=== PATIENT | male | born 1940 | race American Indian/Alaskan Native ===

== ENCOUNTER 2017-05-30 09:25 | Day surgery (SDC) | payer MEDICARE ==
[2017-05-25 13:18] VITALS: BMI 32.3
--- NOTE | 2017-05-30 10:18 | CP.SDSHP ---
Same Day Surgery H & P - History Proposed Procedure: liver Bx. Pre-Op Diagnosis: liver masses ,hx of prostat cancer. - Previous Medical/Surgical History Cardiac: Hypertension, ASHD/CAD Endocrine/Metabolic: Obesity, Renal Disease Neuro: Backaches Previous Surgical History: cystoscopy,cardiac cathleft nephrectomy. - Allergies Allergies: Allergies No Known Allergies Allergy (Verified 03/20/17 21:28) - Physical Exam General Appearance: WNL. Vital Signs: Vital Signs 05/30/17 09:45 Temperature 97.5 F L Pulse Rate 75 Respiratory 18 Rate Blood Pressure 177/98 H O2 Sat by Pulse 97 Oximetry Mental Status: Alert & Oriented x3 Neuro: WNL Heart: WNL Lungs: WNL GI: Other (DISTENDED ABDOMEN.) - {Optional Preform as Required} Other Pertinent Findings: prostat cancer,hyperlipidemia. - Impression Impression: liver masses hx of prostat cancer. - Date & Time Date: 05/30/17 Time: 10:18 Short Stay Discharge - Short Stay Discharge Admitting Diagnosis/Reason for Visit: LIVER LESION K76.89 Disposition: HOME/ ROUTINE
[2017-05-30] MEDS ORDERED: Midazolam 2 MG/2 ML VIAL ONE (12:52)
[2017-05-30] MEDS ORDERED: Oxycodone/Acetaminophen 5/325 mg Tab PO PRN (13:24)
[2017-05-30] MEDS ORDERED: Sodium Chloride 0.45% 1,000 ML IV SCH (13:30)
[2017-05-30] MEDS ORDERED: Oxycodone/Acetaminophen 5/325 mg Tab ONE (13:44)
[2017-05-30] MEDS ORDERED: Oxycodone/Acetaminophen 5/325 mg Tab PO ONE (13:45)
[2017-05-30 14:25] VITALS: RESP 18
[2017-05-30 14:43] VITALS: TEMP 98.7
[2017-05-30 15:55] VITALS: BP 158/78; PULSE 83; O2SAT 95
--- NOTE | 2017-05-30 20:12 | CT ---
PROCEDURE: CT guided liver biopsy. HISTORY: Renal cell carcinoma. Prostate carcinoma. Diffuse metastatic disease in the liver. Needs biopsy. PHYSICIAN(S): Shantanu Adkins MD. TECHNIQUE: The relative risks and indications of the procedure were explained to the patient and consent obtained. The patient was placed supine on the CT scanner and preliminary images through the liver obtained. Conscious sedation and monitoring were provided throughout the procedure by a nurse. There are confluent low-attenuation lesions in both lobes of the liver.. A right oblique approach was selected and the area prepped and draped in the usual sterile fashion. 1% Xylocaine was used to anesthetize the skin and soft tissues. A 17-gauge guiding needle was advanced into the anterior segment right lobe of the liver.. Its position was confirmed with CT. Using coaxial technique, multiple core biopsies were obtained. The postprocedure images show no evidence of significant hemorrhage. IMPRESSION: 1. CT-guided liver biopsy as described above.
== END 2017-05-30 16:09 | disposition home or self-care (01) ==
LOC: SDS 09:25
PROVIDERS: ATTEND Radiology Vascular & Interventional Radiology
DX: C78.7 Secondary malignant neoplasm of liver and intrahepatic bile duct (principal); I10 Essential (primary) hypertension; I25.10 Atherosclerotic heart disease of native coronary artery without angina pectoris; E66.9 Obesity, unspecified; N28.9 Disorder of kidney and ureter, unspecified; M54.9 Dorsalgia, unspecified; Z90.5 Acquired absence of kidney; E78.5 Hyperlipidemia, unspecified; Z85.46 Personal history of malignant neoplasm of prostate; Z85.528 Personal history of other malignant neoplasm of kidney
CPT/HCPCS: 47000; 77012; 88307; J2250; J2405; J3010; J7030

== ENCOUNTER 2017-06-12 16:47 | Observation (INO) | payer MEDICARE, OTHER ==
[2017-06-12 16:56] VITALS: BMI 31.1
[2017-06-12] MEDS ORDERED: Morphine 4 mg/ml ISec IVP STA (17:56)
--- NOTE | 2017-06-12 18:14 | ED PDOC ---
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 Patient states that for the past three weeks he has been having back pain and abdominal pain which has progressively been getting worse. Patient's friend is at bedside and she states that when she came to see him yesterday, his legs were swollen and he was not acting himself. Pt has been having n/v/d at home, but denies constipation. He further admits to recently having a cough. Finally, pt states that he straight caths himself, and also admits to mild hematuria. (Stalin Ellis) Past Medical History - Provider Review Nursing Documentation Reviewed: Yes - Travel History Have you recently traveled outside [place] w/in the past 3 mons?: No - Infectious Disease Hx of Infectious Diseases: None - Reproductive Currently : No - Cardiac Hx Hypertension: Yes Hx Pacemaker: No - Pulmonary Hx Respiratory Disorders: No - Neurological Hx Paralysis: No - HEENT Hx HEENT Disorder: Yes Hx Cataracts: Yes (LEFT IOL) - Endocrine/Metabolic Hx Endocrine Disorders: No - Hematological/Oncological Hx Blood Transfusions: No Hx Cancer: Yes (Prostate CA) - Integumentary Hx Dermatological Disorder: No - Musculoskeletal/Rheumatological Hx Musculoskeletal Disorders: Yes - Gastrointestinal Hx Gastrointestinal Disorders: Yes Hx Gastroesophageal Reflux: Yes (Takes Prevacid PRN. Last taken a month ago.) - Genitourinary/Gynecological Hx Genitourinary Disorders: Yes Hx Incontinence: Yes Hx Prostate Cancer: Yes Hx Prostate Problems: Yes Other/Comment: "Urine flow, not good" - Psychiatric Hx Emotional Abuse: No Hx Physical Abuse: No Hx Substance Use: No - Surgical History Hx Appendectomy: Yes - Anesthesia Hx Anesthesia: Yes Hx Anesthesia Reactions: No Hx Malignant Hyperthermia: No - Suicidal Assessment Feels Threatened In Home Enviroment: No Family/Social History Family/Social History: Hypertension Smoking Status: Never Smoked Hx Alcohol Use: No Hx Substance Use: No Allergies/Home Meds Allergies/Adverse Reactions: Allergies No Known Allergies Allergy (Verified 03/20/17 21:28) Home Medications: Home Meds Medication Instructions Recorded Confirmed Metoprolol Tartrate [Lopressor] 50 mg PO DAILY 11/08/16 06/12/17 Simvastatin 10 mg PO DAILY 11/08/16 06/12/17 Megestrol [Megace] 40 mg PO DAILY 03/20/17 06/12/17 Acetaminophen with Codeine 1 tab PO Q4H PRN 05/25/17 06/12/17 [Tylenol with Codeine #3 Tablet] Aspirin [Lo-Dose Aspirin EC] 81 mg PO DAILY 05/25/17 06/12/17 oxyCODONE [oxyCONTIN Extended 10 mg PO Q8H PRN 05/25/17 06/12/17 Release Tab] Prednisone [Deltasone] 1 tab PO DAILY 06/12/17 06/12/17 oxyCODONE/Acetaminophen [Percocet 1 tab PO DAILY 06/12/17 06/12/17 5/325 mg Tab] Review of Systems - Physician Review All systems were reviewed & negative as marked: Yes - Review of Systems Constitutional: Weight Change Eyes: Normal ENT: Normal Respiratory: SOB, Cough Cardiovascular: Chest Pain, LOVE Gastrointestinal: Abdominal Pain, Diarrhea, Nausea, Vomiting Genitourinary Male: Hematuria. absent: Dysuria, Frequency (Patient straight caths himself) Musculoskeletal: Normal Skin: Normal Neurological: Headache. absent: Dizziness, Focal Weakness, Gait Changes Endocrine: Normal Hemo/Lymphatic: Normal Psychiatric: Normal Physical Exam Vital Signs Reviewed: Yes Temperature: Afebrile Blood Pressure: Hypertensive Pulse: Regular Respiratory Rate: Normal Appearance: Positive for: Well-Appearing, Non-Toxic, Comfortable Pain Distress: None Mental Status: Positive for: Alert and Oriented X 3 - Systems Exam Head: Present: Atraumatic, Normocephalic. No: Tenderness Pupils: Present: PERRL. No: Sluggish, Non-Reactive, Pinpoint Extroacular Muscles: Present: EOMI. No: Gaze Palsy, Entrapment Conjunctiva: Present: Icteric Ears: Present: NORMAL TM, Normal Canal. No: TM Bulging Mouth: Present: Moist Mucous Membranes Nose (External): Present: Atraumatic. No: Contusion, Laceration Nose (Internal): Present: Normal Inspection. No: Rhinorrhea Neck: Present: Normal Range of Motion. No: MIDLINE TENDERNESS Respiratory/Chest: Present: Clear to Auscultation. No: Respiratory Distress, Accessory Muscle Use Cardiovascular: Present: Regular Rate and Rhythm, Normal S1, S2. No: Murmurs Abdomen: Present: Tenderness, Distention, Normal Bowel Sounds. No: Peritoneal Signs, Rebound, Guarding (RUQ distention, rigidity, tenderness; not a surgical abdomen, though) Genitourinary Male: Present: Circumcised Penis. No: Testicle Tenderness, Testicle Swelling Back: Present: Normal Inspection, CVA Tenderness, Paraspinal Tenderness. No: Pain with Leg Raise, Decubitus Ulcer Upper Extremity: Present: Normal Inspection. No: Cyanosis, Edema Lower Extremity: Present: Edema, CALF TENDERNESS, NORMAL PULSES, Normal ROM. No : Cyanosis Neurological: Present: GCS=15, CN II-XII Intact. No: Speech Normal (Pt's speech is a little sluggish) Skin: Present: Warm, Normal Color Psychiatric: Present: Alert, Oriented x 3, Normal Insight, Normal Concentration Medical Decision Making ED Course and Treatment: 06/12/17 18:31 Impression: 6 M w PMHx significant for metastatic prostate cancer to the liver and kidneys s /p nephrectomy, HTN, and HLD presents with complaint of RUQ abdominal pain, right sided back pain, headache, and LE swelling and pain. Suspicion of Hepatorenal disease causing ascites. Plan: -- Ammonia, CBC, CMP -- CT w/o Contrast of Abdomen -- B/l LE Venous Doppler -- VBG Shock Panel -- Mg/phos -- CXR -- Cardiac ISO's -- Morphine -- BNP -- -- --Reassess Prior Visits: Notes and results from previous visits were reviewed. (Stalin Ellis) 06/12/17 19:03 76 yo male c/o abdominal pain for several weeks associated with right back pain , headcahe and lower extremity swelling. r/o Ascites, Hepatorenal failure -- labs -- CXR, EKG -- CT abd/pelv -- LE sonos -- reeval and dispo Signed out to Dr. Mario to f/u labs, UA, CT, CXR, Sonos, Reeevaluate and disposition (Gabo Toth) - Lab Interpretations Lab Results: 06/12/17 18:05 06/12/17 18:05 Lab Results 06/12/17 18:57: pO2 32, VBG pH 7.26 L, VBG pCO2 51.0, VBG HCO3 22.9, VBG Total CO2 24.5, VBG O2 Sat (Calc) 52.5, VBG Base Excess -4.6 L, VBG Potassium 5.7 H, Glucose 95, Lactate 3.4 H, FiO2 21.0, Sodium 140.0, Chloride 105.0, Venous Blood Potassium 5.7 H 06/12/17 18:05: Sodium 143, Potassium 4.8, Chloride 105, Carbon Dioxide 22, Anion Gap 21 H, BUN 27 H, Creatinine 1.5 H, Est GFR ( Amer) 55, Est GFR ( Non-Af Amer) 46, Random Glucose 92, Calcium 10.6 H, Phosphorus 3.4, Magnesium 2.4 H, Total Bilirubin 4.4 H, AST 289 H, ALT 189 H, Alkaline Phosphatase 575 H, Lactate Dehydrogenase 3305 H, Total Creatine Kinase 462 H, CK-MB (CK-2) Pending , CK-MB (CK-2) % Pending, Troponin I Pending, NT-Pro-B Natriuret Pep Pending, Total Protein 8.1, Albumin 4.2, Globulin 4.0, Albumin/Globulin Ratio 1.1 06/12/17 18:05: WBC 9.0, RBC 3.89, Hgb 12.0 L, Hct 35.4 L, MCV 91.0, MCH 30.8, MCHC 33.9, RDW 16.4 H, Plt Count 263, MPV 11.4 H, Gran % 86.4 H, Lymph % (Auto) 6.8 L, [place] % (Auto) 6.6 H, Eos % (Auto) 0.1 L, Baso % (Auto) 0.1, Gran # 7.76 H , Lymph # 0.6 L, [place] # 0.6, Eos # 0.0, Baso # 0.01 - RAD Interpretation Radiology Orders: 06/12/17 17:56 DUPLEX LOWER EXTRM VEIN BILAT [US] Stat 06/12/17 18:01 ABDOMEN W/O CONTRAST [CT] Stat 06/12/17 18:28 CHEST PORTABLE [RAD] Stat - Medication Orders Current Medication Orders: Discontinued Medications Docusate Sodium (Colace) 100 mg PO STAT STA Stop: 06/12/17 17:57 Last Admin: 06/12/17 18:24 Dose: 100 mg Morphine Sulfate (Morphine) 4 mg IVP STAT STA Stop: 06/12/17 17:57 Last Admin: 06/12/17 18:24 Dose: 4 mg Disposition/Present on Arrival - Present on Arrival Any Indicators Present on Arrival: No History of DVT/PE: No History of Uncontrolled Diabetes: No Urinary Catheter: No History of Decub. Ulcer: No History Surgical Site Infection Following: None - Disposition Have Diagnosis and Disposition been Completed?: No Disposition Time: 19:02 - Disposition Diagnosis: Abdominal pain Condition: GUARDED Forms: mobintent ([place])
[2017-06-12 18:34] LABS: BASO # 0.01 K/mm3 (0.0-2.0); BASO % 0.1 % (0.0-3.0); EOS % 0.1 % (1.5-5.0); GRAN # 7.76 (1.4-6.5); GRAN % 86.4 % (50.0-68.0); HEMATOCRIT 35.4 % (42.0-52.0); LYMPH # 0.6 (1.2-3.4); LYMPH % 6.8 % (22.0-35.0); MEAN CORPUSCULAR HEMOGLOBIN 30.8 pg (25.0-35.0); MEAN CORPUSCULAR HGB CONC 33.9 g/dl (31.0-37.0); MEAN PLATELET VOLUME 11.4 fl (7.0-11.0); MONO # 0.6 (0.1-0.6); MONO % 6.6 % (1.0-6.0); RED CELL DISTRIBUTION WIDTH 16.4 % (11.5-14.5)
[2017-06-12 18:42] LABS: BLOOD UREA NITROGEN 27 mg/dL (7-21); CALCIUM 10.6 mg/dL (8.4-10.5); CARBON DIOXIDE 22 mmol/L (21-33); CHLORIDE 105 mmol/L (98-107); PHOSPHOROUS 3.4 mg/dL (2.5-4.5)
[2017-06-12 18:49] LABS: ALB/GLOB RATIO 1.1 (1.1-1.8); ALKALINE PHOSPHATASE 575 U/L (38-133); ALT/SGPT 189 U/L (7-56); AST/SGOT 289 U/L (15-59); BILIRUBIN,TOTAL 4.4 mg/dL (0.2-1.3); GFR AFRICAN-AMERICAN 55; GLUCOSE,RANDOM 92 mg/dL (70-110); MAGNESIUM 2.4 mg/dL (1.7-2.2); POTASSIUM 4.8 mmol/L (3.6-5.0); SODIUM 143 mmol/L (132-148); TOTAL PROTEIN 8.1 g/dL (5.8-8.3)
[2017-06-12 19:00] LABS: VENOUS BLOOD GAS BASE EXCESS -4.6 mmol/L (0.0-2.0); VENOUS BLOOD PH 7.26 (7.32-7.43)
[2017-06-12 19:07] LABS: TROPONIN I < 0.01 ng/mL
--- NOTE | 2017-06-12 20:11 | US ---
HISTORY: Leg pain and swelling. Evaluate for DVT PHYSICIAN(S): Shantanu Adkins MD. TECHNIQUE: Duplex sonography and color-flow Doppler with graded compression were used to evaluate the deep venous systems of both lower extremities. FINDINGS: The visualized deep venous systems of both lower extremities are sonographically normal and compressible. Normal wave forms and augmentation are seen. There is no sonographic evidence for deep venous thrombosis in the visualized segments of both lower extremities. IMPRESSION: No sonographic evidence for deep venous thrombosis in the visualized segments of both lower extremities.
--- NOTE | 2017-06-12 21:24 | CT ---
EXAM: CT Abdomen and Pelvis Without Intravenous Contrast EXAM DATE/TIME: 06/12/2017 6:01 PM CLINICAL HISTORY: 76 years old, male; Pain; Abdominal pain; Acute; Additional info: Ruq distention and pain TECHNIQUE: Axial computed tomography images of the abdomen and pelvis without intravenous contrast. All CT scans at this facility use one or more dose reduction techniques, viz.: automated exposure control; ma/kV adjustment per patient size (including targeted exams where dose is matched to indication; i.e. head); or iterative reconstruction technique. Coronal and sagittal reformatted images were created and reviewed. COMPARISON: CT GUIDED LIVER BIOPSY 05/30/2017 1:04:19 PM FINDINGS: LOWER THORAX: Emphysematous changes in the lung bases. ABDOMEN: LIVER: Cirrhotic appearance of the liver. Diffusely heterogeneous appearance of the liver on this unenhanced exam, suspicious for multiple indeterminate liver lesions. 3 small low density lesions in the liver. The largest of these, located in the medial segment of the left lobe, measures 1.8 cm. Most likely, these represent cysts. GALLBLADDER AND BILE DUCTS:No CT evidence of acute cholecystitis. No evidence of significant biliary ductal dilatation. No evidence of significant pericholecystic inflammatory changes. No radioopaque gallstones are seen. PANCREAS: Scattered, tiny pancreatic calcifications, which may be related to chronic pancreatitis. No CT evidence of acute pancreatitis. No evidence peripancreatic fluid collections. SPLEEN: 4.4 cm fluid density/cystic lesion in the spleen. This is smooth, peripherally calcified margins. There appear to be 2, adjacent smaller cysts, similar in appearance, also with smooth, peripherally calcified margins, the larger measuring 1.6 cm. No evidence of internal soft tissue components. Spleen is normal in size. ADRENALS: No acute abnormality of the adrenal glands identified. KIDNEYS AND URETERS: Right kidney is not seen, and is presumably surgically absent. No acute abnormality of the left kidney identified. STOMACH AND BOWEL: No acute abnormality of the stomach, small bowel or colon identified. No evidence of bowel obstruction. APPENDIX: Normal appendix is not seen, however, there are no significant inflammatory changes visualized in the expected location of the appendix to suggest appendicitis. Recommend clinical correlation. PELVIS: BLADDER: Mild bladder wall thickening. Air in the bladder lumen, presumably iatrogenic. Recommend clinical correlation. REPRODUCTIVE: Brachytherapy seeds noted in the prostate gland. ABDOMEN and PELVIS: INTRAPERITONEAL SPACE: Small amount of pelvic free fluid. This has a density compatible with simple fluid rather than hemorrhage. Faint high density material in the gallbladder, which could represent sludge. Small amount of pericholecystic fluid, most likely related to the generalized abdominal free fluid. Small amount of abdominal free fluid, abutting the liver. No evidence of free air. No evidence of significant hemoperitoneum.. RETROPERITONEAL SPACE: Small amount of diffuse fluid in the retroperitoneal space, primarily in the pelvis. No evidence of retroperitoneal hemorrhage. BONES/JOINTS: 4 cm focal area of sclerosis in the right iliac wing medially. Additional 1.6 cm focal area of sclerosis in the right ischium, image 155/series 2, involving the posterior wall of right acetabulum. There is also diffuse sclerosis of the L4 vertebra. Findings are suspicious for sclerotic bone metastases. No acute fractures or other acute bony abnormality visualized. SOFT TISSUES: Mild edema of the periumbilical soft tissues. No evidence of focal soft tissue fluid collection. VASCULATURE: No evidence of abdominal aortic aneurysm. No evidence of periaortic hemorrhage. LYMPH NODES: No evidence of diffuse lymphadenopathy. IMPRESSION: - Small amount pelvic and abdominal free fluid. - Small amount of diffuse retroperitoneal fluid, with no evidence of retroperitoneal hemorrhage. - Bladder wall thickening. This is a nonspecific finding, but can be seen with cystitis. - Otherwise, no evidence of significant acute process. - Heterogeneous appearance of the liver on this unenhanced exam, suspicious for diffuse indeterminate liver lesions, such as liver metastases. Liver is cirrhotic in appearance. - Sclerotic bony lesions, suspicious for sclerotic bony metastases. - Multiple peripherally calcified, well defined splenic cysts, the largest measuring 4.4 cm. Most likely, these are post traumatic in etiology. Hydatid cysts are considered less likely, but not excluded. - See above for remaining findings.
[2017-06-12 22:06] LABS: VENOUS BLOOD GAS BASE EXCESS -6.9 mmol/L (0.0-2.0); VENOUS BLOOD PH 7.29 (7.32-7.43)
--- NOTE | 2017-06-12 22:06 | ED PDOC ---
Physical Exam Vital Signs Temp Pulse Resp BP Pulse Ox 06/12/17 16:57 97.7 F 85 18 145/93 H 96 Medical Decision Making ED Course and Treatment: 06/13/17 01:16 case d/w dr mendoza accepts case medical office assistant notified - Lab Interpretations Lab Results: 06/12/17 18:05 06/12/17 18:05 Lab Results 06/12/17 18:57: pO2 32, VBG pH 7.26 L, VBG pCO2 51.0, VBG HCO3 22.9, VBG Total CO2 24.5, VBG O2 Sat (Calc) 52.5, VBG Base Excess -4.6 L, VBG Potassium 5.7 H, Glucose 95, Lactate 3.4 H, FiO2 21.0, Sodium 140.0, Chloride 105.0, Venous Blood Potassium 5.7 H 06/12/17 18:05: Sodium 143, Potassium 4.8, Chloride 105, Carbon Dioxide 22, Anion Gap 21 H, BUN 27 H, Creatinine 1.5 H, Est GFR ( Amer) 55, Est GFR ( Non-Af Amer) 46, Random Glucose 92, Calcium 10.6 H, Phosphorus 3.4, Magnesium 2.4 H, Total Bilirubin 4.4 H, AST 289 H, ALT 189 H, Alkaline Phosphatase 575 H, Lactate Dehydrogenase 3305 H, Total Creatine Kinase 462 H, CK-MB (CK-2) 1.6, CK- MB (CK-2) % Cancelled, Troponin I < 0.01, NT-Pro-B Natriuret Pep 403, Total Protein 8.1, Albumin 4.2, Globulin 4.0, Albumin/Globulin Ratio 1.1 06/12/17 18:05: WBC 9.0, RBC 3.89, Hgb 12.0 L, Hct 35.4 L, MCV 91.0, MCH 30.8, MCHC 33.9, RDW 16.4 H, Plt Count 263, MPV 11.4 H, Gran % 86.4 H, Lymph % (Auto) 6.8 L, [place] % (Auto) 6.6 H, Eos % (Auto) 0.1 L, Baso % (Auto) 0.1, Gran # 7.76 H , Lymph # 0.6 L, [place] # 0.6, Eos # 0.0, Baso # 0.01 - RAD Interpretation Radiology Orders: 06/12/17 17:56 DUPLEX LOWER EXTRM VEIN BILAT [US] Stat 06/12/17 18:01 ABD & PELVIS W/O PO OR IV CONT [CT] Stat 06/12/17 18:28 CHEST ONE VIEW [RAD] Stat - Medication Orders Current Medication Orders: Discontinued Medications Docusate Sodium (Colace) 100 mg PO STAT STA Stop: 06/12/17 17:57 Last Admin: 06/12/17 18:24 Dose: 100 mg Morphine Sulfate (Morphine) 4 mg IVP STAT STA Stop: 06/12/17 17:57 Last Admin: 06/12/17 18:24 Dose: 4 mg Disposition/Present on Arrival - Present on Arrival Any Indicators Present on Arrival: No History of DVT/PE: No History of Uncontrolled Diabetes: No Urinary Catheter: No History of Decub. Ulcer: No History Surgical Site Infection Following: None - Disposition Have Diagnosis and Disposition been Completed?: Yes Diagnosis: Abdominal pain Disposition: HOSPITALIZED Disposition Time: 22:00 Patient Problems: Current Active Problems Problem Status Onset Abdominal pain Acute Condition: GUARDED
[2017-06-12] MEDS ORDERED: Sodium Chloride 0.9% 1,000 ML IV SCH (22:15)
[2017-06-13] MEDS ORDERED: Sodium Chloride 0.9% 1,000 ML IV SCH (00:40)
[2017-06-13] MEDS ORDERED: Pantoprazole 40 mg EC Tab PO STA (01:04)
--- NOTE | 2017-06-13 02:24 | CP.PCM.HP ---
Addendum entered and electronically signed by Jake Melton DO 06/13/17 14:07: Patient's doctors office contacted. Patient is not taking prednisone so will d/ c at this time. Look for s/sxs of adrenal insufficiency. New medication list is updated. PMD: Ata Dumont [phone] Patients Specialists are as follows: Dr. Darius Zurita Urologist Original Note: <Darius Triplett - Last Filed: 06/13/17 10:06> History of Present Illness - History of Present Illness History of Present Illness: Darius Triplett PGY1 H&P Note for Dr. Montalvo Mr. Velasco is a 76 year old male with significant PMH for prostate CA with mets to liver and kidney, R nephrectomy, HTN, and HLD, who reports a 3 week history of worsening R sided abdominal pain wrapping around to the back that has been constant and sharp in nature, currently rated 8/10. Patient is a poor historian. Patient additionally reports 2-3 day history of nausea, vomiting, and mild diarrhea, and states that when he tries to swallow water, it comes back up. Pt additionally notes that he has had diffuse body aches, swelling to both legs (R>L), subjective fevers and chills and dyspnea. He states that he had cold symptoms a few days ago, but none since. He denies blurry vision, runny nose, chest pain, palpitations, hematemsis, hematochezia and headache. Pt is poor historian, but 10-point ROS was reviewed and significant as mentioned above. PMH: prostate CA with mets to the liver and kidney, HTN, HLD PSH: R nephrectomy (pt was unsure about which kidney was removed) Meds: Percocet, Deltasone, Lopressor, ASA, Oxycontin, Simvastatin, Megace, Tylenol #3 Allergies: NKDA Family hx: HTN Social hx: - denies smoking, EtOH, or recreational drugs - lives alone - uses walker for assistance Oncologist: pt states [address] but unsure of name Present on Admission - Present on Admission Any Indicators Present on Admission: No History of DVT/PE: No History of Uncontrolled Diabetes: No Review of Systems - Review of Systems Systems not reviewed;Unavailable: Other (pt is poor historian ) All systems: reviewed and no additional remarkable complaints except (as per HPI ) Past Patient History - Infectious Disease Hx of Infectious Diseases: None - Past Medical History & Family History Past Medical History?: Yes - Past Social History Smoking Status: Never Smoked Alcohol: None Drugs: Denies - CARDIAC Hx Cardiac Disorders: Yes Hx Hypertension: Yes Hx Pacemaker: No - PULMONARY Hx Respiratory Disorders: No - NEUROLOGICAL Hx Neurological Disorder: No Hx Paralysis: No - HEENT Hx HEENT Problems: Yes Hx Cataracts: Yes (LEFT IOL) - RENAL Hx Chronic Kidney Disease: No - ENDOCRINE/METABOLIC Hx Endocrine Disorders: No - HEMATOLOGICAL/ONCOLOGICAL Hx Blood Transfusions: No Hx Cancer: Yes (Prostate CA w/ mets to liver and kidney) - INTEGUMENTARY Hx Dermatological Problems: No - MUSCULOSKELETAL/RHEUMATOLOGICAL Hx Musculoskeletal Disorders: No - GENITOURINARY/GYNECOLOGICAL Hx Genitourinary Disorders: Yes Hx Prostate Cancer: Yes Hx Prostate Problems: Yes - PSYCHIATRIC Hx Emotional Abuse: No Hx Physical Abuse: No Hx Substance Use: No - ANESTHESIA Hx Anesthesia: Yes Hx Anesthesia Reactions: No Hx Malignant Hyperthermia: No Meds Allergies/Adverse Reactions: Allergies Allergy/AdvReac Type Severity Reaction Status Date / Time No Known Allergies Allergy Verified 06/29/17 14:06 Physical Exam - Constitutional Appears: Well, No Acute Distress - Head Exam Head Exam: ATRAUMATIC, NORMAL INSPECTION, NORMOCEPHALIC - Eye Exam Eye Exam: EOMI, PERRL, Scleral icterus - ENT Exam ENT Exam: Mucous Membranes Dry Additional comments: +oral thrush, +dark discoloration of tongue - Respiratory Exam Respiratory Exam: Clear to Auscultation Bilateral, NORMAL BREATHING PATTERN. absent: Accessory Muscle Use, Rales, Rhonchi, Wheezes, Respiratory Distress - Cardiovascular Exam Cardiovascular Exam: RRR, +S1, +S2 - GI/Abdominal Exam GI & Abdominal Exam: Firm, Hypoactive Bowel Sounds, Soft, Tenderness (RLQ and RUQ ). absent: Guarding, Rebound, Rigid Additional comments: midline suprapubic scar and RLQ incision scar - Extremities Exam Extremities exam: Positive for: pedal edema (2+), pedal pulses present. Negative for: calf tenderness, tenderness Additional comments: RLE subjective pain but not tender to palpation - Back Exam Back exam: NORMAL INSPECTION. absent: CVA tenderness (L), CVA tenderness (R), tenderness - Neurological Exam Neurological exam: Alert, Oriented x3 - Psychiatric Exam Psychiatric exam: Anxious, Normal Affect, Normal Mood - Skin Skin Exam: Normal Color, Warm Results - Vital Signs Recent Vital Signs: Last Vital Signs Temp 97.7 F 06/12/17 16:57 Pulse 78 06/12/17 23:14 Resp 18 06/12/17 23:14 BP 162/85 H 06/12/17 23:14 Pulse Ox 98 06/12/17 23:14 - Labs Result Diagrams: 06/12/17 18:05 06/12/17 18:05 Labs: Laboratory Results - last 24 hr 06/12/17 22:25 Ammonia < 9 L Assessment & Plan - Assessment and Plan (Free Text) Assessment: 76 year old male with significant PMH for prostate CA with mets to liver and kidney, R nephrectomy, HTN, and HLD, who reports 3 week history of worsening R sided abdominal pain. In ED, pt was given morphine for the pain but still complained of pain. Plan: 1. Abdominal/back pain likely due to liver mets - CT abdomen/pelvis showed 3 low density heterogenous lesions in liver (largest 1.8cm), scattered pancreatic calcifications (likely chronic pancreatitis), 4.4cm cystic lesion, absent R kidney, pelvic and abdominal free fluid, bladder wall thickening, focal areas of sclerosis in ischium and vertebrae likely due to bone mets - pain mgmt: cont home meds oxyocodone and percocet - zofran prn n/v - started on puree diet, monitor if tolerating 2. Prostate Ca w/ mets - bladder scan ordered; post-void residual 233cc communicated by nurse to PGY1 public relations analyst - ballesteros catheter to be placed - attempt to contact Oncologist and find out accurate Onc hx - megace for appetite enhancement 3. transaminitis likely 2/2 liver mets - monitor LFT's - avoid hepatotoxic meds 4. Lactic acidosis likely 2/2 malignancy - trending down from 3.4 to 2.6 with fluids - pH improved from 7.26 to 7.29 - continue hydration 5. discolored tongue likely 2/2 oral thrush - nystatin oral suspension 6. elevated Cr likely due to kidney mets and s/p nephrectomy - stable since 2015 - maintain NS 100 for hydration - ballesteros in place - avoid nephrotoxins 7. HTN -continue lopressor 8. HLD - continue lipitor Renal diet PTX/heparin Patient was evaluated and d/w attending, Dr. Katia Triplett PGY1 - Date & Time Date: 06/13/17 Time: 01:00 <Guillaume Montalvo - Last Filed: 07/27/17 16:45> Results - Vital Signs Recent Vital Signs: Last Vital Signs Temp 98.7 F 06/15/17 08:27 Pulse 74 06/15/17 17:52 Resp 20 06/15/17 08:27 BP 148/94 H 06/15/17 17:52 Pulse Ox 95 06/15/17 08:27 - Labs Result Diagrams: 06/15/17 05:50 06/15/17 05:50 Attending/Attestation - Attestation I have personally seen and examined this patient.: Yes I have fully participated in the care of the patient.: Yes I have reviewed all pertinent clinical information: Yes Notes (Text): 07/27/17 16:44 Medical record note made by the resident after discussion with my direction and input after the patient was personally seen and examined by me. I have reviewed the chart and agree that the record accurately reflects by personal performance of the history, physical exam, data review, and medical decision-making, in the course for the patient. I have also personally directed the plan of care.
[2017-06-13 07:57] LABS: INR 1.39 (0.93-1.08); PARTIAL THROMBOPLASTIN TIME 31.3 Seconds (23.7-30.8)
--- NOTE | 2017-06-13 08:00 | RAD ---
PROCEDURE: CHEST RADIOGRAPH, 1 VIEW HISTORY: sob COMPARISON: None available. FINDINGS: LUNGS: Rare diaphragm appears elevated. Obscuring the medial right hemidiaphragm margins is suggested which may be a function of limited atelectasis or infiltrate here. No left-sided infiltrate is identified. PLEURA: No pneumothorax or pleural fluid seen. CARDIOVASCULAR: Borderline cardiomegaly is noted OSSEOUS STRUCTURES: No significant abnormalities. VISUALIZED UPPER ABDOMEN: Normal. OTHER FINDINGS: None. IMPRESSION: Borderline cardiomegaly. No pulmonary vascular derangement however. Elevated right hemidiaphragm. Medial right basilar atelectasis or infiltrate. Likely correlate
[2017-06-13 09:58] LABS: VENOUS BLOOD GAS BASE EXCESS -5.9 mmol/L (0.0-2.0)
[2017-06-13 10:07] LABS: BILIRUBIN,DIRECT 3.3 mg/dL (0.0-0.4)
[2017-06-13 10:21] LABS: TROPONIN I < 0.01 ng/mL
[2017-06-13] MEDS: Oxycodone/Acetaminophen 5/325 mg Tab PO SCH (11:53)
[2017-06-13] MEDS: Nystatin 100,000 Units/ml Oral Susp 5 ml UD PO SCH ×4 (12:05→21:24)
[2017-06-13] MEDS: Sodium Chloride 0.9% 1,000 ML IV SCH ×2 (12:05→15:11)
--- NOTE | 2017-06-13 12:27 | CARD ---
APPROVED REPORT EKG Measurement Heart [id number] <Conclusion> Normal sinus rhythm T wave abnormality, consider anterior ischemia Abnormal ECG
--- NOTE | 2017-06-13 13:19 | CT ---
PROCEDURE: CT HEAD WITHOUT CONTRAST. HISTORY: ?ams, hx metastatic ca COMPARISON: None available. TECHNIQUE: Axial computed tomography images were obtained through the head/brain without intravenous contrast. Radiation dose: Total exam DLP = 758 mGy-cm. This CT exam was performed using one or more of the following dose reduction techniques: Automated exposure control, adjustment of the mA and/or kV according to patient size, and/or use of iterative reconstruction technique. FINDINGS: HEMORRHAGE: No intracranial hemorrhage. BRAIN: No mass effect or edema. No atrophy or chronic microvascular ischemic changes. VENTRICLES: Unremarkable. No hydrocephalus. CALVARIUM: Unremarkable. PARANASAL SINUSES: Unremarkable as visualized. No significant inflammatory changes. MASTOID AIR CELLS: Unremarkable as visualized. No inflammatory changes. OTHER FINDINGS: None. IMPRESSION: No acute fine
[2017-06-13] MEDS: POLYETHYLENE GLYCOL 3350 17 GM/Dose PACKET PO SCH (15:09)
[2017-06-13] MEDS: oxyCODONE 10 mg Immediate Release Tab PO PRN (15:10)
[2017-06-13 21:52] LABS: TESTOSTERONE 13.4 ng/mL
[2017-06-14] MEDS: Sodium Chloride 0.9% 1,000 ML IV SCH ×2 (00:38→10:14)
[2017-06-14 02:51] LABS: VENOUS BLOOD GAS BASE EXCESS -4.8 mmol/L (0.0-2.0); VENOUS BLOOD PH 7.37 (7.32-7.43)
[2017-06-14] MEDS: Pantoprazole 40 mg EC Tab PO SCH (05:01)
[2017-06-14 07:59] LABS: HEMATOCRIT 33.9 % (42.0-52.0); MEAN CELL VOLUME 90.9 fl (80.0-105.0); MEAN CORPUSCULAR HEMOGLOBIN 30.6 pg (25.0-35.0); MEAN CORPUSCULAR HGB CONC 33.6 g/dl (31.0-37.0); RED CELL DISTRIBUTION WIDTH 16.9 % (11.5-14.5); WHITE BLOOD COUNT 9.6 10^3/ul (4.5-11.0)
[2017-06-14 08:23] LABS: BILIRUBIN,TOTAL 4.4 mg/dL (0.2-1.3); CALCIUM 9.9 mg/dL (8.4-10.5); POTASSIUM 4.2 mmol/L (3.6-5.0); TOTAL PROTEIN 7.5 g/dL (5.8-8.3)
[2017-06-14 08:45] LABS: THYROID STIMULATING HORMONE 1.19 mIU/mL (0.46-4.68)
[2017-06-14 08:50] LABS: VENOUS BLOOD GAS BASE EXCESS -5.4 mmol/L (0.0-2.0); VENOUS BLOOD PH 7.31 (7.32-7.43)
[2017-06-14] MEDS: Oxycodone/Acetaminophen 5/325 mg Tab PO SCH (10:02)
[2017-06-14] MEDS: POLYETHYLENE GLYCOL 3350 17 GM/Dose PACKET PO SCH (10:03)
--- NOTE | 2017-06-14 11:44 | CP.PCM.CON ---
History of Present Illness - History of Present Illness History of Present Illness: Palliative consult requested by Clarissa Mijares Reason: Goals of care/advance care planning 76 year old male with history of advanced prostate cancer who presented with intractable pain in RUQ abdomen and right flank area.He also reported headache and lower extremity swelling. Patient also admits to having intermittent nausea, vomiting and cough for the past few weeks. CT chest/Ab/Pel. showed small amount of abdominal free fluid, small diffuse retroperitoneal fluid no evidence of hemorrhage, heterogeneous appearance of liver suspicious for metastatic lesions , sclerotic bony lesions, multiple calcified splenic cysts. CT of head was negative. US of lower extremities negative for DVT. PMHx: gouty arthropathy, metastatic prostate cancer, renal cancer s/p right nephrectomy,HTN,HLD. Social History: Former smoker,denies alcohol or drug abuse. States he is not . Family History: Unknown Advance Care Planning: the patient does not have an Advanced Directive Review of Systems: As per HPI, all other systems reviewed and are found negative Past Patient History - Infectious Disease Hx of Infectious Diseases: None - Past Medical History & Family History Past Medical History?: Yes - Past Social History Smoking Status: Never Smoked Alcohol: None Drugs: Denies - CARDIAC Hx Cardiac Disorders: Yes Hx Hypertension: Yes Hx Pacemaker: No - PULMONARY Hx Respiratory Disorders: No - NEUROLOGICAL Hx Neurological Disorder: No Hx Paralysis: No - HEENT Hx HEENT Problems: Yes Hx Cataracts: Yes (LEFT IOL) - RENAL Hx Chronic Kidney Disease: No - ENDOCRINE/METABOLIC Hx Endocrine Disorders: No - HEMATOLOGICAL/ONCOLOGICAL Hx Blood Transfusions: No Hx Cancer: Yes (Prostate CA w/ mets to liver and kidney) - INTEGUMENTARY Hx Dermatological Problems: No - MUSCULOSKELETAL/RHEUMATOLOGICAL Hx Musculoskeletal Disorders: No - GASTROINTESTINAL Hx Gastroesophageal Reflux: Yes - GENITOURINARY/GYNECOLOGICAL Hx Genitourinary Disorders: Yes Hx Prostate Cancer: Yes Hx Prostate Problems: Yes - PSYCHIATRIC Hx Emotional Abuse: No Hx Physical Abuse: No Hx Substance Use: No - SURGICAL HISTORY Hx Appendectomy: Yes - ANESTHESIA Hx Anesthesia: Yes Hx Anesthesia Reactions: No Hx Malignant Hyperthermia: No Meds Allergies/Adverse Reactions: Allergies Allergy/AdvReac Type Severity Reaction Status Date / Time No Known Allergies Allergy Verified 03/20/17 21:28 - Medications Medications: Current Medications Aspirin (Ecotrin) 81 mg PO DAILY [facility] Last Admin: 06/14/17 10:02 Dose: 81 mg Docusate Sodium (Colace) 100 mg PO TID [facility] Last Admin: 06/14/17 10:02 Dose: 100 mg Heparin Sodium (Porcine) (Heparin) 5,000 units SC Q12 [facility] PRN Reason: Protocol Last Admin: 06/14/17 10:02 Dose: 5,000 units Sodium Chloride (Sodium Chloride 0.9%) 1,000 mls @ 100 mls/hr IV .Q10H [facility] Last Admin: 06/14/17 10:14 Dose: 100 mls/hr Megestrol Acetate (Megace) 40 mg PO BID [facility] Last Admin: 06/14/17 10:02 Dose: 40 mg Metoprolol Tartrate (Lopressor) 50 mg PO BID [facility] Last Admin: 06/14/17 10:02 Dose: 50 mg Nystatin (Nystatin Oral Susp) 5 ml PO QID [facility] Last Admin: 06/13/17 21:24 Dose: 5 ml Ondansetron HCl (Zofran Inj) 4 mg IVP Q8H PRN PRN Reason: Nausea/Vomiting Oxycodone HCl (Oxycodone Immediate Release Tab) 10 mg PO Q8H PRN PRN Reason: Pain, moderate (4-7) Stop: 06/16/17 00:58 Last Admin: 06/13/17 15:10 Dose: 10 mg Oxycodone/Acetaminophen (Percocet 5/325 Mg Tab) 1 tab PO DAILY [facility] Stop: 06/16/17 10:01 Last Admin: 06/14/17 10:02 Dose: 1 tab Pantoprazole Sodium (Protonix Ec Tab) 40 mg PO 0600 [facility] Last Admin: 06/14/17 05:01 Dose: 40 mg Polyethylene Glycol (Miralax) 17 gm PO DAILY [facility] Last Admin: 06/14/17 10:03 Dose: 17 gm Prednisone (Prednisone Tab) 20 mg PO DAILY [facility] Last Admin: 06/13/17 11:57 Dose: 20 mg Sennosides (Senokot Tab) 8.6 mg PO DAILY [facility] Tamsulosin HCl (Flomax) 0.4 mg PO DAILY [facility] Physical Exam - Constitutional Appears: Chronically Ill - Head Exam Head Exam: NORMAL INSPECTION - Eye Exam Eye Exam: PERRL Additional comments: left IOL - ENT Exam ENT Exam: Mucous Membranes Moist, Normal Oropharynx - Neck Exam Neck exam: Positive for: Normal Inspection Additional comments: no JVD - Respiratory Exam Respiratory Exam: Clear to Auscultation Bilateral, NORMAL BREATHING PATTERN - Cardiovascular Exam Cardiovascular Exam: REGULAR RHYTHM, +S1 - GI/Abdominal Exam GI & Abdominal Exam: Normal Bowel Sounds, Soft Additional comments: RUQ tenderness on palpation - Extremities Exam Extremities exam: Positive for: full ROM, pedal pulses present Additional comments: 1+ bilateral lower extremity edema - Neurological Exam Neurological exam: Alert, Oriented x3 - Skin Skin Exam: Dry, Warm - Additional Findings Additional findings: Palliative performance rating 50% Results - Vital Signs Recent Vital Signs: Last Vital Signs Temp 98.2 F 06/14/17 07:00 Pulse 73 06/14/17 07:00 Resp 20 06/14/17 07:00 BP 166/92 H 06/14/17 07:00 Pulse Ox 96 06/14/17 07:00 - Labs Result Diagrams: 06/14/17 07:40 06/14/17 07:40 Labs: Laboratory Results - last 24 hr 06/13/17 06/13/17 06/14/17 15:40 15:40 02:35 WBC RBC Hgb Hct MCV MCH MCHC RDW Plt Count MPV pO2 92 H 59 H VBG pH 7.40 7.37 VBG pCO2 32.0 L 34.0 L VBG HCO3 19.8 L 19.7 L VBG Total CO2 20.8 L 20.7 L VBG O2 Sat (Calc) 99.4 H 92.8 H VBG Base Excess -4.0 L -4.8 L VBG Potassium 4.3 4.8 Sodium 139.0 140.0 Chloride 108.0 H 109.0 H Glucose 108 98 Lactate 2.5 H 2.5 H FiO2 21.0 21.0 Potassium Carbon Dioxide Anion Gap BUN Creatinine Est GFR ( Amer) Est GFR (Non-Af Amer) Random Glucose Calcium Total Bilirubin AST ALT Alkaline Phosphatase Total Protein Albumin Globulin Albumin/Globulin Ratio CA 125 Antigen 131 H Prostate Specific Ag TSH 3rd Generation Testosterone Level 13.4 Venous Blood Potassium 4.3 4.8 06/14/17 06/14/17 06/14/17 07:40 07:40 07:40 WBC 9.6 RBC 3.73 Hgb 11.4 L Hct 33.9 L MCV 90.9 MCH 30.6 MCHC 33.6 RDW 16.9 H Plt Count 226 MPV 12.0 H pO2 VBG pH VBG pCO2 VBG HCO3 VBG Total CO2 VBG O2 Sat (Calc) VBG Base Excess VBG Potassium Sodium 143 Chloride 109 H Glucose Lactate FiO2 Potassium 4.2 Carbon Dioxide 20 L Anion Gap 18 BUN 24 H Creatinine 1.4 Est GFR ( Amer) 60 Est GFR (Non-Af Amer) 50 Random Glucose 94 Calcium 9.9 Total Bilirubin 4.4 H AST 261 H ALT 183 H Alkaline Phosphatase 480 H Total Protein 7.5 Albumin 3.7 Globulin 3.8 Albumin/Globulin Ratio 1.0 L CA 125 Antigen Prostate Specific Ag 586.0 H TSH 3rd Generation 1.19 Testosterone Level Venous Blood Potassium 06/14/17 07:40 WBC RBC Hgb Hct MCV MCH MCHC RDW Plt Count MPV pO2 40 VBG pH 7.31 L VBG pCO2 41.0 VBG HCO3 20.6 L VBG Total CO2 21.9 L VBG O2 Sat (Calc) 74.6 H VBG Base Excess -5.4 L VBG Potassium Sodium 141.0 Chloride 109.0 H Glucose 96 Lactate 3.1 H FiO2 21.0 Potassium Carbon Dioxide Anion Gap BUN Creatinine Est GFR ( Amer) Est GFR (Non-Af Amer) Random Glucose Calcium Total Bilirubin AST ALT Alkaline Phosphatase Total Protein Albumin Globulin Albumin/Globulin Ratio CA 125 Antigen Prostate Specific Ag TSH 3rd Generation Testosterone Level Venous Blood Potassium Assessment & Plan - Assessment and Plan (Free Text) Assessment: 76 year old male with history of metastatic prostate cancer, renal cancer s/p nephrectomy who was admitted with RUQ abdominal pain/right flank pain and lower extremity swelling. The patient is seen in bed. He is alert and oriented to self and place. He takes a while to respond to questions when asked. He is a poor historian when describing his medical history and treatment. When asked who helps him at home, he shrugs his shoulders. He states he is not but has three daughters, 16 year old twins and an older daughter who is around 46. He says he does not see his older daughter often. The patient does not have an Advanced Directive. When asked about resuscitation wishes he is non committal, states he hasn't given it much thought. He doesn't think he wants CPR/intubation. Encouraged to consider enacting a POLST if he does not want CPR/Intubation so that his wishes can be honored. He states he wants to speak to his daughter first, but doesn't know if she will be coming to visit today. Patient states that he is still experiencing RUQ pain. He just received Oxycodone 10 mg IR Plan: Palliative support,Will continue to discuss goals of care and advance care planning. Pain management: Would start Oxycodone 10 mg ER twice daily scheduled dosing. Continue Oxycodone 10 mg IR every 8 hours as needed for breakthrough pain. Would stop daily scheduled Percocet tablet. Start daily bowel regimen to avoid opioid induced constipation
[2017-06-14] MEDS: Nystatin 100,000 Units/ml Oral Susp 5 ml UD PO SCH ×4 (11:52→22:47)
--- NOTE | 2017-06-14 12:53 | CP.PCM.PN ---
<MeltonJake - Last Filed: 06/14/17 12:49> Subjective - Date & Time of Evaluation Date of Evaluation: 06/14/17 Time of Evaluation: 10:30 - Subjective Subjective: Patient seen and examined at bedside. No acute events overnight. Offers no new complaints at this time. States that abdominal pain has improved since admission into hospital. C/o of mild back discomfort. Denies f/c/cp/sob/n/v/ diarrhea/constipation. Objective - Vital Signs/Intake and Output Vital Signs (last 24 hours): Temp Pulse Resp BP Pulse Ox 98.2 F 73 20 166/92 H 96 06/14/17 07:00 06/14/17 07:00 06/14/17 07:00 06/14/17 07:00 06/14/17 07:00 Intake and Output: 06/14/17 06/14/17 06:59 18:59 Intake Total 2520 Output Total 600 Balance 1920 - Medications Medications: Current Medications Aspirin (Ecotrin) 81 mg PO DAILY [facility] Last Admin: 06/14/17 10:02 Dose: 81 mg Docusate Sodium (Colace) 100 mg PO TID [facility] Last Admin: 06/14/17 10:02 Dose: 100 mg Heparin Sodium (Porcine) (Heparin) 5,000 units SC Q12 [facility] PRN Reason: Protocol Last Admin: 06/14/17 10:02 Dose: 5,000 units Sodium Chloride (Sodium Chloride 0.9%) 1,000 mls @ 100 mls/hr IV .Q10H [facility] Last Admin: 06/14/17 10:14 Dose: 100 mls/hr Megestrol Acetate (Megace) 40 mg PO BID [facility] Last Admin: 06/14/17 10:02 Dose: 40 mg Metoprolol Tartrate (Lopressor) 50 mg PO BID [facility] Last Admin: 06/14/17 10:02 Dose: 50 mg Nystatin (Nystatin Oral Susp) 5 ml PO QID [facility] Last Admin: 06/13/17 21:24 Dose: 5 ml Ondansetron HCl (Zofran Inj) 4 mg IVP Q8H PRN PRN Reason: Nausea/Vomiting Oxycodone HCl (Oxycodone Immediate Release Tab) 10 mg PO Q8H PRN PRN Reason: Pain, moderate (4-7) Stop: 06/16/17 00:58 Last Admin: 06/13/17 15:10 Dose: 10 mg Oxycodone/Acetaminophen (Percocet 5/325 Mg Tab) 1 tab PO DAILY [facility] Stop: 06/16/17 10:01 Last Admin: 06/14/17 10:02 Dose: 1 tab Pantoprazole Sodium (Protonix Ec Tab) 40 mg PO 0600 [facility] Last Admin: 06/14/17 05:01 Dose: 40 mg Polyethylene Glycol (Miralax) 17 gm PO DAILY [facility] Last Admin: 06/14/17 10:03 Dose: 17 gm Prednisone (Prednisone Tab) 20 mg PO DAILY [facility] Last Admin: 06/13/17 11:57 Dose: 20 mg Sennosides (Senokot Tab) 8.6 mg PO DAILY [facility] Tamsulosin HCl (Flomax) 0.4 mg PO DAILY [facility] - Labs Labs: 06/14/17 07:40 06/14/17 07:40 PT 15.0 Seconds (9.9-11.8) H 06/13/17 07:30 INR 1.39 (0.93-1.08) H 06/13/17 07:30 APTT 31.3 Seconds (23.7-30.8) H 06/13/17 07:30 - Additional Findings Additional findings: - Constitutional Appears: Well, No Acute Distress - Head Exam Head Exam: ATRAUMATIC, NORMAL INSPECTION, NORMOCEPHALIC - Eye Exam Eye Exam: EOMI, PERRL, Scleral icterus - ENT Exam ENT Exam: Mucous Membranes Dry Additional comments: - Respiratory Exam Respiratory Exam: Clear to Auscultation Bilateral, NORMAL BREATHING PATTERN. absent: Accessory Muscle Use, Rales, Rhonchi, Wheezes, Respiratory Distress - Cardiovascular Exam Cardiovascular Exam: RRR, +S1, +S2 - GI/Abdominal Exam GI & Abdominal Exam: Firm, Hypoactive Bowel Sounds, Soft, Tenderness (RLQ and RUQ ). absent: Guarding, Rebound, Rigid Additional comments: RLQ incision scar - Exam - Midline suprapubic scar - Ballesteros in place, serosanginuous fluid noted in ballesteros bag - Extremities Exam Extremities exam: Positive for: pedal edema (2+), pedal pulses present. Negative for: calf tenderness, tenderness - Back Exam Back exam: NORMAL INSPECTION. absent: CVA tenderness (L), CVA tenderness (R), tenderness - Neurological Exam Neurological exam: Alert, Oriented x3 - Psychiatric Exam Psychiatric exam: Normal Affect, Normal Mood - Skin Skin Exam: Normal Color, Warm Assessment and Plan - Assessment and Plan (Free Text) Assessment: 76 year old male with significant PMH for prostate CA with mets to liver and kidney, R nephrectomy, HTN, and HLD, who reports 3 week history of worsening R sided abdominal pain. 1. Abdominal/back pain likely due to liver mets - CT abdomen/pelvis showed 3 low density heterogenous lesions in liver (largest 1.8cm), scattered pancreatic calcifications (likely chronic pancreatitis), 4.4cm cystic lesion, absent R kidney, pelvic and abdominal free fluid, bladder wall thickening, focal areas of sclerosis in ischium and vertebrae likely due to bone mets - abdominal pain improved - pain mgmt: cont home meds oxyocodone and percocet, patient also placed on colace, miralax, sennokot, relistor - zofran prn n/v 2. Prostate Ca w/ mets; Hematuria - bladder scan ordered - Await heme/onc consult - ballesteros catheter placed, with serosanginous fluid noted in ballesteros tube and container- urology consult placed, urine culture, flush ballesteros 3. Transaminitis, Hyperbilirubinemia - likely 2/2 liver mets - monitor LFT's - avoid hepatotoxic meds 4. Lactic acidosis - likely 2/2 malignancy - 2.6 to 3.1 today with fluids, IVF increase to 150/hr - pH 7.31 noted from 7.37 - increase hydration 5. Discolored tongue likely 2/2 oral thrush - nystatin oral suspension - improving 6. Elevated Cr likely due to kidney mets and s/p nephrectomy - improved to 1.4 from 1.5 - maintain NS 150 for hydration - ballesteros in place - avoid nephrotoxins 7. HTN - hypertension SBP in 160s-170s noted - continue lopressor - hydralazine PO PRN ordered 8. HLD - continue to hold lipitor Renal diet PTX/heparin Case discussed with and approved by attending physician, Dr. Mijares. <Preet Mijares - Last Filed: 07/11/17 08:01> Objective - Vital Signs/Intake and Output Vital Signs (last 24 hours): Temp Pulse Resp BP Pulse Ox 98.7 F 74 20 148/94 H 95 06/15/17 08:27 06/15/17 17:52 06/15/17 08:27 06/15/17 17:52 06/15/17 08:27 - Labs Labs: 06/15/17 05:50 06/15/17 05:50 PT 15.0 Seconds (9.9-11.8) H 06/13/17 07:30 INR 1.39 (0.93-1.08) H 06/13/17 07:30 APTT 31.3 Seconds (23.7-30.8) H 06/13/17 07:30 Attending/Attestation - Attestation I have personally seen and examined this patient.: Yes I have fully participated in the care of the patient.: Yes I have reviewed all pertinent clinical information, including history, physical exam and plan: Yes Notes (Text): 07/11/17 08:01 Medical record note made by the resident after discussion with my direction and input after patient personally seen and examined by me. The chart accurately reflects my history, physical, data review and plan.
[2017-06-14] MEDS ORDERED: Sodium Chloride 0.9% 1,000 ML IV SCH (13:15)
--- NOTE | 2017-06-14 16:12 | CON ---
ONCOLOGY CONSULTATION HISTORY OF PRESENT ILLNESS: This is a 76-year-old man who has had the metastatic prostate cancer, cigarettes negative, alcohol negative. In 2016, the patient had 2 issues, one was the right nephrectomy for renal cell carcinoma and #2 is prostate cancer for which he was received radiation therapy. His family history is positive for father with prostate cancer and sister with breast cancer. I saw the patient about 3 weeks ago in the office. At that point, he had lost about 20 pounds and was having pain in his right upper quadrant and at that point, we had ordered a CAT PET scan on him on 05/02/2017, which showed positive liver metastasis. The lung basically showed emphysema, but the abdomen showed multiple large mass lesions in the liver within SUV 14 consistent with liver metastasis. He had multiple seeds in his prostate region and there are avid FDG above lesion seen at L4 vertebral body in the right posterior iliac bone consistent with osseus metastasis. So he had liver and L4 and right posterior iliac bone metastases. At that time, we ordered a CAT scan guided biopsy which was done at [facility], which showed metastatic prostate adenocarcinoma in a liver. At that time, on 05/18, his BUN was 17, creatinine 1.6, alk phos was 341 and on this admission, now 3 weeks later, his alk phos is 480. The AST and ALT were 69 at present these are 261 and 183, so he has had marked increased inflammatory changes in his liver and his PSA at that time, on 05/17/2017, was 109. So at this point, now the prostate PSA is 586 from 100. So he has a very rapidly progressive cancer in 3 weeks his PSA went to 100 to 500 and his liver function test which were about 70 and now in the 200 range. His CAT scan at present shows a cirrhosis with multiple lesion in his liver and largest of this being about 1.8, we know this a cancer and his bone where as before he had L4, he now as a 4 cm sclerosis of his right iliac wing and right ischium lesion, right acetabular and L4 sclerosis, so this is a equal to he had 3 weeks ago. He is now admitted for increasing weakness and just progressive cancer within very short period of time in 3 weeks. The back pain is from L4 and if possible we can consider giving him radiation therapy to that area of L4 and to the right pelvis and ischium. Consideration should be given for Lupron and Casodex as well and pain medications to be given. So at this point: 1. Pain control. 2. Consider radiation therapy consultation for palliative treatment to the L4 and right iliac region and consideration should be giving for Lupron and Casodex after the pain is under control. Darius MD Ai
[2017-06-14 16:57] LABS: BASO # 0.01 K/mm3 (0.0-2.0); BASO % 0.1 % (0.0-3.0); EOS % 0.1 % (1.5-5.0); GRAN # 7.03 (1.4-6.5); GRAN % 78.1 % (50.0-68.0); LYMPH # 1.2 (1.2-3.4); MEAN CELL VOLUME 91.1 fl (80.0-105.0); MEAN CORPUSCULAR HEMOGLOBIN 30.5 pg (25.0-35.0); MEAN CORPUSCULAR HGB CONC 33.4 g/dl (31.0-37.0); MEAN PLATELET VOLUME 11.8 fl (7.0-11.0); MONO # 0.8 (0.1-0.6); MONO % 8.7 % (1.0-6.0); RED CELL DISTRIBUTION WIDTH 16.9 % (11.5-14.5)
[2017-06-15 06:13] LABS: VENOUS BLOOD GAS BASE EXCESS -5.5 mmol/L (0.0-2.0)
[2017-06-15 06:17] LABS: MEAN CELL VOLUME 90.9 fl (80.0-105.0); MEAN CORPUSCULAR HEMOGLOBIN 29.8 pg (25.0-35.0); MEAN CORPUSCULAR HGB CONC 32.8 g/dl (31.0-37.0); RED CELL DISTRIBUTION WIDTH 17.3 % (11.5-14.5); WHITE BLOOD COUNT 8.4 10^3/ul (4.5-11.0)
[2017-06-15] MEDS: Pantoprazole 40 mg EC Tab PO SCH (06:56)
[2017-06-15 06:57] LABS: ALB/GLOB RATIO 0.9 (1.1-1.8); ALKALINE PHOSPHATASE 452 U/L (38-126); ALT/SGPT 177 U/L (7-56); AST/SGOT 237 U/L (17-59); BILIRUBIN,TOTAL 4.2 mg/dL (0.2-1.3); BLOOD UREA NITROGEN 20 mg/dL (7-21); CALCIUM 9.6 mg/dL (8.4-10.5); CARBON DIOXIDE 17 mmol/L (21-33); CHLORIDE 113 mmol/L (98-107); GFR AFRICAN-AMERICAN > 60; GLUCOSE,RANDOM 92 mg/dL (70-110); SODIUM 142 mmol/L (132-148); TOTAL PROTEIN 6.6 g/dL (5.8-8.3)
[2017-06-15 08:28] VITALS: RESP 20; TEMP 98.7; O2SAT 95
--- NOTE | 2017-06-15 08:35 | PCM.URO ---
Urology Progress Note - Subjective Hematuria: Yes (cap) - Objective Lab Studies: Reviewed (plans to be discussed and full note to follow) Lab Results Last 24 Hours: Laboratory Results - last 24 hr 06/14/17 06/14/17 06/14/17 07:40 07:40 07:40 WBC RBC Hgb Hct MCV MCH MCHC RDW Plt Count MPV Gran % Lymph % (Auto) Potter % (Auto) Eos % (Auto) Baso % (Auto) Gran # Lymph # Potter # Eos # Baso # pO2 40 VBG pH 7.31 L VBG pCO2 41.0 VBG HCO3 20.6 L VBG Total CO2 21.9 L VBG O2 Sat (Calc) 74.6 H VBG Base Excess -5.4 L VBG Potassium Sodium 141.0 Chloride 109.0 H Glucose 96 Lactate 3.1 H FiO2 21.0 Potassium Carbon Dioxide Anion Gap BUN Creatinine Est GFR ( Amer) Est GFR (Non-Af Amer) Random Glucose Calcium Total Bilirubin AST ALT Alkaline Phosphatase Total Protein Albumin Globulin Albumin/Globulin Ratio Prostate Specific Ag 586.0 H 25-OH Vitamin D Total 28.1 L TSH 3rd Generation 1.19 Venous Blood Potassium 06/14/17 06/15/17 06/15/17 16:48 05:50 05:50 WBC 9.0 8.4 RBC 3.84 3.52 Hgb 11.7 L 10.5 L Hct 35.0 L 32.0 L MCV 91.1 90.9 MCH 30.5 29.8 MCHC 33.4 32.8 RDW 16.9 H 17.3 H Plt Count 206 217 MPV 11.8 H 12.0 H Gran % 78.1 H Lymph % (Auto) 13.0 L Potter % (Auto) 8.7 H Eos % (Auto) 0.1 L Baso % (Auto) 0.1 Gran # 7.03 H Lymph # 1.2 Potter # 0.8 H Eos # 0.0 Baso # 0.01 pO2 VBG pH VBG pCO2 VBG HCO3 VBG Total CO2 VBG O2 Sat (Calc) VBG Base Excess VBG Potassium Sodium 142 Chloride 113 H Glucose Lactate FiO2 Potassium 4.0 Carbon Dioxide 17 L Anion Gap 16 BUN 20 Creatinine 1.2 Est GFR ( Amer) > 60 Est GFR (Non-Af Amer) 59 Random Glucose 92 Calcium 9.6 Total Bilirubin 4.2 H AST 237 H ALT 177 H Alkaline Phosphatase 452 H Total Protein 6.6 Albumin 3.1 Globulin 3.4 Albumin/Globulin Ratio 0.9 L Prostate Specific Ag 25-OH Vitamin D Total TSH 3rd Generation Venous Blood Potassium 06/15/17 05:50 WBC RBC Hgb Hct MCV MCH MCHC RDW Plt Count MPV Gran % Lymph % (Auto) Potter % (Auto) Eos % (Auto) Baso % (Auto) Gran # Lymph # Potter # Eos # Baso # pO2 222 H VBG pH 7.40 VBG pCO2 29.0 L VBG HCO3 18.0 L VBG Total CO2 18.9 L VBG O2 Sat (Calc) 100.4 H VBG Base Excess -5.5 L VBG Potassium 3.8 Sodium 141.0 Chloride 111.0 H Glucose 95 Lactate 2.6 H FiO2 21.0 Potassium Carbon Dioxide Anion Gap BUN Creatinine Est GFR ( Amer) Est GFR (Non-Af Amer) Random Glucose Calcium Total Bilirubin AST ALT Alkaline Phosphatase Total Protein Albumin Globulin Albumin/Globulin Ratio Prostate Specific Ag 25-OH Vitamin D Total TSH 3rd Generation Venous Blood Potassium 3.8 Intake & Output: Intake & Output 06/14/17 06/15/17 06/15/17 18:59 06:59 18:59 Intake Total 360 480 Output Total 300 500 Balance 60 -20 Intake: Oral 360 480 Output: Urine 300 500 Urethral (Lyle) 300 Urine, Voided 500 Other: # Voids Urine, Voided 0 # Bowel Movements 2 Vital Signs: Vital Signs - 24 hr 06/14/17 06/15/17 16:50 08:27 Temperature 97.5 F L 98.7 F Pulse Rate 97 H 70 Respiratory 18 20 Rate Blood Pressure 195/86 H 169/80 H O2 Sat by Pulse 100 95 Oximetry
[2017-06-15] MEDS: POLYETHYLENE GLYCOL 3350 17 GM/Dose PACKET PO SCH (09:19)
[2017-06-15] MEDS: Nystatin 100,000 Units/ml Oral Susp 5 ml UD PO SCH ×3 (09:19→17:53)
[2017-06-15] MEDS ORDERED: oxyCODONE 10 mg ER Tab (oxyCONTIN) PO SCH (10:00)
[2017-06-15] MEDS ORDERED: Sodium Chloride 0.45% 1,000 ML IV SCH (10:00)
[2017-06-15] MEDS ORDERED: cefTRIAXone 1 gm 1 GM/100 ML BAG IVPB SCH (10:00)
--- NOTE | 2017-06-15 10:43 | CP.PCM.CON ---
History of Present Illness - History of Present Illness History of Present Illness: Mr Bradshaw is a 76 year old male with metastatic prostate cancer to the liver and bone. The patient is not a good historian. For the past three weeks, he has been having worsening right back and hip pain as well as right upper quadrant abdominal pain. He has also been having lower extremity swelling. Due to his symptoms, he was admitted to [facility] for further evaluation and management. A CT of the abdomen and pelvis on June 12, 2017 revealed cirrhotic appearance of the liver with multiple liver lesions. There are brachytherapy seeds in the prostate gland. There was a 4cm lesion in the right iliac wing as well as 1.6cm focus in the right ischium and a lesion involving the posterior wall of the right acetabulum. There was a sclerotic lesion at L4. His PSA is currently 586ng/ml. He has been under the care of Dr Zurita, and has been on Lupron therapy. He did have a CT/PET scan on May 02, 2017 which revealed few prominent nodes in the mediastinum as well as multiple lesions in the liver. He also has metastases to the L4 and right posterior iliac bones. He is referred to us for consideration of palliative radiation for control of his bone pain. Review of Systems - Constitutional Constitutional: Weight Loss - Gastrointestinal Gastrointestinal: Constipation - Genitourinary Genitourinary: Difficulty Urinating, Hematuria - Musculoskeletal Musculoskeletal: Back Pain Additional comments: right hip pain Past Patient History - Infectious Disease Hx of Infectious Diseases: None - Past Medical History & Family History Past Medical History?: Yes - Past Social History Smoking Status: Never Smoked Alcohol: None Drugs: Denies - CARDIAC Hx Cardiac Disorders: Yes Hx Hypertension: Yes Hx Pacemaker: No - PULMONARY Hx Respiratory Disorders: No - NEUROLOGICAL Hx Neurological Disorder: No Hx Paralysis: No - HEENT Hx HEENT Problems: Yes Hx Cataracts: Yes (LEFT IOL) - RENAL Hx Chronic Kidney Disease: No - ENDOCRINE/METABOLIC Hx Endocrine Disorders: No - HEMATOLOGICAL/ONCOLOGICAL Hx Blood Transfusions: No Hx Cancer: Yes (Prostate CA w/ mets to liver and bone; h/o renal cancer s/p nephrectomy) - INTEGUMENTARY Hx Dermatological Problems: No - MUSCULOSKELETAL/RHEUMATOLOGICAL Hx Musculoskeletal Disorders: No - GASTROINTESTINAL Hx Gastroesophageal Reflux: Yes - GENITOURINARY/GYNECOLOGICAL Hx Genitourinary Disorders: Yes Hx Prostate Cancer: Yes Hx Prostate Problems: Yes - PSYCHIATRIC Hx Emotional Abuse: No Hx Physical Abuse: No Hx Substance Use: No - SURGICAL HISTORY Hx Appendectomy: Yes - ANESTHESIA Hx Anesthesia: Yes Hx Anesthesia Reactions: No Hx Malignant Hyperthermia: No Meds Allergies/Adverse Reactions: Allergies Allergy/AdvReac Type Severity Reaction Status Date / Time No Known Allergies Allergy Verified 03/20/17 21:28 - Medications Medications: Current Medications Docusate Sodium (Colace) 100 mg PO TID [facility] Last Admin: 06/15/17 09:19 Dose: 100 mg Hydralazine HCl (Apresoline) 25 mg PO Q12 PRN PRN Reason: SBP greater than 180 Sodium Chloride (Sodium Chloride 0.9%) 1,000 mls @ 150 mls/hr IV .Q6H40M [facility] Last Admin: 06/14/17 20:10 Dose: 150 mls/hr Ceftriaxone Sodium (Rocephin 1 Gram Ivpb) 1 gm in 100 mls @ 100 mls/hr IVPB DAILY [facility] PRN Reason: Protocol Sodium Chloride (Sodium Chloride 0.45%) 1,000 mls @ 60 mls/hr IV .[id number] [facility] Megestrol Acetate (Megace) 40 mg PO BID [facility] Last Admin: 06/15/17 09:20 Dose: 40 mg Metoprolol Tartrate (Lopressor) 50 mg PO BID [facility] Last Admin: 06/15/17 09:20 Dose: 50 mg Nystatin (Nystatin Oral Susp) 5 ml PO QID [facility] Last Admin: 06/15/17 09:19 Dose: 5 ml Ondansetron HCl (Zofran Inj) 4 mg IVP Q8H PRN PRN Reason: Nausea/Vomiting Oxycodone HCl (Oxycodone Immediate Release Tab) 10 mg PO Q8H PRN PRN Reason: Pain, moderate (4-7) Stop: 06/16/17 00:58 Last Admin: 06/13/17 15:10 Dose: 10 mg Oxycodone HCl (Oxycontin Extended Release Tab) 10 mg PO Q12 [facility] Stop: 06/18/17 10:01 Last Admin: 06/15/17 09:19 Dose: 10 mg Pantoprazole Sodium (Protonix Ec Tab) 40 mg PO 0600 [facility] Last Admin: 06/15/17 06:56 Dose: 40 mg Polyethylene Glycol (Miralax) 17 gm PO DAILY [facility] Last Admin: 06/15/17 09:19 Dose: 17 gm Prednisone (Prednisone Tab) 20 mg PO DAILY [facility] Last Admin: 06/13/17 11:57 Dose: 20 mg Sennosides (Senokot Tab) 8.6 mg PO DAILY [facility] Last Admin: 06/15/17 09:20 Dose: 8.6 mg Tamsulosin HCl (Flomax) 0.4 mg PO DAILY [facility] Last Admin: 06/15/17 09:19 Dose: 0.4 mg Physical Exam - Head Exam Head Exam: NORMAL INSPECTION - Eye Exam Eye Exam: EOMI, Scleral icterus - ENT Exam ENT Exam: Mucous Membranes Moist - Respiratory Exam Respiratory Exam: Clear to Auscultation Bilateral - Cardiovascular Exam Cardiovascular Exam: REGULAR RHYTHM - GI/Abdominal Exam GI & Abdominal Exam: Firm - Back Exam Additional comments: slight tenderness in the lower back and right hip - Neurological Exam Neurological exam: CN II-XII Intact, Oriented x3 Results - Vital Signs Recent Vital Signs: Last Vital Signs Temp 98.7 F 06/15/17 08:27 Pulse 70 06/15/17 09:20 Resp 20 06/15/17 08:27 BP 169/80 H 06/15/17 09:20 Pulse Ox 95 06/15/17 08:27 - Labs Result Diagrams: 06/15/17 05:50 06/15/17 05:50 Labs: Laboratory Results - last 24 hr 06/14/17 06/14/17 06/15/17 07:40 16:48 05:50 WBC 9.0 8.4 RBC 3.84 3.52 Hgb 11.7 L 10.5 L Hct 35.0 L 32.0 L MCV 91.1 90.9 MCH 30.5 29.8 MCHC 33.4 32.8 RDW 16.9 H 17.3 H Plt Count 206 217 MPV 11.8 H 12.0 H Gran % 78.1 H Lymph % (Auto) 13.0 L Lares % (Auto) 8.7 H Eos % (Auto) 0.1 L Baso % (Auto) 0.1 Gran # 7.03 H Lymph # 1.2 Lares # 0.8 H Eos # 0.0 Baso # 0.01 pO2 VBG pH VBG pCO2 VBG HCO3 VBG Total CO2 VBG O2 Sat (Calc) VBG Base Excess VBG Potassium Sodium Chloride Glucose Lactate FiO2 Potassium Carbon Dioxide Anion Gap BUN Creatinine Est GFR ( Amer) Est GFR (Non-Af Amer) Random Glucose Calcium Total Bilirubin AST ALT Alkaline Phosphatase Total Protein Albumin Globulin Albumin/Globulin Ratio 25-OH Vitamin D Total 28.1 L Venous Blood Potassium 06/15/17 06/15/17 05:50 05:50 WBC RBC Hgb Hct MCV MCH MCHC RDW Plt Count MPV Gran % Lymph % (Auto) Lares % (Auto) Eos % (Auto) Baso % (Auto) Gran # Lymph # Lares # Eos # Baso # pO2 222 H VBG pH 7.40 VBG pCO2 29.0 L VBG HCO3 18.0 L VBG Total CO2 18.9 L VBG O2 Sat (Calc) 100.4 H VBG Base Excess -5.5 L VBG Potassium 3.8 Sodium 142 141.0 Chloride 113 H 111.0 H Glucose 95 Lactate 2.6 H FiO2 21.0 Potassium 4.0 Carbon Dioxide 17 L Anion Gap 16 BUN 20 Creatinine 1.2 Est GFR ( Amer) > 60 Est GFR (Non-Af Amer) 59 Random Glucose 92 Calcium 9.6 Total Bilirubin 4.2 H AST 237 H ALT 177 H Alkaline Phosphatase 452 H Total Protein 6.6 Albumin 3.1 Globulin 3.4 Albumin/Globulin Ratio 0.9 L 25-OH Vitamin D Total Venous Blood Potassium 3.8 Assessment & Plan - Assessment and Plan (Free Text) Assessment: Mr Bradshaw is a 76 year old male with metastatic prostate cancer to the liver and bone. His PSA is currently >500ng/ml. As per the patient, he has been on androgen deprivation therapy with his urologist. 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 With regard to his lower back and right hip pain, this is secondary to his metastatic lesions in the L4 and right pelvis. We would concur that he would benefit from palliative radiation therapy. We spoke to the patient about the risks and benefits of radiation. Informed consent was obtained. We are trying to obtain his old pathology for our records for documentation purposes as well. We are also trying to get records from his urologist. We will begin his treatment as soon as possible. We would agree with optimizing pain control.
--- NOTE | 2017-06-15 12:55 | CP.PCM.PN ---
Subjective - Date & Time of Evaluation Date of Evaluation: 06/15/17 Time of Evaluation: 08:30 - Subjective Subjective: Lethargic, complaining right sided back pain Objective - Vital Signs/Intake and Output Vital Signs (last 24 hours): Temp Pulse Resp BP Pulse Ox 98.7 F 70 20 169/80 H 95 06/15/17 08:27 06/15/17 09:20 06/15/17 08:27 06/15/17 09:20 06/15/17 08:27 Intake and Output: 06/15/17 06/15/17 06:59 18:59 Intake Total 480 Output Total 500 Balance -20 - Medications Medications: Current Medications Docusate Sodium (Colace) 100 mg PO TID [facility] Last Admin: 06/15/17 09:19 Dose: 100 mg Hydralazine HCl (Apresoline) 25 mg PO Q12 PRN PRN Reason: SBP greater than 180 Sodium Chloride (Sodium Chloride 0.9%) 1,000 mls @ 150 mls/hr IV .Q6H40M [facility] Last Admin: 06/14/17 20:10 Dose: 150 mls/hr Ceftriaxone Sodium (Rocephin 1 Gram Ivpb) 1 gm in 100 mls @ 100 mls/hr IVPB DAILY [facility] PRN Reason: Protocol Sodium Chloride (Sodium Chloride 0.45%) 1,000 mls @ 60 mls/hr IV .[id number] [facility] Megestrol Acetate (Megace) 40 mg PO BID [facility] Last Admin: 06/15/17 09:20 Dose: 40 mg Metoprolol Tartrate (Lopressor) 50 mg PO BID [facility] Last Admin: 06/15/17 09:20 Dose: 50 mg Nystatin (Nystatin Oral Susp) 5 ml PO QID [facility] Last Admin: 06/15/17 09:19 Dose: 5 ml Ondansetron HCl (Zofran Inj) 4 mg IVP Q8H PRN PRN Reason: Nausea/Vomiting Oxycodone HCl (Oxycodone Immediate Release Tab) 10 mg PO Q8H PRN PRN Reason: Pain, moderate (4-7) Stop: 06/16/17 00:58 Last Admin: 06/13/17 15:10 Dose: 10 mg Oxycodone HCl (Oxycontin Extended Release Tab) 10 mg PO Q12 [facility] Stop: 06/18/17 10:01 Last Admin: 06/15/17 09:19 Dose: 10 mg Pantoprazole Sodium (Protonix Ec Tab) 40 mg PO 0600 [facility] Last Admin: 06/15/17 06:56 Dose: 40 mg Polyethylene Glycol (Miralax) 17 gm PO DAILY [facility] Last Admin: 06/15/17 09:19 Dose: 17 gm Prednisone (Prednisone Tab) 20 mg PO DAILY [facility] Last Admin: 06/13/17 11:57 Dose: 20 mg Sennosides (Senokot Tab) 8.6 mg PO DAILY [facility] Last Admin: 06/15/17 09:20 Dose: 8.6 mg Tamsulosin HCl (Flomax) 0.4 mg PO DAILY [facility] Last Admin: 06/15/17 09:19 Dose: 0.4 mg - Labs Labs: 06/15/17 05:50 06/15/17 05:50 PT 15.0 Seconds (9.9-11.8) H 06/13/17 07:30 INR 1.39 (0.93-1.08) H 06/13/17 07:30 APTT 31.3 Seconds (23.7-30.8) H 06/13/17 07:30 - Constitutional Appears: Chronically Ill - Eye Exam Eye Exam: PERRL - ENT Exam ENT Exam: Mucous Membranes Moist - Respiratory Exam Respiratory Exam: Decreased Breath Sounds, NORMAL BREATHING PATTERN - Cardiovascular Exam Cardiovascular Exam: REGULAR RHYTHM, +S1, +S2 - GI/Abdominal Exam GI & Abdominal Exam: Soft, Normal Bowel Sounds - Extremities Exam Extremities Exam: Normal Capillary Refill, Pedal Edema - Back Exam Back Exam: vertebral tenderness - Neurological Exam Neurological Exam: Alert, Oriented x3 - Skin Skin Exam: Dry, Warm Assessment and Plan - Assessment and Plan (Free Text) Assessment: 76 year old male with history of metastatic prostate cancer who was admitted with intractable pain of right flank, lower back and abdomen. Recent CT scan showed liver metastasis and lytic lesions in right iliac wing, right ischium and posterior wall of the right acetabulum, there was also a sclerotic lesion at L4. The patient has been referred to radiation oncology for consideration of palliative radiation. The patient states he is willing to receive RT treatment. He is still in a significant amount of pain. He has not discussed resuscitation wishes with his family as of yet. Plan: Oxycodone 10 mg ER twice daily, Oxcycodone 10 mg IR every eight hours as needed for breakthrough pain. Continue bowel regimen Palliative support/Advance Care planning
[2017-06-15 13:07] LABS: VENOUS BLOOD GAS BASE EXCESS -4.9 mmol/L (0.0-2.0); VENOUS BLOOD PH 7.36 (7.32-7.43)
--- NOTE | 2017-06-15 15:57 | CP.PCM.DIS ---
<Jake Melton - Last Filed: 06/15/17 16:17> Provider - Provider Date of Admission: 06/12/17 22:10 Attending physician: Preet Mijares MD Primary care physician: Ata Dumont DO Time Spent in preparation of Discharge (in minutes): 30 Diagnosis - Discharge Diagnosis (1) Prostate cancer metastatic to bone Status: Acute Priority: High (2) Hypertension Status: Acute Priority: Medium (3) Hyperlipidemia Status: Acute Priority: Medium (4) Hematuria Status: Acute Priority: High (5) Urinary retention Status: Acute Priority: High Hospital Course - Lab Results Lab Results: Micro Results 06/13/17 22:00 Urine,Ballesteros Urine Culture - Preliminary Gram Negative Shahab Most Recent Lab Values WBC 8.4 10^3/ul (4.5-11.0) 06/15/17 05:50 RBC 3.52 10^6/uL (3.5-6.1) 06/15/17 05:50 Hgb 10.5 g/dL (14.0-18.0) L 06/15/17 05:50 Hct 32.0 % (42.0-52.0) L 06/15/17 05:50 MCV 90.9 fl (80.0-105.0) 06/15/17 05:50 MCH 29.8 pg (25.0-35.0) 06/15/17 05:50 MCHC 32.8 g/dl (31.0-37.0) 06/15/17 05:50 RDW 17.3 % (11.5-14.5) H 06/15/17 05:50 Plt Count 217 10^3/uL (120.0-450.0) 06/15/17 05:50 MPV 12.0 fl (7.0-11.0) H 06/15/17 05:50 Gran % 78.1 % (50.0-68.0) H 06/14/17 16:48 Lymph % (Auto) 13.0 % (22.0-35.0) L 06/14/17 16:48 [place] % (Auto) 8.7 % (1.0-6.0) H 06/14/17 16:48 Eos % (Auto) 0.1 % (1.5-5.0) L 06/14/17 16:48 Baso % (Auto) 0.1 % (0.0-3.0) 06/14/17 16:48 Gran # 7.03 (1.4-6.5) H 06/14/17 16:48 Lymph # 1.2 (1.2-3.4) 06/14/17 16:48 [place] # 0.8 (0.1-0.6) H 06/14/17 16:48 Eos # 0.0 (0.0-0.7) 06/14/17 16:48 Baso # 0.01 K/mm3 (0.0-2.0) 06/14/17 16:48 PT 15.0 Seconds (9.9-11.8) H 06/13/17 07:30 INR 1.39 (0.93-1.08) H 06/13/17 07:30 APTT 31.3 Seconds (23.7-30.8) H 06/13/17 07:30 pO2 60 mm/Hg (30-55) H 06/15/17 13:00 VBG pH 7.36 (7.32-7.43) 06/15/17 13:00 VBG pCO2 35.0 (40-60) L 06/15/17 13:00 VBG HCO3 19.8 mmol/l (21-28) L 06/15/17 13:00 VBG Total CO2 20.9 mmol.L (22-28) L 06/15/17 13:00 VBG O2 Sat (Calc) 94.1 % (40-65) H 06/15/17 13:00 VBG Base Excess -4.9 mmol/L (0.0-2.0) L 06/15/17 13:00 VBG Potassium 3.9 mmol/L (3.6-5.2) 06/15/17 13:00 Sodium 139.0 mmol/L (132-148) 06/15/17 13:00 Chloride 110.0 mmol/L (98-107) H 06/15/17 13:00 Glucose 91 mg/dl (75-110) 06/15/17 13:00 Lactate 2.1 mmol/L (0.7-2.1) 06/15/17 13:00 FiO2 21.0 % 06/15/17 13:00 Sodium 142 mmol/L (132-148) 06/15/17 05:50 Potassium 4.0 mmol/L (3.6-5.0) 06/15/17 05:50 Chloride 113 mmol/L (98-107) H 06/15/17 05:50 Carbon Dioxide 17 mmol/L (21-33) L 06/15/17 05:50 Anion Gap 16 (10-20) 06/15/17 05:50 BUN 20 mg/dL (7-21) 06/15/17 05:50 Creatinine 1.2 mg/dL (0.5-1.4) 06/15/17 05:50 Est GFR ( Amer) > 60 06/15/17 05:50 Est GFR (Non-Af Amer) 59 06/15/17 05:50 Random Glucose 92 mg/dL (70-110) 06/15/17 05:50 Calcium 9.6 mg/dL (8.4-10.5) 06/15/17 05:50 Phosphorus 3.4 mg/dL (2.5-4.5) 06/12/17 18:05 Magnesium 2.4 mg/dL (1.7-2.2) H 06/12/17 18:05 Total Bilirubin 4.2 mg/dL (0.2-1.3) H 06/15/17 05:50 Direct Bilirubin 3.3 mg/dL (0.0-0.4) H 06/13/17 09:50 AST 237 U/L (17-59) H 06/15/17 05:50 ALT 177 U/L (7-56) H 06/15/17 05:50 Alkaline Phosphatase 452 U/L (38-126) H 06/15/17 05:50 Ammonia < 9 umol/L (9-33) L 06/12/17 22:25 Lactate Dehydrogenase 2885 U/L (333-699) H 06/13/17 09:50 Total Creatine Kinase 387 U/L (35-230) H 06/13/17 09:50 CK-MB (CK-2) 1.1 ng/mL (0.0-3.6) 06/13/17 09:50 CK-MB (CK-2) % Cancelled 06/12/17 18:05 Troponin I < 0.01 ng/mL 06/13/17 09:50 NT-Pro-B Natriuret Pep 403 pg/mL (0-450) 06/12/17 18:05 Total Protein 6.6 g/dL (5.8-8.3) 06/15/17 05:50 Albumin 3.1 g/dL (3.0-4.8) 06/15/17 05:50 Globulin 3.4 gm/dL 06/15/17 05:50 Albumin/Globulin Ratio 0.9 (1.1-1.8) L 06/15/17 05:50 CA 125 Antigen 131 U/mL (0-35) H 06/13/17 15:40 Prostate Specific Ag 586.0 ng/mL (0.00-2.5) H 06/14/17 07:40 25-OH Vitamin D Total 28.1 NG/ML (30.0-100.0) L 06/14/17 07:40 TSH 3rd Generation 1.19 mIU/mL (0.46-4.68) 06/14/17 07:40 Testosterone Level 13.4 ng/mL 06/13/17 15:40 PTH w/Ion &Tot Calcium 69 pg/mL (14-64) H 06/14/17 07:40 Venous Blood Potassium 3.9 mmol/L (3.6-5.2) 06/15/17 13:00 - Hospital Course Hospital Course: Patient is a 76 year old male with significant PMH for prostate CA with mets to liver and kidney, R nephrectomy, HTN, and HLD, who reports 3 week history of worsening R sided abdominal pain. With the use of physical examination, lab work , imaging and consulting physicians including urology, hematology/oncology, radiation oncology and palliative care. Patient was diagnosed and treated for abdominal pain secondary to metastatic prostate cancer to the liver, kidney and bones. Specifically, imaging included a CT of the Abdomen/Pelvis which showed 3 low density heterogenous lesions in liver (largest 1.8cm), scattered pancreatic calcifications (likely chronic pancreatitis) and focal areas of sclerosis in ischium and vertebrae likely due to bone mets. Patient plan includes radiation therapy from [facility]. Dr. Millan (Urology) was consulted for hematuria and blood clots found in the ballesteros catheter and is okay to discharge from a Urological perspective. Patient advised to call PMD or return to Emergency Department for evaluation of fevers, chills, dizziness, chest pain, shortness of breath, abdominal pain, intractable nausea/vomiting, diarrhea, constipation and urinary symptoms including blood in the urine. Patient instructed to follow up with primary medical physician, urology and radiation oncology on an outpatient basis. Patient instructed to take medications as prescribed. Patient is medically stable for discharge to [facility] subacute rehabilitation. As per case management patient s daughter is aware of plan. Patient agrees and understands the discharge plan. Assessment and Plan: 76 year old male with significant PMH for prostate CA with mets to liver and kidney, R nephrectomy, HTN, and HLD, who reports 3 week history of worsening R sided abdominal pain. Abdominal/back pain likely due to liver mets - CT abdomen/pelvis showed 3 low density heterogenous lesions in liver (largest 1.8cm), scattered pancreatic calcifications (likely chronic pancreatitis), 4.4cm cystic lesion, absent R kidney, pelvic and abdominal free fluid, bladder wall thickening, focal areas of sclerosis in ischium and vertebrae likely due to bone mets - abdominal pain improved - pain mgmt: cont home meds oxyocodone and percocet - patient also placed on colace, miralax, sennokot - zofran prn n/v Prostate Ca w/ mets - Radiation oncology consulted plan to start palliative radiation therapy as soon as possible - Dr. South to review pathology report Hematuria - ballesteros catheter placed, with serosanginous fluid noted in ballesteros tube and container - urology consulted, spoke with Dr. Pal Millan no acute intervention from urological standpoint at this moment. Advised to follow up on an out-patient basis -discontinue ballesteros before discharge UTI - start ciprofloxacin outpatient Transaminitis, Hyperbilirubinemia - likely secondary to liver metastasis - follow clinically Lactic acidosis - likely 2/2 malignancy - resolved Elevated Creatinine - resolved HTN - continue lopressor HLD - hold lipitor as LFTs are elevated - consider restarting in outpatient setting Dispo: Medically stable for transfer to [facility]. Discharge Exam - Head Exam Head Exam: NORMAL INSPECTION - Additional Findings Additional findings: - Constitutional Appears: Well, No Acute Distress - Head Exam Head Exam: ATRAUMATIC, NORMAL INSPECTION, NORMOCEPHALIC - Eye Exam Eye Exam: EOMI, PERRL, Scleral icterus - ENT Exam ENT Exam: Mucous Membranes Dry Additional comments: - Respiratory Exam Respiratory Exam: Clear to Auscultation Bilateral, NORMAL BREATHING PATTERN. absent: Accessory Muscle Use, Rales, Rhonchi, Wheezes, Respiratory Distress - Cardiovascular Exam Cardiovascular Exam: RRR, +S1, +S2 - GI/Abdominal Exam GI & Abdominal Exam: Firm, Hypoactive Bowel Sounds, Soft, Tenderness (RLQ and RUQ ). absent: Guarding, Rebound, Rigid Additional comments: RLQ incision scar - Exam - Midline suprapubic scar - Ballesteros in place, serosanginuous fluid noted in ballesteros bag - Extremities Exam Extremities exam: Positive for: pedal pulses present. Negative for: calf tenderness, tenderness - Back Exam Back exam: NORMAL INSPECTION. absent: CVA tenderness (L), CVA tenderness (R), tenderness - Neurological Exam Neurological exam: Alert, Oriented x3 - Psychiatric Exam Psychiatric exam: Normal Affect, Normal Mood - Skin Skin Exam: Normal Color, Warm Discharge Plan - Discharge Medications Prescriptions: Ciprofloxacin [Cipro] 500 mg PO BID #10 tab Docusate [Colace] 100 mg PO TID #90 cap Tamsulosin [Flomax] 0.4 mg PO DAILY #30 cap Polyethylene Glycol 3350 [Miralax] 17 gm PO DAILY #30 packet Pantoprazole [Protonix EC Tab] 40 mg PO 0600 #30 ect Sennosides A and B [Senokot Tab] 8.6 mg PO DAILY #30 tab - Follow Up Plan Condition: GUARDED Disposition: REHAB FACILITY/REHAB UNIT Instructions: Constipation (DC), Constipation (GEN), Prostate Cancer (DC), Ballesteros Catheter Placement and Care (DC), Acute Abdominal Pain (DC), Low Sodium Diet (DC), Hypertension (DC), Fall Prevention (DC) Additional Instructions: Please follow up with PMD, urologist, 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 Please take medications as prescribed. Please call PMD or return to ED for evaluation of fever, chills, chest pain, SOB , abdominal pain, N/V, diarrhea, constipation, and urinary symptoms. . Referrals: Meaghan South MD [Staff Provider] - Darius Cloud MD [Medical Doctor] - Nicholas Parks MD [Staff Provider] - Ata Dumont DO [Primary Care Provider] - <Guero Cross S - Last Filed: 06/15/17 21:27> Provider - Provider Date of Admission: 06/12/17 22:10 Attending physician: Preet Mijares MD Primary care physician: Ata Dumont, [facility] Course - Lab Results Lab Results: Micro Results 06/13/17 22:00 Urine,[place]os Urine Culture - Preliminary Gram Negative Shahab Most Recent Lab Values WBC 8.4 10^3/ul (4.5-11.0) 06/15/17 05:50 RBC 3.52 10^6/uL (3.5-6.1) 06/15/17 05:50 Hgb 10.5 g/dL (14.0-18.0) L 06/15/17 05:50 Hct 32.0 % (42.0-52.0) L 06/15/17 05:50 MCV 90.9 fl (80.0-105.0) 06/15/17 05:50 MCH 29.8 pg (25.0-35.0) 06/15/17 05:50 MCHC 32.8 g/dl (31.0-37.0) 06/15/17 05:50 RDW 17.3 % (11.5-14.5) H 06/15/17 05:50 Plt Count 217 10^3/uL (120.0-450.0) 06/15/17 05:50 MPV 12.0 fl (7.0-11.0) H 06/15/17 05:50 Gran % 78.1 % (50.0-68.0) H 06/14/17 16:48 Lymph % (Auto) 13.0 % (22.0-35.0) L 06/14/17 16:48 [place] % (Auto) 8.7 % (1.0-6.0) H 06/14/17 16:48 Eos % (Auto) 0.1 % (1.5-5.0) L 06/14/17 16:48 Baso % (Auto) 0.1 % (0.0-3.0) 06/14/17 16:48 Gran # 7.03 (1.4-6.5) H 06/14/17 16:48 Lymph # 1.2 (1.2-3.4) 06/14/17 16:48 [place] # 0.8 (0.1-0.6) H 06/14/17 16:48 Eos # 0.0 (0.0-0.7) 06/14/17 16:48 Baso # 0.01 K/mm3 (0.0-2.0) 06/14/17 16:48 PT 15.0 Seconds (9.9-11.8) H 06/13/17 07:30 INR 1.39 (0.93-1.08) H 06/13/17 07:30 APTT 31.3 Seconds (23.7-30.8) H 06/13/17 07:30 pO2 60 mm/Hg (30-55) H 06/15/17 13:00 VBG pH 7.36 (7.32-7.43) 06/15/17 13:00 VBG pCO2 35.0 (40-60) L 06/15/17 13:00 VBG HCO3 19.8 mmol/l (21-28) L 06/15/17 13:00 VBG Total CO2 20.9 mmol.L (22-28) L 06/15/17 13:00 VBG O2 Sat (Calc) 94.1 % (40-65) H 06/15/17 13:00 VBG Base Excess -4.9 mmol/L (0.0-2.0) L 06/15/17 13:00 VBG Potassium 3.9 mmol/L (3.6-5.2) 06/15/17 13:00 Sodium 139.0 mmol/L (132-148) 06/15/17 13:00 Chloride 110.0 mmol/L (98-107) H 06/15/17 13:00 Glucose 91 mg/dl (75-110) 06/15/17 13:00 Lactate 2.1 mmol/L (0.7-2.1) 06/15/17 13:00 FiO2 21.0 % 06/15/17 13:00 Sodium 142 mmol/L (132-148) 06/15/17 05:50 Potassium 4.0 mmol/L (3.6-5.0) 06/15/17 05:50 Chloride 113 mmol/L (98-107) H 06/15/17 05:50 Carbon Dioxide 17 mmol/L (21-33) L 06/15/17 05:50 Anion Gap 16 (10-20) 06/15/17 05:50 BUN 20 mg/dL (7-21) 06/15/17 05:50 Creatinine 1.2 mg/dL (0.5-1.4) 06/15/17 05:50 Est GFR ( Amer) > 60 06/15/17 05:50 Est GFR (Non-Af Amer) 59 06/15/17 05:50 Random Glucose 92 mg/dL (70-110) 06/15/17 05:50 Calcium 9.6 mg/dL (8.4-10.5) 06/15/17 05:50 Phosphorus 3.4 mg/dL (2.5-4.5) 06/12/17 18:05 Magnesium 2.4 mg/dL (1.7-2.2) H 06/12/17 18:05 Total Bilirubin 4.2 mg/dL (0.2-1.3) H 06/15/17 05:50 Direct Bilirubin 3.3 mg/dL (0.0-0.4) H 06/13/17 09:50 AST 237 U/L (17-59) H 06/15/17 05:50 ALT 177 U/L (7-56) H 06/15/17 05:50 Alkaline Phosphatase 452 U/L (38-126) H 06/15/17 05:50 Ammonia < 9 umol/L (9-33) L 06/12/17 22:25 Lactate Dehydrogenase 2885 U/L (333-699) H 06/13/17 09:50 Total Creatine Kinase 387 U/L (35-230) H 06/13/17 09:50 CK-MB (CK-2) 1.1 ng/mL (0.0-3.6) 06/13/17 09:50 CK-MB (CK-2) % Cancelled 06/12/17 18:05 Troponin I < 0.01 ng/mL 06/13/17 09:50 NT-Pro-B Natriuret Pep 403 pg/mL (0-450) 06/12/17 18:05 Total Protein 6.6 g/dL (5.8-8.3) 06/15/17 05:50 Albumin 3.1 g/dL (3.0-4.8) 06/15/17 05:50 Globulin 3.4 gm/dL 06/15/17 05:50 Albumin/Globulin Ratio 0.9 (1.1-1.8) L 06/15/17 05:50 CA 125 Antigen 131 U/mL (0-35) H 06/13/17 15:40 Prostate Specific Ag 586.0 ng/mL (0.00-2.5) H 06/14/17 07:40 25-OH Vitamin D Total 28.1 NG/ML (30.0-100.0) L 06/14/17 07:40 TSH 3rd Generation 1.19 mIU/mL (0.46-4.68) 06/14/17 07:40 Testosterone Level 13.4 ng/mL 06/13/17 15:40 PTH w/Ion &Tot Calcium 69 pg/mL (14-64) H 06/14/17 07:40 Venous Blood Potassium 3.9 mmol/L (3.6-5.2) 06/15/17 13:00 Discharge Exam - Respiratory Exam Additional comments: discussed w/ resident went over d/c plans to follow w/ dr mijares in next 5 days
[2017-06-15] MEDS: oxyCODONE 10 mg Immediate Release Tab PO PRN (17:50)
[2017-06-15 17:58] VITALS: BP 148/94; PULSE 74
--- NOTE | 2017-06-15 19:13 | CON ---
FOLLOWUP CONSULTATION HISTORY OF PRESENT ILLNESS: This is a patient with a past history of over 7 or 8 years ago of renal carcinoma and prostate carcinoma, recently had a biopsy of the liver which shows rapidly progressive cancer in his liver. His bilirubin is now 4.2. His liver function tests are within the 200 range . PSA of 586. He is seen today in bed. PHYSICAL EXAMINATION: SKIN: No petechia. No bruises. HEENT: Shows icterus. NODES: Nonpalpable in axillary, cervical, supraclavicular, inguinal regions. LUNGS: Clear at present. No vertebral tenderness. The patient is able to lie down in his bed without shortness of breath. HEART: S1 and S2. ABDOMEN: Shows increasing distension secondary to ascites that seems to me with some tenderness in his right upper quadrant where the liver is. EXTREMITIES: No edema. CENTRAL NERVOUS SYSTEM: No focal findings. The patient is alert, knows who I am. I told him that the cancer is in the liver that he has progressive disease in his liver. I was considering doing radiation to the hip region, but his liver is failing him rather rapidly. I told him the main object here is to keep him comfortable with pain medications, which I am leaving to the primary care doctors. If he is at some point more stable, we can consider giving him Lupron shots, perhaps Lupron 1 month at present; however, this is not curative and it is very clear he has very rapidly progressive cancer. I think our main object here is to palliative care and consider hospice. Darius Cloud MD
[2017-06-15 23:10] LABS: CALCIUM 9.8 mg/dL (8.6-10.3)
== END 2017-06-15 18:12 ==
LOC: ED 16:47 → ERH 22:10 → INTOOBSV 22:10 → ERH 22:48 → 5RNO 06-13 01:27
PROVIDERS: ADMIT Internal Medicine; ATTEND Internal Medicine
DX: C79.51 Secondary malignant neoplasm of bone (principal); C78.7 Secondary malignant neoplasm of liver and intrahepatic bile duct; E87.2 Acidosis; B37.0 Candidal stomatitis; C79.00 Secondary malignant neoplasm of unspecified kidney and renal pelvis; K74.60 Unspecified cirrhosis of liver; N39.0 Urinary tract infection, site not specified; K86.1 Other chronic pancreatitis; C61 Malignant neoplasm of prostate; E78.5 Hyperlipidemia, unspecified; I10 Essential (primary) hypertension; J43.9 Emphysema, unspecified; K21.9 Gastro-esophageal reflux disease without esophagitis; M10.9 Gout, unspecified; Z79.82 Long term (current) use of aspirin; Z79.899 Other long term (current) drug therapy; Z80.3 Family history of malignant neoplasm of breast; Z80.42 Family history of malignant neoplasm of prostate; Z90.5 Acquired absence of kidney; Z90.49 Acquired absence of other specified parts of digestive tract; Z87.891 Personal history of nicotine dependence; R31.9 Hematuria, unspecified; H26.9 Unspecified cataract; Z98.42 Cataract extraction status, left eye; Z96.1 Presence of intraocular lens; R32 Unspecified urinary incontinence; R40.2412 Glasgow coma scale score 13-15, at arrival to emergency department; R63.4 Abnormal weight loss; K59.00 Constipation, unspecified; R74.0 Nonspecific elevation of levels of transaminase and lactic acid dehydrogenase [LDH]; B96.20 Unspecified Escherichia coli [E. coli] as the cause of diseases classified elsewhere
CPT/HCPCS: 36415; 70450; 71010; 74176; 80053; 82140; 82248; 82306; 82550; 82553; 82803; 83615; 83735; 83880; 84100; 84153; 84403; 84443; 84484; 85025; 85027; 85610; 85730; 86304; 87086; 87181; 93005; 93970; 96374; 97162; 97530; 99285; G0378; G8978; G8979; J0696; J1644; J2212; J2270; J7030; J7040

== ENCOUNTER 2017-06-16 21:42 | Observation (INO) | payer MEDICARE, OTHER ==
[2017-06-16 23:06] LABS: GRAN # 7.49 (1.4-6.5); GRAN % 83.9 % (50.0-68.0); HEMATOCRIT 35.6 % (42.0-52.0); LYMPH # 0.8 (1.2-3.4); LYMPH % 8.8 % (22.0-35.0); MEAN CELL VOLUME 90.1 fl (80.0-105.0); MEAN CORPUSCULAR HEMOGLOBIN 30.4 pg (25.0-35.0); MEAN CORPUSCULAR HGB CONC 33.7 g/dl (31.0-37.0); MEAN PLATELET VOLUME 12.8 fl (7.0-11.0); MONO # 0.7 (0.1-0.6); MONO % 7.3 % (1.0-6.0); RED CELL DISTRIBUTION WIDTH 17.3 % (11.5-14.5); WHITE BLOOD COUNT 8.9 10^3/ul (4.5-11.0)
[2017-06-16 23:14] LABS: BLOOD UREA NITROGEN 19 mg/dL (7-21); CALCIUM 10.1 mg/dL (8.4-10.5); CARBON DIOXIDE 20 mmol/L (21-33); CHLORIDE 109 mmol/L (98-107); GFR AFRICAN-AMERICAN > 60; GLUCOSE,RANDOM 103 mg/dL (70-110); POTASSIUM 4.3 mmol/L (3.6-5.0); SODIUM 141 mmol/L (132-148)
--- NOTE | 2017-06-17 01:55 | CP.PCM.HP ---
<INAKARLEY - Last Filed: 06/17/17 04:33> History of Present Illness - History of Present Illness History of Present Illness: Karley Vo, PGY1, H&P, for Dr Cross: CC: Hematuria [facility] 76[facility] with PMH prostate cancer with mets, chronic ballesteros, HTN, presents for hematuria x 1 day. Pt states that he was diagnosed with a UTI at the nursing rehab, the nurse changed his ballesteros today, with resulting gross hematuria, which caused him to come to the ED. Pt has been having some mild hematuria for some time now, attributing to his prostate cancer, but after the ballesteros insertion, he had much more blood in the urine. Also complains of dysuria, denies f/c/n/v, decreased appetite, poor oral intake , cp, sob, weakness. In ED, pt's ballesteros draining dark bloody urine, found to be at baseline hgb 12, elevated bnp 892. Currently, the hematuria has partially resolved, with ballesteros clearing up, denies sginificant discomfort at the site. PMH: prostate CA with mets to the liver and kidney, HTN, HLD PSH: R nephrectomy (pt was unsure about which kidney was removed) Meds: Percocet, Deltasone, Lopressor, ASA, Oxycontin, Simvastatin, Megace, Tylenol #3 Allergies: NKDA Family hx: HTN Social hx: - denies smoking, EtOH, or recreational drugs [facility] ([facility]) - uses walker for assistance PMD: Ata Dumont [phone] Dr. Darius Cloud: [facility] Dr. Levin: Dr. Zurita: Urologist Present on Admission - Present on Admission Any Indicators Present on Admission: No History of DVT/PE: No History of Uncontrolled Diabetes: No Urinary Catheter: No Decubitus Ulcer Present: No History Surgical Site Infection Following: None Review of Systems - Review of Systems All systems: reviewed and no additional remarkable complaints except Review of Systems: as per HPI Past Patient History - Infectious Disease Hx of Infectious Diseases: None - Past Medical History & Family History Past Medical History?: Yes - Past Social History Smoking Status: Never Smoked - CARDIAC Hx Cardiac Disorders: Yes Hx Hypertension: Yes Hx Pacemaker: No - PULMONARY Hx Respiratory Disorders: No - NEUROLOGICAL Hx Neurological Disorder: No Hx Paralysis: No - HEENT Hx HEENT Problems: Yes Hx Cataracts: Yes (LEFT IOL) - RENAL Hx Chronic Kidney Disease: No - ENDOCRINE/METABOLIC Hx Endocrine Disorders: No - HEMATOLOGICAL/ONCOLOGICAL Hx Blood Transfusions: No Hx Cancer: Yes (Prostate CA w/ mets to liver and bone; h/o renal cancer s/p nephrectomy) - INTEGUMENTARY Hx Dermatological Problems: No - MUSCULOSKELETAL/RHEUMATOLOGICAL Hx Musculoskeletal Disorders: No - GASTROINTESTINAL Hx Gastroesophageal Reflux: Yes - GENITOURINARY/GYNECOLOGICAL Hx Genitourinary Disorders: Yes Hx Prostate Cancer: Yes Hx Prostate Problems: Yes - PSYCHIATRIC Hx Emotional Abuse: No Hx Physical Abuse: No Hx Substance Use: No - SURGICAL HISTORY Hx Appendectomy: Yes - ANESTHESIA Hx Anesthesia: Yes Hx Anesthesia Reactions: No Hx Malignant Hyperthermia: No Meds Allergies/Adverse Reactions: Allergies Allergy/AdvReac Type Severity Reaction Status Date / Time No Known Allergies Allergy Verified 03/20/17 21:28 Physical Exam - Constitutional Appears: Non-toxic, No Acute Distress, Older Than Stated Age, Cachectic - Head Exam Head Exam: ATRAUMATIC, NORMOCEPHALIC - Eye Exam Eye Exam: PERRL - ENT Exam ENT Exam: Mucous Membranes Moist - Neck Exam Neck exam: Negative for: Lymphadenopathy, Thyromegaly - Respiratory Exam Respiratory Exam: Clear to Auscultation Bilateral, NORMAL BREATHING PATTERN. absent: Rales, Rhonchi, Wheezes - Cardiovascular Exam Cardiovascular Exam: RRR, +S1, +S2. absent: Systolic Murmur - GI/Abdominal Exam GI & Abdominal Exam: Normal Bowel Sounds, Soft, Tenderness - Extremities Exam Extremities exam: Positive for: pedal edema. Negative for: calf tenderness, pedal pulses present - Neurological Exam Neurological exam: Alert, Oriented x3 - Psychiatric Exam Psychiatric exam: Normal Affect, Normal Mood - Skin Skin Exam: Normal Color, Warm Results - Vital Signs Recent Vital Signs: Last Vital Signs Temp 97.7 F 06/16/17 21:45 Pulse 94 H 06/17/17 01:42 Resp 18 06/17/17 01:42 BP 135/80 06/17/17 01:42 Pulse Ox 97 06/17/17 01:42 - Labs Result Diagrams: 06/16/17 22:45 06/16/17 22:45 Assessment & Plan - Assessment and Plan (Free Text) Assessment: 76M with PMH prostate cancer, HTN, presents for hematuria 2/2 likely traumatic ballesteros insertion vs medication SE Bicalutamide. Plan: Hematuria: - 2/2 likely traumatic ballesteros insertion vs medication SE Bicalutamide - Hgb 12 (baseline 11.4). - Pt's urine now clearing up than in ED, less blood noted; Will do continuous irrigation of bladder. - F/u urology c/s recs - F/u UA - Hold antineoplatic Bicalutamide - Oxycodone for prostate ca pain control, T[facility]enol prn [facility] - On Cipro 500 mg BID, ends on 06/23. - F/u UA, urine culture Prostate cancer with mets to liver and kidney: -c/w home med flomax, megestrol acetate Hx of Constipation: - C.w home med miralax, senna prn, colace tid Elevated BNP: - BNP 892, Cr 1.3, elevation likely from high Cr - Consider cardiac echo Hx of HTN: - Metoprolol 50 mg PO BID, hold for sbp <110 DVT ppx: SCDs GI PPX: protonix Discussed with Dr America oV, PGY1 - Date & Time Date: 06/17/17 Time: 04:46 <Guero Cross - Last Filed: 06/17/17 08:59> Results - Vital Signs Recent Vital Signs: Last Vital Signs Temp 98.6 F 06/17/17 07:30 Pulse 94 H 06/17/17 07:30 Resp 20 06/17/17 07:30 BP 145/85 06/17/17 07:30 Pulse Ox 98 06/17/17 07:30 - Labs Result Diagrams: 06/17/17 08:12 06/17/17 08:12 Labs: Laboratory Results - last 24 hr 06/17/17 06/17/17 06/17/17 06:15 08:12 08:12 WBC 8.5 RBC 3.71 Hgb 11.2 L Hct 33.3 L MCV 89.8 MCH 30.2 MCHC 33.6 RDW 17.6 H Plt Count 159 MPV 11.6 H Gran % 79.0 H Lymph % (Auto) 11.0 L [place] % (Auto) 9.3 H Eos % (Auto) 0.5 L Baso % (Auto) 0.2 Gran # 6.72 H Lymph # 0.9 L [place] # 0.8 H Eos # 0.0 Baso # 0.02 pO2 VBG pH VBG pCO2 VBG HCO3 VBG Total CO2 VBG O2 Sat (Calc) VBG Base Excess VBG Potassium Sodium 142 Chloride 111 H Glucose Lactate FiO2 Potassium 4.3 Carbon Dioxide 18 L Anion Gap 17 BUN 17 Creatinine 1.3 Est GFR ( Amer) > 60 Est GFR (Non-Af Amer) 54 Random Glucose 91 Calcium 10.0 Total Bilirubin 6.0 H AST 223 H ALT 187 H Alkaline Phosphatase 465 H Total Protein 6.7 Albumin 3.2 Globulin 3.5 Albumin/Globulin Ratio 0.9 L Venous Blood Potassium Urine Color Sherri Urine Appearance Sl cloudy Urine pH 5.5 Ur Specific Bascom >= 1.030 Urine Protein 100 H Urine Glucose (UA) Negative Urine Ketones Trace H Urine Blood Large H Urine Nitrate Positive H Urine Bilirubin Moderate H Urine Urobilinogen 1.0 H Ur Leukocyte Esterase Small H Urine RBC Tntc Urine WBC 2 - 5 Ur Epithelial Cells 6 - 8 Amorphous Sediment Small Urine Bacteria Small 06/17/17 08:12 WBC RBC Hgb Hct MCV MCH MCHC RDW Plt Count MPV Gran % Lymph % (Auto) [place] % (Auto) Eos % (Auto) Baso % (Auto) Gran # Lymph # [place] # Eos # Baso # pO2 75 H VBG pH 7.38 VBG pCO2 33.0 L VBG HCO3 19.5 L VBG Total CO2 20.5 L VBG O2 Sat (Calc) 98.1 H VBG Base Excess -4.9 L VBG Potassium 4.1 Sodium 141.0 Chloride 112.0 H Glucose 94 Lactate 2.6 H FiO2 21.0 Potassium Carbon Dioxide Anion Gap BUN Creatinine Est GFR ( Amer) Est GFR (Non-Af Amer) Random Glucose Calcium Total Bilirubin AST ALT Alkaline Phosphatase Total Protein Albumin Globulin Albumin/Globulin Ratio Venous Blood Potassium 4.1 Urine Color Urine Appearance Urine pH Ur Specific Bascom Urine Protein Urine Glucose (UA) Urine Ketones Urine Blood Urine Nitrate Urine Bilirubin Urine Urobilinogen Ur Leukocyte Esterase Urine RBC Urine WBC Ur Epithelial Cells Amorphous Sediment Urine Bacteria Assessment & Plan - Assessment and Plan (Free Text) Plan: went over w/ resident at length and discussed plan orders
--- NOTE | 2017-06-17 02:42 | ED PDOC ---
Arrival/HPI <Preet Mario - Last Filed: 06/17/17 03:32> - General Historian: Family EM Caveat: Acuity of Condition - History of Present Illness Time/Duration: Prior to Arrival Symptom Onset: Gradual Symptom Course: Unchanged Activities at Onset: Rest Context: Sitting <LOPEZ TREVINO - Last Filed: 06/17/17 06:27> - General Chief Complaint: Male Genitourinary Time Seen by Provider: 06/16/17 22:07 - History of Present Illness Narrative History of Present Illness (Text): 06/17/17 02:18 Patient is a 76 year old male who [place] [facility] [place] with complaints of hematuria. Patient was originally admitted on Sunday. Due to patient currently having prostate cancer, he was transferred to [facility] on Sunday for chemotherapy. According to patient's daughter, before being transferred to [facility] she noted blood in his ballesteros. Sunday morning patient complained to daughter of discomfort at ballesteros site. Daughter of patient communicated this with nurse at [facility]. Ballesteros removal and replacement was attempted, which resulted in gross hematuria output. 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; h/o renal cancer s/p nephrectomy) - Integumentary Hx Dermatological Disorder: No - Musculoskeletal/Rheumatological Hx Musculoskeletal Disorders: No - Gastrointestinal Hx Gastroesophageal Reflux: Yes - Genitourinary/Gynecological Hx Genitourinary Disorders: Yes Hx Prostate Cancer: Yes Hx Prostate Problems: Yes - Psychiatric Hx Emotional Abuse: No Hx Physical Abuse: No Hx Substance Use: No - Surgical History Hx Appendectomy: Yes - Anesthesia Hx Anesthesia: Yes Hx Anesthesia Reactions: No Hx Malignant Hyperthermia: No - Suicidal Assessment Feels Threatened In Home Enviroment: No <LOPEZ TREVINO - Last Filed: 06/17/17 06:27> Family/Social History <Preet Mario - Last Filed: 06/17/17 03:32> - Physician Review Nursing Documentation Reviewed: Yes Family/Social History: Other Smoking Status: Never Smoked Hx Alcohol Use: No Hx Substance Use: No <LOPEZ TREVINO - Last Filed: 06/17/17 06:27> Narrative Family History (Free Text): 06/17/17 02:52 non contributory (LOPEZ TREVINO) Allergies/Home Meds <LexinomiPreet - Last Filed: 06/17/17 03:32> <LOPEZ TREVINO - Last Filed: 06/17/17 06:27> Allergies/Adverse Reactions: Allergies No Known Allergies Allergy (Verified 03/20/17 21:28) Home Medications: Home Meds Medication Instructions Recorded Confirmed Acetaminophen [Tylenol 325mg tab] 650 mg PO Q4 PRN 06/17/17 06/17/17 Bicalutamide [Casodex] 50 mg PO DAILY 06/17/17 06/17/17 Ciprofloxacin [Cipro] 500 mg PO BID 06/17/17 06/17/17 Docusate Sodium [Colace] 100 mg PO TID PRN 06/17/17 06/17/17 Megestrol [Megace] 40 mg PO BID 06/17/17 06/17/17 Metoprolol Tartrate [Lopressor] 50 mg PO BID 06/17/17 06/17/17 Oxycodone HCl 10 mg PO Q8 PRN 06/17/17 06/17/17 Pantoprazole Sodium [Protonix] 40 mg PO DAILY 06/17/17 06/17/17 Polyethylene Glycol 3350 [Miralax] 17 gm PO DAILY 06/17/17 06/17/17 Sennosides [Senokot] 8.6 mg PO DAILY PRN 06/17/17 06/17/17 Tamsulosin [Flomax] 0.4 mg PO DAILY 06/17/17 06/17/17 Review of Systems - Review of Systems Systems not reviewed;Unavailable: Uncooperative <LOPEZ TREVINO - Last Filed: 06/17/17 06:27> Physical Exam Vital Signs Reviewed: Yes Temperature: Afebrile Blood Pressure: Normal Pulse: Regular Respiratory Rate: Normal Appearance: Positive for: Well-Appearing, Non-Toxic Pain Distress: Moderate Mental Status: Positive for: Alert and Oriented X 3 - Systems Exam Head: Present: Atraumatic, Normocephalic Extroacular Muscles: Present: EOMI Mouth: Present: Moist Mucous Membranes Neck: Present: Normal Range of Motion Respiratory/Chest: Present: Clear to Auscultation, Good Air Exchange Cardiovascular: Present: Regular Rate and Rhythm, Normal S1, S2 Abdomen: No: Tenderness, Distention, Normal Bowel Sounds Upper Extremity: Present: Normal Inspection Lower Extremity: Present: Edema Neurological: Present: CN II-XII Intact Skin: Present: Warm, Dry Psychiatric: Present: Alert, Oriented x 3 <LOPEZ TREVINO - Last Filed: 06/17/17 06:27> Vital Signs Temp Pulse Resp BP Pulse Ox 06/17/17 01:42 94 H 18 135/80 97 06/16/17 21:45 97.7 F 91 H 18 133/79 96 Medical Decision Making - Lab Interpretations I have reviewed the lab results: Yes <Preet Mario - Last Filed: 06/17/17 03:32> - Lab Interpretations I have reviewed the lab results: Yes (BNP elevated) <LOPEZ TREVINO - Last Filed: 06/17/17 06:27> ED Course and Treatment: Impression: Pt seen and evaluated with medical health researcher. Pt, whose past medical history include prostate cancer, presented complaining of hematuria. Aware and agree with HPI, clinical findings, plan, and management. Differential Diagnosis included but are not limited to: hematuria Plan: -- Labs -- Ballesteros catheter replacement -- Reassess and disposition 06/17/17 00:[address] Cross, covering for Dr. Mijares, who is aware and agrees with plan. [facility] observation for hematuria under Dr. Mijares' service. (Preet Mario) Assessment 76 year old male [facility] prostate cancer patient presenting with hematuria for 3 days Plan -Hematuria with solitary mass; admit to hospitalist service - Ballesteros catheter replacement 06/17/17 02:57 (LOPEZ TREVINO) - Lab Interpretations Lab Results: 06/16/17 22:45 06/16/17 22:45 Lab Results 06/16/17 22:45: Sodium 141, Potassium 4.3, Chloride 109 H, Carbon Dioxide 20 L, Anion Gap 16, BUN 19, Creatinine 1.3, Est GFR ( Amer) > 60, Est GFR (Non- Af Amer) 54, Random Glucose 103, Calcium 10.1, NT-Pro-B Natriuret Pep 892 H 06/16/17 22:45: WBC 8.9, RBC 3.95, Hgb 12.0 L, Hct 35.6 L, MCV 90.1, MCH 30.4, MCHC 33.7, RDW 17.3 H, Plt Count 190, MPV 12.8 H, Gran % 83.9 H, Lymph % (Auto) 8.8 L, [place] % (Auto) 7.3 H, Eos % (Auto) 0.0 L, Baso % (Auto) 0.0, Gran # 7.49 H , Lymph # 0.8 L, [place] # 0.7 H, Eos # 0.0, Baso # 0.00 - Medication Orders Current Medication Orders: Acetaminophen (Tylenol 325mg Tab) 650 mg PO Q4 PRN PRN Reason: Pain, Mild (1-3) Ciprofloxacin (Cipro) 500 mg PO Q12 QUYEN PRN Reason: Protocol Docusate Sodium (Colace) 100 mg PO TID PRN PRN Reason: Constipation Megestrol Acetate (Megace) 40 mg PO BID [facility] Metoprolol Tartrate (Lopressor) 50 mg PO BID [facility] Oxycodone HCl (Oxycodone Immediate Release Tab) 10 mg PO Q8 PRN PRN Reason: Pain, moderate (4-7) Last Admin: 06/17/17 06:06 Dose: 10 mg Pantoprazole Sodium (Protonix Ec Tab) 40 mg PO 0600 [facility] Last Admin: 06/17/17 05:56 Dose: 40 mg Polyethylene Glycol (Miralax) 17 gm PO DAILY [facility] Sennosides (Senokot Tab) 8.6 mg PO DAILY PRN PRN Reason: Constipation Tamsulosin HCl (Flomax) 0.4 mg PO DAILY [facility] Disposition/Present on Arrival <Preet Mario - Last Filed: 06/17/17 03:32> - Present on Arrival Any Indicators Present on Arrival: No History of DVT/PE: No History of Uncontrolled Diabetes: No Urinary Catheter: Yes (Arrived with Ballesteros Catheter in place) History of Decub. Ulcer: No History Surgical Site Infection Following: Abdominal Surgery - Disposition Have Diagnosis and Disposition been Completed?: Yes Disposition Time: 12:30 Patient Plan: Admission <LOPEZ TREVINO - Last Filed: 06/17/17 06:27> - Disposition Diagnosis: Hematuria Disposition: HOSPITALIZED Patient Problems: Current Active Problems Problem Status Onset Hematuria Acute Condition: SERIOUS
[2017-06-17 03:39] VITALS: RESP 20; BMI 29.7
[2017-06-17] MEDS ORDERED: oxyCODONE 10 mg Immediate Release Tab PO PRN (04:28)
[2017-06-17] MEDS ORDERED: Pantoprazole 40 mg EC Tab PO SCH (06:00)
[2017-06-17 06:57] LABS: PH,URINE 5.5 (4.7-8.0); URINE BILIRUBIN MODERATE (NEGATIVE); URINE BLOOD LARGE (NEGATIVE); URINE GLUCOSE (UA) NEGATIVE (NEGATIVE); URINE KETONE TRACE mg/dL (NEGATIVE); URINE LEUKOCYTE ESTERASE SMALL Leu/uL (NEGATIVE); URINE PROTEIN 100 mg/dL (<30 mg/dL)
[2017-06-17 06:58] LABS: URINE APPEARANCE SL CLOUDY (CLEAR); URINE COLOR AMBER (YELLOW); URINE RBC TNTC /hpf (0-2)
[2017-06-17 06:59] LABS: URINE AMORPHOUS SEDIMENT SMALL; URINE BACTERIA SMALL (NEG)
[2017-06-17 07:39] VITALS: BP 145/85; PULSE 94; TEMP 98.6; O2SAT 98
[2017-06-17 08:16] LABS: VENOUS BLOOD GAS BASE EXCESS -4.9 mmol/L (0.0-2.0); VENOUS BLOOD PH 7.38 (7.32-7.43)
[2017-06-17 08:27] LABS: ALB/GLOB RATIO 0.9 (1.1-1.8); ALKALINE PHOSPHATASE 465 U/L (38-126); ALT/SGPT 187 U/L (7-56); AST/SGOT 223 U/L (17-59); BLOOD UREA NITROGEN 17 mg/dL (7-21); CARBON DIOXIDE 18 mmol/L (21-33); CHLORIDE 111 mmol/L (95-110); GFR AFRICAN-AMERICAN > 60; GLUCOSE,RANDOM 91 mg/dL (70-110); POTASSIUM 4.3 mmol/L (3.6-5.0); SODIUM 142 mmol/L (132-148); TOTAL PROTEIN 6.7 g/dL (5.8-8.3)
[2017-06-17 08:32] LABS: BASO # 0.02 K/mm3 (0.0-2.0); BASO % 0.2 % (0.0-3.0); EOS % 0.5 % (1.5-5.0); GRAN # 6.72 (1.4-6.5); HEMATOCRIT 33.3 % (42.0-52.0); LYMPH # 0.9 (1.2-3.4); MEAN CELL VOLUME 89.8 fl (80.0-105.0); MEAN CORPUSCULAR HEMOGLOBIN 30.2 pg (25.0-35.0); MEAN CORPUSCULAR HGB CONC 33.6 g/dl (31.0-37.0); MEAN PLATELET VOLUME 11.6 fl (7.0-11.0); MONO # 0.8 (0.1-0.6); MONO % 9.3 % (1.0-6.0); RED CELL DISTRIBUTION WIDTH 17.6 % (11.5-14.5); WHITE BLOOD COUNT 8.5 10^3/ul (4.5-11.0)
[2017-06-17] MEDS ORDERED: POLYETHYLENE GLYCOL 3350 17 GM/Dose PACKET PO SCH (10:00)
[2017-06-17] MEDS ORDERED: Megestrol Acetate 40 mg/ml Cup PO SCH (10:00)
--- NOTE | 2017-06-17 11:03 | CP.PCM.DIS ---
<HerbieBishnuNata - Last Filed: 06/17/17 11:34> Provider - Provider Date of Admission: 06/17/17 01:08 Attending physician: Preet Mijares MD Primary care physician: Outpt PMD: Ata Dumont [phone] Dr. Darius Cloud: Out pt HemeOnc Dr. Levin: Out pt GI Dr. Zurita: Out pt Urologist Consults: Urol = Dr. Silvina Parks Time Spent in preparation of Discharge (in minutes): 45 Hospital Course - Lab Results Lab Results: Most Recent Lab Values WBC 8.5 10^3/ul (4.5-11.0) 06/17/17 08:12 RBC 3.71 10^6/uL (3.5-6.1) 06/17/17 08:12 Hgb 11.2 g/dL (14.0-18.0) L 06/17/17 08:12 Hct 33.3 % (42.0-52.0) L 06/17/17 08:12 MCV 89.8 fl (80.0-105.0) 06/17/17 08:12 MCH 30.2 pg (25.0-35.0) 06/17/17 08:12 MCHC 33.6 g/dl (31.0-37.0) 06/17/17 08:12 RDW 17.6 % (11.5-14.5) H 06/17/17 08:12 Plt Count 159 10^3/uL (120.0-450.0) 06/17/17 08:12 MPV 11.6 fl (7.0-11.0) H 06/17/17 08:12 Gran % 79.0 % (50.0-68.0) H 06/17/17 08:12 Lymph % (Auto) 11.0 % (22.0-35.0) L 06/17/17 08:12 [place] % (Auto) 9.3 % (1.0-6.0) H 06/17/17 08:12 Eos % (Auto) 0.5 % (1.5-5.0) L 06/17/17 08:12 Baso % (Auto) 0.2 % (0.0-3.0) 06/17/17 08:12 Gran # 6.72 (1.4-6.5) H 06/17/17 08:12 Lymph # 0.9 (1.2-3.4) L 06/17/17 08:12 [place] # 0.8 (0.1-0.6) H 06/17/17 08:12 Eos # 0.0 (0.0-0.7) 06/17/17 08:12 Baso # 0.02 K/mm3 (0.0-2.0) 06/17/17 08:12 pO2 75 mm/Hg (30-55) H 06/17/17 08:12 VBG pH 7.38 (7.32-7.43) 06/17/17 08:12 VBG pCO2 33.0 (40-60) L 06/17/17 08:12 VBG HCO3 19.5 mmol/l (21-28) L 06/17/17 08:12 VBG Total CO2 20.5 mmol.L (22-28) L 06/17/17 08:12 VBG O2 Sat (Calc) 98.1 % (40-65) H 06/17/17 08:12 VBG Base Excess -4.9 mmol/L (0.0-2.0) L 06/17/17 08:12 VBG Potassium 4.1 mmol/L (3.6-5.2) 06/17/17 08:12 Sodium 141.0 mmol/L (132-148) 06/17/17 08:12 Chloride 112.0 mmol/L (98-107) H 06/17/17 08:12 Glucose 94 mg/dl (75-110) 06/17/17 08:12 Lactate 2.6 mmol/L (0.7-2.1) H 06/17/17 08:12 FiO2 21.0 % 06/17/17 08:12 Sodium 142 mmol/L (132-148) 06/17/17 08:12 Potassium 4.3 mmol/L (3.6-5.0) 06/17/17 08:12 Chloride 111 mmol/L (95-110) H 06/17/17 08:12 Carbon Dioxide 18 mmol/L (21-33) L 06/17/17 08:12 Anion Gap 17 (10-20) 06/17/17 08:12 BUN 17 mg/dL (7-21) 06/17/17 08:12 Creatinine 1.3 mg/dL (0.5-1.4) 06/17/17 08:12 Est GFR ( Amer) > 60 06/17/17 08:12 Est GFR (Non-Af Amer) 54 06/17/17 08:12 Random Glucose 91 mg/dL (70-110) 06/17/17 08:12 Calcium 10.0 mg/dL (8.4-10.5) 06/17/17 08:12 Total Bilirubin 6.0 mg/dL (0.2-1.3) H 06/17/17 08:12 AST 223 U/L (17-59) H 06/17/17 08:12 ALT 187 U/L (7-56) H 06/17/17 08:12 Alkaline Phosphatase 465 U/L (38-126) H 06/17/17 08:12 NT-Pro-B Natriuret Pep 892 pg/mL (0-450) H 06/16/17 22:45 Total Protein 6.7 g/dL (5.8-8.3) 06/17/17 08:12 Albumin 3.2 g/dL (3.0-4.8) 06/17/17 08:12 Globulin 3.5 gm/dL 06/17/17 08:12 Albumin/Globulin Ratio 0.9 (1.1-1.8) L 06/17/17 08:12 Venous Blood Potassium 4.1 mmol/L (3.6-5.2) 06/17/17 08:12 Urine Color Sharon (YELLOW) 06/17/17 06:15 Urine Appearance Sl cloudy (CLEAR) 06/17/17 06:15 Urine pH 5.5 (4.7-8.0) 06/17/17 06:15 Ur Specific [place] >= 1.030 (1.005-1.035) 06/17/17 06:15 Urine Protein 100 mg/dL (<30 mg/dL) H 06/17/17 06:15 Urine Glucose (UA) Negative mg/dL (NEGATIVE) 06/17/17 06:15 Urine Ketones Trace mg/dL (NEGATIVE) H 06/17/17 06:15 Urine Blood Large (NEGATIVE) H 09/03/17 06:15 Urine Nitrate Positive (NEGATIVE) H 06/17/17 06:15 Urine Bilirubin Moderate (NEGATIVE) H 06/17/17 06:15 Urine Urobilinogen 1.0 E.U./dL (<1 E.U./dL) H 06/17/17 06:15 Ur Leukocyte Esterase Small Mitzy/uL (NEGATIVE) H 06/17/17 06:15 Urine RBC Tntc /hpf (0-2) 06/17/17 06:15 Urine WBC 2 - 5 /hpf (0-6) 06/17/17 06:15 Ur Epithelial Cells 6 - 8 /hpf (0-5) 06/17/17 06:15 Amorphous Sediment Small 06/17/17 06:15 Urine Bacteria Small (NEG) 06/17/17 06:15 - Hospital Course Hospital Course: 76 AA M lived alone at home, recently admitted to [facility] for intractable R sided thoracolumbar pain likely from bone metastatsis, thereby transfered to rehab at [facility] at 06/15/17. Per [facility], pt was on chronic ballesteros. Pt states that he was diagnosed with a UTI at the nursing rehab, the nurse changed his ballesteros on 06/16, with resulting gross hematuria, which caused him to come to the ED on 06/17. Pt has been having some mild hematuria for some time now, attributing to his prostate cancer, but after the ballesteros insertion, he had much more blood in the urine. In ED, pt's ballesteros draining dark bloody urine. Today, it became sharon with slight red with red sediment. H/H is stable. Vital sign is stable. Pt is AAOx3. (+) suprapubic pain. Denies CP, SOB, N/V/D/C. Pt will be discharged to [facility]. Pt also complained of dysuria, which pt was currently on cipro therapy, but urine culture on 06/13 showed resistant to cipro and positive to ESBL. will change pt on macrobid 100 PO bid x 5 days. Pt needs to have kidney function checked everyday at [facility] during the duraton of macrobid therapy and initiate contact precaution. Discharge Exam - Head Exam Head Exam: ATRAUMATIC, NORMOCEPHALIC - Eye Exam Eye Exam: EOMI, Normal appearance, PERRL, Scleral icterus (slight, same as last admission) Pupil Exam: NORMAL ACCOMODATION, PERRL - ENT Exam ENT Exam: Mucous Membranes Moist - Neck Exam Additional comments: supple - Respiratory Exam Respiratory Exam: Clear to PA & Lateral. absent: Rhonchi, Wheezes, Respiratory Distress - Cardiovascular Exam Cardiovascular Exam: REGULAR RHYTHM, +S1, +S2 - GI/Abdominal Exam GI & Abdominal Exam: Normal Bowel Sounds, Soft. absent: Diminished Bowel Sounds , Distended, Firm, Guarding, Tenderness Additional comments: (+) suprapubic pain - Extremities Exam Extremities exam: pedal edema (1+, chronic. Negative dewey b/l) - Back Exam Back exam: absent: CVA tenderness (L), CVA tenderness (R) - Neurological Exam Neurological exam: Alert, Oriented x3 - Psychiatric Exam Psychiatric exam: Normal Affect, Normal Mood - Skin Skin Exam: Dry, Warm Discharge Plan - Discharge Medications Prescriptions: Nitrofurantoin Macrocrystals [Macrobid] 100 mg PO BID #10 cap - Follow Up Plan Condition: SERIOUS Disposition: REHAB FACILITY/REHAB UNIT Instructions: Acute Hematuria (DC) Additional Instructions: Discharge instructions 1. Check kidney function everyday since pt is on macrobid for UTI 2. Follow up with Urologist, Dr. Parks, in 1 week 3. Follow up with PMD in 1-2 week 4. If new symptoms, call PMD or go to emergency room 5. flush ballesteros as needed for clots New Meds Discontinue cipro inititate 5 days of macrobid therapy Discharge diagnosis Hematuria likely from instrumentation insertion UTI, complicated Referrals: Nicholas Parks MD [Staff Provider] - <Guero Cross - Last Filed: 06/18/17 10:12> Provider - Provider Date of Admission: 06/17/17 01:08 Attending physician: Preet Mijares MD Hospital Course - Lab Results Lab Results: Micro Results 06/17/17 08:12 Blood-Venous Blood Culture - Preliminary NO GROWTH AFTER 24 HOURS 06/17/17 08:12 Blood-Venous Blood Culture - Preliminary NO GROWTH AFTER 24 HOURS Most Recent Lab Values WBC 8.5 10^3/ul (4.5-11.0) 06/17/17 08:12 RBC 3.71 10^6/uL (3.5-6.1) 06/17/17 08:12 Hgb 11.2 g/dL (14.0-18.0) L 06/17/17 08:12 Hct 33.3 % (42.0-52.0) L 06/17/17 08:12 MCV 89.8 fl (80.0-105.0) 06/17/17 08:12 MCH 30.2 pg (25.0-35.0) 06/17/17 08:12 MCHC 33.6 g/dl (31.0-37.0) 06/17/17 08:12 RDW 17.6 % (11.5-14.5) H 06/17/17 08:12 Plt Count 159 10^3/uL (120.0-450.0) 06/17/17 08:12 MPV 11.6 fl (7.0-11.0) H 06/17/17 08:12 Gran % 79.0 % (50.0-68.0) H 06/17/17 08:12 Lymph % (Auto) 11.0 % (22.0-35.0) L 06/17/17 08:12 [place] % (Auto) 9.3 % (1.0-6.0) H 06/17/17 08:12 Eos % (Auto) 0.5 % (1.5-5.0) L 06/17/17 08:12 Baso % (Auto) 0.2 % (0.0-3.0) 06/17/17 08:12 Gran # 6.72 (1.4-6.5) H 06/17/17 08:12 Lymph # 0.9 (1.2-3.4) L 06/17/17 08:12 [place] # 0.8 (0.1-0.6) H 06/17/17 08:12 Eos # 0.0 (0.0-0.7) 06/17/17 08:12 Baso # 0.02 K/mm3 (0.0-2.0) 06/17/17 08:12 pO2 75 mm/Hg (30-55) H 06/17/17 08:12 VBG pH 7.38 (7.32-7.43) 06/17/17 08:12 VBG pCO2 33.0 (40-60) L 06/17/17 08:12 VBG HCO3 19.5 mmol/l (21-28) L 06/17/17 08:12 VBG Total CO2 20.5 mmol.L (22-28) L 06/17/17 08:12 VBG O2 Sat (Calc) 98.1 % (40-65) H 06/17/17 08:12 VBG Base Excess -4.9 mmol/L (0.0-2.0) L 06/17/17 08:12 VBG Potassium 4.1 mmol/L (3.6-5.2) 06/17/17 08:12 Sodium 141.0 mmol/L (132-148) 06/17/17 08:12 Chloride 112.0 mmol/L (98-107) H 06/17/17 08:12 Glucose 94 mg/dl (75-110) 06/17/17 08:12 Lactate 2.6 mmol/L (0.7-2.1) H 06/17/17 08:12 FiO2 21.0 % 06/17/17 08:12 Sodium 142 mmol/L (132-148) 06/17/17 08:12 Potassium 4.3 mmol/L (3.6-5.0) 06/17/17 08:12 Chloride 111 mmol/L (95-110) H 06/17/17 08:12 Carbon Dioxide 18 mmol/L (21-33) L 06/17/17 08:12 Anion Gap 17 (10-20) 06/17/17 08:12 BUN 17 mg/dL (7-21) 06/17/17 08:12 Creatinine 1.3 mg/dL (0.5-1.4) 06/17/17 08:12 Est GFR ( Amer) > 60 06/17/17 08:12 Est GFR (Non-Af Amer) 54 06/17/17 08:12 Random Glucose 91 mg/dL (70-110) 06/17/17 08:12 Calcium 10.0 mg/dL (8.4-10.5) 06/17/17 08:12 Total Bilirubin 6.0 mg/dL (0.2-1.3) H 06/17/17 08:12 AST 223 U/L (17-59) H 06/17/17 08:12 ALT 187 U/L (7-56) H 06/17/17 08:12 Alkaline Phosphatase 465 U/L (38-126) H 06/17/17 08:12 NT-Pro-B Natriuret Pep 892 pg/mL (0-450) H 06/16/17 22:45 Total Protein 6.7 g/dL (5.8-8.3) 06/17/17 08:12 Albumin 3.2 g/dL (3.0-4.8) 06/17/17 08:12 Globulin 3.5 gm/dL 06/17/17 08:12 Albumin/Globulin Ratio 0.9 (1.1-1.8) L 06/17/17 08:12 Venous Blood Potassium 4.1 mmol/L (3.6-5.2) 06/17/17 08:12 Urine Color [place] (YELLOW) 06/17/17 06:15 Urine Appearance Sl cloudy (CLEAR) 06/17/17 06:15 Urine pH 5.5 (4.7-8.0) 06/17/17 06:15 Ur Specific [place] >= 1.030 (1.005-1.035) 06/17/17 06:15 Urine Protein 100 mg/dL (<30 mg/dL) H 06/17/17 06:15 Urine Glucose (UA) Negative mg/dL (NEGATIVE) 06/17/17 06:15 Urine Ketones Trace mg/dL (NEGATIVE) H 06/17/17 06:15 Urine Blood Large (NEGATIVE) H 06/17/17 06:15 Urine Nitrate Positive (NEGATIVE) H 06/17/17 06:15 Urine Bilirubin Moderate (NEGATIVE) H 06/17/17 06:15 Urine Urobilinogen 1.0 E.U./dL (<1 E.U./dL) H 06/17/17 06:15 Ur Leukocyte Esterase Small Mitzy/uL (NEGATIVE) H 06/17/17 06:15 Urine RBC Tntc /hpf (0-2) 06/17/17 06:15 Urine WBC 2 - 5 /hpf (0-6) 06/17/17 06:15 Ur Epithelial Cells 6 - 8 /hpf (0-5) 06/17/17 06:15 Amorphous Sediment Small 06/17/17 06:15 Urine Bacteria Small (NEG) 06/17/17 06:15 Discharge Exam - Additional Findings Additional findings: went over w/ resident at length and plans
--- NOTE | 2017-06-18 09:19 | DS ---
SUBJECTIVE: He was on observation status. He was discharged yesterday to [facility] and went there and they changed his Lyle and so it does have blood now. It is punch, which is much better. He can go back to subacute rehab today. MEDICATIONS: He is on Cipro, Colace, Flomax, Megace, MiraLax, oxycodone, Protonix, Senokot and Tylenol. PHYSICAL EXAMINATION: VITAL SIGNS: He has 98.6 temperature, 94 pulse, 145/85 blood pressure, 20 respiratory rate, and 90% O2 sat on room air. HEENT: Head is normocephalic and atraumatic. HEART: Regular rate. LUNGS: Clear to auscultation. ABDOMEN: Soft and nontender. EXTREMITIES: No edema. GENITOURINARY: He has got Lyle catheter, now down to punch. LABORATORY DATA: He has an 8.5 white count, 11.2 hemoglobin, 33.3 hematocrit, and 159 platelets. 142 sodium, potassium 4.3, BUN 17, creatinine is 1.3, GFR is 64, sugar 91, calcium is 10. Total bilirubin is 6, AST is 223, ALT is 187, alk phos 465. Total protein 6.7, albumin is 3.2. BNP is 892. ASSESSMENT AND PLAN: Since his urine is now getting back to the correct color, we will send him back to [facility] for his continued subacute rehab, finish medications, and physical therapy. He was here for observation. He can go back to [facility] subacute rehab on the same medications and will be followed there by Dr. Montalvo. They are not to change the Lyle catheter. Guero Cross DO KATHARINE
== END 2017-06-17 12:24 | disposition home or self-care (01) ==
LOC: ED 21:42 → ERH 06-17 01:08 → 5RNO 06-17 02:04
PROVIDERS: ADMIT Internal Medicine; ATTEND Internal Medicine
DX: R31.0 Gross hematuria (principal); N39.0 Urinary tract infection, site not specified; I10 Essential (primary) hypertension; C78.7 Secondary malignant neoplasm of liver and intrahepatic bile duct; C79.51 Secondary malignant neoplasm of bone; E78.5 Hyperlipidemia, unspecified; K21.9 Gastro-esophageal reflux disease without esophagitis; C79.00 Secondary malignant neoplasm of unspecified kidney and renal pelvis; Z85.46 Personal history of malignant neoplasm of prostate; Z90.5 Acquired absence of kidney
CPT/HCPCS: 36415; 80048; 80053; 81001; 82803; 83880; 85025; 87040; 87086; 87181; 99285; G0378

== ENCOUNTER 2017-06-29 02:52 | Inpatient (IN) | payer MEDICARE, OTHER ==
--- NOTE | 2017-06-29 03:08 | ED PDOC ---
Arrival/HPI - General Time Seen by Provider: 06/29/17 03:06 - History of Present Illness Narrative History of Present Illness (Text): 06/29/17 03:09 A 76 year old male whose past medical history includes prostate CA with mets, hypertension, and a ballesteros catheter, presents to the Emergency department via EMS for abnormal labs. History was obtained by EMS. Patient has ESBL of the urine and elevated creatinine levels. The patient denies any complaints at this time. He denies fevers, chills, headache, dizziness, abdominal pain, nausea, vomiting, diarrhea, back pain, neck pain, chest pain, shortness of breath, dyspnea on exertion, cough or any other complaint. Symptom Onset: Sudden Symptom Course: Unchanged Activities at Onset: Rest, Light Context: Home Past Medical History - Provider Review Nursing Documentation Reviewed: Yes - Infectious Disease Hx of Infectious Diseases: None - Reproductive Currently : No - Cardiac Hx Cardiac Disorders: Yes Hx Hypertension: Yes Hx Pacemaker: No - Pulmonary Hx Respiratory Disorders: No - Neurological Hx Neurological Disorder: No Hx Paralysis: No - HEENT Hx HEENT Disorder: Yes Hx Cataracts: Yes (LEFT IOL) - Renal Hx Renal Disorder: No - Endocrine/Metabolic Hx Endocrine Disorders: No - Hematological/Oncological Hx Blood Transfusions: No Hx Cancer: Yes (Prostate CA w/ mets to liver and bone; h/o renal cancer s/p nephrectomy) - Integumentary Hx Dermatological Disorder: No - Musculoskeletal/Rheumatological Hx Musculoskeletal Disorders: No - Gastrointestinal Hx Gastroesophageal Reflux: Yes - Genitourinary/Gynecological Hx Genitourinary Disorders: Yes Hx Prostate Cancer: Yes Hx Prostate Problems: Yes - Psychiatric Hx Emotional Abuse: No Hx Physical Abuse: No Hx Substance Use: No - Surgical History Hx Appendectomy: Yes - Anesthesia Hx Anesthesia: Yes Hx Anesthesia Reactions: No Hx Malignant Hyperthermia: No - Suicidal Assessment Feels Threatened In Home Enviroment: No Family/Social History - Physician Review Nursing Documentation Reviewed: Yes Family/Social History: No Known Family HX Smoking Status: Never Smoked Hx Alcohol Use: No Hx Substance Use: No Allergies/Home Meds Allergies/Adverse Reactions: Allergies No Known Allergies Allergy (Verified 03/20/17 21:28) Home Medications: Home Meds Medication Instructions Recorded Confirmed Acetaminophen [Pain Reliever] 650 mg PO Q4H PRN 06/29/17 06/29/17 Acetaminophen [Tylenol 325mg tab] 650 mg PO Q4H PRN 06/29/17 06/29/17 Bicalutamide [Casodex] 50 mg PO DAILY 06/29/17 06/29/17 Docusate [Colace] 100 mg PO TID PRN 06/29/17 06/29/17 Megestrol [Megestrol Acetate] 10 ml PO BID 06/29/17 06/29/17 Metoprolol Tartrate 50 mg PO BID 06/29/17 06/29/17 Ondansetron ODT [Zofran ODT] 4 mg PO Q8H PRN 06/29/17 06/29/17 Oxycodone HCl 10 mg PO Q8H PRN 06/29/17 06/29/17 Oxycodone HCl [Roxicodone] 5 mg PO Q8H PRN 06/29/17 06/29/17 Pantoprazole Sodium [Protonix] 40 mg PO DAILY 06/29/17 06/29/17 Polyethylene Glycol 3350 [Miralax] 17 gm PO DAILY 06/29/17 06/29/17 Sennosides [Senokot] 8.6 mg PO HS 06/29/17 06/29/17 Tamsulosin [Flomax] 0.4 mg PO DAILY 06/29/17 06/29/17 Review of Systems - Physician Review All systems were reviewed & negative as marked: Yes Physical Exam - Physical Exam Narrative Physical Exam (Text): - Review of Systems Constitutional: Normal. absent: Fatigue, Weight Change, Fevers Eyes: Normal ENT: denies sore throat, denies tristhmus Respiratory: Normal. absent: SOB, Cough, Sputum Cardiovascular: absent: Chest Pain, Palpitations, Syncope Gastrointestinal: Normal. absent: Abdominal Pain, Diarrhea, Nausea, Vomiting Genitourinary: Normal. absent: Dysuria, Frequency, Hematuria Musculoskeletal: Normal. absent: Arthralgias, Back Pain, Neck Pain Skin: no rashes, no erythema Neurological: absent: Focal Weakness Endocrine: Normal Hemo/Lymphatic: Normal Psychiatric: No suicidal or homicidal ideations Physical exam Patient appears age appropriate in no distress. - Systems Exam Head: Present: Atraumatic, Normocephalic Pupils: Present: PERRL Extroacular Muscles: Present: EOMI Conjunctiva: Present: Normal Mouth: Present: Moist Mucous Membranes Neck: Present: Normal Range of Motion. No: MIDLINE TENDERNESS, Paraspinal Tenderness Respiratory/Chest: Present: Clear to Auscultation, Good Air Exchange. No: Respiratory Distress, Accessory Muscle Use, Tachypneic Cardiovascular: Present: Regular Rate and Rhythm, Normal S1, S2, Peripheal Pulses Present. No: Murmurs Abdomen: Present: Normal Bowel Sounds. No: Tenderness, Distention, Peritoneal Signs, Rebound, Guarding Back: Present: Normal Inspection. No: Midline Tenderness, Paraspinal Tenderness Upper Extremity: Present: Normal Inspection. No: Cyanosis, Edema Lower Extremity: Present: Normal Inspection. No: Edema Neurological: Present: GCS=15, cranial nerves II through XII fully intact with no cerebellar abnormality, neurosensory fully intact. No focal neurological deficits. Skin: Present: Warm, Dry, Normal Color. No: Rashes Lymphatic: Present: OX3, NI, NC Psychiatric: Present: Alert, In no distress. Vital Signs Reviewed: Yes Vital Signs Temp Pulse Resp BP Pulse Ox 06/29/17 03:42 97.8 F 98 H 20 115/60 97 06/29/17 03:29 98 H 20 115/60 97 Blood Pressure: Normal Pulse: Regular Respiratory Rate: Normal Appearance: Positive for: Non-Toxic, Comfortable Pain Distress: None Medical Decision Making ED Course and Treatment: 06/29/17 03:10 Impression: A 76 year old male brought in via EMS for further evaluation because of abnormal lab results. Plan: -- EKG -- Chest X-Ray -- Labs -- Urinalysis -- Urine/Blood Culture -- Reassess and disposition Prior Visits: Notes and results from previous visits were reviewed. On 06/17/2017 patient was admitted for intractable thoracic lumbar pain. It was likely due to metastasis. Progress Notes: 06/29/17 03:35 Patient's records reviewed. Urine culture grew E. coli on , which is susceptible to zosyn. EKG: Ordered, reviewed, and independently interpreted the EKG. Rate : 100 BPM Rhythm : Sinus Tachycardia Interpretation : No ST-segment elevations Chest X-Ray shows cardiomegaly, no effusion, and questionable right lower lobe infiltrates. Read and interpreted by me. 06/29/17 06:11 debi Montalvo in detail, accepted to telemetry resident aware on reeval, pt's airway patent, pt more responsive - Lab Interpretations Lab Results: 06/29/17 03:16 06/29/17 04:35 Lab Results 06/29/17 04:35: Sodium 138, Potassium 6.4 H* D, Chloride 110 H, Carbon Dioxide 13 L, Anion Gap 21 H, BUN 107 H, Creatinine 6.5 H, Est GFR ( Amer) 10, Est GFR (Non-Af Amer) 8, Random Glucose 114 H, Calcium 8.8, Total Bilirubin 17.4 H, AST 356 H D, ALT 254 H, Alkaline Phosphatase 319 H D, Total Protein 7.0 , Albumin 3.0, Globulin 3.9, Albumin/Globulin Ratio 0.8 L 06/29/17 03:50: PT 21.9 H, INR 2.03 H, APTT 42.2 H 06/29/17 03:16: WBC 7.9, RBC 3.64, Hgb 11.0 L, Hct 31.7 L, MCV 87.1, MCH 30.2, MCHC 34.7, RDW 22.5 H, Plt Count 142, Gran % 87.7 H, Lymph % (Auto) 5.8 L, Creek % (Auto) 6.3 H, Eos % (Auto) 0.1 L, Baso % (Auto) 0.1, Gran # 6.96 H, Lymph # 0.5 L, Creek # 0.5, Eos # 0.0, Baso # 0.01 I have reviewed the lab results: Yes - RAD Interpretation Radiology Orders: 06/29/17 03:16 CHEST PORTABLE [RAD] Stat - EKG Interpretation Interpreted by ED Physician: Yes Type: 12 lead EKG - Medication Orders Current Medication Orders: Albuterol Sulfate (Albuterol 0.5% Inhal Marcela (2.5 Mg/0.5 Ml) Ud) 2.5 mg IH STAT STA Stop: 06/29/17 06:09 Dextrose (Dextrose 50% Inj) 100 ml IVP STAT STA Stop: 06/29/17 06:09 Sodium Chloride (Sodium Chloride 0.9%) 1,000 mls @ 1,000 mls/hr IV .Q1H STA Stop: 06/29/17 06:56 Last Admin: 06/29/17 06:06 Dose: 1,000 mls/hr Insulin Human Regular (Humulin R) 10 units IV STAT STA Stop: 06/29/17 06:09 Sodium Polystyrene Sulfonate (Kayexalate Oral Susp) 30 gm PO STAT STA Stop: 06/29/17 06:10 Discontinued Medications Sodium Chloride (Sodium Chloride 0.9%) 1,000 mls @ 1,000 mls/hr IV .Q1H STA Stop: 06/29/17 04:34 Last Admin: 06/29/17 04:40 Dose: 1,000 mls/hr Piperacillin Sod/Tazobactam Sod (Zosyn 4.5 Gm In Ns 100ml) 4.5 gm in 100 mls @ 200 mls/hr IVPB STAT STA PRN Reason: Protocol Stop: 06/29/17 04:04 Last Admin: 06/29/17 04:45 Dose: 200 mls/hr Disposition/Present on Arrival - Present on Arrival Any Indicators Present on Arrival: No History of DVT/PE: No History of Uncontrolled Diabetes: No Urinary Catheter: Yes (Arrived with Ballesteros Catheter in place) History Surgical Site Infection Following: Abdominal Surgery - Disposition Have Diagnosis and Disposition been Completed?: Yes Diagnosis: Hyperkalemia Disposition: HOSPITALIZED Disposition Time: 06:12 Patient Plan: Admission Condition: FAIR
[2017-06-29] MEDS ORDERED: Sodium Chloride 0.9% 1,000 ML IV STA ×2 (03:35→05:57)
[2017-06-29] MEDS ORDERED: Piperacill/Tazo 4.5gm in NS 4.5 GM/100 ML BAG IVPB STA (03:35)
[2017-06-29 04:08] LABS: BASO # 0.01 K/mm3 (0.0-2.0); BASO % 0.1 % (0.0-3.0); EOS % 0.1 % (1.5-5.0); GRAN # 6.96 (1.4-6.5); GRAN % 87.7 % (50.0-68.0); HEMATOCRIT 31.7 % (42.0-52.0); LYMPH # 0.5 (1.2-3.4); LYMPH % 5.8 % (22.0-35.0); MEAN CELL VOLUME 87.1 fl (80.0-105.0); MEAN CORPUSCULAR HEMOGLOBIN 30.2 pg (25.0-35.0); MEAN CORPUSCULAR HGB CONC 34.7 g/dl (31.0-37.0); MONO # 0.5 (0.1-0.6); MONO % 6.3 % (1.0-6.0); PLATELET COUNT 142 10^3/uL (120.0-450.0); RED CELL DISTRIBUTION WIDTH 22.5 % (11.5-14.5); WHITE BLOOD COUNT 7.9 10^3/ul (4.5-11.0)
[2017-06-29 04:26] LABS: INR 2.03 (0.93-1.08); PARTIAL THROMBOPLASTIN TIME 42.2 Seconds (23.7-30.8)
[2017-06-29 05:13] LABS: ALB/GLOB RATIO 0.8 (1.1-1.8); BILIRUBIN,TOTAL 17.4 mg/dL (0.2-1.3); CALCIUM 8.8 mg/dL (8.4-10.5)
[2017-06-29 05:54] LABS: POTASSIUM 6.4 mmol/L (3.6-5.0)
[2017-06-29] MEDS ORDERED: Dextrose 50% SYRINGE Inj (50 ml) IVP STA (06:08)
[2017-06-29] MEDS ORDERED: Insulin Regular 1 UNITS/0.01 ML ML IV STA (06:08)
[2017-06-29] MEDS ORDERED: Albuterol 0.5% Inhal Sol (2.5 mg/0.5 ml) UD IH STA (06:08)
[2017-06-29] MEDS ORDERED: Sod Polystyrene Sulf 15 gm/60 ml Oral Susp PO STA ×2 (06:09→13:32)
--- NOTE | 2017-06-29 08:11 | CP.PCM.HP ---
History of Present Illness - History of Present Illness History of Present Illness: Patient is a 76 year old male with a PMHx of metastatic prostate cancer, Htn, Hpl who presents to the ED from a rehabilitation facility for evaluation and treatment of abnormal lab values. Patient states that he is not sure why he was brought to the hospital. He is currently AAO x 2 to person and time. He is awake, alert, responds to verbal stimuli, follows commands, and is moving extremities past midline. Denies f/c/cp/sob/abdominal pain/n/v/ diarrhea/constipation/urinary sxs. PMH: prostate CA with mets to the liver and kidney, HTN, HLD PSH: R nephrectomy (pt was unsure about which kidney was removed) Meds: Percocet, Deltasone, Lopressor, ASA, Oxycontin, Simvastatin, Megace, Tylenol #3 Allergies: NKDA Family hx: HTN Social hx: - denies smoking, EtOH, or recreational drugs [facility] ([facility] - uses walker for assistance PMD: Ata Dumont [phone] Dr. Darius Cloud: [facility] Dr. Levin: Dr. Zurita: Urologist Present on Admission - Present on Admission Any Indicators Present on Admission: Yes Past Patient History - Infectious Disease Hx of Infectious Diseases: None - Past Medical History & Family History Past Medical History?: Yes - Past Social History Smoking Status: Never Smoked - CARDIAC Hx Cardiac Disorders: Yes Hx Hypertension: Yes Hx Pacemaker: No - PULMONARY Hx Respiratory Disorders: No - NEUROLOGICAL Hx Neurological Disorder: No Hx Paralysis: No - HEENT Hx HEENT Problems: Yes Hx Cataracts: Yes (LEFT IOL) - RENAL Hx Chronic Kidney Disease: No - ENDOCRINE/METABOLIC Hx Endocrine Disorders: No - HEMATOLOGICAL/ONCOLOGICAL Hx Blood Transfusions: No Hx Cancer: Yes (Prostate CA w/ mets to liver and bone; h/o renal cancer s/p nephrectomy) - INTEGUMENTARY Hx Dermatological Problems: No - MUSCULOSKELETAL/RHEUMATOLOGICAL Hx Musculoskeletal Disorders: No - GASTROINTESTINAL Hx Gastroesophageal Reflux: Yes - GENITOURINARY/GYNECOLOGICAL Hx Genitourinary Disorders: Yes Hx Prostate Cancer: Yes Hx Prostate Problems: Yes - PSYCHIATRIC Hx Emotional Abuse: No Hx Physical Abuse: No Hx Substance Use: No - SURGICAL HISTORY Hx Appendectomy: Yes - ANESTHESIA Hx Anesthesia: Yes Hx Anesthesia Reactions: No Hx Malignant Hyperthermia: No Meds Allergies/Adverse Reactions: Allergies Allergy/AdvReac Type Severity Reaction Status Date / Time No Known Allergies Allergy Verified 03/20/17 21:28 Physical Exam - Constitutional Appears: Non-toxic, No Acute Distress - Head Exam Head Exam: ATRAUMATIC - Eye Exam Eye Exam: EOMI, Scleral icterus - ENT Exam ENT Exam: Mucous Membranes Moist - Neck Exam Neck exam: Positive for: Normal Inspection - Respiratory Exam Respiratory Exam: NORMAL BREATHING PATTERN Additional comments: bibasilar crackles - Cardiovascular Exam Cardiovascular Exam: +S1, +S2 - GI/Abdominal Exam GI & Abdominal Exam: Tenderness. absent: Rebound, Rigid - Exam Additional comments: Ballesteros present with serosanginous fluid seen in ballesteros tube and ballesteros container Sediments present in ballesteros tube - Extremities Exam Extremities exam: Positive for: normal inspection - Back Exam Back exam: tenderness - Neurological Exam Neurological exam: CN II-XII Intact Additional comments: AAO x 2 to name and date - Psychiatric Exam Psychiatric exam: Flat Affect - Skin Skin Exam: Intact, Warm Results - Vital Signs Recent Vital Signs: Last Vital Signs Temp 97.8 F 06/29/17 03:42 Pulse 99 H 06/29/17 07:40 Resp 16 06/29/17 07:40 BP 126/69 06/29/17 05:00 Pulse Ox 98 06/29/17 07:40 - Labs Result Diagrams: 06/29/17 03:16 06/29/17 04:35 Assessment & Plan - Assessment and Plan (Free Text) Plan: Patient is a 76 year old male with a PMHx of metastatic prostate cancer, Htn, Hpl who presents from rehabilitation facility for evaluation and treatment of abnormal lab values. Hyperkalemia - Work up in ED: Potassium noted to be 6.4 in ED; patient was given insulin humulin 10 units in ED with dextrose, given 2 L bolus, given 30 of kayexylate - Recheck potassium in 4 hours after administration of medications, given at 0700 will recheck at 1100 - Continuous cardiac monitoring on tele vs remote tele, EKG shows sinus tachycardia without significant ST T wave changes - Consider calcium gluconate 10% 10 ml over 2 mins if there are EKG changes for cardiac membrane stabilization - Need to monitor urine output as patients that are oligo-anuric with mild hyperkalemia (potassium is greater than 5 but less than 6.5) patients that are oligo-anuric with a potassium greater than 6.5 will need dialysis - Potential causes of hyperkalemia- ACEi/ARB, spironolactone/eplerenone, amiloride/tiramterene, heparin, pseudohyperkalemia (repeat blood work) RODNEY on CKD - Creatinine noted at 6.5 from 1.3 last visit and Bun 107 from 17 last visit - Avoid nephrotoxins - No acei/ arb - Urine Na, Cr, Urea, and Eosinophila after getting IVF 2 L in the ED - Renal U/S - Nephrology consult- Dr. Nicholas - IVF NS @ 100cc/hr Gapped Metabolic Acidosis - Bicarb noted to be 13 with Gap of 15 - Ddx includes uremia as patient has BUN of 107 - VBG shock panel pending Abnormal CXR Finding - CT of Chest to rule out mets Elevated Liver Enzymes - Likely secondary to the mets to the liver - monitor closely with CMP Abdominal Pain; Hyperbilirubinemia - Pain likely 2/2 to mets- continue home pain medication regiment of oxycodone - Bilirubin noted to be 17.4 from 6.0 - Direct bilirubin - CT of abdomen/pelvis ordered - Abdomen/Pelvis CT from 06/10 shows Heterogeneous appearance of the liver on this unenhanced exam, suspicious for diffuse indeterminate liver lesions, such as liver metastases. Liver is cirrhotic in appearance. Sclerotic bony lesions , suspicious for sclerotic bony metastases. Multiple peripherally calcified, well defined splenic cysts, the largest measuring 4.4 cm. Hematuria, Chronic Ballesteros - 2/2 likely traumatic ballesteros insertion vs medication SE Bicalutamide (casodex) - consult urology and follow recs - H and H stable from last visit - U/A and urine cultures INR Elevation - Likely secondary to liver mets (decreased coagulation factor production) - monitor PT/INR closely Prostate cancer with Mets to liver and kidney - c/w home med flomax - hold casodex (chemotherapeutic agent) as this is a potential cause of the hematuria - Heme- Onc consult- Dr. Cloud, appreciate recs? - C/s radiation oncology? Decreased Appetite - Megestrol acetate (appetite stimulant) Constipation - Continue home senna, miralax, and colace PPX - protonix - SCD
[2017-06-29 08:17] LABS: PH,URINE 6.5 (4.7-8.0); URINE BILIRUBIN LARGE (NEGATIVE); URINE BLOOD LARGE (NEGATIVE); URINE GLUCOSE (UA) NEGATIVE (NEGATIVE); URINE KETONE TRACE mg/dL (NEGATIVE); URINE LEUKOCYTE ESTERASE SMALL Leu/uL (NEGATIVE); URINE PROTEIN >=300 mg/dL (<30 mg/dL)
[2017-06-29 08:20] LABS: URINE APPEARANCE CLOUDY (CLEAR); URINE COLOR LIGHT BROWN (YELLOW)
[2017-06-29] MEDS ORDERED: oxyCODONE 10 mg Immediate Release Tab PO PRN (08:22)
[2017-06-29] MEDS ORDERED: oxyCODONE 5 mg Immediate Release Tab PO PRN (08:22)
[2017-06-29] MEDS ORDERED: Sodium Chloride 0.9% 1,000 ML IV SCH ×2 (08:30→10:36)
[2017-06-29 08:37] LABS: URINE BACTERIA LARGE (NEG); URINE EPITHELIAL CELLS 0 - 2 /hpf (0-5); URINE RBC TNTC /hpf (0-2)
--- NOTE | 2017-06-29 08:57 | US ---
PROCEDURE: Ultrasound of the Kidneys HISTORY: RODNEY with oliguria COMPARISON: Comparison is made to the previous CT of the abdomen and pelvis dated 06/12/2017. TECHNIQUE: Sonogram of the kidneys. FINDINGS: RIGHT KIDNEY: The right kidney was not visualized consistent with the patient's history of prior right nephrectomy. LEFT KIDNEY: Measures: 11.5 x 5.5 x 6.7 cm. Normal in size, contour demonstrates mild increased echogenicity. . No stone, solid mass lesion or hydronephrosis visualized. OTHER FINDINGS: Incidentally noted are multiple lesions in the liver suggestive of liver metastasis. IMPRESSION: Status post right nephrectomy. No evidence of left hydronephrosis. Mildly echogenic left kidney suggestive of medical renal disease. Liver metastasis.
--- NOTE | 2017-06-29 09:41 | CT ---
PROCEDURE: CT Chest, Abdomen and Pelvis without intravenous contrast HISTORY: r/o hepatorenal syndrome COMPARISON: Comparison is made to the previous CT of the abdomen and pelvis dated 06/12/2017 TECHNIQUE: Axial and reformatted coronal and sagittal CT images of the chest abdomen and pelvis were obtained without IV or oral contrast administration. Radiation dose: Total exam DLP = 1256.47 mGy-cm. This CT exam was performed using one or more of the following dose reduction techniques: Automated exposure control, adjustment of the mA and/or kV according to patient size, and/or use of iterative reconstruction technique. FINDINGS: CT CHEST WITHOUT CONTRAST: LUNGS: There is airspace consolidation at the right lower lobe may represent a pneumonia. Mild bronchiectasis is also noted at the right lower lobe. There is small opacity at the left lung base likely atelectasis. Moderate paraseptal emphysema seen predominant in the upper lobe. MEDIASTINUM: Unremarkable. Normal caliber aorta and pulmonary arterial trunk. Normal size heart. LYMPH NODES: Unremarkable. PLEURA: Small right and trace left pleural effusions are seen. BONES: Unremarkable. OTHER FINDINGS: None. CT ABDOMEN AND PELVIS: LIVER: There are multiple slightly low-attenuation lesions in the liver consistent with diffuse metastasis. GALLBLADDER AND BILE DUCTS: The gallbladder is contracted contains high density may represent sludge. PANCREAS: Unremarkable. No gross lesion or ductal dilatation. SPLEEN: Again seen is round ring calcification at the spleen likely represent a sequela of prior infection. ADRENALS: Unremarkable. No mass. KIDNEYS AND URETERS: The right kidney is not visualized consistent with the patient's history of prior nephrectomy. No evidence of mass lesion at the right renal. In this noncontrast study. The left kidney is grossly unremarkable without evidence of hydronephrosis or renal stone. The left ureter is not distended. VASCULATURE: Unremarkable. No aortic aneurysm. BOWEL: Unremarkable. No obstruction. No gross mural thickening. APPENDIX: No evidence of appendicitis. PERITONEUM: There is a small ascites in the abdomen and pelvis. No evidence of free air. LYMPH NODES: Unremarkable. No enlarged lymph nodes. BLADDER: There is Lyle catheter in the bladder. The bladder is not distended. REPRODUCTIVE: Multiple seeds are seen in the prostate. BONES: There is sclerotic bony lesion at L4 vertebral body. There is also sclerotic bony lesion at the right iliac bone and right is scalp bone. Findings suspicious for osseous metastasis. OTHER FINDINGS: Mild anasarca seen more prominent at the posterior dependent portion of the body. IMPRESSION: Airspace consolidation at the right lower lobe may represent pneumonia or aspiration. Right lower lobe bronchiectasis likely due to recurrent infection/ aspiration. Small opacity at the left lung base likely atelectasis. Small right and trace left pleural effusion. Moderate paraseptal emphysema. Multiple innumerable slightly low-attenuation lesions in the liver suggestive of metastasis. Sclerotic bony lesion in the lower spine and in the pelvic bones suggestive of metastasis. Small ascites. [id number] anasarca.
--- NOTE | 2017-06-29 09:42 | RAD ---
HISTORY: cough COMPARISON: 06/12/2017 FINDINGS: LUNGS: Linear infiltrate at the right lung base. PLEURA: No significant pleural effusion identified, no pneumothorax apparent. CARDIOVASCULAR: Normal. OSSEOUS STRUCTURES: No significant abnormalities. VISUALIZED UPPER ABDOMEN: Normal. OTHER FINDINGS: None. IMPRESSION: Linear infiltrate or atelectasis right lung base
[2017-06-29 09:57] LABS: ARTERIAL BLOOD GAS HCO3 12.1 mmol/L (21-28)
[2017-06-29] MEDS: Pantoprazole 40 mg EC Tab PO SCH (10:50)
[2017-06-29] MEDS: Megestrol Acetate 40 mg/ml Cup PO SCH ×2 (11:49→18:16)
[2017-06-29] MEDS: POLYETHYLENE GLYCOL 3350 17 GM/Dose PACKET PO SCH (11:50)
--- NOTE | 2017-06-29 11:56 | CP.PCM.PN ---
Subjective - Date & Time of Evaluation Date of Evaluation: 06/29/17 Time of Evaluation: 11:55 - Subjective Subjective: Mr Bradshaw is known to our radiation oncology department. He is currently getting palliative radiation therapy to his lower back and right hip for pain control. Unfortunately, he was admitted to [facility] with acute renal failure and elevated potassium early this morning. We will be holding his radiation therapy for now until his acute medical issues are addressed. We will continue to follow him closely while he is admitted so that he can resume treatment when medically stable. Objective - Vital Signs/Intake and Output Vital Signs (last 24 hours): Temp Pulse Resp BP Pulse Ox 97.8 F 100 H 16 106/59 L 98 06/29/17 03:42 06/29/17 08:09 06/29/17 08:09 06/29/17 11:04 06/29/17 07:40 Intake and Output: 06/29/17 06/29/17 06:59 18:59 Output Total 30 Balance -30 - Medications Medications: Current Medications Docusate Sodium (Colace) 100 mg PO TID PRN PRN Reason: Constipation Sodium Chloride (Sodium Chloride 0.9%) 1,000 mls @ 100 mls/hr IV .Q10H [facility] Last Admin: 06/29/17 11:03 Dose: 100 mls/hr Megestrol Acetate (Megace) 400 mg PO BID [facility] Last Admin: 06/29/17 11:49 Dose: 400 mg Metoprolol Tartrate (Lopressor) 50 mg PO BID [facility] Last Admin: 06/29/17 11:04 Dose: Not Given Ondansetron HCl (Zofran Odt) 4 mg PO Q8H PRN PRN Reason: Nausea/Vomiting Oxycodone HCl (Oxycodone Immediate Release Tab) 10 mg PO Q8H PRN PRN Reason: Pain, severe (8-10) Oxycodone HCl (Oxycodone Immediate Release Tab) 5 mg PO Q8H PRN PRN Reason: Pain, moderate (4-7) Pantoprazole Sodium (Protonix Ec Tab) 40 mg PO DAILY [facility] Last Admin: 06/29/17 10:50 Dose: 40 mg Polyethylene Glycol (Miralax) 17 gm PO DAILY [facility] Last Admin: 06/29/17 11:50 Dose: 17 gm Sennosides (Senokot Tab) 8.6 mg PO HS [facility] Tamsulosin HCl (Flomax) 0.4 mg PO DAILY [facility] Last Admin: 06/29/17 10:50 Dose: 0.4 mg - Labs Labs: PT 21.9 Seconds (9.9-11.8) H 06/29/17 03:50 INR 2.03 (0.93-1.08) H 06/29/17 03:50 APTT 42.2 Seconds (23.7-30.8) H 06/29/17 03:50
[2017-06-29 13:16] LABS: ALB/GLOB RATIO 0.7 (1.1-1.8); BILIRUBIN,TOTAL 17.2 mg/dL (0.2-1.3); CALCIUM 8.6 mg/dL (8.4-10.5); TOTAL PROTEIN 6.6 g/dL (5.8-8.3)
[2017-06-29 13:21] LABS: POTASSIUM 6.5 mmol/L (3.6-5.0)
[2017-06-29] MEDS ORDERED: Sodium Bicarbonate (8.4%) 50 Meq Syringe IVP ONE (14:04)
--- NOTE | 2017-06-29 14:10 | CP.PCM.CON ---
History of Present Illness - History of Present Illness History of Present Illness: full renal note dictated medical management of hyperkalemia will start bicarb drip d/w family bedside, pt with metastatic cancer and severe hepatic dysfunction and severe RODNEY overall prognosis grave hence pt will not be a candidate for renal replacement therapy Family also opted for comfort measures. recommend palliative care d/w primary team Past Patient History - Infectious Disease Hx of Infectious Diseases: None - Past Medical History & Family History Past Medical History?: Yes - Past Social History Smoking Status: Never Smoked - CARDIAC Hx Cardiac Disorders: Yes Hx Hypertension: Yes Hx Pacemaker: No - PULMONARY Hx Respiratory Disorders: No - NEUROLOGICAL Hx Neurological Disorder: No Hx Paralysis: No - HEENT Hx HEENT Problems: Yes Hx Cataracts: Yes (LEFT IOL) - RENAL Hx Chronic Kidney Disease: No - ENDOCRINE/METABOLIC Hx Endocrine Disorders: No - HEMATOLOGICAL/ONCOLOGICAL Hx Blood Transfusions: No Hx Cancer: Yes (Prostate CA w/ mets to liver and bone; h/o renal cancer s/p nephrectomy) - INTEGUMENTARY Hx Dermatological Problems: No - MUSCULOSKELETAL/RHEUMATOLOGICAL Hx Musculoskeletal Disorders: No - GASTROINTESTINAL Hx Gastroesophageal Reflux: Yes - GENITOURINARY/GYNECOLOGICAL Hx Genitourinary Disorders: Yes Hx Prostate Cancer: Yes Hx Prostate Problems: Yes - PSYCHIATRIC Hx Emotional Abuse: No Hx Physical Abuse: No Hx Substance Use: No - SURGICAL HISTORY Hx Appendectomy: Yes - ANESTHESIA Hx Anesthesia: Yes Hx Anesthesia Reactions: No Hx Malignant Hyperthermia: No Meds Allergies/Adverse Reactions: Allergies Allergy/AdvReac Type Severity Reaction Status Date / Time No Known Allergies Allergy Verified 06/29/17 14:06 - Medications Medications: Current Medications Docusate Sodium (Colace) 100 mg PO TID PRN PRN Reason: Constipation Sodium Bicarbonate 150 meq/ (Dextrose) 1,150 mls @ 100 mls/hr IV .[id number] [facility] Calcium Gluconate 2,000 mg/ (Sodium Chloride) 120 mls @ 110 mls/hr IVPB ONCE ONE Stop: 06/29/17 15:12 Megestrol Acetate (Megace) 400 mg PO BID [facility] Last Admin: 06/29/17 11:49 Dose: 400 mg Metoprolol Tartrate (Lopressor) 50 mg PO BID [facility] Last Admin: 06/29/17 11:04 Dose: Not Given Ondansetron HCl (Zofran Odt) 4 mg PO Q8H PRN PRN Reason: Nausea/Vomiting Oxycodone HCl (Oxycodone Immediate Release Tab) 10 mg PO Q8H PRN PRN Reason: Pain, severe (8-10) Oxycodone HCl (Oxycodone Immediate Release Tab) 5 mg PO Q8H PRN PRN Reason: Pain, moderate (4-7) Pantoprazole Sodium (Protonix Ec Tab) 40 mg PO DAILY [facility] Last Admin: 06/29/17 10:50 Dose: 40 mg Polyethylene Glycol (Miralax) 17 gm PO DAILY [facility] Last Admin: 06/29/17 11:50 Dose: 17 gm Sennosides (Senokot Tab) 8.6 mg PO HS [facility] Sodium Bicarbonate (Sodium Bicarbonate 8.4% (50 Meq) Syringe) 50 meq IVP ONCE ONE Stop: 06/29/17 14:05 Tamsulosin HCl (Flomax) 0.4 mg PO DAILY [facility] Last Admin: 06/29/17 10:50 Dose: 0.4 mg Results - Vital Signs Recent Vital Signs: Last Vital Signs Temp 97.8 F 06/29/17 03:42 Pulse 100 H 06/29/17 08:09 Resp 16 06/29/17 08:09 BP 106/59 L 06/29/17 11:04 Pulse Ox 98 06/29/17 07:40 - Labs Result Diagrams: 06/29/17 03:16 06/29/17 13:00 Labs: Laboratory Results - last 24 hr 06/29/17 06/29/17 06/29/17 08:11 08:13 08:40 pCO2 pO2 HCO3 ABG pH ABG Total CO2 ABG O2 Saturation ABG Base Excess ABG Potassium Sodium Chloride Glucose Lactate FiO2 Potassium Carbon Dioxide Anion Gap BUN Creatinine Est GFR ( Amer) Est GFR (Non-Af Amer) POC Glucose (mg/dL) Random Glucose Uric Acid 25.6 H Calcium Total Bilirubin AST ALT Alkaline Phosphatase Total Protein Albumin Globulin Albumin/Globulin Ratio Arterial Blood Potassium Urine Color Light brown Urine Appearance Cloudy Urine pH 6.5 Ur Specific [place] 1.025 Urine Protein >=300 H Urine Glucose (UA) Negative Urine Ketones Trace H Urine Blood Large H Urine Nitrate Positive H Urine Bilirubin Large H Urine Urobilinogen 1.0 H Ur Leukocyte Esterase Small H Urine RBC Tntc Urine WBC 2 - 5 Ur Epithelial Cells 0 - 2 Urine Bacteria Large Urine Eosinophils Ur Random Creatinine 158 Ur Random Sodium 39 Ur Random Uric Acid Ur Random Urea Nitrogn 416 06/29/17 06/29/17 06/29/17 08:40 08:40 09:50 pCO2 31 L pO2 91.0 HCO3 12.1 L ABG pH 7.20 L ABG Total CO2 13.1 L ABG O2 Saturation 99.4 H ABG Base Excess -14.7 L ABG Potassium 5.7 H Sodium 138.0 Chloride 110.0 H Glucose 125 H Lactate 2.9 H FiO2 28.0 Potassium Carbon Dioxide Anion Gap BUN Creatinine Est GFR ( Amer) Est GFR (Non-Af Amer) POC Glucose (mg/dL) Random Glucose Uric Acid Calcium Total Bilirubin AST ALT Alkaline Phosphatase Total Protein Albumin Globulin Albumin/Globulin Ratio Arterial Blood Potassium 5.7 H Urine Color Urine Appearance Urine pH Ur Specific [place] Urine Protein Urine Glucose (UA) Urine Ketones Urine Blood Urine Nitrate Urine Bilirubin Urine Urobilinogen Ur Leukocyte Esterase Urine RBC Urine WBC Ur Epithelial Cells Urine Bacteria Urine Eosinophils Negative Ur Random Creatinine Ur Random Sodium Ur Random Uric Acid 105.4 Ur Random Urea Nitrogn 06/29/17 06/29/17 13:00 13:00 pCO2 pO2 HCO3 ABG pH ABG Total CO2 ABG O2 Saturation ABG Base Excess ABG Potassium Sodium 142 Chloride 113 H Glucose Lactate FiO2 Potassium 6.5 H* Carbon Dioxide 12 L Anion Gap 24 H BUN 105 H Creatinine 6.8 H Est GFR ( Amer) 10 Est GFR (Non-Af Amer) 8 POC Glucose (mg/dL) 138 H Random Glucose 114 H Uric Acid Calcium 8.6 Total Bilirubin 17.2 H AST 276 H D ALT 218 H Alkaline Phosphatase 275 H Total Protein 6.6 Albumin 2.8 L Globulin 3.8 Albumin/Globulin Ratio 0.7 L Arterial Blood Potassium Urine Color Urine Appearance Urine pH Ur Specific [place] Urine Protein Urine Glucose (UA) Urine Ketones Urine Blood Urine Nitrate Urine Bilirubin Urine Urobilinogen Ur Leukocyte Esterase Urine RBC Urine WBC Ur Epithelial Cells Urine Bacteria Urine Eosinophils Ur Random Creatinine Ur Random Sodium Ur Random Uric Acid Ur Random Urea Nitrogn
--- NOTE | 2017-06-29 15:38 | CP.PCM.CON ---
History of Present Illness - History of Present Illness History of Present Illness: Patient is 76yo male with PMhx of Prostate Ca with mets to liver, on palliative radiation therapy, R nephrectomy, CKD baseline Cr 1.3, HTN, HLD, sent in from rehab facility for abnormal lab values, hyperkalemia. Pt initial K 6.4 given Insulin, D50, kayex, Calcium, repeat K 6.5, non hemolyzed. Pt is somnolent, but wakes up. Pt reports abd pain. Denies fever, chills, cough, chest pain, sob, muscle weakness. No other constitutional symptoms. Seen by nephrology, please refer to their consult. PMH: prostate CA with mets to the liver and kidney, HTN, HLD PSH: R nephrectomy Meds: Percocet, Deltasone, Lopressor, ASA, Oxycontin, Simvastatin, Megace, Tylenol #3 Allergies: NKDA Family hx: HTN Review of Systems - Review of Systems Review of Systems: as per hpi Past Patient History - Infectious Disease Hx of Infectious Diseases: None - Past Medical History & Family History Past Medical History?: Yes - Past Social History Smoking Status: Never Smoked - CARDIAC Hx Cardiac Disorders: Yes Hx Hypertension: Yes Hx Pacemaker: No - PULMONARY Hx Respiratory Disorders: No - NEUROLOGICAL Hx Neurological Disorder: No Hx Paralysis: No - HEENT Hx HEENT Problems: Yes Hx Cataracts: Yes (LEFT IOL) - RENAL Hx Chronic Kidney Disease: No - ENDOCRINE/METABOLIC Hx Endocrine Disorders: No - HEMATOLOGICAL/ONCOLOGICAL Hx Blood Transfusions: No Hx Cancer: Yes (Prostate CA w/ mets to liver and bone; h/o renal cancer s/p nephrectomy) - INTEGUMENTARY Hx Dermatological Problems: No - MUSCULOSKELETAL/RHEUMATOLOGICAL Hx Musculoskeletal Disorders: No - GASTROINTESTINAL Hx Gastroesophageal Reflux: Yes - GENITOURINARY/GYNECOLOGICAL Hx Genitourinary Disorders: Yes Hx Prostate Cancer: Yes Hx Prostate Problems: Yes - PSYCHIATRIC Hx Emotional Abuse: No Hx Physical Abuse: No Hx Substance Use: No - SURGICAL HISTORY Hx Appendectomy: Yes - ANESTHESIA Hx Anesthesia: Yes Hx Anesthesia Reactions: No Hx Malignant Hyperthermia: No Meds Allergies/Adverse Reactions: Allergies Allergy/AdvReac Type Severity Reaction Status Date / Time No Known Allergies Allergy Verified 06/29/17 14:06 - Medications Medications: Current Medications Docusate Sodium (Colace) 100 mg PO TID PRN PRN Reason: Constipation Sodium Bicarbonate 150 meq/ (Dextrose) 1,150 mls @ 100 mls/hr IV .[id number] [facility] Megestrol Acetate (Megace) 400 mg PO BID [facility] Last Admin: 06/29/17 11:49 Dose: 400 mg Metoprolol Tartrate (Lopressor) 50 mg PO BID [facility] Last Admin: 06/29/17 11:04 Dose: Not Given Ondansetron HCl (Zofran Odt) 4 mg PO Q8H PRN PRN Reason: Nausea/Vomiting Oxycodone HCl (Oxycodone Immediate Release Tab) 10 mg PO Q8H PRN PRN Reason: Pain, severe (8-10) Oxycodone HCl (Oxycodone Immediate Release Tab) 5 mg PO Q8H PRN PRN Reason: Pain, moderate (4-7) Pantoprazole Sodium (Protonix Ec Tab) 40 mg PO DAILY [facility] Last Admin: 06/29/17 10:50 Dose: 40 mg Polyethylene Glycol (Miralax) 17 gm PO DAILY [facility] Last Admin: 06/29/17 11:50 Dose: 17 gm Sennosides (Senokot Tab) 8.6 mg PO HS [facility] Tamsulosin HCl (Flomax) 0.4 mg PO DAILY [facility] Last Admin: 06/29/17 10:50 Dose: 0.4 mg Physical Exam - Constitutional Appears: Confused, Chronically Ill - Head Exam Head Exam: ATRAUMATIC - Eye Exam Eye Exam: Normal appearance - ENT Exam ENT Exam: Mucous Membranes Dry - Respiratory Exam Respiratory Exam: Clear to Auscultation Bilateral, NORMAL BREATHING PATTERN - Cardiovascular Exam Cardiovascular Exam: REGULAR RHYTHM, RRR, +S1, +S2 - GI/Abdominal Exam GI & Abdominal Exam: Normal Bowel Sounds, Soft, Tenderness - Extremities Exam Extremities exam: Positive for: pedal edema - Neurological Exam Additional comments: somnolent, but arousable Results - Vital Signs Recent Vital Signs: Last Vital Signs Temp 97.8 F 06/29/17 03:42 Pulse 100 H 06/29/17 08:09 Resp 16 06/29/17 08:09 BP 106/59 L 06/29/17 11:04 Pulse Ox 98 06/29/17 07:40 - Labs Result Diagrams: 06/29/17 03:16 06/29/17 13:00 Labs: Laboratory Results - last 24 hr 06/29/17 06/29/17 06/29/17 08:11 08:13 08:40 pCO2 pO2 HCO3 ABG pH ABG Total CO2 ABG O2 Saturation ABG Base Excess ABG Potassium Sodium Chloride Glucose Lactate FiO2 Potassium Carbon Dioxide Anion Gap BUN Creatinine Est GFR ( Amer) Est GFR (Non-Af Amer) POC Glucose (mg/dL) Random Glucose Uric Acid 25.6 H Calcium Total Bilirubin AST ALT Alkaline Phosphatase Total Protein Albumin Globulin Albumin/Globulin Ratio Arterial Blood Potassium Urine Color Light brown Urine Appearance Cloudy Urine pH 6.5 Ur Specific Gill 1.025 Urine Protein >=300 H Urine Glucose (UA) Negative Urine Ketones Trace H Urine Blood Large H Urine Nitrate Positive H Urine Bilirubin Large H Urine Urobilinogen 1.0 H Ur Leukocyte Esterase Small H Urine RBC Tntc Urine WBC 2 - 5 Ur Epithelial Cells 0 - 2 Urine Bacteria Large Urine Eosinophils Ur Random Creatinine 158 Ur Random Sodium 39 Ur Random Uric Acid Ur Random Urea Nitrogn 416 06/29/17 06/29/17 06/29/17 08:40 08:40 09:50 pCO2 31 L pO2 91.0 HCO3 12.1 L ABG pH 7.20 L ABG Total CO2 13.1 L ABG O2 Saturation 99.4 H ABG Base Excess -14.7 L ABG Potassium 5.7 H Sodium 138.0 Chloride 110.0 H Glucose 125 H Lactate 2.9 H FiO2 28.0 Potassium Carbon Dioxide Anion Gap BUN Creatinine Est GFR ( Amer) Est GFR (Non-Af Amer) POC Glucose (mg/dL) Random Glucose Uric Acid Calcium Total Bilirubin AST ALT Alkaline Phosphatase Total Protein Albumin Globulin Albumin/Globulin Ratio Arterial Blood Potassium 5.7 H Urine Color Urine Appearance Urine pH Ur Specific Gill Urine Protein Urine Glucose (UA) Urine Ketones Urine Blood Urine Nitrate Urine Bilirubin Urine Urobilinogen Ur Leukocyte Esterase Urine RBC Urine WBC Ur Epithelial Cells Urine Bacteria Urine Eosinophils Negative Ur Random Creatinine Ur Random Sodium Ur Random Uric Acid 105.4 Ur Random Urea Nitrogn 06/29/17 06/29/17 13:00 13:00 pCO2 pO2 HCO3 ABG pH ABG Total CO2 ABG O2 Saturation ABG Base Excess ABG Potassium Sodium 142 Chloride 113 H Glucose Lactate FiO2 Potassium 6.5 H* Carbon Dioxide 12 L Anion Gap 24 H BUN 105 H Creatinine 6.8 H Est GFR ( Amer) 10 Est GFR (Non-Af Amer) 8 POC Glucose (mg/dL) 138 H Random Glucose 114 H Uric Acid Calcium 8.6 Total Bilirubin 17.2 H AST 276 H D ALT 218 H Alkaline Phosphatase 275 H Total Protein 6.6 Albumin 2.8 L Globulin 3.8 Albumin/Globulin Ratio 0.7 L Arterial Blood Potassium Urine Color Urine Appearance Urine pH Ur Specific Gill Urine Protein Urine Glucose (UA) Urine Ketones Urine Blood Urine Nitrate Urine Bilirubin Urine Urobilinogen Ur Leukocyte Esterase Urine RBC Urine WBC Ur Epithelial Cells Urine Bacteria Urine Eosinophils Ur Random Creatinine Ur Random Sodium Ur Random Uric Acid Ur Random Urea Nitrogn Assessment & Plan - Assessment and Plan (Free Text) Assessment: 76yo male with hyperkalemia Hyperkalemia Renal Failure Dehydration Prostate Ca with mets - currently afebrile, HD stable, comfortable, somnolent, but arousable - Dr Nicholas, Nephrology, spoke to the family, given the grave prognosis, pt will not be a candidate for renal replacement therapy, family is also opting for comfort measures - NO EKG changes on admission, K 6.4 Recommend: - Kayex, D50, Insulin, Calcium - IVF hydration - follow up renal recs - extremely poor prognosis - palliative care consult - cont monitor on telemetry
[2017-06-29] MEDS: Sodium Bicarbonate 8.4% 150 MEQ in Dextrose 5% In Water 1,000 ML IV SCH (15:53)
--- NOTE | 2017-06-29 16:43 | CARD ---
APPROVED REPORT EKG Measurement Heart [id number] <Conclusion> Sinus tachycardia Inferior infarct, age undetermined Abnormal ECG
[2017-06-29 16:45] LABS: VENOUS BLOOD GAS BASE EXCESS -10.8 mmol/L (0.0-2.0); VENOUS BLOOD PH 7.26 (7.32-7.43)
[2017-06-29 17:02] LABS: POTASSIUM 6.2 mmol/L (3.6-5.0)
[2017-06-29 17:12] LABS: ARTERIAL BLOOD GAS HCO3 13.9 mmol/L (21-28); ARTERIAL BLOOD GAS PH 7.26 (7.35-7.45)
[2017-06-29 18:12] VITALS: BMI 26.4
[2017-06-29] MEDS ORDERED: Pneumococcal 23-Valent Vaccine IM ONE (18:12)
[2017-06-29 20:38] LABS: VENOUS BLOOD GAS BASE EXCESS -10.6 mmol/L (0.0-2.0); VENOUS BLOOD PH 7.27 (7.32-7.43)
[2017-06-29 20:44] LABS: CALCIUM 8.6 mg/dL (8.4-10.5)
[2017-06-29] MEDS ORDERED: Insulin Regular 1 UNITS/0.01 ML ML IVP STA (21:41)
[2017-06-29] MEDS ORDERED: Dextrose 50% SYRINGE Inj (50 ml) IVP ONE (22:47)
[2017-06-30 07:13] LABS: INR 1.91 (0.93-1.08)
[2017-06-30 08:04] LABS: BASO # 0.01 K/mm3 (0.0-2.0); BASO % 0.2 % (0.0-3.0); EOS % 0.5 % (1.5-5.0); GRAN # 5.65 (1.4-6.5); GRAN % 86.4 % (50.0-68.0); HEMATOCRIT 30.4 % (42.0-52.0); LYMPH # 0.3 (1.2-3.4); LYMPH % 5.2 % (22.0-35.0); MEAN CELL VOLUME 86.9 fl (80.0-105.0); MEAN CORPUSCULAR HEMOGLOBIN 30.3 pg (25.0-35.0); MEAN CORPUSCULAR HGB CONC 34.9 g/dl (31.0-37.0); MONO # 0.5 (0.1-0.6); MONO % 7.7 % (1.0-6.0); RED CELL DISTRIBUTION WIDTH 22.5 % (11.5-14.5); WHITE BLOOD COUNT 6.5 10^3/ul (4.5-11.0)
[2017-06-30 08:12] LABS: ALB/GLOB RATIO 0.8 (1.1-1.8); BILIRUBIN,TOTAL 17.3 mg/dL (0.2-1.3); CALCIUM 8.6 mg/dL (8.4-10.5); MAGNESIUM 2.5 mg/dL (1.7-2.2); PHOSPHOROUS 6.7 mg/dL (2.5-4.5); TOTAL PROTEIN 6.3 g/dL (5.8-8.3)
[2017-06-30 08:28] LABS: POTASSIUM 5.6 mmol/L (3.6-5.0)
[2017-06-30 08:44] LABS: PLATELET COUNT 74 10^3/uL (120.0-450.0)
--- NOTE | 2017-06-30 09:30 | CP.PCM.PN ---
<Carey Cisneros - Last Filed: 06/30/17 12:48> Subjective - Date & Time of Evaluation Date of Evaluation: 06/30/17 Time of Evaluation: 09:27 - Subjective Subjective: PGY-2 Progress note Patient seen and examined at bedside. No acute distress. Per nurse no events overnight. Patient appears lethrgic. He reports abd pain. He denies chest pain, sob, f/c, n/v. Over night repeat K was 6, repeat EKG did not show any changes from previous EKG on admission. Additional insulin was given. Objective - Vital Signs/Intake and Output Vital Signs (last 24 hours): Temp Pulse Resp BP Pulse Ox 98.3 F 100 H 18 105/65 95 06/30/17 06:00 06/30/17 06:00 06/30/17 06:00 06/30/17 06:00 06/30/17 06:00 Intake and Output: 06/30/17 06/30/17 06:59 18:59 Intake Total 1200 Output Total 600 Balance 600 - Medications Medications: Current Medications Docusate Sodium (Colace) 100 mg PO TID PRN PRN Reason: Constipation Sodium Bicarbonate 150 meq/ (Dextrose) 1,150 mls @ 100 mls/hr IV .[id number] [facility] Last Admin: 06/29/17 15:53 Dose: 100 mls/hr Megestrol Acetate (Megace) 400 mg PO BID [facility] Last Admin: 06/29/17 18:16 Dose: Not Given Metoprolol Tartrate (Lopressor) 50 mg PO BID [facility] Last Admin: 06/29/17 18:16 Dose: Not Given Ondansetron HCl (Zofran Odt) 4 mg PO Q8H PRN PRN Reason: Nausea/Vomiting Oxycodone HCl (Oxycodone Immediate Release Tab) 10 mg PO Q8H PRN PRN Reason: Pain, severe (8-10) Oxycodone HCl (Oxycodone Immediate Release Tab) 5 mg PO Q8H PRN PRN Reason: Pain, moderate (4-7) Pantoprazole Sodium (Protonix Ec Tab) 40 mg PO DAILY [facility] Last Admin: 06/29/17 10:50 Dose: 40 mg Polyethylene Glycol (Miralax) 17 gm PO DAILY [facility] Last Admin: 06/29/17 11:50 Dose: 17 gm Sennosides (Senokot Tab) 8.6 mg PO HS [facility] Last Admin: 06/30/17 04:28 Dose: Not Given Tamsulosin HCl (Flomax) 0.4 mg PO DAILY [facility] Last Admin: 06/29/17 10:50 Dose: 0.4 mg Trimethoprim/Sulfamethoxazole (Bactrim Ds Tab) 1 tab PO BID [facility] PRN Reason: Protocol - Labs Labs: 06/30/17 07:53 06/30/17 07:53 PT 20.6 Seconds (9.9-11.8) H 06/30/17 06:47 INR 1.91 (0.93-1.08) H 06/30/17 06:47 APTT 42.2 Seconds (23.7-30.8) H 06/29/17 03:50 - Constitutional Appears: Well, No Acute Distress - Head Exam Head Exam: ATRAUMATIC, NORMAL INSPECTION, NORMOCEPHALIC - Eye Exam Eye Exam: Normal appearance, Scleral icterus - ENT Exam ENT Exam: Mucous Membranes Moist - Respiratory Exam Respiratory Exam: Clear to Ausculation Bilateral, NORMAL BREATHING PATTERN. absent: Rales, Rhonchi, Wheezes, Respiratory Distress - Cardiovascular Exam Cardiovascular Exam: REGULAR RHYTHM, +S1, +S2. absent: Tachycardia, Diastolic murmur, Murmur - GI/Abdominal Exam GI & Abdominal Exam: Soft, Tenderness (mild), Normal Bowel Sounds. absent: Firm , Rigid - Extremities Exam Extremities Exam: Normal Inspection - Neurological Exam Neurological Exam: Alert, Awake, Oriented x3 - Psychiatric Exam Psychiatric exam: Flat Affect - Skin Skin Exam: Dry, Intact, Normal Color, Warm Assessment and Plan - Assessment and Plan (Free Text) Assessment: Patient is a 76 year old male with a PMHx of metastatic prostate cancer, Htn, who presents from rehabilitation facility for evaluation and treatment of abnormal lab values found to be hyperkalemic with RODNEY on CKD, metabolic acidosis, Hyperbilirubinemia. Plan: 1. Hyperkalemia - Potassium noted to be 6.4 in ED; patient was given insulin humulin 10 units in ED with dextrose, given 2 L bolus, given 30 of kayexylate - Potassium downtrending, this morning 5.6 - Continuous cardiac monitoring on tele - EKG on admission show sinus tachycardia without significant ST T wave changes - repeat EKG also showed sinus tachycardia without significant ST T wave changes - calcium gluconate was given yesterday - continue bicarb drip - kayexlate given - Need to monitor urine output as patients that are oligo-anuric with mild hyperkalemia (potassium is greater than 5 but less than 6.5) patients that are oligo-anuric with a potassium greater than 6.5 will need dialysis - Potential causes of hyperkalemia- ACEi/ARB, spironolactone/eplerenone, amiloride/tiramterene, heparin 2. RODNEY on CKD - Creatinine noted on admission at 6.5 from 1.3 last visit and Bun 107 from 17 last visit - Avoid nephrotoxins - No acei/ arb - patient received IVF 2 L in the ED - Renal U/S showed no hyronephrosis, liver metastasis - Nephrology consult- Dr. Nicholas - patient not candidate for renal replacement therapy 3. Gapped Metabolic Acidosis - Bicarb noted to be 13 on admission, improved 16 this AM - Ddx includes uremia as patient has BUN of 107 - cont bicarb drip 4. consolidation at the right lower lobe - CT of Chest showed Airspace consolidation at the right lower lobe may represent pneumonia or aspiration. Right lower lobe bronchiectasis likely due to recurrent infection/ aspiration. Small opacity at the left lung base likely atelectasis.Small right and trace left pleural effusion. Moderate paraseptal emphysema. - patient is afebrile - zosyn started - consulted ID, Dr. Vizcarra 5. Elevated Liver Enzymes - Likely secondary to the mets to the liver - LFTs downtrending - cont monitor closely with CMP 6. Abdominal Pain; Hyperbilirubinemia - Pain likely 2/2 to mets- continue home pain medication regiment of oxycodone - Bilirubin noted to be 17.4 from 6.0 - Direct bilirubin pending - CT of abdomen/pelvis ordered - Abdomen/Pelvis CT showed Multiple innumerable slightly low-attenuation lesions in the liver suggestive of metastasis. Sclerotic bony lesion in the lower spine and in the pelvic bones suggestive of metastasis.Small ascites. Mild -to-moderate anasarca. 7. Hematuria, Chronic Ballesteros - 2/2 likely traumatic ballesteros insertion vs medication SE Bicalutamide (casodex) - consult urology and follow recs - H and H stable from last visit - consulted urologist, Dr. Parks 8. UTI - urine cultures positive for gram positive cocci, will start abx - ID consulted 8. INR Elevation - downtrending - Likely secondary to liver mets (decreased coagulation factor production) - monitor PT/INR closely 9. Prostate cancer with Mets to liver and kidney - c/w home med flomax - hold casodex (chemotherapeutic agent) as this is a potential cause of the hematuria - Heme/Onc consult- Dr. Cloud, alfred recs - palliative care nurse consulted 10. Decreased Appetite - cont Megestrol acetate (appetite stimulant) 11. Constipation - Continue home senna, miralax, and colace PPX - protonix - SCD <Guero Cross - Last Filed: 06/30/17 13:47> Objective - Vital Signs/Intake and Output Vital Signs (last 24 hours): Temp Pulse Resp BP Pulse Ox 98 F 60 18 117/65 95 06/30/17 12:00 06/30/17 12:00 06/30/17 12:00 06/30/17 12:00 06/30/17 06:00 Intake and Output: 06/30/17 06/30/17 06:59 18:59 Intake Total 1200 Output Total 600 Balance 600 - Medications Medications: Current Medications Docusate Sodium (Colace) 100 mg PO TID PRN PRN Reason: Constipation Doxycycline Hyclate (Doryx) 100 mg PO Q12 QUYEN PRN Reason: Protocol Stop: 07/09/17 22:01 Sodium Bicarbonate 150 meq/ (Dextrose) 1,150 mls @ 100 mls/hr IV .[id number] [facility] Last Admin: 06/29/17 15:53 Dose: 100 mls/hr Meropenem 250 mg/ Sodium (Chloride) 100 mls @ 100 mls/hr IVPB Q12 QUYEN PRN Reason: Protocol Megestrol Acetate (Megace) 400 mg PO BID [facility] Last Admin: 06/30/17 10:04 Dose: 400 mg Metoprolol Tartrate (Lopressor) 50 mg PO BID [facility] Last Admin: 06/30/17 10:02 Dose: 50 mg Ondansetron HCl (Zofran Odt) 4 mg PO Q8H PRN PRN Reason: Nausea/Vomiting Oxycodone HCl (Oxycodone Immediate Release Tab) 10 mg PO Q8H PRN PRN Reason: Pain, severe (8-10) Oxycodone HCl (Oxycodone Immediate Release Tab) 5 mg PO Q8H PRN PRN Reason: Pain, moderate (4-7) Pantoprazole Sodium (Protonix Ec Tab) 40 mg PO DAILY [facility] Last Admin: 06/30/17 10:02 Dose: 40 mg Polyethylene Glycol (Miralax) 17 gm PO DAILY [facility] Last Admin: 06/30/17 10:05 Dose: Not Given Sennosides (Senokot Tab) 8.6 mg PO HS [facility] Last Admin: 06/30/17 04:28 Dose: Not Given Tamsulosin HCl (Flomax) 0.4 mg PO DAILY [facility] Last Admin: 06/30/17 10:02 Dose: 0.4 mg - Labs Labs: 06/30/17 07:53 06/30/17 07:53 PT 20.6 Seconds (9.9-11.8) H 06/30/17 06:47 INR 1.91 (0.93-1.08) H 06/30/17 06:47 APTT 42.2 Seconds (23.7-30.8) H 06/29/17 03:50 Assessment and Plan - Assessment and Plan (Free Text) Plan: went over meds labs orders and plans w/ resident at length see orders
[2017-06-30] MEDS ORDERED: Tmp-Smz 800 mg-160 mg DS Tab PO SCH (10:00)
[2017-06-30] MEDS: Pantoprazole 40 mg EC Tab PO SCH (10:02)
[2017-06-30] MEDS: Megestrol Acetate 40 mg/ml Cup PO SCH ×2 (10:04→17:08)
[2017-06-30] MEDS: POLYETHYLENE GLYCOL 3350 17 GM/Dose PACKET PO SCH (10:05)
[2017-06-30] MEDS ORDERED: Sod Polystyrene Sulf 15 gm/60 ml Oral Susp PO ONE (11:02)
[2017-06-30] MEDS ORDERED: Piperacillin/Tazobact 3.375 gm 100 ML IVPB SCH (12:00)
[2017-06-30] MEDS ORDERED: Cefepime 1gm in NS 100ml 1 GM/100 ML BAG IVPB SCH (12:30)
--- NOTE | 2017-06-30 13:19 | CARD ---
APPROVED REPORT EKG Measurement Heart [id number] MO [id number] [id number] <Conclusion> Normal sinus rhythm Cannot rule out Anterior infarct, age undetermined Abnormal ECG
[2017-06-30 14:57] LABS: CALCIUM 8.6 mg/dL (8.4-10.5)
[2017-06-30 15:01] LABS: POTASSIUM 5.7 mmol/L (3.6-5.0)
[2017-06-30] MEDS: Sodium Bicarbonate 8.4% 150 MEQ in Dextrose 5% In Water 1,000 ML IV SCH (16:00)
[2017-06-30] MEDS ORDERED: Insulin Regular 1 UNITS/0.01 ML ML SC ONE (16:25)
[2017-06-30] MEDS ORDERED: Dextrose 50% SYRINGE Inj (50 ml) IVP ONE (16:25)
--- NOTE | 2017-06-30 16:41 | CON ---
DATE: 06/30/2017 LOCATION: The patient seen earlier today in [facility], bed 1. CHIEF COMPLAINT: Weakness from several days. HISTORY OF PRESENT ILLNESS: This is a 76-year-old male with history of prostate cancer with metastasis to the liver and metastasis to bone with history of hypertension, history of ESBL urinary tract infection 1 month ago and coronary artery disease and GERD, who was admitted with a diagnosis of acute renal failure and hyperkalemia, Infectious Disease consultation requested. REVIEW OF SYSTEMS: Reveals the patient to be weak and there have been no fevers. There is mild shortness of breath. No abdominal pain, diarrhea, or constipation. No bright red blood per rectum. No dysuria or frequency. PAST MEDICAL HISTORY: Significant for prostate cancer with metastasis to the liver and bone, hypertension, history of ESBL urinary tract infection and GERD and coronary artery disease. PAST SURGICAL HISTORY: Significant for appendectomy, right nephrectomy, and left cataract. ALLERGIES: THE PATIENT HAS NO KNOWN ALLERGIES. MEDICATIONS: Medications at home include the patient to be on Zofran, Protonix, oxycodone, acetaminophen, Flomax and metoprolol. PHYSICAL EXAMINATION: VITAL SIGNS: The patient is in bed with a temperature of 98, blood pressure is 120/60, respiratory rate of 18, heart rate of 101. HEENT: Unremarkable. NECK: Supple. LUNGS: Decreased breath sounds. HEART: Normal S1 and S2. ABDOMEN: Soft, nontender. LABORATORY DATA: Reveals a white count of 7.9, hemoglobin of 11, platelets of 142. Coagulation is noted. Blood gases are reviewed. BUN is 111, creatinine is 6.7. The patient's creatinine before this admission was 1.3 and the LFTs are elevated. Microbiology reveals gram-positive cocci in the urine. The blood cultures are no growth. ASSESSMENT AND PLAN: A 76-year-old male with prostate cancer metastasis to the bone and liver, hypertension, extended-spectrum beta-lactamases urinary tract infection last month with coronary artery disease and gastroesophageal reflux disease. 1. Right healthcare-associated pneumonia and the patient with acute kidney injury and gram-positive cocci in the urine culture. We will treat the patient with meropenem and doxycycline and check on procalcitonin and overall prognosis is quite poor for this patient. We will follow. Ellis Vizcarra MD [facility] # [id number]
[2017-07-01] MEDS: Sodium Bicarbonate 8.4% 150 MEQ in Dextrose 5% In Water 1,000 ML IV SCH ×2 (01:29→20:48)
[2017-07-01 07:21] LABS: BASO # 0.01 K/mm3 (0.0-2.0); BASO % 0.2 % (0.0-3.0); EOS % 0.6 % (1.5-5.0); GRAN # 5.46 (1.4-6.5); GRAN % 85.4 % (50.0-68.0); HEMATOCRIT 31.2 % (42.0-52.0); LYMPH # 0.4 (1.2-3.4); LYMPH % 6.3 % (22.0-35.0); MEAN CELL VOLUME 85.7 fl (80.0-105.0); MEAN CORPUSCULAR HEMOGLOBIN 29.9 pg (25.0-35.0); MEAN CORPUSCULAR HGB CONC 34.9 g/dl (31.0-37.0); MONO # 0.5 (0.1-0.6); MONO % 7.5 % (1.0-6.0); PLATELET COUNT 65 10^3/uL (120.0-450.0); RED CELL DISTRIBUTION WIDTH 23.1 % (11.5-14.5); WHITE BLOOD COUNT 6.4 10^3/ul (4.5-11.0)
[2017-07-01 07:47] LABS: ALB/GLOB RATIO 0.7 (1.1-1.8); CALCIUM 8.9 mg/dL (8.4-10.5); TOTAL PROTEIN 6.4 g/dL (5.8-8.3)
[2017-07-01 08:01] LABS: BILIRUBIN,TOTAL 18.2 mg/dL (0.2-1.3)
[2017-07-01] MEDS: Megestrol Acetate 40 mg/ml Cup PO SCH ×2 (09:27→20:45)
[2017-07-01] MEDS: POLYETHYLENE GLYCOL 3350 17 GM/Dose PACKET PO SCH (09:28)
[2017-07-01] MEDS: Pantoprazole 40 mg EC Tab PO SCH (09:30)
--- NOTE | 2017-07-01 11:23 | CP.PCM.PN ---
<Carey Cisneros - Last Filed: 07/01/17 13:28> Subjective - Date & Time of Evaluation Date of Evaluation: 07/01/17 Time of Evaluation: 11:22 - Subjective Subjective: PGY-2 Progress note Patient seen and examined at bedside. No acute distress. Per nurse no events overnight. Patient appears lethargic. He reports abd pain, states pain is worse with deep breathing and eating. He denies chest pain, sob, f/c, n/v. Objective - Vital Signs/Intake and Output Vital Signs (last 24 hours): Temp Pulse Resp BP Pulse Ox 98.9 F 112 H 21 131/72 98 07/01/17 06:00 07/01/17 10:00 07/01/17 06:00 07/01/17 06:00 07/01/17 06:00 Intake and Output: 07/01/17 07/01/17 06:59 18:59 Intake Total 1240 Balance 1240 - Medications Medications: Current Medications Docusate Sodium (Colace) 100 mg PO TID PRN PRN Reason: Constipation Doxycycline Hyclate (Doryx) 100 mg PO Q12 QUYEN PRN Reason: Protocol Stop: 07/09/17 22:01 Last Admin: 07/01/17 09:27 Dose: Not Given Sodium Bicarbonate 150 meq/ (Dextrose) 1,150 mls @ 100 mls/hr IV .[id number] [facility] Last Admin: 07/01/17 01:29 Dose: Not Given Meropenem 250 mg/ Sodium (Chloride) 100 mls @ 100 mls/hr IVPB Q12 QUYEN PRN Reason: Protocol Last Admin: 07/01/17 09:27 Dose: 100 mls/hr Megestrol Acetate (Megace) 400 mg PO BID [facility] Last Admin: 07/01/17 09:27 Dose: Not Given Metoprolol Tartrate (Lopressor) 50 mg PO BID [facility] Last Admin: 07/01/17 09:27 Dose: Not Given Ondansetron HCl (Zofran Odt) 4 mg PO Q8H PRN PRN Reason: Nausea/Vomiting Oxycodone HCl (Oxycodone Immediate Release Tab) 10 mg PO Q8H PRN PRN Reason: Pain, severe (8-10) Oxycodone HCl (Oxycodone Immediate Release Tab) 5 mg PO Q8H PRN PRN Reason: Pain, moderate (4-7) Pantoprazole Sodium (Protonix Ec Tab) 40 mg PO DAILY [facility] Last Admin: 07/01/17 09:30 Dose: Not Given Polyethylene Glycol (Miralax) 17 gm PO DAILY [facility] Last Admin: 07/01/17 09:28 Dose: Not Given Sennosides (Senokot Tab) 8.6 mg PO HS [facility] Last Admin: 06/30/17 23:12 Dose: Not Given Tamsulosin HCl (Flomax) 0.4 mg PO DAILY [facility] Last Admin: 07/01/17 09:27 Dose: Not Given - Labs Labs: 07/01/17 05:00 07/01/17 07:00 PT 20.6 Seconds (9.9-11.8) H 06/30/17 06:47 INR 1.91 (0.93-1.08) H 06/30/17 06:47 APTT 42.2 Seconds (23.7-30.8) H 06/29/17 03:50 - Constitutional Appears: Well, No Acute Distress - Head Exam Head Exam: ATRAUMATIC, NORMAL INSPECTION, NORMOCEPHALIC - Eye Exam Eye Exam: EOMI, Normal appearance, Scleral icterus - Respiratory Exam Respiratory Exam: Clear to Ausculation Bilateral, NORMAL BREATHING PATTERN. absent: Decreased Breath Sounds, Rales, Rhonchi, Wheezes, Respiratory Distress - Cardiovascular Exam Cardiovascular Exam: REGULAR RHYTHM, +S1, +S2. absent: Tachycardia, Murmur - GI/Abdominal Exam GI & Abdominal Exam: Soft, Tenderness, Normal Bowel Sounds. absent: Distended, Firm - Extremities Exam Extremities Exam: Normal Inspection. absent: Pedal Edema - Neurological Exam Neurological Exam: Alert, Awake, Oriented x3 - Skin Skin Exam: Dry, Intact, Normal Color, Warm Assessment and Plan - Assessment and Plan (Free Text) Assessment: 76 year old male with a PMHx of metastatic prostate cancer, Htn , who presents from rehabilitation facility for evaluation and treatment of abnormal lab values found to be hyperkalemic with RODNEY on CKD, metabolic acidosis , Hyperbilirubinemia. Plan: 1. Hyperkalemia - Potassium noted to be 6.4 in ED; patient was given insulin humulin 10 units in ED with dextrose, given 2 L bolus, given 30 of kayexylate - Potassium downtrending, this morning 5 - Cont cardiac monitoring on tele - EKG on admission show sinus tachycardia without significant ST T wave changes - repeat EKG also showed sinus tachycardia without significant ST T wave changes - continue bicarb drip - Need to monitor urine output as patients that are oligo-anuric with mild hyperkalemia (potassium is greater than 5 but less than 6.5) patients that are oligo-anuric with a potassium greater than 6.5 will need dialysis - Potential causes of hyperkalemia- ACEi/ARB, spironolactone/eplerenone, amiloride/tiramterene, heparin - nephro following 2. RODNEY on CKD - Creatinine noted on admission at 6.5 from 1.3 last visit and Bun 107 from 17 last visit - Avoid nephrotoxins - No acei/ arb - patient received IVF 2 L in the ED - Renal U/S showed no hyronephrosis, liver metastasis - Nephrology consult- Dr. Nicholas - patient not candidate for renal replacement therapy 3. Gapped Metabolic Acidosis - Bicarb noted to be 13 on admission, slowly improving, 19 this AM - Ddx includes uremia as patient has BUN of 107 - cont bicarb drip - nephro is following 4. consolidation at the right lower lobe - CT of Chest showed Airspace consolidation at the right lower lobe may represent pneumonia or aspiration. Right lower lobe bronchiectasis likely due to recurrent infection/ aspiration. Small opacity at the left lung base likely atelectasis.Small right and trace left pleural effusion. Moderate paraseptal emphysema. - patient is afebrile without leukocytosis - abx changed to meropenem and doxycylcin - ID following 5. Elevated Liver Enzymes - most likely secondary to the mets to the liver - LFTs cont to downtrend - cont close monitoring with CMP 6. Abdominal Pain; Hyperbilirubinemia - Pain likely 2/2 to mets - continue home pain medication regiment of oxycodone - Bilirubin conts to rise most likely 2/2 to liver mets - Abdomen/Pelvis CT showed Multiple innumerable slightly low-attenuation lesions in the liver suggestive of metastasis. Sclerotic bony lesion in the lower spine and in the pelvic bones suggestive of metastasis.Small ascites. Mild -to-moderate anasarca. 7. Hematuria, Chronic Ballesteros - 2/2 likely traumatic ballesteros insertion vs medication SE Bicalutamide (casodex) - consult urology and follow recs - H and H stable from last visit - consulted urologist, Dr. Parks 8. UTI - urine cultures positive for gram positive cocci, will start abx - ID consulted 8. INR Elevation - downtrending - Likely secondary to liver mets (decreased coagulation factor production) - monitor PT/INR closely 9. Prostate cancer with Mets to liver and kidney - c/w home med flomax - hold casodex (chemotherapeutic agent) as this is a potential cause of the hematuria - Heme/Onc consult- Dr. Cloud, appreciate recs - palliative care nurse consulted 10. Decreased Appetite - cont Megestrol acetate (appetite stimulant) 11. Constipation - Continue home senna, miralax, and colace PPX - protonix - SCD <Guero Cross - Last Filed: 07/01/17 14:41> Objective - Vital Signs/Intake and Output Vital Signs (last 24 hours): Temp Pulse Resp BP Pulse Ox 97.8 F 82 18 139/75 98 07/01/17 12:00 07/01/17 12:00 07/01/17 12:00 07/01/17 12:00 07/01/17 06:00 Intake and Output: 07/01/17 07/01/17 06:59 18:59 Intake Total 1240 Balance 1240 - Medications Medications: Current Medications Docusate Sodium (Colace) 100 mg PO TID PRN PRN Reason: Constipation Doxycycline Hyclate (Doryx) 100 mg PO Q12 [facility] PRN Reason: Protocol Stop: 07/09/17 22:01 Last Admin: 07/01/17 09:27 Dose: Not Given Sodium Bicarbonate 150 meq/ (Dextrose) 1,150 mls @ 100 mls/hr IV .[id number] [facility] Last Admin: 07/01/17 01:29 Dose: Not Given Meropenem 250 mg/ Sodium (Chloride) 100 mls @ 100 mls/hr IVPB Q12 [facility] PRN Reason: Protocol Last Admin: 07/01/17 09:27 Dose: 100 mls/hr Megestrol Acetate (Megace) 400 mg PO BID [facility] Last Admin: 07/01/17 09:27 Dose: Not Given Metoprolol Tartrate (Lopressor) 50 mg PO BID [facility] Last Admin: 09/17/17 09:27 Dose: Not Given Ondansetron HCl (Zofran Odt) 4 mg PO Q8H PRN PRN Reason: Nausea/Vomiting Oxycodone HCl (Oxycodone Immediate Release Tab) 10 mg PO Q8H PRN PRN Reason: Pain, severe (8-10) Oxycodone HCl (Oxycodone Immediate Release Tab) 5 mg PO Q8H PRN PRN Reason: Pain, moderate (4-7) Pantoprazole Sodium (Protonix Ec Tab) 40 mg PO DAILY [facility] Last Admin: 07/01/17 09:30 Dose: Not Given Polyethylene Glycol (Miralax) 17 gm PO DAILY [facility] Last Admin: 07/01/17 09:28 Dose: Not Given Sennosides (Senokot Tab) 8.6 mg PO HS [facility] Last Admin: 06/30/17 23:12 Dose: Not Given Tamsulosin HCl (Flomax) 0.4 mg PO DAILY [facility] Last Admin: 07/01/17 09:27 Dose: Not Given - Labs Labs: 07/01/17 05:00 07/01/17 07:00 PT 20.6 Seconds (9.9-11.8) H 06/30/17 06:47 INR 1.91 (0.93-1.08) H 06/30/17 06:47 APTT 42.2 Seconds (23.7-30.8) H 06/29/17 03:50 Assessment and Plan - Assessment and Plan (Free Text) Plan: went over w resident at length the labs meds orders consults poor prognosis cont w/ aggressive tmt recheck labs as per consults
--- NOTE | 2017-07-01 11:42 | CON ---
DATE: PULMONARY CONSULTATION REFERRING PHYSICIAN: Dr. Mijares. REASON FOR CONSULTATION: Pneumonia. History was obtained via extensive discussion with the night nurse. I have also reviewed the chart at length. The patient does not appear to be an adequate historian. HISTORY OF PRESENT ILLNESS: The patient is a 76-year-old male, with past medical history significant for advanced metastatic prostate cancer (metastasis to the liver, kidney, and bones), hypertension, hyperlipidemia, who presented to the hospital -- originally on 06/29/17 -- because of abnormal laboratory values (seen on outpatient testing). Apparently, the patient was at a rehab facility-- when he had outpatient laboratories done. He was then directed to go to the emergency room for additional evaluation and treatment. In the emergency room, the patient was noted to be in acute renal failure. He was then admitted for additional evaluation. Again, I did discuss the case with the night nurse at length. There is no history of shortness of breath at rest or dyspnea on exertion. The night nurse does note a very occasional cough with no sputum production. There is no history of chest pain, coughing up a blood, or chest pain -- made worse with deep respirations. There is no history of temperature, chills, or infectious exposure. There is no history of night sweats, weight loss, or appetite change prior to the above events. No history of leg or calf pains. No history of syncope or diaphoresis. No history of recent travel or trauma. REVIEW OF SYSTEMS: No history of nausea, vomiting, or diarrhea. No acute urinary symptoms. No new neurologic or musculoskeletal complaints. Rest of the review of systems negative. ALLERGIES: NO KNOWN ALLERGIES. SOCIAL HISTORY: Positive for tobacco, negative for alcohol. FAMILY HISTORY: No inheritable diseases. HOME MEDICATIONS: Include Zofran, acetaminophen, Senokot, Protonix, oxycodone, Miralax, metoprolol, Flomax, megestrol, Colace, and Casodex. PHYSICAL EXAMINATION: GENERAL: The patient appears comfortable this morning. He is not short of breath at rest. VITAL SIGNS: Temperature 98.9, pulse 111, respirations 18/20, blood pressure 131/72, oxygen saturation on nasal cannula is 98%. HEENT: Normocephalic and atraumatic. No JVD. CARDIOVASCULAR: Systolic ejection murmur at the lower left sternal border. No S3 gallop. LUNGS: Decreased breath sounds at the bases with minimal crackles. No rhonchi. No wheezing. EXTREMITIES: Positive for mild edema. No cyanosis. No clubbing. Calves are nontender to palpation. GASTROINTESTINAL: Abdomen is soft, nontender, and nondistended. Bowel sounds are positive. SKIN: No acute rash. NEUROLOGIC: Limited at the present time. LABORATORY DATA: A CAT scan of the chest was done and reviewed. There is a very small opacity at the left lung base -- most likely atelectasis. There is also a larger opacity at the right lung base with air bronchograms -- more consistent with pneumonia. There are also very small bilateral plural effusions. Lastly, there are multiple liver lesions suggestive of metastasis. CBC: White count 6.5, hemoglobin 10.6, hematocrit 30.4, and platelets of 74,000. INR 1.91. Complete metabolic profile: Potassium 5.7, chloride 109, bicarb 115, anion gap 25, BUN 113, creatinine is 6.7. Rest of the profile is within normal limits Procalcitonin level done yesterday -- 7.72. IMPRESSION: 1. Right lower lobe pneumonia. 2. Acute renal failure. 3. Anemia. 4. Advanced prostate cancer -- with liver, kidney, and bone metastasis. 5. Increased liver function enzymes. 6. Anemia. PLAN: Again, I did discuss the case with the nurse at length. I also reviewed the chart at length. The patient does not appear to be an adequate historian. Apparently, the patient was in a rehab facility -- when his outpatient laboratory values were significantly abnormal. The patient was then directed to the emergency room for additional evaluation. In the emergency room, the patient was noted to be in acute renal failure. He was thus admitted for additional evaluation. I did review the CAT scan of the chest as above. There is a right lower lobe infiltrate with air bronchograms most consistent with pneumonia. There is also a left basilar opacity -- more consistent with atelectasis. At this point in time, the patient (and nurse) offer no significant pulmonary symptoms. I would continue the antibiotic coverage as per infectious disease. Input by Dr. Vizcarra as noted. Input by renal is also noted. Unfortunately, the overall status/prognosis of this patient remains very poor. I will discuss the above with the attending physician this morning. Thank you very much for this pulmonary consultation. Elio Real MD KATHARINE
--- NOTE | 2017-07-01 11:42 | PN ---
DATE: 07/01/2017 SUBJECTIVE: The patient is in bed, in no acute distress, and nontoxic. PHYSICAL EXAMINATION: VITAL SIGNS: Temperature is 98, blood pressure is 130/70, and respiratory rate is 21. HEENT: Unremarkable. NECK: Supple. LUNGS: Decreased breath sounds. HEART: Normal S1 and S2. ABDOMEN: Soft. LABORATORY DATA: Reveals a white count to be 6.4, hemoglobin of 10, and platelets of 65. BUN of 113, creatinine 6.9, and procalcitonin is 7.7. Urinalysis is noted. Microbiology reveals VRE in the urine. Review of orders reveals the patient to be on doxycycline and meropenem. ASSESSMENT AND PLAN: A 76-year-old male seen earlier today in 276, bed 1 with prostate cancer with metastasis to the bone and metastasis to the liver, history of hypertension, history of extended-spectrum beta-lactamases, urinary tract infection in last month, history of coronary artery disease, and gastroesophageal reflux disease, admitted on this admission with a right healthcare-associated pneumonia with acute kidney injury, Gram-positive cocci in the urine, currently on day #2 of meropenem and doxycycline and the patient has an elevated procalcitonin at 7.72 with a creatinine of 6.9, persistent tachycardia, now with a respiratory rate of 21 today, which will make the patient sepsis with healthcare-associated pneumonia on day #2 of meropenem and doxycycline to complete 4 to 7 days. Overall prognosis is quite poor. Ellis Vizcarra MD
--- NOTE | 2017-07-01 21:21 | CP.PCM.PN ---
Subjective - Date & Time of Evaluation Date of Evaluation: 07/01/17 Time of Evaluation: 21:20 - Subjective Subjective: Re: PT query on pt weight bearing status On 06/14 patient tolerated PT initial evaluation well with no adverse effects. Bone mets were chronic. pt currently receiving palliative radiation therapy on bone mets but paused due to current hospitalization. no sign of acute fracture. wt bearing as tolerated thanks Objective - Vital Signs/Intake and Output Vital Signs (last 24 hours): Temp Pulse Resp BP Pulse Ox 98.7 F 100 H 15 122/71 95 07/01/17 19:15 07/01/17 19:15 07/01/17 19:15 07/01/17 19:15 07/01/17 19:15 Intake and Output: 07/01/17 07/02/17 18:59 06:59 Intake Total 1240 Output Total 350 Balance 890 - Medications Medications: Current Medications Docusate Sodium (Colace) 100 mg PO TID PRN PRN Reason: Constipation Doxycycline Hyclate (Doryx) 100 mg PO Q12 QUYEN PRN Reason: Protocol Stop: 07/09/17 22:01 Last Admin: 07/01/17 09:27 Dose: Not Given Sodium Bicarbonate 150 meq/ (Dextrose) 1,150 mls @ 100 mls/hr IV .[id number] [facility] Last Admin: 07/01/17 20:48 Dose: 100 mls/hr Meropenem 250 mg/ Sodium (Chloride) 100 mls @ 100 mls/hr IVPB Q12 QUYEN PRN Reason: Protocol Last Admin: 07/01/17 09:27 Dose: 100 mls/hr Megestrol Acetate (Megace) 400 mg PO BID [facility] Last Admin: 07/01/17 20:45 Dose: Not Given Metoprolol Tartrate (Lopressor) 50 mg PO BID [facility] Last Admin: 07/01/17 17:55 Dose: Not Given Ondansetron HCl (Zofran Odt) 4 mg PO Q8H PRN PRN Reason: Nausea/Vomiting Oxycodone HCl (Oxycodone Immediate Release Tab) 10 mg PO Q8H PRN PRN Reason: Pain, severe (8-10) Oxycodone HCl (Oxycodone Immediate Release Tab) 5 mg PO Q8H PRN PRN Reason: Pain, moderate (4-7) Pantoprazole Sodium (Protonix Ec Tab) 40 mg PO DAILY [facility] Last Admin: 07/01/17 09:30 Dose: Not Given Polyethylene Glycol (Miralax) 17 gm PO DAILY [facility] Last Admin: 07/01/17 09:28 Dose: Not Given Sennosides (Senokot Tab) 8.6 mg PO HS [facility] Last Admin: 06/30/17 23:12 Dose: Not Given Tamsulosin HCl (Flomax) 0.4 mg PO DAILY [facility] Last Admin: 07/01/17 09:27 Dose: Not Given - Labs Labs: 07/01/17 05:00 07/01/17 07:00 PT 20.6 Seconds (9.9-11.8) H 06/30/17 06:47 INR 1.91 (0.93-1.08) H 06/30/17 06:47 APTT 42.2 Seconds (23.7-30.8) H 06/29/17 03:50
[2017-07-02] MEDS: Sodium Bicarbonate 8.4% 150 MEQ in Dextrose 5% In Water 1,000 ML IV SCH ×2 (00:34→11:52)
--- NOTE | 2017-07-02 07:31 | PN ---
DATE: 07/02/2017 SUBJECTIVE: The patient appears comfortable this morning. He is not short of breath at rest. PHYSICAL EXAMINATION: VITAL SIGNS: Temperature is 98.7, pulse 103, respirations 18, blood pressure 121/75. Oxygen saturation on nasal cannula is 98%. HEENT: Normocephalic and atraumatic. NECK: No JVD. CARDIOVASCULAR: Systolic ejection murmur at the lower left sternal border. No S3 gallop. LUNGS: Decreased breath sounds at the bases with minimal crackles. No rhonchi. No wheezing. EXTREMITIES: Positive for mild edema. No cyanosis. No clubbing. Calves are nontender to palpation. GASTROINTESTINAL: Abdomen is soft, nontender, and nondistended. Bowel sounds are positive. SKIN: No acute rash. NEUROLOGIC: Limited at the present time. IMPRESSION: 1. Right lower lobe pneumonia. 2. Acute renal failure. 3. Anemia. 4. Advanced prostate cancer with distant metastasis. 5. Increased liver function enzymes. PLAN: The patient appears comfortable this morning. He is not short of breath at rest. He does remain weak looking. On physical exam, there is no significant bronchospasm noted. In addition, the oxygen saturation on nasal cannula is 98%. I would continue with the current antibiotic therapy for now. There are no temperatures noted. There is no leukocytosis. Renal evaluation is noted. ICU evaluation is also noted. Clinical status of the patient is somewhat improved-compared to the initial presentation. However, the future status/prognosis for this patient does remain very guarded/poor. I will discuss the above with attending physician this morning. Elio Real MD KATHARINE
--- NOTE | 2017-07-02 08:10 | CON ---
INITIAL NEPHROLOGY CONSULTATION DATE: 06/29/2017 CHIEF COMPLIANT: Kidney failed. HISTORY OF PRESENT ILLNESS: The patient is a 76-year-old male with the multiple medical history notable for metastatic prostate and renal cell carcinoma, history of right nephrectomy, history of hypertension, hyperlipidemia. He is from [facility]. He was brought in because of abnormal labs. Family is also at bedside. They said his blood test which have showed his kidney have failed. Patient at this time appears very delirious and confused and unable to provide full history. He is not aware why he is in the hospital. He does not feel well. He denies any chest pain or palpitation. Does report back pain. REVIEW OF SYSTEMS: Limited because of the patient's altered mental status. He appears to be delirious. He does report some pain in the lower back area. Denies any shortness of breath. He has chronic Lyle catheter. PAST MEDICAL HISTORY: Notable for prostate CA with metastasis to liver, also history of right renal cell carcinoma, history of hypertension, hyperlipidemia, CKD stage III, baseline creatinine 1.3. PAST SURGICAL HISTORY: Notable for right nephrectomy. ALLERGIES: HE HAS NO KNOWN DRUG ALLERGIES. FAMILY HISTORY: No history of CKD or dialysis. SOCIAL HISTORY: No history of smoking, alcohol or drug abuse. HOME MEDICATIONS: Include Zofran as needed, Tylenol, Senokot, pantoprazole, oxycodone, MiraLax, metoprolol 50 mg b.i.d., Flomax 0.4 mg daily, Megace 10 mL b.i.d., Colace and Casodex. PHYSICAL EXAMINATION: GENERAL: The patient is ill appearing, seen in the emergency room. VITAL SIGNS: He is afebrile. Pulse is 100, blood pressure 106/59, saturation is 98% oxygen via nasal cannula and respirations is 16-20. He has urine output 30 mL so far. He weighed 200 pounds. HEENT: Head appears atraumatic and normocephalic. Eyes; bilateral pupils are equal reactive. He does have icterus and he also has a mild pallor. Pupils are bilateral sluggish to react to light. ENT examination; the patient oral mucosa appears to be very dry. No apparent thrush or ulceration. NECK: No lymphadenopathy. Neck is supple. CARDIOVASCULAR: S1 and S2 normal. tachycardia, otherwise no rub or gallop. LUNGS: Bilateral vesicular breath sounds present. No added sounds could be heard then bilateral air entry symmetrical. ABDOMEN: Soft. The patient's abdomen is slightly distended and also tender to low abdomen on the touch. No organomegaly could be appreciated clinically. GENITOURINARY: Kidney and bladder not palpable. The patient has a Lyle catheter, which is chronic. MUSCULOSKELETAL: No joint tenderness or swelling noted at this time. BACK: Could not be examined. PSYCHIATRIC: The patient does not have distal capacity at this time. He does appear to have judgment or insight into disease, because of altered mental status, because the patient appear to be awake but somewhat lethargic. He is disoriented. He is able to move his extremity, but he looks weak, generalized. SKIN: Appears to have decreased turgor, otherwise no obvious ulceration. EXTREMITIES: The patient has edema in the lower extremity 1+. LABORATORY DATA: Workup, his hemoglobin is 11, white blood cell count is 7.9 and platelet count is 142. INR is 2. His pH is 7.2 with pCO2 of 31 and bicarb of 13. His sodium is 138, potassium is 6.4, bicarb is 13, creatinine is 6.5, BUN is 107. His glucose 114, calcium 8.8, uric acid is up to 25, bilirubin up to 17, AST and ALT is also elevated. Albumin is 3. Repeat blood gas potassium has been 5.7. His UA shown 3+ protein with large blood, specific gravity of 1.025. His urine eosinophil is negative, has large bacteria in the urine. The patient had CT scan of the chest, abdomen and pelvis, which shows the patient has right lower lobe consolidation, also has metastatic lesion to the liver, lower spine and pelvic bone has small ascites, mild to moderate Anasarca. The patient has moderate paraseptal emphysema. CURRENT MEDICATIONS: as needed, Colace as needed, Megace 400 mg b.i.d., metoprolol 50 mg b.i.d., oxycodone, pantoprazole, MiraLax, he is getting IV fluid an 100 mL an hour, also on Flomax and also got a dose of Zosyn in the emergency room. ASSESSMENT: 1. Severe oliguric acute kidney injury likely acute tubular necrosis due to severe dehydration, also possible hepatorenal syndrome considering decompensated liver disease. The patient with metastatic prostate and renal cell carcinoma. 2. The patient with possible right lower lobe pneumonia, emphysema, history of hypertension, hyperlipidemia. 3. Also patient with anemia. He is also coagulopathic. He also has metabolic acidosis with respiratory compensation with mild lactic acidosis then the patient has hepatic failure as well with high bilirubin. RECOMMENDATIONS: The patient overall appears critically ill, but with very poor prognosis metastatic cancer and advanced metastasis involving liver causing also patient with liver failure and severe kidney failure as well then recommend medical management for hyperkalemia, which already being done. Repeat labs. Continue with IV hydration with normal saline and continue with Flomax. Avoid nephrotoxins, contrast, IV and/or Fleet Enemas or medicine based laxative dose . Discussed with the daughter and her mother at bedside. Daughter also claims that she is a healthcare proxy. Discussed the overall options from renal prospective. If kidney function does not improve with conservative measurement such as IV fluid. Dialysis may be one option, but not reasonable for him considering his advanced illness with metastatic cancer and liver disease to which they also agree and also they requested comfort care in that regards, which I also agree. If the patient's condition continue to worsen, dialysis will not be an option for him and recommended palliative care and comfort measures as per the family wishes. Further input could be given be oncologist as well. Continue to monitor labs. Thank you for the consultation. Please call if any questions. Ozzie Nicholas MD
--- NOTE | 2017-07-02 08:21 | PCM.URO ---
Urology Progress Note - Subjective Hematuria: Yes (see plans) - Objective Intake & Output: Intake & Output 07/01/17 07/02/17 07/02/17 18:59 06:59 18:59 Intake Total 1240 1220 Output Total 350 550 Balance 890 670 Weight 213 lb Intake: IV 1240 1200 Left Antecubital 1240 1200 Oral 20 Output: Urine 350 550 Urethral (Lyle) 350 550 Other: # Bowel Movements 1 1 Vital Signs: Vital Signs - 24 hr 07/01/17 07/01/17 07/01/17 10:00 12:00 14:00 Temperature 97.8 F Pulse Rate 112 H 82 82 Respiratory 18 Rate Blood Pressure 139/75 O2 Sat by Pulse Oximetry 07/01/17 07/01/17 07/01/17 18:00 19:15 22:00 Temperature 98.7 F Pulse Rate 107 H 100 H 106 H Respiratory 15 Rate Blood Pressure 122/71 O2 Sat by Pulse 95 Oximetry 07/02/17 07/02/17 07/02/17 00:01 02:00 05:31 Temperature Pulse Rate 105 H 102 H 103 H Respiratory 20 Rate Blood Pressure 121/75 O2 Sat by Pulse 98 Oximetry - Plan Catheter Care: Yes Additional Information: plans depend on family and pt. plans to be discussed
[2017-07-02] MEDS: Megestrol Acetate 40 mg/ml Cup PO SCH ×2 (09:49→20:04)
[2017-07-02] MEDS: Pantoprazole 40 mg EC Tab PO SCH (09:49)
[2017-07-02] MEDS: POLYETHYLENE GLYCOL 3350 17 GM/Dose PACKET PO SCH (09:49)
[2017-07-02 12:22] LABS: PH,URINE 5.5 (4.7-8.0); URINE BILIRUBIN LARGE (NEGATIVE); URINE BLOOD LARGE (NEGATIVE); URINE GLUCOSE (UA) NEGATIVE (NEGATIVE); URINE KETONE NEGATIVE (NEGATIVE); URINE LEUKOCYTE ESTERASE LARGE Leu/uL (NEGATIVE); URINE PROTEIN 100 mg/dL (<30 mg/dL)
[2017-07-02 12:28] LABS: URINE APPEARANCE CLOUDY (CLEAR); URINE COLOR LIGHT BROWN (YELLOW)
--- NOTE | 2017-07-02 12:29 | CP.PCM.CON ---
History of Present Illness - History of Present Illness History of Present Illness: Palliative consult requested by Dr Clarissa Mijares Reason: Goals of care 76 year old male with history of advanced of prostate cancer who was sent for [facility]ISIA due to abnormal labs. Labs on presentation; K 6.5, Chl. 113, BUN 105, Creatinine 6.8, elevated LFT's. CT imaging right lower lobe consolidation/broncheactasis, trace right pleural effusion, multiple liver lesions, sclerotic bony metastasis in lower spine/pelvis, small ascites, anasarca. PMHx: prostate cancer metastatic to liver/bones renal cancer s/p right nephrectomy, HTN, HLD, gouty arthropathy,constipation. Social History Former smoker, no alcohol or drug abuse. Lives alone. Family History: HTN. Advance Care Planning: The patient does not have an advanced Directive. Review of Systems: As per HPI, full review limited as the patient is altered and unable to answer questions. Past Patient History - Infectious Disease Hx of Infectious Diseases: None - Past Medical History & Family History Past Medical History?: Yes - Past Social History Smoking Status: Never Smoked - CARDIAC Hx Cardiac Disorders: Yes Hx Circulatory Problems: Yes Hx Congestive Heart Failure: Yes Hx Hypercholesterolemia: Yes Hx Hypertension: Yes Hx Pacemaker: No Hx Peripheral Edema: Yes - PULMONARY Hx Respiratory Disorders: No - NEUROLOGICAL Hx Neurological Disorder: No - HEENT Hx HEENT Problems: Yes Hx Cataracts: Yes (LEFT IOL) - RENAL Hx Chronic Kidney Disease: Yes (NEPHERECTOMY RIGHT) Other/Comment: ANURIC - ENDOCRINE/METABOLIC Hx Endocrine Disorders: No - HEMATOLOGICAL/ONCOLOGICAL Hx Blood Disorders: Yes Hx Cancer: Yes (Prostate CA w/ mets to liver and bone; h/o renal cancer s/p nephrectomy) - INTEGUMENTARY Hx Dermatological Problems: Yes Other/Comment: ANASARCA 06-29-17 - MUSCULOSKELETAL/RHEUMATOLOGICAL Hx Musculoskeletal Disorders: Yes Hx Falls: Yes Hx Unsteady Gait: Yes (WALKER) - GASTROINTESTINAL Hx Gastrointestinal Disorders: Yes (POLYPS,APPENDECTOMY,CONSTIPATION) Hx Gastroesophageal Reflux: Yes - GENITOURINARY/GYNECOLOGICAL Hx Genitourinary Disorders: Yes Hx Prostate Problems: Yes (PROSTATE CA WITH RAD TX,ENLARGED) Other/Comment: 06-29-17 ESBL IN THE URINE - PSYCHIATRIC Hx Psychophysiologic Disorder: No Hx Emotional Abuse: No Hx Physical Abuse: No Hx Substance Use: No ( PER FAMILY) - SURGICAL HISTORY Hx Surgeries: Yes (NEPHRECTOMY-R,L CATARACT,APPENDECTOMY,) Hx Appendectomy: Yes - ANESTHESIA Hx Anesthesia: Yes Hx Anesthesia Reactions: No Hx Malignant Hyperthermia: No Meds Allergies/Adverse Reactions: Allergies Allergy/AdvReac Type Severity Reaction Status Date / Time No Known Allergies Allergy Verified 06/29/17 14:06 - Medications Medications: Current Medications Docusate Sodium (Colace) 100 mg PO TID PRN PRN Reason: Constipation Doxycycline Hyclate (Doryx) 100 mg PO Q12 [facility] PRN Reason: Protocol Stop: 07/09/17 22:01 Last Admin: 07/02/17 09:48 Dose: Not Given Sodium Bicarbonate 150 meq/ (Dextrose) 1,150 mls @ 100 mls/hr IV .[id number] [facility] Last Admin: 07/02/17 11:52 Dose: 100 mls/hr Meropenem 250 mg/ Sodium (Chloride) 100 mls @ 100 mls/hr IVPB Q12 [facility] PRN Reason: Protocol Last Admin: 07/02/17 09:50 Dose: 100 mls/hr Megestrol Acetate (Megace) 400 mg PO BID [facility] Last Admin: 07/02/17 09:49 Dose: Not Given Metoprolol Tartrate (Lopressor) 50 mg PO BID [facility] Last Admin: 07/02/17 09:48 Dose: Not Given Ondansetron HCl (Zofran Odt) 4 mg PO Q8H PRN PRN Reason: Nausea/Vomiting Oxycodone HCl (Oxycodone Immediate Release Tab) 10 mg PO Q8H PRN PRN Reason: Pain, severe (8-10) Oxycodone HCl (Oxycodone Immediate Release Tab) 5 mg PO Q8H PRN PRN Reason: Pain, moderate (4-7) Pantoprazole Sodium (Protonix Ec Tab) 40 mg PO DAILY [facility] Last Admin: 07/02/17 09:49 Dose: Not Given Polyethylene Glycol (Miralax) 17 gm PO DAILY [facility] Last Admin: 07/02/17 09:49 Dose: Not Given Sennosides (Senokot Tab) 8.6 mg PO HS [facility] Last Admin: 07/01/17 22:21 Dose: Not Given Tamsulosin HCl (Flomax) 0.4 mg PO DAILY [facility] Last Admin: 07/02/17 09:49 Dose: Not Given Physical Exam - Constitutional Appears: Cachectic, Chronically Ill - Head Exam Head Exam: NORMOCEPHALIC - Eye Exam Eye Exam: Normal appearance, PERRL - ENT Exam ENT Exam: Mucous Membranes Moist - Respiratory Exam Respiratory Exam: Decreased Breath Sounds, NORMAL BREATHING PATTERN - Cardiovascular Exam Cardiovascular Exam: REGULAR RHYTHM, +S1, +S2 - GI/Abdominal Exam GI & Abdominal Exam: Distended, Hypoactive Bowel Sounds, Soft - Extremities Exam Additional comments: edema of both upper/lower extremities - Neurological Exam Neurological exam: Altered - Skin Skin Exam: Dry, Warm - Additional Findings Additional findings: Palliative performance scale rating 30 % Results - Vital Signs Recent Vital Signs: Last Vital Signs Temp 98.4 F 07/02/17 11:48 Pulse 104 H 07/02/17 11:48 Resp 20 07/02/17 11:48 BP 130/77 07/02/17 11:48 Pulse Ox 98 07/02/17 00:01 - Labs Result Diagrams: 07/02/17 12:20 07/02/17 12:20 Assessment & Plan - Assessment and Plan (Free Text) Assessment: 76 year old male with history of metastatic prostate cancer admitted with renal failure, hyperkalemia, anemia,weakness and cachexia. The patient is known to me from previous admission. During that time he was alert and oriented. At that time we discussed goals of care and advance care planning. The patient was willing to continue treatment for his cancer. He indicated that he did not want CPR/intubation but would not make a decision until speaking with his daughter, Ashley. Today the patient is extremely weak, lethargic. He is refusing to eat and taking very little po fluids. He is altered at times, but has told staff that he "wants to ". I tried to speak with him about about resuscitation status but he was unable to carry a conversation or confirm wishes for DNR/DNI. I called patient's daughter Ashley to arrange family meeting to discuss goals of care. I explained that her fathers 's condition was deteriorating.Daughter states she is coming to hospital today but would not commit to specific meeting time. Plan: Advance care planning Palliative support
[2017-07-02 12:44] LABS: BASO # 0.01 K/mm3 (0.0-2.0); BASO % 0.2 % (0.0-3.0); EOS % 0.5 % (1.5-5.0); GRAN % 85.4 % (50.0-68.0); HEMATOCRIT 30.2 % (42.0-52.0); LYMPH # 0.3 (1.2-3.4); LYMPH % 5.5 % (22.0-35.0); MEAN CELL VOLUME 85.1 fl (80.0-105.0); MEAN CORPUSCULAR HEMOGLOBIN 30.1 pg (25.0-35.0); MEAN CORPUSCULAR HGB CONC 35.4 g/dl (31.0-37.0); MONO # 0.5 (0.1-0.6); MONO % 8.4 % (1.0-6.0); PLATELET COUNT 56 10^3/uL (120.0-450.0); RED CELL DISTRIBUTION WIDTH 23.1 % (11.5-14.5); WHITE BLOOD COUNT 5.6 10^3/ul (4.5-11.0)
[2017-07-02 12:46] LABS: URINE BACTERIA MANY (NEG); URINE RBC TNTC /hpf (0-2); URINE WBC TNTC /hpf (0-6)
[2017-07-02 12:56] LABS: ALB/GLOB RATIO 0.7 (1.1-1.8); BILIRUBIN,DIRECT 15.7 mg/dL (0.0-0.4); BILIRUBIN,TOTAL 17.2 mg/dL (0.2-1.3); CALCIUM 8.7 mg/dL (8.4-10.5); POTASSIUM 4.8 mmol/L (3.6-5.0); TOTAL PROTEIN 6.2 g/dL (5.8-8.3)
--- NOTE | 2017-07-02 13:18 | CP.PCM.PN ---
Subjective - Date & Time of Evaluation Date of Evaluation: 07/02/17 Time of Evaluation: 11:00 - Subjective Subjective: Patient seen and examined at bedside. No acute overnight events. Admits to baseline abdominal pain. Offers no new complaints at this time. Denies f/c/cp/ sob/n/v/d/c/urinary symptoms. Objective - Vital Signs/Intake and Output Vital Signs (last 24 hours): Temp Pulse Resp BP Pulse Ox 98.4 F 104 H 20 130/77 98 07/02/17 11:48 07/02/17 11:48 07/02/17 11:48 07/02/17 11:48 07/02/17 00:01 Intake and Output: 07/02/17 07/02/17 06:59 18:59 Intake Total 1220 Output Total 550 Balance 670 - Medications Medications: Current Medications Docusate Sodium (Colace) 100 mg PO TID PRN PRN Reason: Constipation Doxycycline Hyclate (Doryx) 100 mg PO Q12 [facility] PRN Reason: Protocol Stop: 07/09/17 22:01 Last Admin: 07/02/17 09:48 Dose: Not Given Sodium Bicarbonate 150 meq/ (Dextrose) 1,150 mls @ 100 mls/hr IV .[id number] [facility] Last Admin: 07/02/17 11:52 Dose: 100 mls/hr Meropenem 250 mg/ Sodium (Chloride) 100 mls @ 100 mls/hr IVPB Q12 [facility] PRN Reason: Protocol Last Admin: 07/02/17 09:50 Dose: 100 mls/hr Megestrol Acetate (Megace) 400 mg PO BID [facility] Last Admin: 07/02/17 09:49 Dose: Not Given Metoprolol Tartrate (Lopressor) 50 mg PO BID [facility] Last Admin: 07/02/17 09:48 Dose: Not Given Ondansetron HCl (Zofran Odt) 4 mg PO Q8H PRN PRN Reason: Nausea/Vomiting Oxycodone HCl (Oxycodone Immediate Release Tab) 10 mg PO Q8H PRN PRN Reason: Pain, severe (8-10) Oxycodone HCl (Oxycodone Immediate Release Tab) 5 mg PO Q8H PRN PRN Reason: Pain, moderate (4-7) Pantoprazole Sodium (Protonix Ec Tab) 40 mg PO DAILY [facility] Last Admin: 07/02/17 09:49 Dose: Not Given Polyethylene Glycol (Miralax) 17 gm PO DAILY [facility] Last Admin: 07/02/17 09:49 Dose: Not Given Sennosides (Senokot Tab) 8.6 mg PO HS [facility] Last Admin: 07/01/17 22:21 Dose: Not Given Tamsulosin HCl (Flomax) 0.4 mg PO DAILY [facility] Last Admin: 07/02/17 09:49 Dose: Not Given - Labs Labs: 07/02/17 12:20 07/02/17 12:20 PT 20.6 Seconds (9.9-11.8) H 06/30/17 06:47 INR 1.91 (0.93-1.08) H 06/30/17 06:47 APTT 42.2 Seconds (23.7-30.8) H 06/29/17 03:50 - Additional Findings Additional findings: - Constitutional Appears: Well, No Acute Distress - Head Exam Head Exam: ATRAUMATIC, NORMAL INSPECTION, NORMOCEPHALIC - Eye Exam Eye Exam: EOMI, Normal appearance, Scleral icterus bilateral eyes - Respiratory Exam Respiratory Exam: Clear to Ausculation Bilateral, NORMAL BREATHING PATTERN. absent: Decreased Breath Sounds, Rales, Rhonchi, Wheezes, Respiratory Distress - Cardiovascular Exam Cardiovascular Exam: REGULAR RHYTHM, +S1, +S2. absent: Tachycardia, Murmur - GI/Abdominal Exam GI & Abdominal Exam: slightly distended, tender to palpation, no guarding, no rebound tenderness - Extremities Exam Extremities Exam: Normal Inspection. absent: Pedal Edema - Neurological Exam Neurological Exam: Alert, Awake, lethargic - Skin Skin Exam: Dry, Intact, Normal Color, Warm Assessment and Plan - Assessment and Plan (Free Text) Assessment: 76 year old male with a PMHx of metastatic prostate cancer, Htn , who presents from rehabilitation facility for evaluation and treatment of abnormal lab values found to be hyperkalemic with RODNEY on CKD, metabolic acidosis , Hyperbilirubinemia. Plan: 1. Hyperkalemia - Potassium noted to be 6.4 in ED; patient was given insulin humulin 10 units in ED with dextrose, given 2 L bolus, given 30 of kayexylate - Potassium downtrending, this morning 4.8 - Cont cardiac monitoring on tele - EKG on admission show sinus tachycardia without significant ST T wave changes - repeat EKG also showed sinus tachycardia without significant ST T wave changes - continue bicarb drip - nephro following- appreciate recs 2. RODNEY on CKD - Creatinine noted on admission at 6.5 from 1.3 last visit and Bun 107 from 17 last visit - creatinine decreased and BUN increased - Avoid nephrotoxins - No acei/ arb - patient received IVF 2 L in the ED - Renal U/S showed no hyronephrosis, liver metastasis - Nephrology consult- Dr. Nicholas - patient not candidate for renal replacement therapy 3. Gapped Metabolic Acidosis - resolved - Bicarb noted to be 13 on admission, slowly improving, 24 this AM - Ddx includes uremia as patient has BUN of 107 - cont bicarb drip - nephro is following 4. consolidation at the right lower lobe - CT of Chest showed Airspace consolidation at the right lower lobe may represent pneumonia or aspiration. Right lower lobe bronchiectasis likely due to recurrent infection/ aspiration. Small opacity at the left lung base likely atelectasis.Small right and trace left pleural effusion. Moderate paraseptal emphysema. - patient is afebrile without leukocytosis - abx changed to meropenem and doxycylcin - ID following 5. Elevated Liver Enzymes - most likely secondary to the mets to the liver - LFTs cont to downtrend - cont close monitoring with CMP 6. Abdominal Pain; Hyperbilirubinemia - Pain likely 2/2 to mets - continue home pain medication regiment of oxycodone - Bilirubin conts to rise most likely 2/2 to liver mets, direct bilirubin and abdominal ultrasound ordered and GI consulted- appreciate recs - Abdomen/Pelvis CT showed Multiple innumerable slightly low-attenuation lesions in the liver suggestive of metastasis. Sclerotic bony lesion in the lower spine and in the pelvic bones suggestive of metastasis.Small ascites. Mild -to-moderate anasarca. 7. Hematuria, Chronic Ballesteros - 2/2 likely traumatic ballesteros insertion vs medication SE Bicalutamide (casodex) - consult urology and follow recs - H and H stable from last visit - consulted urologist, Dr. Parks 8. UTI - urine cultures positive for gram positive cocci, - c/w meropenem and doxycylcin - ID consulted 8. INR Elevation - downtrending - Likely secondary to liver mets (decreased coagulation factor production) - monitor PT/INR closely 9. Prostate cancer with Mets to liver and kidney - c/w home med flomax - hold casodex (chemotherapeutic agent) as this is a potential cause of the hematuria - Heme/Onc consult- Dr. Cloud, appreciate recs - palliative care nurse consulted- family meeting with daughter to discuss goals of care 10. Decreased Appetite - cont Megestrol acetate (appetite stimulant) 11. Constipation - Continue home senna, miralax, and colace PPX - protonix - SCD Case reviewed with and plan approved by attending physician, Dr. Gray.
[2017-07-02] MEDS: Dextrose 5%/0.9% NS 1,000 ML IV SCH (15:07)
--- NOTE | 2017-07-02 15:11 | CP.PCM.PN ---
Subjective - Date & Time of Evaluation Date of Evaluation: 07/02/17 Time of Evaluation: 11:30 - Subjective Subjective: Weak, lethargic, no fevers overnight. Objective - Vital Signs/Intake and Output Vital Signs (last 24 hours): Temp Pulse Resp BP Pulse Ox 98.7 F 103 H 20 121/75 98 07/01/17 19:15 07/02/17 05:31 07/02/17 00:01 07/02/17 00:01 07/02/17 00:01 Intake and Output: 07/02/17 07/02/17 06:59 18:59 Intake Total 1220 Output Total 550 Balance 670 - Medications Medications: Current Medications Docusate Sodium (Colace) 100 mg PO TID PRN PRN Reason: Constipation Doxycycline Hyclate (Doryx) 100 mg PO Q12 [facility] PRN Reason: Protocol Stop: 07/09/17 22:01 Last Admin: 07/02/17 09:48 Dose: Not Given Sodium Bicarbonate 150 meq/ (Dextrose) 1,150 mls @ 100 mls/hr IV .[id number] [facility] Last Admin: 07/02/17 00:34 Dose: Not Given Meropenem 250 mg/ Sodium (Chloride) 100 mls @ 100 mls/hr IVPB Q12 [facility] PRN Reason: Protocol Last Admin: 07/02/17 09:50 Dose: 100 mls/hr Megestrol Acetate (Megace) 400 mg PO BID [facility] Last Admin: 07/02/17 09:49 Dose: Not Given Metoprolol Tartrate (Lopressor) 50 mg PO BID [facility] Last Admin: 07/02/17 09:48 Dose: Not Given Ondansetron HCl (Zofran Odt) 4 mg PO Q8H PRN PRN Reason: Nausea/Vomiting Oxycodone HCl (Oxycodone Immediate Release Tab) 10 mg PO Q8H PRN PRN Reason: Pain, severe (8-10) Oxycodone HCl (Oxycodone Immediate Release Tab) 5 mg PO Q8H PRN PRN Reason: Pain, moderate (4-7) Pantoprazole Sodium (Protonix Ec Tab) 40 mg PO DAILY [facility] Last Admin: 07/02/17 09:49 Dose: Not Given Polyethylene Glycol (Miralax) 17 gm PO DAILY [facility] Last Admin: 07/02/17 09:49 Dose: Not Given Sennosides (Senokot Tab) 8.6 mg PO HS [facility] Last Admin: 07/01/17 22:21 Dose: Not Given Tamsulosin HCl (Flomax) 0.4 mg PO DAILY [facility] Last Admin: 07/02/17 09:49 Dose: Not Given - Labs Labs: 07/01/17 05:00 07/01/17 07:00 PT 20.6 Seconds (9.9-11.8) H 06/30/17 06:47 INR 1.91 (0.93-1.08) H 06/30/17 06:47 APTT 42.2 Seconds (23.7-30.8) H 06/29/17 03:50 - Constitutional Appears: Chronically Ill - Head Exam Head Exam: NORMAL INSPECTION - ENT Exam ENT Exam: Mucous Membranes Moist - Neck Exam Neck Exam: absent: Meningismus - Respiratory Exam Respiratory Exam: Decreased Breath Sounds - Cardiovascular Exam Cardiovascular Exam: +S1, +S2 - GI/Abdominal Exam GI & Abdominal Exam: Soft. absent: Tenderness Assessment and Plan - Assessment and Plan (Free Text) Plan: Assessment Sepsis due to right lower lobe healthcare-associated pneumonia VRE in the urine, R/O colonization prostate cancer with bone metastases HTN history of ESBL-producing organism UTI CAD GERD Plan continue doxycycline and Merrem (day 3) to complete 4-7 days of therapy will check repeat urine cx to see if the VRE in the urine persists; CT A/P and renal ultrasound does not show perinephric stranding or hydronephrosis suggestive of pyelonephritis, and urinary bladder is also normal on CT A/P will monitor clinically Overall prognosis is poor and hospice care should be considered
--- NOTE | 2017-07-02 18:20 | CON ---
ONCOLOGY CONSULTATION DATE: HISTORY OF PRESENT ILLNESS: This is a 76-year-old man with widely metastatic cancer. The patient had prostate a cancer almost 10 years ago and he had a renal cell carcinoma as well that was resected. He was doing well for about 10 years, almost 10 years and when I saw him about 6 weeks ago, he started to having increased abdominal pain and his liver. We did a liver biopsy at that point, which showed a prostate cancer widely metastatic to his liver and to his bones but he rapidly got worse within a week or two. His liver function started climbing. He starting going into renal insufficiency. He was seen in the hospital about a week and a half ago and the recommendation was to consider Lupron, but it is most unlikely that that would work. In any event, he is back in hospital right way. PHYSICAL EXAMINATION: GENERAL: He basically is not really responding. HEENT: Shows icterus now that is new. NODES: Nonpalpable in axillary, cervical, supraclavicular, inguinal regions. LUNGS: Present are some scattered rhonchi. HEART: S1, S2. ABDOMEN: Shows increasing abdominal girth. I think he has ascites, has a liver that is palpable now. EXTREMITIES: Some +1 edema. TIE MAKER: Plantars are downgoing bilateral. LABORATORY DATA: The liver function tests are very abnormal with a bilirubin that is now 18. The BUN is 113 with a creatinine of 6.4. The LFTs are elevated too. PLAN: I think at this point, he has a very rapidly progressive documented pancreatic carcinoma and he is simply two weeks to get any kind of a treatment in terms of Taxotere or . I would recommend palliative care at this point for symptoms control. Darius Cloud MD
--- NOTE | 2017-07-02 20:31 | US ---
EXAM: US Abdomen Complete EXAM DATE/TIME: 07/02/2017 11:42 AM CLINICAL HISTORY: 76 years old, male; Abnormal findings; Abnormal lab test and mass, lump, or swelling; Elevated liver enzymes; Additional info: Abdominal fluid and distention; metastatic disease; renal cell carcinoma; prostate cancer TECHNIQUE: Real-time ultrasound of the abdomen (complete) with image documentation. COMPARISON: CT - CHEST,ABDOMEN,PELVIS W/O CONT 06/29/2017 8:32:27 AM FINDINGS: Liver: Hepatic texture is diffusely heterogeneous. There are multiple masses too numerous to count. The liver is enlarged. The hepatic contour is nodular. There is flow in the hepatic veins. There is hepatopedal flow in the main portal vein. Gallbladder: Gallbladder is incompletely distended distended with no stones or sludge. Incomplete distention accentuates the gallbladder wall. Common bile duct: Common duct measures approximately 3.6 mm in diameter. Pancreas: Pancreas is partially obscured by bowel gas. Kidneys: Right kidney is absent. Left kidney is unremarkable. Spleen: Spleen is unremarkable. Aorta and inferior vena cava: Aorta and inferior vena cava are not visualized. Free fluid: There is free fluid in the abdomen. IMPRESSION: Diffuse metastatic disease in the liver; incomplete gallbladder distention with wall prominence, no ductal dilatation; minimal ascites
--- NOTE | 2017-07-02 23:35 | CP.PCM.PN ---
Subjective - Date & Time of Evaluation Date of Evaluation: 07/02/17 Time of Evaluation: 10:30 - Subjective Subjective: Pt has very poor veins,needs iv access. Hep Loc inserted in the R Antecubital vein # 22angiocath used. Objective - Vital Signs/Intake and Output Vital Signs (last 24 hours): Temp Pulse Resp BP Pulse Ox 98.4 F 113 H 20 125/69 98 07/02/17 11:48 07/02/17 20:18 07/02/17 11:48 07/02/17 20:18 07/02/17 00:01 - Medications Medications: Current Medications Docusate Sodium (Colace) 100 mg PO TID PRN PRN Reason: Constipation Doxycycline Hyclate (Doryx) 100 mg PO Q12 [facility] PRN Reason: Protocol Stop: 07/09/17 22:01 Last Admin: 07/02/17 21:43 Dose: Not Given Meropenem 250 mg/ Sodium (Chloride) 100 mls @ 100 mls/hr IVPB Q12 [facility] PRN Reason: Protocol Last Admin: 07/02/17 23:12 Dose: 100 mls/hr Dextrose/Sodium Chloride (Dextrose 5%/0.9% Ns 1000 Ml) 1,000 mls @ 75 mls/hr IV .[id number] [facility] Last Admin: 07/02/17 15:07 Dose: 75 mls/hr Megestrol Acetate (Megace) 400 mg PO BID [facility] Last Admin: 07/02/17 20:04 Dose: 400 mg Metoprolol Tartrate (Lopressor) 50 mg PO BID [facility] Last Admin: 07/02/17 20:18 Dose: 50 mg Ondansetron HCl (Zofran Odt) 4 mg PO Q8H PRN PRN Reason: Nausea/Vomiting Oxycodone HCl (Oxycodone Immediate Release Tab) 10 mg PO Q8H PRN PRN Reason: Pain, severe (8-10) Oxycodone HCl (Oxycodone Immediate Release Tab) 5 mg PO Q8H PRN PRN Reason: Pain, moderate (4-7) Pantoprazole Sodium (Protonix Ec Tab) 40 mg PO DAILY [facility] Last Admin: 07/02/17 09:49 Dose: Not Given Polyethylene Glycol (Miralax) 17 gm PO DAILY [facility] Last Admin: 07/02/17 09:49 Dose: Not Given Sennosides (Senokot Tab) 8.6 mg PO HS [facility] Last Admin: 07/02/17 21:43 Dose: Not Given Tamsulosin HCl (Flomax) 0.4 mg PO DAILY [facility] Last Admin: 07/02/17 09:49 Dose: Not Given - Labs Labs: 07/02/17 12:20 07/02/17 12:20 PT 20.6 Seconds (9.9-11.8) H 06/30/17 06:47 INR 1.91 (0.93-1.08) H 06/30/17 06:47 APTT 42.2 Seconds (23.7-30.8) H 06/29/17 03:50
[2017-07-03] MEDS: Dextrose 5%/0.9% NS 1,000 ML IV SCH ×2 (03:19→18:06)
[2017-07-03 06:57] LABS: BASO # 0.03 K/mm3 (0.0-2.0); BASO % 0.5 % (0.0-3.0); EOS % 0.2 % (1.5-5.0); GRAN # 5.11 (1.4-6.5); GRAN % 82.5 % (50.0-68.0); HEMATOCRIT 34.4 % (42.0-52.0); LYMPH # 0.5 (1.2-3.4); LYMPH % 8.1 % (22.0-35.0); MEAN CORPUSCULAR HEMOGLOBIN 30.3 pg (25.0-35.0); MEAN CORPUSCULAR HGB CONC 35.2 g/dl (31.0-37.0); MONO # 0.5 (0.1-0.6); MONO % 8.7 % (1.0-6.0); PLATELET COUNT 67 10^3/uL (120.0-450.0); RED CELL DISTRIBUTION WIDTH 23.7 % (11.5-14.5); WHITE BLOOD COUNT 6.2 10^3/ul (4.5-11.0)
[2017-07-03 07:36] LABS: ALB/GLOB RATIO 0.6 (1.1-1.8); CALCIUM 8.7 mg/dL (8.4-10.5); POTASSIUM 5.3 mmol/L (3.6-5.0); TOTAL PROTEIN 6.4 g/dL (5.8-8.3)
[2017-07-03 07:59] LABS: BILIRUBIN,TOTAL 18.2 mg/dL (0.2-1.3)
--- NOTE | 2017-07-03 08:34 | PN ---
DATE: 07/02/2017 CHIEF COMPLAINT: Unable to obtain from the patient. HISTORY OF PRESENT ILLNESS: The patient was unable to provide much history. He remained delirious, noted overnight events. Palliative care has been involved. Discussions are ongoing. The patient denies any shortness of breath or pain in the chest at this time. PHYSICAL EXAMINATION GENERAL: The patient is ill-appearing, appeared to be delirious. VITAL SIGNS: Afebrile. Pulse is 104 and blood pressure is 130/77. CARDIOVASCULAR: S1 and S2 normal with some tachycardia. LUNGS: Bilateral vesicular breath sounds anteriorly. ABDOMEN: Soft. Very mild lower abdomen tenderness are noted. Otherwise, no guarding or rebound. EXTREMITIES: 1-2+ edema was noted. PSYCHIATRIC: The patient does not have any insight. Does not have any judgement either. Because the patient is awake, but disoriented and delirious, able to move extremities and follows some command intermittently only. INPUT AND OUTPUT: Then, the patient had made 900 mL of urine. LABORATORY DATA: Workup showed white blood cell count 5.6, hemoglobin 10.7 and platelet count is 56. Sodium is 143, potassium is 4.8, patient's creatinine is consistent at 6.8, BUN is 116, bicarbonate is 24, bilirubin stays at 17, INR is 1.9. Urine culture has grown VRE. ASSESSMENT: Acute kidney injury, which is non-oliguric, likely due to the necrosis due to severe dehydration, also possible hepatorenal syndrome, considering advanced liver dysfunction. The patient with severe hyperkalemia and acidosis, which has improved. Also possible pneumonia, emphysema, history of hypertension, hyperlipidemia, metastatic prostate and renal cell carcinoma, decompensated liver disease. RECOMMENDATIONS: As per my previous discussion with the family, the patient is not a candidate for renal replacement therapy. His potassium has improved, his bicarbonate has improved, hence we will discontinue his current fluid and change it to D5 NS at 75 mL/hour. Palliative care discussion is ongoing with the family. Then, can continue to medically manage him with the IV fluid. Goals made for GFR less than 10. Avoid nephrotoxins. If patient decided for palliative and hospice may discharge at that time. Discussed with primary team as well. Please call if any questions. Thank you. Ozzie Nicholas MD [facility] # [id number]
--- NOTE | 2017-07-03 09:04 | PN ---
DATE: 07/03/2017 SUBJECTIVE: The patient appears comfortable this morning. He is not short of breath at rest. PHYSICAL EXAMINATION: VITAL SIGNS: Temperature 98.2, pulse 107, respirations 19, blood pressure 113/67, and oxygen saturation on nasal cannula is 98%. HEENT: Normocephalic and atraumatic. NECK: No JVD. CARDIOVASCULAR: Systolic ejection murmur at the low left sternal border. No S3 or gallop. LUNGS: Decreased breath sounds at the bases with minimal crackles. No rhonchi. No wheezing. EXTREMITIES: Positive for mild edema. No cyanosis. No clubbing. Calves are nontender to palpation. GASTROINTESTINAL: Abdomen is soft, nontender, and nondistended. Bowel sounds are positive. SKIN: No acute rash. NEUROLOGIC: Limited at the present time. IMPRESSION: 1. Right lower lobe pneumonia. 2. Acute renal failure. 3. Anemia. 4. Advanced prostate cancer with distant metastasis. 5. Increased liver function enzymes. PLAN: The patient appears comfortable this morning. He is not short of breath at rest. He does remain weak looking. I did discuss the case with the night nurse at length. The night nurse stated that the patient had a pretty good night. On physical exam, no significant bronchospasm is noted. In addition, the oxygen saturation on nasal cannula is now 98%. I would continue with the antibiotic coverage as per infectious disease. Input by Dr. Dykes is noted. There are no temperatures noted. There is no leukocytosis. Inputs by oncology and palliative care are also noted. Clinical status of the patient is certainly improved - compared to the initial presentation. However, the overall status/prognosis for this patient remains very guarded at best. I will discuss the above with the attending physician. Elio Real MD [facility]
[2017-07-03] MEDS ORDERED: Sod Polystyrene Sulf 15 gm/60 ml Oral Susp PO STA (10:59)
--- NOTE | 2017-07-03 12:16 | CP.PCM.PN ---
Subjective - Date & Time of Evaluation Date of Evaluation: 07/03/17 Time of Evaluation: 10:50 - Subjective Subjective: Comfortable, not short of breath, no fevers overnight. Objective - Vital Signs/Intake and Output Vital Signs (last 24 hours): Temp Pulse Resp BP Pulse Ox 98.2 F 107 H 19 113/67 98 07/03/17 06:00 07/03/17 06:00 07/03/17 06:00 07/03/17 06:00 07/03/17 06:00 Intake and Output: 07/03/17 07/03/17 06:59 18:59 Intake Total 60 Output Total 375 Balance -315 - Medications Medications: Current Medications Docusate Sodium (Colace) 100 mg PO TID PRN PRN Reason: Constipation Doxycycline Hyclate (Doryx) 100 mg PO Q12 [facility] PRN Reason: Protocol Stop: 07/09/17 22:01 Last Admin: 07/02/17 21:43 Dose: Not Given Meropenem 250 mg/ Sodium (Chloride) 100 mls @ 100 mls/hr IVPB Q12 [facility] PRN Reason: Protocol Last Admin: 07/02/17 23:12 Dose: 100 mls/hr Dextrose/Sodium Chloride (Dextrose 5%/0.9% Ns 1000 Ml) 1,000 mls @ 75 mls/hr IV .[id number] [facility] Last Admin: 07/03/17 03:19 Dose: Not Given Megestrol Acetate (Megace) 400 mg PO BID [facility] Last Admin: 07/02/17 20:04 Dose: 400 mg Metoprolol Tartrate (Lopressor) 50 mg PO BID [facility] Last Admin: 07/02/17 20:18 Dose: 50 mg Ondansetron HCl (Zofran Odt) 4 mg PO Q8H PRN PRN Reason: Nausea/Vomiting Pantoprazole Sodium (Protonix Ec Tab) 40 mg PO DAILY [facility] Last Admin: 07/02/17 09:49 Dose: Not Given Polyethylene Glycol (Miralax) 17 gm PO DAILY [facility] Last Admin: 07/02/17 09:49 Dose: Not Given Sennosides (Senokot Tab) 8.6 mg PO HS [facility] Last Admin: 07/02/17 21:43 Dose: Not Given Tamsulosin HCl (Flomax) 0.4 mg PO DAILY [facility] Last Admin: 07/02/17 09:49 Dose: Not Given - Labs Labs: 07/03/17 05:55 07/03/17 07:00 PT 20.6 Seconds (9.9-11.8) H 06/30/17 06:47 INR 1.91 (0.93-1.08) H 06/30/17 06:47 APTT 42.2 Seconds (23.7-30.8) H 06/29/17 03:50 - Constitutional Appears: Non-toxic, No Acute Distress - Head Exam Head Exam: NORMAL INSPECTION - Eye Exam Eye Exam: Normal appearance - Neck Exam Neck Exam: absent: Meningismus - Respiratory Exam Respiratory Exam: Decreased Breath Sounds - Cardiovascular Exam Cardiovascular Exam: +S1, +S2 - GI/Abdominal Exam GI & Abdominal Exam: Soft. absent: Tenderness Assessment and Plan - Assessment and Plan (Free Text) Plan: Assessment Sepsis due to right lower lobe healthcare-associated pneumonia, slowly improving VRE in the urine, R/O colonization prostate cancer with bone metastases HTN history of ESBL-producing organism UTI CAD GERD Plan continue doxycycline and Merrem (day 4) to complete 4-7 days of therapy will check repeat urine cx to see if the VRE in the urine persists; CT A/P and renal ultrasound does not show perinephric stranding or hydronephrosis suggestive of pyelonephritis, and urinary bladder is also normal on CT A/P will continue to monitor clinically Overall prognosis is poor and hospice care should be considered
--- NOTE | 2017-07-03 12:18 | CP.PCM.CON ---
<Kavitha Albert - Last Filed: 07/03/17 14:54> History of Present Illness - History of Present Illness History of Present Illness: Gastroenterology Fellow/PGY5 Consult Note 76 year old male with history of Prostate cancer with liver/bone metastases on chemotherapy, RCC s/p right nephrectomy, low back pain, Hypertension, Hyperlipidemia, and constipation presenting with abnormal labs from subacute rehab. Patient has since been found to have acute renal failure, hyperkalemia, and worsening hyperbilirubinemia. Patient denies abdominal pain, fever, chills, sweats, nausea, vomiting, hematemesis, diarrhea, constipation, melena, hematochezia, or unintentional weight loss. Prior colonoscopy 12/2013 showed a 2.5mm sigmoid hyperplastic polyp and internal hemorrhoids. Family- denies colon cancer Social- denies tobacco, alcohol, illicit drug use Surgery- right nephrectomy, liver guided biopsy 05/30/17 Review of Systems - Review of Systems Review of Systems: 12-point review of systems negative except for as above Past Patient History - Infectious Disease Hx of Infectious Diseases: None - Past Medical History & Family History Past Medical History?: Yes - Past Social History Smoking Status: Never Smoked - CARDIAC Hx Cardiac Disorders: Yes Hx Circulatory Problems: Yes Hx Congestive Heart Failure: Yes Hx Hypercholesterolemia: Yes Hx Hypertension: Yes Hx Pacemaker: No Hx Peripheral Edema: Yes - PULMONARY Hx Respiratory Disorders: No - NEUROLOGICAL Hx Neurological Disorder: No - HEENT Hx HEENT Problems: Yes Hx Cataracts: Yes (LEFT IOL) - RENAL Hx Chronic Kidney Disease: Yes (NEPHERECTOMY RIGHT) Other/Comment: ANURIC - ENDOCRINE/METABOLIC Hx Endocrine Disorders: No - HEMATOLOGICAL/ONCOLOGICAL Hx Blood Disorders: Yes Hx Cancer: Yes (Prostate CA w/ mets to liver and bone; h/o renal cancer s/p nephrectomy) - INTEGUMENTARY Hx Dermatological Problems: Yes Other/Comment: ANASARCA 06-29-17 - MUSCULOSKELETAL/RHEUMATOLOGICAL Hx Musculoskeletal Disorders: Yes Hx Falls: Yes Hx Unsteady Gait: Yes (WALKER) - GASTROINTESTINAL Hx Gastrointestinal Disorders: Yes (POLYPS,APPENDECTOMY,CONSTIPATION) Hx Gastroesophageal Reflux: Yes - GENITOURINARY/GYNECOLOGICAL Hx Genitourinary Disorders: Yes Hx Prostate Problems: Yes (PROSTATE CA WITH RAD TX,ENLARGED) Other/Comment: 06-29-17 ESBL IN THE URINE - PSYCHIATRIC Hx Psychophysiologic Disorder: No Hx Emotional Abuse: No Hx Physical Abuse: No Hx Substance Use: No ( PER FAMILY) - SURGICAL HISTORY Hx Surgeries: Yes (NEPHRECTOMY-R,L CATARACT,APPENDECTOMY,) Hx Appendectomy: Yes - ANESTHESIA Hx Anesthesia: Yes Hx Anesthesia Reactions: No Hx Malignant Hyperthermia: No Meds Allergies/Adverse Reactions: Allergies Allergy/AdvReac Type Severity Reaction Status Date / Time No Known Allergies Allergy Verified 06/29/17 14:06 - Medications Medications: Current Medications Docusate Sodium (Colace) 100 mg PO TID PRN PRN Reason: Constipation Doxycycline Hyclate (Doryx) 100 mg PO Q12 QUYEN PRN Reason: Protocol Stop: 07/09/17 22:01 Last Admin: 07/02/17 21:43 Dose: Not Given Meropenem 250 mg/ Sodium (Chloride) 100 mls @ 100 mls/hr IVPB Q12 QUYEN PRN Reason: Protocol Last Admin: 07/02/17 23:12 Dose: 100 mls/hr Dextrose/Sodium Chloride (Dextrose 5%/0.9% Ns 1000 Ml) 1,000 mls @ 75 mls/hr IV .[id number] [facility] Last Admin: 07/03/17 03:19 Dose: Not Given Megestrol Acetate (Megace) 400 mg PO BID [facility] Last Admin: 07/02/17 20:04 Dose: 400 mg Metoprolol Tartrate (Lopressor) 50 mg PO BID [facility] Last Admin: 07/02/17 20:18 Dose: 50 mg Ondansetron HCl (Zofran Odt) 4 mg PO Q8H PRN PRN Reason: Nausea/Vomiting Pantoprazole Sodium (Protonix Ec Tab) 40 mg PO DAILY [facility] Last Admin: 07/02/17 09:49 Dose: Not Given Polyethylene Glycol (Miralax) 17 gm PO DAILY [facility] Last Admin: 07/02/17 09:49 Dose: Not Given Sennosides (Senokot Tab) 8.6 mg PO HS [facility] Last Admin: 07/02/17 21:43 Dose: Not Given Tamsulosin HCl (Flomax) 0.4 mg PO DAILY [facility] Last Admin: 07/02/17 09:49 Dose: Not Given Results - Vital Signs Recent Vital Signs: Last Vital Signs Temp 98.2 F 07/03/17 06:00 Pulse 107 H 07/03/17 06:00 Resp 19 07/03/17 06:00 BP 113/67 07/03/17 06:00 Pulse Ox 98 07/03/17 06:00 - Labs Result Diagrams: 07/03/17 05:55 07/03/17 07:00 Labs: Laboratory Results - last 24 hr 07/02/17 07/02/17 07/02/17 12:04 12:20 12:20 WBC 5.6 RBC 3.55 Hgb 10.7 L Hct 30.2 L MCV 85.1 MCH 30.1 MCHC 35.4 RDW 23.1 H Plt Count 56 L Gran % 85.4 H Lymph % (Auto) 5.5 L [place] % (Auto) 8.4 H Eos % (Auto) 0.5 L Baso % (Auto) 0.2 Gran # 4.80 Lymph # 0.3 L [place] # 0.5 Eos # 0.0 Baso # 0.01 Fibrinogen Fibrin Degrad Products Sodium 143 Potassium 4.8 Chloride 102 Carbon Dioxide 24 Anion Gap 22 H BUN 116 H Creatinine 6.8 H Est GFR ( Amer) 10 Est GFR (Non-Af Amer) 8 Random Glucose 108 Calcium 8.7 Total Bilirubin 17.2 H Direct Bilirubin 15.7 H AST 153 H ALT 122 H Alkaline Phosphatase 210 H Total Protein 6.2 Albumin 2.6 L Globulin 3.6 Albumin/Globulin Ratio 0.7 L Urine Color Light brown Urine Appearance Cloudy Urine pH 5.5 Ur Specific Prosper 1.015 Urine Protein 100 H Urine Glucose (UA) Negative Urine Ketones Negative Urine Blood Large H Urine Nitrate Negative Urine Bilirubin Large H Urine Urobilinogen 1.0 H Ur Leukocyte Esterase Large H Urine RBC Tntc Urine WBC Tntc Urine Bacteria Many 07/03/17 07/03/17 07/03/17 05:55 07:00 11:30 WBC 6.2 RBC 4.00 Hgb 12.1 L Hct 34.4 L MCV 86.0 MCH 30.3 MCHC 35.2 RDW 23.7 H Plt Count 67 L Gran % 82.5 H Lymph % (Auto) 8.1 L [place] % (Auto) 8.7 H Eos % (Auto) 0.2 L Baso % (Auto) 0.5 Gran # 5.11 Lymph # 0.5 L [place] # 0.5 Eos # 0.0 Baso # 0.03 Fibrinogen 467.3 H Fibrin Degrad Products Sodium 143 Potassium 5.3 H Chloride 101 Carbon Dioxide 24 Anion Gap 23 H BUN 119 H Creatinine 7.1 H Est GFR ( Amer) 9 Est GFR (Non-Af Amer) 8 Random Glucose 84 Calcium 8.7 Total Bilirubin 18.2 H* Direct Bilirubin AST 205 H D ALT 123 H Alkaline Phosphatase 210 H Total Protein 6.4 Albumin 2.5 L Globulin 3.9 Albumin/Globulin Ratio 0.6 L Urine Color Urine Appearance Urine pH Ur Specific Prosper Urine Protein Urine Glucose (UA) Urine Ketones Urine Blood Urine Nitrate Urine Bilirubin Urine Urobilinogen Ur Leukocyte Esterase Urine RBC Urine WBC Urine Bacteria 07/03/17 11:30 WBC RBC Hgb Hct MCV MCH MCHC RDW Plt Count Gran % Lymph % (Auto) [place] % (Auto) Eos % (Auto) Baso % (Auto) Gran # Lymph # [place] # Eos # Baso # Fibrinogen Fibrin Degrad Products >40 ug/ml Sodium Potassium Chloride Carbon Dioxide Anion Gap BUN Creatinine Est GFR ( Amer) Est GFR (Non-Af Amer) Random Glucose Calcium Total Bilirubin Direct Bilirubin AST ALT Alkaline Phosphatase Total Protein Albumin Globulin Albumin/Globulin Ratio Urine Color Urine Appearance Urine pH Ur Specific Prosper Urine Protein Urine Glucose (UA) Urine Ketones Urine Blood Urine Nitrate Urine Bilirubin Urine Urobilinogen Ur Leukocyte Esterase Urine RBC Urine WBC Urine Bacteria Assessment & Plan - Assessment and Plan (Free Text) Assessment: 76 year old male with history of Prostate cancer with liver/bone metastases on chemotherapy, RCC s/p right nephrectomy, low back pain, Hypertension, Hyperlipidemia, and constipation presenting with abnormal labs from subacute rehab. Active treatment of sepsis 2/2 RLL HCAP, VRE UTI, acute renal failure, hyperkalemia, and worsening hyperbilirubinemia. Prior colonoscopy 12/2013 showed a 2.5mm sigmoid hyperplastic polyp and internal hemorrhoids. Plan: >Ultrasound- no biliary dilatation, CBD 3.6mm, patent portal system, minimal ascites >liver nodular contour- cirrhosis (MELD 38) versus contour due to liver metastases >likely renal failure in setting of severe sepsis >possible hepatorenal syndrome -less likely give urine sodium>10, large blood in U/A >nephrology managing- not renal replacement candidate given overall poor prognosis >Hepatitis panel and autoimmune work up ordered to evaluate for possible cirrhosis etiology with elevated LFTS >consider MRCP to evaluate for possible intrahepatic obstructive pathology 2/2 liver metastases if patient and family wish for aggressive medical management >palliative care consulted- poor prognosis, family meeting planned to discuss goals of care <Gerardo Jorge - Last Filed: 07/03/17 15:45> Meds - Medications Medications: Current Medications Docusate Sodium (Colace) 100 mg PO TID PRN PRN Reason: Constipation Doxycycline Hyclate (Doryx) 100 mg PO Q12 QUYEN PRN Reason: Protocol Stop: 07/09/17 22:01 Last Admin: 07/03/17 13:20 Dose: Not Given Meropenem 250 mg/ Sodium (Chloride) 100 mls @ 100 mls/hr IVPB Q12 QUYEN PRN Reason: Protocol Last Admin: 07/03/17 13:21 Dose: 100 mls/hr Dextrose/Sodium Chloride (Dextrose 5%/0.9% Ns 1000 Ml) 1,000 mls @ 75 mls/hr IV .[id number] [facility] Last Admin: 07/03/17 03:19 Dose: Not Given Megestrol Acetate (Megace) 400 mg PO BID [facility] Last Admin: 07/03/17 13:20 Dose: Not Given Metoprolol Tartrate (Lopressor) 50 mg PO BID [facility] Last Admin: 07/03/17 13:20 Dose: Not Given Ondansetron HCl (Zofran Odt) 4 mg PO Q8H PRN PRN Reason: Nausea/Vomiting Pantoprazole Sodium (Protonix Ec Tab) 40 mg PO DAILY [facility] Last Admin: 07/03/17 13:21 Dose: Not Given Polyethylene Glycol (Miralax) 17 gm PO DAILY [facility] Last Admin: 07/03/17 13:21 Dose: Not Given Sennosides (Senokot Tab) 8.6 mg PO HS [facility] Last Admin: 07/02/17 21:43 Dose: Not Given Tamsulosin HCl (Flomax) 0.4 mg PO DAILY [facility] Last Admin: 07/03/17 13:20 Dose: Not Given Results - Vital Signs Recent Vital Signs: Last Vital Signs Temp 98.2 F 07/03/17 06:00 Pulse 107 H 07/03/17 06:00 Resp 19 07/03/17 06:00 BP 113/67 07/03/17 06:00 Pulse Ox 98 07/03/17 06:00 - Labs Result Diagrams: 07/03/17 05:55 07/03/17 07:00 Labs: Laboratory Results - last 24 hr 07/03/17 07/03/17 07/03/17 05:55 07:00 11:30 WBC 6.2 RBC 4.00 Hgb 12.1 L Hct 34.4 L MCV 86.0 MCH 30.3 MCHC 35.2 RDW 23.7 H Plt Count 67 L Gran % 82.5 H Lymph % (Auto) 8.1 L [place] % (Auto) 8.7 H Eos % (Auto) 0.2 L Baso % (Auto) 0.5 Gran # 5.11 Lymph # 0.5 L [place] # 0.5 Eos # 0.0 Baso # 0.03 Fibrinogen 467.3 H Fibrin Degrad Products Sodium 143 Potassium 5.3 H Chloride 101 Carbon Dioxide 24 Anion Gap 23 H BUN 119 H Creatinine 7.1 H Est GFR ( Amer) 9 Est GFR (Non-Af Amer) 8 Random Glucose 84 Calcium 8.7 Total Bilirubin 18.2 H* AST 205 H D ALT 123 H Alkaline Phosphatase 210 H Total Protein 6.4 Albumin 2.5 L Globulin 3.9 Albumin/Globulin Ratio 0.6 L 07/03/17 11:30 WBC RBC Hgb Hct MCV MCH MCHC RDW Plt Count Gran % Lymph % (Auto) [place] % (Auto) Eos % (Auto) Baso % (Auto) Gran # Lymph # [place] # Eos # Baso # Fibrinogen Fibrin Degrad Products >40 ug/ml Sodium Potassium Chloride Carbon Dioxide Anion Gap BUN Creatinine Est GFR ( Amer) Est GFR (Non-Af Amer) Random Glucose Calcium Total Bilirubin AST ALT Alkaline Phosphatase Total Protein Albumin Globulin Albumin/Globulin Ratio Attending/Attestation - Attestation I have personally seen and examined this patient.: Yes I have fully participated in the care of the patient.: Yes I have reviewed all pertinent clinical information: Yes Notes (Text): 07/03/17 15:21 76 year old male with h/o prostate ca with liver/bone mets, RCC s/p right nephrectomy, HTN, HLD a/w ARF and jaundice. 1. Jaundice 2. Cholestasis 3. Liver metastases 4. Cirrhosis Plan: -jaundice is most likely a consequence of intrahepatic cholestasis from tumor burden in the liver from metastatic disease, possibly in conjunction with cirrhosis of the liver, unknown etiology, which is suspected based on imaging -overall prognosis is very poor -unlikely to recover -if aggressive care is being pursued, then an MRCP would help determine if the patient is a candidate for any biliary intervention, although it seems very unlikely -recommend palliative care / goals of care discussion
--- NOTE | 2017-07-03 12:59 | CP.PCM.PN ---
Subjective - Date & Time of Evaluation Date of Evaluation: 07/03/17 Time of Evaluation: 11:10 - Subjective Subjective: Patient seen and examined. No acute events overnight. Patient states that his baseline abdominal discomfort is minimally improved. Offers no new complaints at this time. Denies f/c/cp/sob/n/v/diarrhea/constipation. Objective - Vital Signs/Intake and Output Vital Signs (last 24 hours): Temp Pulse Resp BP Pulse Ox 98.2 F 107 H 19 113/67 98 07/03/17 06:00 07/03/17 06:00 07/03/17 06:00 07/03/17 06:00 07/03/17 06:00 Intake and Output: 07/03/17 07/03/17 06:59 18:59 Intake Total 60 Output Total 375 Balance -315 - Medications Medications: Current Medications Docusate Sodium (Colace) 100 mg PO TID PRN PRN Reason: Constipation Doxycycline Hyclate (Doryx) 100 mg PO Q12 QUYEN PRN Reason: Protocol Stop: 07/09/17 22:01 Last Admin: 07/02/17 21:43 Dose: Not Given Meropenem 250 mg/ Sodium (Chloride) 100 mls @ 100 mls/hr IVPB Q12 QUYEN PRN Reason: Protocol Last Admin: 07/02/17 23:12 Dose: 100 mls/hr Dextrose/Sodium Chloride (Dextrose 5%/0.9% Ns 1000 Ml) 1,000 mls @ 75 mls/hr IV .[id number] [facility] Last Admin: 07/03/17 03:19 Dose: Not Given Megestrol Acetate (Megace) 400 mg PO BID [facility] Last Admin: 07/02/17 20:04 Dose: 400 mg Metoprolol Tartrate (Lopressor) 50 mg PO BID [facility] Last Admin: 07/02/17 20:18 Dose: 50 mg Ondansetron HCl (Zofran Odt) 4 mg PO Q8H PRN PRN Reason: Nausea/Vomiting Pantoprazole Sodium (Protonix Ec Tab) 40 mg PO DAILY [facility] Last Admin: 07/02/17 09:49 Dose: Not Given Polyethylene Glycol (Miralax) 17 gm PO DAILY [facility] Last Admin: 07/02/17 09:49 Dose: Not Given Sennosides (Senokot Tab) 8.6 mg PO HS [facility] Last Admin: 07/02/17 21:43 Dose: Not Given Tamsulosin HCl (Flomax) 0.4 mg PO DAILY [facility] Last Admin: 07/02/17 09:49 Dose: Not Given - Labs Labs: 07/03/17 05:55 07/03/17 07:00 PT 20.6 Seconds (9.9-11.8) H 06/30/17 06:47 INR 1.91 (0.93-1.08) H 06/30/17 06:47 APTT 42.2 Seconds (23.7-30.8) H 06/29/17 03:50 - Additional Findings Additional findings: - Constitutional Appears: Well, No Acute Distress - Head Exam Head Exam: ATRAUMATIC, NORMAL INSPECTION, NORMOCEPHALIC - Eye Exam Eye Exam: EOMI, Normal appearance, Scleral icterus bilateral eyes - Respiratory Exam Respiratory Exam: Clear to Ausculation Bilateral, NORMAL BREATHING PATTERN. absent: Decreased Breath Sounds, Rales, Rhonchi, Wheezes, Respiratory Distress - Cardiovascular Exam Cardiovascular Exam: +S1, +S2. absent: Tachycardia, Murmur - GI/Abdominal Exam GI & Abdominal Exam: slightly distended, tender to palpation, no guarding, no rebound tenderness - Extremities Exam Extremities Exam: Normal Inspection. absent: Pedal Edema - Neurological Exam Neurological Exam: Alert, Awake, lethargic - Skin Skin Exam: Dry, Intact, Normal Color, Warm Assessment and Plan - Assessment and Plan (Free Text) Assessment: 76 year old male with a PMHx of metastatic prostate cancer, Htn , who presents from rehabilitation facility for evaluation and treatment of abnormal lab values found to be hyperkalemic with RODNEY on CKD, metabolic acidosis , Hyperbilirubinemia. Plan: 1. Hyperkalemia - Potassium noted to be 6.4 in ED; patient was given insulin humulin 10 units in ED with dextrose, given 2 L bolus, given 30 of kayexylate - Potassium downtrending, this morning 5.3-- patient given kayexylate - Cont cardiac monitoring on tele - EKG on admission show sinus tachycardia without significant ST T wave changes - repeat EKG also showed sinus tachycardia without significant ST T wave changes - continue d5 normal saline as per neprho - nephro following- appreciate recs 2. RODNEY on CKD - Creatinine noted on admission at 6.5 from 1.3 last visit and Bun 107 from 17 last visit - creatinine decreased and BUN increased - Avoid nephrotoxins - No acei/ arb - patient received IVF 2 L in the ED - Renal U/S showed no hyronephrosis, liver metastasis - Nephrology consult- Dr. Nicholas - patient not candidate for renal replacement therapy 3. Gapped Metabolic Acidosis - resolved - Bicarb noted to be 13 on admission, slowly improving, 24 this AM - Ddx includes uremia as patient has BUN of 107 - cont bicarb drip - nephro is following 4. consolidation at the right lower lobe - CT of Chest showed Airspace consolidation at the right lower lobe may represent pneumonia or aspiration. Right lower lobe bronchiectasis likely due to recurrent infection/ aspiration. Small opacity at the left lung base likely atelectasis.Small right and trace left pleural effusion. Moderate paraseptal emphysema. - patient is afebrile without leukocytosis - abx changed to meropenem and doxycylcin - ID following 5. Elevated Liver Enzymes - most likely secondary to the mets to the liver - LFTs cont to downtrend - cont close monitoring with CMP 6. Abdominal Pain; Hyperbilirubinemia - Pain likely 2/2 to mets - continue home pain medication regiment of oxycodone - Bilirubin conts to rise most likely 2/2 to liver mets, direct bilirubin and abdominal ultrasound ordered and GI consulted- hepatitis vs autoimmune workup for both, consider mrcp - Abdomen/Pelvis CT showed Multiple innumerable slightly low-attenuation lesions in the liver suggestive of metastasis. Sclerotic bony lesion in the lower spine and in the pelvic bones suggestive of metastasis.Small ascites. Mild -to-moderate anasarca. 7. Hematuria, Chronic Ballesteros - 2/2 likely traumatic ballesteros insertion vs medication SE Bicalutamide (casodex) - consult urology and follow recs - H and H stable from last visit - consulted urologist, Dr. Parks 8. UTI - urine cultures positive for gram positive cocci, - c/w meropenem and doxycylcin - ID consulted 8. INR Elevation - downtrending - Likely secondary to liver mets (decreased coagulation factor production) - monitor PT/INR closely 9. Prostate cancer with Mets to liver and kidney - c/w home med flomax - hold casodex (chemotherapeutic agent) as this is a potential cause of the hematuria - Heme/Onc consult- Dr. Cloud, appreciate recs - palliative care nurse consulted- family meeting with daughter to discuss goals of care 10. Decreased Appetite - cont Megestrol acetate (appetite stimulant) 11. Constipation - Continue home senna, miralax, and colace PPX - protonix - SCD Case reviewed with and plan approved by attending physician, Dr. Mijares.
[2017-07-03] MEDS: Megestrol Acetate 40 mg/ml Cup PO SCH ×2 (13:20→18:05)
[2017-07-03] MEDS: Pantoprazole 40 mg EC Tab PO SCH (13:21)
[2017-07-03] MEDS: POLYETHYLENE GLYCOL 3350 17 GM/Dose PACKET PO SCH (13:21)
--- NOTE | 2017-07-03 16:16 | CP.PCM.PN ---
Subjective - Date & Time of Evaluation Date of Evaluation: 07/03/17 Time of Evaluation: 15:00 - Subjective Subjective: Lethargic, weak. Poor oral intake Objective - Vital Signs/Intake and Output Vital Signs (last 24 hours): Temp Pulse Resp BP Pulse Ox 98.2 F 107 H 19 113/67 98 07/03/17 06:00 07/03/17 06:00 07/03/17 06:00 07/03/17 06:00 07/03/17 06:00 Intake and Output: 07/03/17 07/03/17 06:59 18:59 Intake Total 60 Output Total 375 Balance -315 - Medications Medications: Current Medications Docusate Sodium (Colace) 100 mg PO TID PRN PRN Reason: Constipation Doxycycline Hyclate (Doryx) 100 mg PO Q12 QUYEN PRN Reason: Protocol Stop: 07/09/17 22:01 Last Admin: 07/03/17 13:20 Dose: Not Given Meropenem 250 mg/ Sodium (Chloride) 100 mls @ 100 mls/hr IVPB Q12 QUYEN PRN Reason: Protocol Last Admin: 07/03/17 13:21 Dose: 100 mls/hr Dextrose/Sodium Chloride (Dextrose 5%/0.9% Ns 1000 Ml) 1,000 mls @ 75 mls/hr IV .[id number] [facility] Last Admin: 07/03/17 03:19 Dose: Not Given Megestrol Acetate (Megace) 400 mg PO BID [facility] Last Admin: 07/03/17 13:20 Dose: Not Given Metoprolol Tartrate (Lopressor) 50 mg PO BID [facility] Last Admin: 07/03/17 13:20 Dose: Not Given Ondansetron HCl (Zofran Odt) 4 mg PO Q8H PRN PRN Reason: Nausea/Vomiting Pantoprazole Sodium (Protonix Ec Tab) 40 mg PO DAILY [facility] Last Admin: 07/03/17 13:21 Dose: Not Given Polyethylene Glycol (Miralax) 17 gm PO DAILY [facility] Last Admin: 07/03/17 13:21 Dose: Not Given Sennosides (Senokot Tab) 8.6 mg PO HS [facility] Last Admin: 07/02/17 21:43 Dose: Not Given Tamsulosin HCl (Flomax) 0.4 mg PO DAILY [facility] Last Admin: 07/03/17 13:20 Dose: Not Given - Labs Labs: 07/03/17 05:55 07/03/17 07:00 PT 20.6 Seconds (9.9-11.8) H 06/30/17 06:47 INR 1.91 (0.93-1.08) H 06/30/17 06:47 APTT 42.2 Seconds (23.7-30.8) H 06/29/17 03:50 - Constitutional Appears: Cachectic, Chronically Ill - Head Exam Head Exam: NORMAL INSPECTION - Eye Exam Eye Exam: Scleral icterus - ENT Exam ENT Exam: Mucous Membranes Moist - Respiratory Exam Respiratory Exam: Decreased Breath Sounds, NORMAL BREATHING PATTERN - Cardiovascular Exam Cardiovascular Exam: REGULAR RHYTHM, +S1, +S2 - GI/Abdominal Exam GI & Abdominal Exam: Soft, Diminished Bowel Sounds Additional comments: mildly distended - Exam Additional comments: oliguria - Skin Skin Exam: Dry, Warm Assessment and Plan - Assessment and Plan (Free Text) Assessment: 76 year old male with history of advanced prostate cancer metastatic to liver, jaundice,hyperkalemia, RODNEY. Patient's family at bedside. manager of sales, Laurita Paz and I met with patient/ family to discuss goals of care. I asked the patient if he wished to continue treatments. The patient stated "I am , I tried". When asked if he wanted CPR /intubation he shook his head no. Patient unable to sign DNR/DNI. We also asked patient he he wanted comfort care only but he did not respond. Family interpreting patient statement as that he is " is not and willing to try" . Family will not sign/agree to DNR/DNI. Family did not wish to continue conversation and state they want everything done. Time spent in goals of care discussion and advance care planning with patient and family, 20 minutes Plan: Advance care planning
--- NOTE | 2017-07-03 16:19 | CON ---
FOLLOWUP NEPHROLOGY CONSULTATION DATE: 07/03/2017 CHIEF COMPLAINT: Unable to obtain at this time. HISTORY OF PRESENT ILLNESS AND REVIEW OF SYSTEMS: Noted overnight event. The patient unable to provide any history and review of system at this time. He remains confused and delirious. PHYSICAL EXAMINATION: GENERAL: The patient is ill-appearing, not in acute respiratory distress. VITAL SIGNS: He is afebrile, pulse is 107, blood pressure 113/67. LUNGS: Bilateral vesicular breath sounds, clear anteriorly. ABDOMEN: Soft. Abdominal tenderness was noted and no organomegaly could be appreciated. EXTREMITIES: 1 to 2+ pitting edema noted in bilateral extremities with skin was somewhat cold to touch and legs. NEUROLOGIC: The patient is awake, but confused and delirious. PSYCHIATRIC: Unable at this time, since the patient is confused. CURRENT MEDICATIONS: Reviewed, which the patient is on D5 NS at 75 mL/hour, Colace p.r.n., doxycycline 100 mg b.i.d., Megace 400 mg b.i.d., meropenem 250 mg q. 12 hours, Lopressor 50 b.i.d., Zofran PPI, Miralax, Senokot, Flomax. LABORATORY DATA: Workup. The patient's hemoglobin of 12.1, white blood cell count is 6.2, and platelet count is only 67. Potassium is 5.3, bicarbonate 24, creatinine 7.1, BUN 119, glucose is 84. He had a urine output of approximately 375 mL. ASSESSMENT: 1. The patient appears to be terminally ill with metastatic prostate consistent with history of renal cell carcinoma. 2. Acute kidney disease, which is oliguric, likely acute tubular necrosis due to severe dehydration, also possible hepatorenal syndrome considering advanced liver dysfunction with hyperbilirubinemia, thrombocytopenia, and coagulopathy. Also the patient with hyperkalemia and acidosis, which has improved. Also pneumonia, emphysema, hypertension, hyperlipidemia, and decompensated liver disease. RECOMMENDATIONS: The patient remains ill. Renal function has not shown any IV fluid, although electrolytes are bit better with improved acidosis and hyperkalemia, then the patient is not a candidate for renal replacement therapy considering his advanced metastatic cancer and liver dysfunction. Continue further goal of care discussion with the family. Hospice care for him. Discussed with primary team. All questions were answered. May continue with the IV fluid at this time. Medical management for hyperkalemia if it happens again. Ozzie Nicholas MD
[2017-07-03 17:00] LABS: IMMUNOGLOBULIN G 1624.9 mg/dL (700.0-1600.0)
[2017-07-03 17:01] LABS: IMMUNOGLOBULIN M 120.2 mg/dL (40.0-230.0)
[2017-07-03 17:02] LABS: IMMUNOGLOBULIN A 478.5 mg/dL (70.0-400.0)
[2017-07-04] MEDS: Dextrose 5%/0.9% NS 1,000 ML IV SCH ×2 (03:27→05:54)
[2017-07-04 06:35] LABS: BASO # 0.01 K/mm3 (0.0-2.0); BASO % 0.2 % (0.0-3.0); EOS % 0.3 % (1.5-5.0); GRAN # 4.78 (1.4-6.5); HEMATOCRIT 28.8 % (42.0-52.0); LYMPH # 0.4 (1.2-3.4); LYMPH % 7.1 % (22.0-35.0); MEAN CELL VOLUME 85.5 fl (80.0-105.0); MEAN CORPUSCULAR HGB CONC 35.1 g/dl (31.0-37.0); MONO # 0.5 (0.1-0.6); MONO % 9.4 % (1.0-6.0); PLATELET COUNT 97 10^3/uL (120.0-450.0); RED CELL DISTRIBUTION WIDTH 24.1 % (11.5-14.5); WHITE BLOOD COUNT 5.8 10^3/ul (4.5-11.0)
[2017-07-04 06:48] LABS: ALB/GLOB RATIO 0.7 (1.1-1.8); BILIRUBIN,TOTAL 17.5 mg/dL (0.2-1.3); CALCIUM 8.7 mg/dL (8.4-10.5); POTASSIUM 5.2 mmol/L (3.6-5.0); TOTAL PROTEIN 6.1 g/dL (5.8-8.3)
[2017-07-04 06:59] LABS: INR 4.07 (0.93-1.08)
--- NOTE | 2017-07-04 07:16 | PN ---
SUBJECTIVE: The patient appears comfortable this morning. He is not short of breath at rest. PHYSICAL EXAMINATION VITAL SIGNS: Temperature 97.6, pulse 94, respirations 18, blood pressure 110/70. Oxygen saturation on nasal cannula is 93% to 94%. HEENT: Normocephalic, atraumatic. NECK: No JVD. CARDIOVASCULAR: Systolic ejection murmur at the lower left sternal border. No S3 gallop. LUNGS: Decreased breath sounds at the bases with minimal crackles. No rhonchi. No wheezing. EXTREMITIES: Less edema. No cyanosis, no clubbing. Calves are nontender to palpation. GASTROINTESTINAL: Abdomen is soft, nontender, nondistended. Bowel sounds are positive. SKIN: No acute rash. NEUROLOGIC: Limited at the present time. IMPRESSION: 1. Right lower lobe pneumonia. 2. Acute renal failure. 3. Anemia. 4. Advanced prostate cancer with distant metastasis. 5. Increased liver function enzymes. PLAN: The patient appears comfortable this morning. He is not short of breath at rest. He remains weak looking. I did discuss the case with the night nurse at length. The night nurse stated that the patient had a pretty good night, but he is refusing most of his oral medications. I did discuss this issue with the patient at length. I would continue with the antibiotic coverage as per infectious disease. Input by Dr. Dykes is noted. There are no temperatures noted. There is no leukocytosis. Input by Rin Root (palliative care) is also noted. Overall status/prognosis for this elderly patient appears poor. I will discuss the above with the attending physician. Elio Real MD MTDD
--- NOTE | 2017-07-04 07:25 | CP.PCM.PN ---
<Kavitha Albert - Last Filed: 07/04/17 10:50> Subjective - Date & Time of Evaluation Date of Evaluation: 07/04/17 Time of Evaluation: 07:22 - Subjective Subjective: Gastroenterology Fellow/PGY5 Progress Note Patient denies abdominal or back pain. Ate part of dinner yesterday with family present. Nursing notes patietn refusing medications and imaging. A 12-point review of systems negative except for as above. Objective - Vital Signs/Intake and Output Vital Signs (last 24 hours): Temp Pulse Resp BP Pulse Ox 97.6 F 94 H 18 110/70 93 L 07/04/17 06:00 07/04/17 06:00 07/04/17 06:00 07/04/17 06:00 07/04/17 06:00 Intake and Output: 07/04/17 07/04/17 06:59 18:59 Intake Total 925 Output Total 225 Balance 700 - Medications Medications: Current Medications Docusate Sodium (Colace) 100 mg PO TID PRN PRN Reason: Constipation Doxycycline Hyclate (Doryx) 100 mg PO Q12 [facility] PRN Reason: Protocol Stop: 07/09/17 22:01 Last Admin: 07/03/17 21:09 Dose: Not Given Meropenem 250 mg/ Sodium (Chloride) 100 mls @ 100 mls/hr IVPB Q12 [facility] PRN Reason: Protocol Last Admin: 07/03/17 21:08 Dose: 100 mls/hr Dextrose/Sodium Chloride (Dextrose 5%/0.9% Ns 1000 Ml) 1,000 mls @ 75 mls/hr IV .[id number] [facility] Last Admin: 07/04/17 05:54 Dose: Not Given Megestrol Acetate (Megace) 400 mg PO BID [facility] Last Admin: 07/03/17 18:05 Dose: 400 mg Metoprolol Tartrate (Lopressor) 50 mg PO BID [facility] Last Admin: 07/03/17 18:18 Dose: 50 mg Ondansetron HCl (Zofran Odt) 4 mg PO Q8H PRN PRN Reason: Nausea/Vomiting Pantoprazole Sodium (Protonix Ec Tab) 40 mg PO DAILY [facility] Last Admin: 07/03/17 13:21 Dose: Not Given Polyethylene Glycol (Miralax) 17 gm PO DAILY [facility] Last Admin: 07/03/17 13:21 Dose: Not Given Sennosides (Senokot Tab) 8.6 mg PO HS [facility] Last Admin: 07/03/17 21:08 Dose: Not Given Tamsulosin HCl (Flomax) 0.4 mg PO DAILY [facility] Last Admin: 07/03/17 13:20 Dose: Not Given - Labs Labs: 07/04/17 06:15 07/03/17 07:00 PT 44.0 Seconds (9.9-11.8) H* 07/04/17 06:15 INR 4.07 (0.93-1.08) H* 07/04/17 06:15 APTT 42.2 Seconds (23.7-30.8) H 06/29/17 03:50 - Constitutional Appears: Non-toxic, No Acute Distress - Head Exam Head Exam: ATRAUMATIC, NORMOCEPHALIC - Eye Exam Eye Exam: EOMI, PERRL Pupil Exam: PERRL. absent: Miosis, Mydriatic - ENT Exam ENT Exam: Mucous Membranes Moist, Normal Oropharynx - Neck Exam Neck Exam: Full ROM, Normal Inspection - Respiratory Exam Respiratory Exam: Clear to Ausculation Bilateral. absent: Rales, Rhonchi, Wheezes - Cardiovascular Exam Cardiovascular Exam: RRR, +S1, +S2. absent: Gallop, Rubs - GI/Abdominal Exam GI & Abdominal Exam: Distended, Soft, Normal Bowel Sounds. absent: Firm, Guarding, Rigid, Tenderness, Organomegaly, Rebound - Extremities Exam Extremities Exam: Normal Inspection Additional comments: 2+ B/L LE pitting edema - Neurological Exam Neurological Exam: Alert, Awake - Psychiatric Exam Psychiatric exam: Normal Affect, Normal Mood - Skin Skin Exam: Dry, Intact, Normal Color, Warm Assessment and Plan - Assessment and Plan (Free Text) Assessment: 76 year old male with history of Prostate cancer with liver/bone metastases on chemotherapy, RCC s/p right nephrectomy, low back pain, Hypertension, Hyperlipidemia, and constipation presenting with abnormal labs from subacute rehab. Active treatment of sepsis 2/2 RLL HCAP, VRE UTI, acute renal failure, dyselectrolytemia, and concern for intrahepatic cholestasis in setting of cirrhosis (unknown etiology) with liver metastases. Prior colonoscopy 12/2013 showed a 2.5mm sigmoid hyperplastic polyp and internal hemorrhoids. Plan: >MRCP ordered if family and patient agree to pursue aggressive management to evaluate for intrahepatic obstructive pathology >patient has refused imaging for last two days >autoimmune work up pending >Hepatitis panel negative >supportive care >palliative care consult- poor prognosis, family discussion held yesterday- FULL CODE >Thank you for opportunity to participate in the care of this patient. Please contact with questions/concerns. <Emily Lewis MD - Last Filed: 07/04/17 20:44> Objective - Vital Signs/Intake and Output Vital Signs (last 24 hours): Temp Pulse Resp BP Pulse Ox 98 F 75 16 125/81 93 L 07/04/17 12:00 07/04/17 12:00 07/04/17 12:00 07/04/17 12:00 07/04/17 06:00 Intake and Output: 07/04/17 07/05/17 18:59 06:59 Intake Total 240 Output Total 300 Balance -60 - Medications Medications: Current Medications Docusate Sodium (Colace) 100 mg PO TID PRN PRN Reason: Constipation Doxycycline Hyclate (Doryx) 100 mg PO Q12 [facility] PRN Reason: Protocol Stop: 07/09/17 22:01 Last Admin: 07/04/17 09:27 Dose: Not Given Meropenem 250 mg/ Sodium (Chloride) 100 mls @ 100 mls/hr IVPB Q12 [facility] PRN Reason: Protocol Last Admin: 07/04/17 09:25 Dose: 100 mls/hr Dextrose/Sodium Chloride (Dextrose 5%/0.9% Ns 1000 Ml) 1,000 mls @ 75 mls/hr IV .[id number] [facility] Last Admin: 07/04/17 05:54 Dose: Not Given Megestrol Acetate (Megace) 400 mg PO BID [facility] Last Admin: 07/04/17 17:16 Dose: Not Given Metoprolol Tartrate (Lopressor) 50 mg PO BID [facility] Last Admin: 07/04/17 17:16 Dose: Not Given Ondansetron HCl (Zofran Odt) 4 mg PO Q8H PRN PRN Reason: Nausea/Vomiting Pantoprazole Sodium (Protonix Ec Tab) 40 mg PO DAILY [facility] Last Admin: 07/04/17 09:28 Dose: Not Given Polyethylene Glycol (Miralax) 17 gm PO DAILY [facility] Last Admin: 07/04/17 09:28 Dose: Not Given Sennosides (Senokot Tab) 8.6 mg PO HS [facility] Last Admin: 07/03/17 21:08 Dose: Not Given Tamsulosin HCl (Flomax) 0.4 mg PO DAILY [facility] Last Admin: 07/04/17 09:27 Dose: Not Given - Labs Labs: 07/04/17 06:15 07/04/17 06:15 PT 44.0 Seconds (9.9-11.8) H* 07/04/17 06:15 INR 4.07 (0.93-1.08) H* 07/04/17 06:15 APTT 42.2 Seconds (23.7-30.8) H 06/29/17 03:50 Attending/Attestation - Attestation I have personally seen and examined this patient.: Yes I have fully participated in the care of the patient.: Yes I have reviewed all pertinent clinical information, including history, physical exam and plan: Yes Notes (Text): 07/04/17 20:43 Patient seen with GI fellow and resident on rounds. This is a 76 year old male with history of Prostate cancer with liver/bone metastases on chemotherapy, RCC s/p right nephrectomy, low back pain, Hypertension, Hyperlipidemia, and constipation presenting with abnormal labs from subacute rehab in setting of sepsis 2/2 RLL HCAP, VRE UTI, acute renal failure,dyselectrolytemia, and concern for intrahepatic cholestasis in setting of cirrhosis (unknown etiology ) with liver metastases. Prior colonoscopy 12/2013 showed a 2.5mm sigmoid hyperplastic polyp and internal hemorrhoids. Imaging ordered but patient refusing. Hepatitis serologies negative. Poor prognosis. Will sign off as patient does not want further work up. >Thank you for opportunity to participate in the care of this patient. Please contact with questions/concerns.
[2017-07-04] MEDS: Megestrol Acetate 40 mg/ml Cup PO SCH ×2 (09:27→17:16)
[2017-07-04] MEDS: Pantoprazole 40 mg EC Tab PO SCH (09:28)
[2017-07-04] MEDS: POLYETHYLENE GLYCOL 3350 17 GM/Dose PACKET PO SCH (09:28)
[2017-07-04] MEDS ORDERED: Sod Polystyrene Sulf 15 gm/60 ml Oral Susp PO STA (09:45)
--- NOTE | 2017-07-04 14:23 | CP.PCM.PN ---
Subjective - Date & Time of Evaluation Date of Evaluation: 07/04/17 Time of Evaluation: 09:45 - Subjective Subjective: Patient seen and examined at bedside. No acute events overnight. Resting in bed. Patient states his abdominal discomfort is at baseline. Offers no new complaints at this time. Denies f/c/cp/sob/n/v/diarrhea/constipation/urinary symptoms. . Objective - Vital Signs/Intake and Output Vital Signs (last 24 hours): Temp Pulse Resp BP Pulse Ox 98 F 75 16 125/81 93 L 07/04/17 12:00 07/04/17 12:00 07/04/17 12:00 07/04/17 12:00 07/04/17 06:00 Intake and Output: 07/04/17 07/04/17 06:59 18:59 Intake Total 925 240 Output Total 225 300 Balance 700 -60 - Medications Medications: Current Medications Docusate Sodium (Colace) 100 mg PO TID PRN PRN Reason: Constipation Doxycycline Hyclate (Doryx) 100 mg PO Q12 [facility] PRN Reason: Protocol Stop: 07/09/17 22:01 Last Admin: 07/04/17 09:27 Dose: Not Given Meropenem 250 mg/ Sodium (Chloride) 100 mls @ 100 mls/hr IVPB Q12 [facility] PRN Reason: Protocol Last Admin: 07/04/17 09:25 Dose: 100 mls/hr Dextrose/Sodium Chloride (Dextrose 5%/0.9% Ns 1000 Ml) 1,000 mls @ 75 mls/hr IV .[id number] [facility] Last Admin: 07/04/17 05:54 Dose: Not Given Megestrol Acetate (Megace) 400 mg PO BID [facility] Last Admin: 07/04/17 09:27 Dose: Not Given Metoprolol Tartrate (Lopressor) 50 mg PO BID [facility] Last Admin: 07/04/17 09:27 Dose: Not Given Ondansetron HCl (Zofran Odt) 4 mg PO Q8H PRN PRN Reason: Nausea/Vomiting Pantoprazole Sodium (Protonix Ec Tab) 40 mg PO DAILY [facility] Last Admin: 07/04/17 09:28 Dose: Not Given Polyethylene Glycol (Miralax) 17 gm PO DAILY [facility] Last Admin: 07/04/17 09:28 Dose: Not Given Sennosides (Senokot Tab) 8.6 mg PO HS [facility] Last Admin: 07/03/17 21:08 Dose: Not Given Tamsulosin HCl (Flomax) 0.4 mg PO DAILY [facility] Last Admin: 07/04/17 09:27 Dose: Not Given - Labs Labs: 07/04/17 06:15 07/04/17 06:15 PT 44.0 Seconds (9.9-11.8) H* 07/04/17 06:15 INR 4.07 (0.93-1.08) H* 07/04/17 06:15 APTT 42.2 Seconds (23.7-30.8) H 06/29/17 03:50 - Additional Findings Additional findings: - Constitutional Appears: Well, No Acute Distress - Head Exam Head Exam: ATRAUMATIC, NORMAL INSPECTION, NORMOCEPHALIC - Eye Exam Eye Exam: EOMI, Normal appearance, Scleral icterus bilateral eyes - Respiratory Exam Respiratory Exam: Clear to Ausculation Bilateral, NORMAL BREATHING PATTERN. absent: Decreased Breath Sounds, Rales, Rhonchi, Wheezes, Respiratory Distress - Cardiovascular Exam Cardiovascular Exam: +S1, +S2. absent: Tachycardia, Murmur - GI/Abdominal Exam GI & Abdominal Exam: slightly distended, tender to palpation, no guarding, no rebound tenderness - Extremities Exam Extremities Exam: Normal Inspection. absent: Pedal Edema - Neurological Exam Neurological Exam: Alert, Awake, lethargic, AAO x 1 to name - Skin Skin Exam: Dry, Intact, Normal Color, Warm Assessment and Plan - Assessment and Plan (Free Text) Assessment: 76 year old male with a PMHx of metastatic prostate cancer, Htn , who presents from rehabilitation facility for evaluation and treatment of abnormal lab values found to be hyperkalemic with RODNEY on CKD, metabolic acidosis , Hyperbilirubinemia. Plan: 1. Hyperkalemia - Potassium noted to be 6.4 in ED; patient was given insulin humulin 10 units in ED with dextrose, given 2 L bolus, given 30 of kayexylate - Potassium downtrending, this morning 5.2-- patient given kayexylate - Cont cardiac monitoring on tele - EKG on admission show sinus tachycardia without significant ST T wave changes - repeat EKG also showed sinus tachycardia without significant ST T wave changes - continue d5 normal saline as per neprho - nephro following- appreciate recs 2. RODNEY on CKD - Creatinine noted on admission at 6.5 from 1.3 last visit and Bun 107 from 17 last visit - creatinine decreased and BUN increased - Avoid nephrotoxins - No acei/ arb - patient received IVF 2 L in the ED - Renal U/S showed no hyronephrosis, liver metastasis - Nephrology consult- Dr. Nicholas - patient not candidate for renal replacement therapy 3. Gapped Metabolic Acidosis - resolved - Bicarb noted to be 13 on admission, slowly improving, 23 this AM - Ddx includes uremia as patient has BUN of 107 - cont bicarb drip - nephro is following 4. Consolidation at the right lower lobe - CT of Chest showed Airspace consolidation at the right lower lobe may represent pneumonia or aspiration. Right lower lobe bronchiectasis likely due to recurrent infection/ aspiration. Small opacity at the left lung base likely atelectasis.Small right and trace left pleural effusion. Moderate paraseptal emphysema. - patient is afebrile without leukocytosis - abx changed to meropenem and doxycylcin - ID following 5. Elevated Liver Enzymes - most likely secondary to the mets to the liver - LFTs cont to downtrend - cont close monitoring with CMP 6. Abdominal Pain; Hyperbilirubinemia - Pain likely 2/2 to mets - continue home pain medication regiment of oxycodone - Bilirubin conts to rise most likely 2/2 to liver mets, direct bilirubin and abdominal ultrasound ordered and GI consulted- hepatitis vs autoimmune workup for both, ordered mrcp - Abdomen/Pelvis CT showed Multiple innumerable slightly low-attenuation lesions in the liver suggestive of metastasis. Sclerotic bony lesion in the lower spine and in the pelvic bones suggestive of metastasis.Small ascites. Mild -to-moderate anasarca. 7. Hematuria, Chronic Ballesteros - 2/2 likely traumatic ballesteros insertion vs medication SE Bicalutamide (casodex) - consult urology and follow recs - H and H stable from last visit - consulted urologist, Dr. Parks 8. UTI - urine cultures positive for gram positive cocci, - c/w meropenem and doxycylcin - ID consulted 8. INR Elevation - 4.1 today -- elevated likely due to mets to the liver - Likely secondary to liver mets (decreased coagulation factor production) - monitor PT/INR closely 9. Prostate cancer with Mets to liver and kidney - c/w home med flomax - hold casodex (chemotherapeutic agent) as this is a potential cause of the hematuria - Heme/Onc consult- Dr. Cloud, appreciate recs - palliative care nurse consulted- family meeting with daughter to discuss goals of care- family would like all treatment to continue 10. Decreased Appetite - cont Megestrol acetate (appetite stimulant) 11. Constipation - Continue home senna, miralax, and colace PPX - protonix - SCD Case reviewed with and plan approved by attending physician, Dr. Montalvo
--- NOTE | 2017-07-04 14:36 | CP.PCM.PN ---
Subjective - Date & Time of Evaluation Date of Evaluation: 07/04/17 Time of Evaluation: 10:55 - Subjective Subjective: Comfortable, not in distress, afebrile. Objective - Vital Signs/Intake and Output Vital Signs (last 24 hours): Temp Pulse Resp BP Pulse Ox 97.6 F 94 H 18 110/70 93 L 07/04/17 06:00 07/04/17 06:00 07/04/17 06:00 07/04/17 06:00 07/04/17 06:00 Intake and Output: 07/04/17 07/04/17 06:59 18:59 Intake Total 925 Output Total 225 Balance 700 - Medications Medications: Current Medications Docusate Sodium (Colace) 100 mg PO TID PRN PRN Reason: Constipation Doxycycline Hyclate (Doryx) 100 mg PO Q12 [facility] PRN Reason: Protocol Stop: 07/09/17 22:01 Last Admin: 07/03/17 21:09 Dose: Not Given Meropenem 250 mg/ Sodium (Chloride) 100 mls @ 100 mls/hr IVPB Q12 [facility] PRN Reason: Protocol Last Admin: 07/03/17 21:08 Dose: 100 mls/hr Dextrose/Sodium Chloride (Dextrose 5%/0.9% Ns 1000 Ml) 1,000 mls @ 75 mls/hr IV .[id number] [facility] Last Admin: 07/04/17 05:54 Dose: Not Given Megestrol Acetate (Megace) 400 mg PO BID [facility] Last Admin: 07/03/17 18:05 Dose: 400 mg Metoprolol Tartrate (Lopressor) 50 mg PO BID [facility] Last Admin: 07/03/17 18:18 Dose: 50 mg Ondansetron HCl (Zofran Odt) 4 mg PO Q8H PRN PRN Reason: Nausea/Vomiting Pantoprazole Sodium (Protonix Ec Tab) 40 mg PO DAILY [facility] Last Admin: 07/03/17 13:21 Dose: Not Given Polyethylene Glycol (Miralax) 17 gm PO DAILY [facility] Last Admin: 07/03/17 13:21 Dose: Not Given Sennosides (Senokot Tab) 8.6 mg PO HS [facility] Last Admin: 07/03/17 21:08 Dose: Not Given Tamsulosin HCl (Flomax) 0.4 mg PO DAILY [facility] Last Admin: 07/03/17 13:20 Dose: Not Given - Labs Labs: 07/04/17 06:15 07/04/17 06:15 PT 44.0 Seconds (9.9-11.8) H* 07/04/17 06:15 INR 4.07 (0.93-1.08) H* 07/04/17 06:15 APTT 42.2 Seconds (23.7-30.8) H 06/29/17 03:50 - Constitutional Appears: Non-toxic, No Acute Distress - Head Exam Head Exam: NORMAL INSPECTION - Neck Exam Neck Exam: absent: Meningismus - Respiratory Exam Respiratory Exam: Decreased Breath Sounds - Cardiovascular Exam Cardiovascular Exam: +S1, +S2 - GI/Abdominal Exam GI & Abdominal Exam: Soft. absent: Tenderness Assessment and Plan - Assessment and Plan (Free Text) Plan: Assessment Sepsis due to right lower lobe healthcare-associated pneumonia, slowly improving VRE in the urine, R/O colonization prostate cancer with bone metastases HTN history of ESBL-producing organism UTI CAD GERD Plan continue doxycycline and Merrem (day 5) to complete 4-7 days of therapy will check repeat urine cx to see if the VRE in the urine persists; CT A/P and renal ultrasound does not show perinephric stranding or hydronephrosis suggestive of pyelonephritis, and urinary bladder is also normal on CT A/P will continue to monitor clinically Overall prognosis is poor and hospice care should be considered
[2017-07-04] MEDS ORDERED: Phytonadione 10 MG in Sodium Chloride 0.9% 50 ML IV ONE (15:56)
[2017-07-05] MEDS: Dextrose 5%/0.9% NS 1,000 ML IV SCH ×2 (00:30→11:07)
--- NOTE | 2017-07-05 08:00 | CP.PCM.PN ---
Subjective - Date & Time of Evaluation Date of Evaluation: 07/05/17 Time of Evaluation: 07:30 - Subjective Subjective: Patient seen and examined at bedside. No acute events overnight. Lethargic and resting in bed. Patient states his abdominal discomfort is at baseline today. Offers no new complaints at this time. Denies f/c/cp/sob/n/v/diarrhea/ constipation/urinary symptoms. Objective - Vital Signs/Intake and Output Vital Signs (last 24 hours): Temp Pulse Resp BP Pulse Ox 97.6 F 100 H 19 101/66 90 L 07/05/17 06:00 07/05/17 06:00 07/05/17 06:00 07/05/17 06:00 07/05/17 06:00 Intake and Output: 07/05/17 07/05/17 06:59 18:59 Intake Total 0 Output Total 300 Balance -300 - Medications Medications: Current Medications Docusate Sodium (Colace) 100 mg PO TID PRN PRN Reason: Constipation Doxycycline Hyclate (Doryx) 100 mg PO Q12 QUYEN PRN Reason: Protocol Stop: 07/09/17 22:01 Last Admin: 07/04/17 09:27 Dose: Not Given Meropenem 250 mg/ Sodium (Chloride) 100 mls @ 100 mls/hr IVPB Q12 QUYEN PRN Reason: Protocol Last Admin: 07/05/17 00:28 Dose: 100 mls/hr Dextrose/Sodium Chloride (Dextrose 5%/0.9% Ns 1000 Ml) 1,000 mls @ 75 mls/hr IV .[id number] [facility] Last Admin: 07/05/17 00:30 Dose: 75 mls/hr Megestrol Acetate (Megace) 400 mg PO BID [facility] Last Admin: 07/04/17 17:16 Dose: Not Given Metoprolol Tartrate (Lopressor) 50 mg PO BID [facility] Last Admin: 07/04/17 17:16 Dose: Not Given Ondansetron HCl (Zofran Odt) 4 mg PO Q8H PRN PRN Reason: Nausea/Vomiting Pantoprazole Sodium (Protonix Ec Tab) 40 mg PO DAILY [facility] Last Admin: 07/04/17 09:28 Dose: Not Given Polyethylene Glycol (Miralax) 17 gm PO DAILY [facility] Last Admin: 07/04/17 09:28 Dose: Not Given Sennosides (Senokot Tab) 8.6 mg PO HS [facility] Last Admin: 07/03/17 21:08 Dose: Not Given Tamsulosin HCl (Flomax) 0.4 mg PO DAILY [facility] Last Admin: 07/04/17 09:27 Dose: Not Given - Labs Labs: 07/04/17 06:15 07/04/17 06:15 PT 44.0 Seconds (9.9-11.8) H* 07/04/17 06:15 INR 4.07 (0.93-1.08) H* 07/04/17 06:15 APTT 42.2 Seconds (23.7-30.8) H 06/29/17 03:50 - Additional Findings Additional findings: - Constitutional Appears: Well, No Acute Distress - Head Exam Head Exam: ATRAUMATIC, NORMAL INSPECTION, NORMOCEPHALIC - Eye Exam Eye Exam: EOMI, Normal appearance, Scleral icterus bilateral eyes - Respiratory Exam Respiratory Exam: Clear to Ausculation Bilateral, NORMAL BREATHING PATTERN. absent: Decreased Breath Sounds, Rales, Rhonchi, Wheezes, Respiratory Distress - Cardiovascular Exam Cardiovascular Exam: +S1, +S2. absent: Tachycardia, Murmur - GI/Abdominal Exam GI & Abdominal Exam: distended, tender to palpation, positive fluid wave, no guarding, no rebound tenderness - Extremities Exam Extremities Exam: Normal Inspection. absent: Pedal Edema - Neurological Exam Neurological Exam: Alert, Awake, lethargic, AAO x 1 to name - Skin Skin Exam: Dry, Intact, Normal Color, Warm Assessment and Plan - Assessment and Plan (Free Text) Assessment: 76 year old male with a PMHx of metastatic prostate cancer, Htn , who presents from rehabilitation facility for evaluation and treatment of abnormal lab values found to be hyperkalemic with RODNEY on CKD, metabolic acidosis , Hyperbilirubinemia. Plan: 1. Hyperkalemia - Potassium noted to be 6.4 in ED; patient was given insulin humulin 10 units in ED with dextrose, given 2 L bolus, given 30 of kayexylate - Potassium downtrending, this morning 5.1 - Cont cardiac monitoring on tele - EKG on admission show sinus tachycardia without significant ST T wave changes - repeat EKG also showed sinus tachycardia without significant ST T wave changes - continue d5 normal saline as per neprho - nephro following- patient will get dialysis catether today s/p receiving 1 of FFP to stabilize INR, will start dialysis 2. RODNEY on CKD - Creatinine noted on admission at 7.5 and Bun 133 from 17 - Avoid nephrotoxins - No acei/ arb - patient received IVF 2 L in the ED - Renal U/S showed no hyronephrosis, liver metastasis - Nephrology consult- Dr. Nicholas 3. Gapped Metabolic Acidosis - resolved - Bicarb noted to be 20 on admission, slowly improving - Ddx includes uremia as patient has BUN of 107 - cont bicarb drip - nephro is following 4. Consolidation at the right lower lobe - CT of Chest showed Airspace consolidation at the right lower lobe may represent pneumonia or aspiration. Right lower lobe bronchiectasis likely due to recurrent infection/ aspiration. Small opacity at the left lung base likely atelectasis.Small right and trace left pleural effusion. Moderate paraseptal emphysema. - patient is afebrile without leukocytosis - abx changed to meropenem and doxycylcin - ID following 5. Elevated Liver Enzymes - most likely secondary to the mets to the liver - LFTs cont to downtrend - cont close monitoring with CMP 6. Abdominal Pain; Hyperbilirubinemia - Pain likely 2/2 to mets - continue home pain medication regiment of oxycodone - Bilirubin conts to rise most likely 2/2 to liver mets, direct bilirubin and abdominal ultrasound ordered and GI consulted- hepatitis panel negative, autoimmune workup pending -GI ordered mrcp- pending - Abdomen/Pelvis CT showed Multiple innumerable slightly low-attenuation lesions in the liver suggestive of metastasis. Sclerotic bony lesion in the lower spine and in the pelvic bones suggestive of metastasis.Small ascites. Mild -to-moderate anasarca. 7. Hematuria, Chronic Ballesteros - 2/2 likely traumatic ballesteros insertion vs medication SE Bicalutamide (casodex) - consult urology and follow recs - H and H stable from last visit - consulted urologist, Dr. Parks 8. UTI - urine cultures positive for gram positive cocci, - c/w meropenem and doxycylcin - ID consulted 8. INR Elevation - 1.44 today-- elevated likely due to mets to the liver - Likely secondary to liver mets (decreased coagulation factor production) - monitor PT/INR closely 9. Prostate cancer with Mets to liver and kidney - c/w home med flomax - hold casodex (chemotherapeutic agent) as this is a potential cause of the hematuria - Heme/Onc consult- Dr. Cloud, appreciate recs - Palliative care nurse consulted- family meeting with daughter to discuss goals of care- family would like all treatment to continue 10. Decreased Appetite - cont Megestrol acetate (appetite stimulant) 11. Constipation - Continue home senna, miralax, and colace 12. PPX - protonix - SCD Case reviewed with and plan approved by attending physician, Dr. Mijares
--- NOTE | 2017-07-05 08:36 | PN ---
DATE: 07/04/2017 FOLLOWUP NEPHROLOGY CHIEF COMPLAINT: Unable to obtain. HPI AND REVIEW OF SYSTEMS: Noted overnight event. Palliative care discussed with the patient's family. They want full aggressive measures and does not want palliative care hospice at this time. I have also called the daughter, Tammie and discussed the dialysis options, she would like us to proceed with dialysis and dialysis catheter placement. The patient is unable to provide any history because of altered mental status. PHYSICAL EXAMINATION GENERAL: The patient is ill appearing, not in acute respiratory distress. VITAL SIGNS: Afebrile, pulse 75, and blood pressure 125/81. LUNGS: Bilateral vesicular sounds, clear anteriorly. CARDIOVASCULAR: S1 and S2 normal. No rub or murmur. ABDOMEN: Soft, lower abdomen tenderness noted, otherwise distended. No organomegaly could be appreciated. EXTREMITIES: 1-2+ edema noted in the bilateral extremities. SKIN: No rash or ulceration, obvious at this time. PSYCHIATRIC: Unable to obtain at this time. NEUROLOGIC: The patient is awake, but disoriented and delirious. LABORATORY DATA: Workup shows white blood cell count 10.1, platelet count 97, 5.8. INR is 4. Sodium is 146, potassium 5.2, bicarb 23, creatinine 7.2 with BUN 129. Bilirubin stayed at 17.5. Urine culture had grown VRE. CURRENT MEDICATIONS: Also reviewed. PAST HISTORY: Also reviewed. ASSESSMENT: 1. 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 2. Hyperkalemia, acidosis. 3. 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 RECOMMENDATIONS: Discussed with the patient's daughter who is claimed to be healthcare proxy and she would like us to proceed with the dialysis. She was made aware about the pros and cons at this time and likely of the dialysis treatment, but she would like to proceed. She has also been aware that dialysis may not prolong his life, but the patient's family wishes, would proceed with the dialysis treatment. We will request IR to place for PermCath and plans for dialysis tomorrow. We will also add vitamin K. The patient also will likely need prior to PermCath because of his coagulopathy. His condition is critical. Prognosis is poor. Discussed with primary team as well. Ozzie Nicholas MD
--- NOTE | 2017-07-05 10:41 | PN ---
PULMONARY NOTE DATE: 07/05/2017 SUBJECTIVE: The patient appears comfortable this morning. He is not short of breath at rest. PHYSICAL EXAMINATION VITAL SIGNS: Temperature is 97.6, pulse 91, respirations 19, and blood pressure 101/56. Oxygen saturation on nasal cannula ranges between 90-94%. HEENT: Normocephalic and atraumatic. NECK: No JVD. CARDIOVASCULAR: Systolic ejection murmur at the lower left sternal border. No S3 gallop. LUNGS: Decreased breath sounds at the bases with minimal crackles. No rhonchi. No wheezing. EXTREMITIES: Less edema. No cyanosis. No clubbing. Calves are nontender to palpation. GASTROINTESTINAL: Abdomen is soft, nontender, and nondistended. Bowel sounds are positive. SKIN: No acute rash. NEUROLOGIC: Limited at the present time. IMPRESSION: 1. Right lower lobe pneumonia. 2. Acute renal failure. 3. Anemia. 4. Advanced prostate cancer with distant metastasis. 5. Increased liver function enzymes. PLAN: The patient appears comfortable this morning. He is not short of breath at rest. He remains weak and tired looking. I did discuss the case with the night nurse at length. The night nurse stated that the patient had a good night. The night nurse stated that the patient may also be for dialysis access later today. On physical exam, there is no significant bronchospasm noted. I will continue with the aspiration precautions for now. I would continue with the antibiotic coverage as per Infectious Disease. There are no temperatures noted. There is no leukocytosis. Clinical status of the patient is certainly improved-compared to the initial presentation. However, again, the future status/prognosis for this patient remains poor. All are aware. I will discuss the above with the attending physician. Elio Real MD KATHARINE
[2017-07-05] MEDS: Pantoprazole 40 mg EC Tab PO SCH (11:02)
[2017-07-05] MEDS: Megestrol Acetate 40 mg/ml Cup PO SCH ×2 (11:03→20:22)
[2017-07-05] MEDS: POLYETHYLENE GLYCOL 3350 17 GM/Dose PACKET PO SCH ×2 (11:03→11:57)
[2017-07-05 11:31] LABS: BASO # 0.02 K/mm3 (0.0-2.0); BASO % 0.3 % (0.0-3.0); EOS % 0.6 % (1.5-5.0); GRAN # 6.02 (1.4-6.5); GRAN % 82.9 % (50.0-68.0); HEMATOCRIT 29.1 % (42.0-52.0); LYMPH # 0.7 (1.2-3.4); LYMPH % 10.1 % (22.0-35.0); MEAN CELL VOLUME 86.4 fl (80.0-105.0); MEAN CORPUSCULAR HEMOGLOBIN 29.7 pg (25.0-35.0); MEAN CORPUSCULAR HGB CONC 34.4 g/dl (31.0-37.0); MONO # 0.4 (0.1-0.6); MONO % 6.1 % (1.0-6.0); PLATELET COUNT 106 10^3/uL (120.0-450.0); RED CELL DISTRIBUTION WIDTH 24.2 % (11.5-14.5); WHITE BLOOD COUNT 7.3 10^3/ul (4.5-11.0)
[2017-07-05] MEDS ORDERED: Midazolam 2 MG/2 ML VIAL ONE ×2 (11:35→12:28)
[2017-07-05 11:40] LABS: INR 1.44 (0.93-1.08)
[2017-07-05 11:42] LABS: ALB/GLOB RATIO 0.7 (1.1-1.8); CALCIUM 8.8 mg/dL (8.4-10.5); POTASSIUM 5.1 mmol/L (3.6-5.0); TOTAL PROTEIN 6.4 g/dL (5.8-8.3)
[2017-07-05 11:57] LABS: BILIRUBIN,TOTAL 20.1 mg/dL (0.2-1.3)
[2017-07-05] MEDS ORDERED: Lidocaine 2% Inj (20ml) ONE (12:28)
--- NOTE | 2017-07-05 13:21 | CP.PCM.PN ---
Subjective - Date & Time of Evaluation Date of Evaluation: 07/05/17 Time of Evaluation: 10:45 - Subjective Subjective: Comfortable in bed, no fevers. Objective - Vital Signs/Intake and Output Vital Signs (last 24 hours): Temp Pulse Resp BP Pulse Ox 97.6 F 100 H 19 101/66 90 L 07/05/17 06:00 07/05/17 06:00 07/05/17 06:00 07/05/17 06:00 07/05/17 06:00 Intake and Output: 07/05/17 07/05/17 06:59 18:59 Intake Total 0 Output Total 300 Balance -300 - Medications Medications: Current Medications Docusate Sodium (Colace) 100 mg PO TID PRN PRN Reason: Constipation Doxycycline Hyclate (Doryx) 100 mg PO Q12 QUYEN PRN Reason: Protocol Stop: 07/09/17 22:01 Last Admin: 07/04/17 09:27 Dose: Not Given Meropenem 250 mg/ Sodium (Chloride) 100 mls @ 100 mls/hr IVPB Q12 QUYEN PRN Reason: Protocol Last Admin: 07/05/17 00:28 Dose: 100 mls/hr Dextrose/Sodium Chloride (Dextrose 5%/0.9% Ns 1000 Ml) 1,000 mls @ 75 mls/hr IV .[id number] [facility] Last Admin: 07/05/17 00:30 Dose: 75 mls/hr Megestrol Acetate (Megace) 400 mg PO BID [facility] Last Admin: 07/04/17 17:16 Dose: Not Given Metoprolol Tartrate (Lopressor) 50 mg PO BID [facility] Last Admin: 07/04/17 17:16 Dose: Not Given Ondansetron HCl (Zofran Odt) 4 mg PO Q8H PRN PRN Reason: Nausea/Vomiting Pantoprazole Sodium (Protonix Ec Tab) 40 mg PO DAILY [facility] Last Admin: 07/04/17 09:28 Dose: Not Given Polyethylene Glycol (Miralax) 17 gm PO DAILY [facility] Last Admin: 07/04/17 09:28 Dose: Not Given Sennosides (Senokot Tab) 8.6 mg PO HS [facility] Last Admin: 07/03/17 21:08 Dose: Not Given Tamsulosin HCl (Flomax) 0.4 mg PO DAILY [facility] Last Admin: 07/04/17 09:27 Dose: Not Given - Labs Labs: 07/04/17 06:15 07/04/17 06:15 PT 44.0 Seconds (9.9-11.8) H* 07/04/17 06:15 INR 4.07 (0.93-1.08) H* 07/04/17 06:15 APTT 42.2 Seconds (23.7-30.8) H 06/29/17 03:50 - Constitutional Appears: Non-toxic, No Acute Distress - Head Exam Head Exam: NORMAL INSPECTION - ENT Exam ENT Exam: Mucous Membranes Moist - Neck Exam Neck Exam: absent: Meningismus - Respiratory Exam Respiratory Exam: Decreased Breath Sounds - Cardiovascular Exam Cardiovascular Exam: +S1, +S2 - GI/Abdominal Exam GI & Abdominal Exam: Soft. absent: Tenderness Assessment and Plan - Assessment and Plan (Free Text) Plan: Assessment Sepsis due to right lower lobe healthcare-associated pneumonia, slowly improving VRE in the urine, probably colonization prostate cancer with bone metastases HTN history of ESBL-producing organism UTI CAD GERD Plan continue doxycycline and Merrem (day 6) to complete 4-7 days of therapy repeat urine cx shows yeast which is colonization as well in light of chronic Lyle use and antibiotic use; CT A/P and renal ultrasound do not show perinephric stranding or hydronephrosis suggestive of pyelonephritis, and urinary bladder is also normal on CT A/P will continue to monitor clinically Overall prognosis is poor and hospice care should be considered
--- NOTE | 2017-07-05 15:05 | CP.PCM.PN ---
Subjective - Date & Time of Evaluation Date of Evaluation: 07/05/17 Time of Evaluation: 15:04 - Subjective Subjective: Dialysis note Pt seen during dialysis today is first dialysis treatment pt has IV dialysis access on right side IJ tolerating dialysis vitals noted will plan for 2nd session tomorrow order for HD placed d/w dialysis unit staff Objective - Vital Signs/Intake and Output Vital Signs (last 24 hours): Temp Pulse Resp BP Pulse Ox 98.3 F 87 17 116/67 99 07/05/17 14:05 07/05/17 14:05 07/05/17 14:05 07/05/17 14:05 07/05/17 14:05 Intake and Output: 07/05/17 07/05/17 06:59 18:59 Intake Total 0 Output Total 300 Balance -300 - Medications Medications: Current Medications Acetaminophen (Tylenol 325mg Tab) 650 mg PO Q4 PRN PRN Reason: Pain, Mild (1-3) Docusate Sodium (Colace) 100 mg PO TID PRN PRN Reason: Constipation Doxycycline Hyclate (Doryx) 100 mg PO Q12 QUYEN PRN Reason: Protocol Stop: 07/09/17 22:01 Last Admin: 07/05/17 11:03 Dose: 100 mg Dextrose/Sodium Chloride (Dextrose 5%/0.45% Ns 1000 Ml) 1,000 mls @ 50 mls/hr IV .Q20H [facility] Stop: 07/07/17 13:31 Megestrol Acetate (Megace) 400 mg PO BID [facility] Last Admin: 07/05/17 11:03 Dose: 400 mg Metoprolol Tartrate (Lopressor) 50 mg PO BID [facility] Last Admin: 07/05/17 11:02 Dose: 50 mg Ondansetron HCl (Zofran Odt) 4 mg PO Q8H PRN PRN Reason: Nausea/Vomiting Pantoprazole Sodium (Protonix Ec Tab) 40 mg PO DAILY [facility] Last Admin: 07/05/17 11:02 Dose: 40 mg Polyethylene Glycol (Miralax) 17 gm PO DAILY [facility] Last Admin: 07/05/17 11:57 Dose: Not Given Sennosides (Senokot Tab) 8.6 mg PO HS [facility] Last Admin: 07/03/17 21:08 Dose: Not Given Tamsulosin HCl (Flomax) 0.4 mg PO DAILY [facility] Last Admin: 07/05/17 11:03 Dose: 0.4 mg Vitamin B Complex/Vit C/Folic Acid (Nephro-Myles) 1 tab PO 0800 QUYEN - Labs Labs: 07/05/17 11:26 07/05/17 11:26 PT 15.5 Seconds (9.9-11.8) H 07/05/17 11:22 INR 1.44 (0.93-1.08) H 07/05/17 11:22 APTT 42.2 Seconds (23.7-30.8) H 06/29/17 03:50
--- NOTE | 2017-07-05 15:20 | VASCULAR ---
PROCEDURE: Ultrasound and fluoroscopic tunneled right IJ dialysis catheter. CLINICAL HISTORY: ESRD PHYSICIAN(S): Shantanu Adkins M.D. TECHNIQUE: The relative risks and indications for the procedure were explained to the patient and informed written consent obtained. The patient was placed supine on the arteriography table and the right neck/chest was prepped and draped in the usual sterile fashion. 1% Xylocaine was used to anesthetize the skin and soft tissues at the puncture site. Conscious sedation and monitoring were provided throughout the procedure by a nurse. Under direct ultrasound guidance, the rightinternal jugular vein was punctured with a micropuncture set. A 0.035 Glidewire was advanced into the IVC. Sequential dilatation was performed with subsequent placement of a 28cm Magana II catheter with its tip in the right atrium. A retrograde tunnel below the right clavicle was performed. The catheter was trimmed and the hub attached. Both ports aspirate and inject easily. The catheter was secured and a dressing applied. The patient tolerated the procedure well. IMPRESSION: 1. Ultrasound and fluoroscopically placed right IJ tunneled dialysis catheter.
--- NOTE | 2017-07-05 18:42 | PCM.RRT ---
LOAN COLLECTOR Nurse Assessment - Situation Date: 07/05/17 Time LOAN COLLECTOR was called: 17:55 LOAN COLLECTOR Responder Arrival Time: 17:57 LOAN COLLECTOR Location:: [address] [place] [address] Room Number: 276-1 LOAN COLLECTOR Reason for Call: Hypotension LOAN COLLECTOR Called By: RN - IV IV Inserted during LOAN COLLECTOR?: No IV Fluids Initiated During LOAN COLLECTOR?: IV 250CC .9NS BOLUS - Respiratory Oxygen Delivery Method: Nasal Cannula @L/min Oxygen Flow Rate: 2 Received Nebulizer Treatments:: No Was the Patient Ventilated with Bag/Mask 100% O2?: No Secretions Suctioned?: No Was the Patient Intubated?: No Was the Patient Placed on a Ventilator?: No - Diagnostic Test Ordered Chest X-Ray: Yes (poor inspiratory effort, no distinct consolidations appreciated) CT Scan: No - Stat Labs Ordered LOAN COLLECTOR Stat Labs Ordered: CBC, BMP, PT/PTT LOAN COLLECTOR Other Labs Ordered: AMONIA CPR started during LOAN COLLECTOR?: No - Vital Signs Vital Sign: Rapid Response Vital Sign Blood Pressure 72/54 Pulse Rate 100 Respiratory Rate 20 - Finger Stick Blood Glucose Finger Stick Blood Glucose: 89 - Rudi Coma Scale Coma Scale Eye Opening: Spontaneous Coma Scale Motor: Obeys Commands Movement Coma Scale Verbal: Incomprehensible speech - Sepsis Screen Part 1 Sepsis Screen Part 1: Hypotensive - Time LOAN COLLECTOR Ended Time LOAN COLLECTOR Ended: 18:23 - Vital Signs at end of LOAN COLLECTOR Vital Signs at end of LOAN COLLECTOR: Rapid Response End Vital Sign Blood Pressure 107/64 Pulse Rate 89 Respiratory Rate 20 O2 Sat by Pulse Oximetry 99 - Recommendations 5) LOAN COLLECTOR Level of Care Recommendations: Remain in current setting Notifications: Attending Physician, Family or Designated Caregiver I.Reason for LOAN COLLECTOR - A) Acute Change in Patient: (Select all that apply): Acute change in SBP below Subjective: Mao Guerrero D.O. PGY-2, D.O. On Duty (D.O.O.D.) Responded to Rapid response. 76 year old male who recently just finished dialysis for the first time and had hypotension upon return to telemetry. Patient blood pressure down into the 70s systolic. Patient not able to provide any information. - Neurological Status (Select all that apply): Follows Commands, Lethargic - Respiratory Oxygen Delivery Method: Nasal Cannula @L/min Oxygen Flow Rate: 2 - Constitutional Appears: Chronically Ill - Head Head Exam: ATRAUMATIC, NORMOCEPHALIC - Eyes Eye Exam: EOMI, Scleral icterus - Respiratory Exam Additional comments: decreased breath sounds throughout, no crackles - Cardiovascular Exam Cardiovascular Exam: RRR, +S1, +S2 - GI/Abdominal Exam GI & Abdominal Exam: Distended, Tenderness - Neurological Exam Additional exam: awake, not alert, originally did not respond but later was opening eyes spontaneously and following commands but difficult to understand speech - Extremities Exam Extremities Exam: Pedal Edema Plan - Assessment of Findings&Treatment Plan Hypotensive episode 1.5L reportedly removed during dialysis but was given 1L back given his hypotension 500ml more given during LOAN COLLECTOR, BPs improved Patient less lethargic Dr. Mijares contacted and informed, per his instruction will continue to monitor closely in telemetry and make ICU aware of the case in case there are any overnight issues CXR and KUB performed CBC, CMP, ammonia, and PT/PTT ordered PETROS stockings ordered Family contacted, discussed situation and made aware Discussed with overnight team
--- NOTE | 2017-07-05 18:46 | RAD ---
HISTORY: r/o chf COMPARISON: 06/29/2017 FINDINGS: The right-sided dialysis catheter terminates in the right atrium. LUNGS: There is persistent pulmonary venous congestion. There is confluent airspace disease in both lower lobes. PLEURA: Small pleural effusions, no pneumothorax apparent. CARDIOVASCULAR: Normal. OSSEOUS STRUCTURES: No significant abnormalities. VISUALIZED UPPER ABDOMEN: Normal. OTHER FINDINGS: None. IMPRESSION: 1. Pulmonary venous congestion and small pleural effusions. 2. Confluent airspace disease in both lower lobes may represent atelectasis however superimposed pneumonia cannot be excluded. Follow-up is advised.
--- NOTE | 2017-07-05 18:49 | RAD ---
HISTORY: r/o obstruction COMPARISON: CT abdomen and pelvis from 06/29/2017 FINDINGS: BOWEL: There is mild gaseous distension of the proximal small bowel loops. The distal small bowel loops are normal in caliber BONES: Normal. OTHER FINDINGS: There are multiple radiation seeds in the prostate gland. There are multiple phleboliths in the pelvis. IMPRESSION: Mild gaseous distention of the proximal small bowel loops may represent ileus or developing small bowel obstruction. Follow-up is advised.
[2017-07-05 19:47] LABS: BASO # 0.02 K/mm3 (0.0-2.0); BASO % 0.2 % (0.0-3.0); EOS % 0.5 % (1.5-5.0); GRAN # 6.94 (1.4-6.5); GRAN % 82.6 % (50.0-68.0); HEMATOCRIT 27.8 % (42.0-52.0); LYMPH # 0.9 (1.2-3.4); LYMPH % 10.4 % (22.0-35.0); MEAN CELL VOLUME 86.6 fl (80.0-105.0); MEAN CORPUSCULAR HEMOGLOBIN 30.2 pg (25.0-35.0); MEAN CORPUSCULAR HGB CONC 34.9 g/dl (31.0-37.0); MONO # 0.5 (0.1-0.6); MONO % 6.3 % (1.0-6.0); PLATELET COUNT 92 10^3/uL (120.0-450.0); RED CELL DISTRIBUTION WIDTH 24.5 % (11.5-14.5); WHITE BLOOD COUNT 8.4 10^3/ul (4.5-11.0)
[2017-07-05 19:55] LABS: ALB/GLOB RATIO 0.7 (1.1-1.8); BILIRUBIN,TOTAL 18.6 mg/dL (0.2-1.3); CALCIUM 8.6 mg/dL (8.4-10.5); TOTAL PROTEIN 6.3 g/dL (5.8-8.3)
[2017-07-05 20:06] LABS: INR 1.53 (0.93-1.08); PARTIAL THROMBOPLASTIN TIME 43.2 Seconds (23.7-30.8)
[2017-07-05] MEDS: Dextrose 5%/0.45% NS 1,000 ML IV SCH (20:22)
--- NOTE | 2017-07-05 20:28 | PN ---
CHIEF COMPLAINT: Unable to obtain. HISTORY OF PRESENT ILLNESS/REVIEW OF SYSTEMS: Unable to obtain from the patient. He remains lethargic and unable to verbalize his complaint. He remains delirious and confused as well. The patient had a dialysis catheter placed today for initiation of dialysis. PHYSICAL EXAMINATION: GENERAL: The patient is ill appearing, not in acute respiratory distress, unable to communicate. VITAL SIGNS: Afebrile, pulse 81, blood pressure 144/71, saturation is well maintained. LUNGS: Bilateral vesicular breath sounds, clear anteriorly. CARDIOVASCULAR: S1 and S2 normal. No murmur. ABDOMEN: Soft. It is distended and tenderness in the lower abdomen. EXTREMITIES: 2+ pitting edema in the bilateral lower extremities. PSYCHIATRIC: Unable to be do. NEUROLOGIC: The patient is awake, but slightly lethargic and confused. He is unable to follow commands. He is unable to verbalize. LABORATORY DATA: Workup shows his white blood cell count 7.3, hemoglobin is 10, platelet count is 106, sodium is 147, potassium is 5.1, bicarb is 20, BUN 133, creatinine 7.5. His bilirubin is up to 20. His INR is decreased to 1.4 after he got vitamin K and FFP. MEDICATIONS: Current medications were reviewed. ASSESSMENT: 1. Oliguric severe acute kidney injury due to acute tubular necrosis, also possible hepatorenal syndrome. 2. Metastatic cancer with hepatic failure. 3. History of hypertension. 4. Emphysema. 5. Pneumonia. 6. Hyperlipidemia. 7. 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 RECOMMENDATIONS: I have discussed the patient with the patient's daughter. The patient is planned for dialysis today as per their wishes as they wish to pursue all for more invasive and aggressive care including dialysis. The patient had a dialysis catheter placed today with a plan for dialysis today, also plan for dialysis tomorrow. Can give PRBC as needed for anemia. Considering active cancer, we will avoid AZAM therapy unless family opts for palliative measures only. Condition is critical. Prognosis remains poor. Please call if any questions. Ozzie Nicholas MD
--- NOTE | 2017-07-05 22:09 | CT ---
EXAM: CT Abdomen and Pelvis Without Intravenous Contrast EXAM DATE/TIME: 07/05/2017 6:58 PM CLINICAL HISTORY: The patient age is 76 years old and is male; Signs and symptoms; Other: Abd distention; Additional info: Abd/O sbo Facility exam id and description: Ct abdpelscon abd pelvis w/o po or iv cont TECHNIQUE: Axial computed tomography images of the abdomen and pelvis without intravenous contrast. All CT scans at this facility use one or more dose reduction techniques, viz.: automated exposure control; ma/kV adjustment per patient size (including targeted exams where dose is matched to indication; i.e. head); or iterative reconstruction technique. Coronal and sagittal reformatted images were created and reviewed. COMPARISON: CT - CHEST,ABDOMEN,PELVIS W/O CONT 06/29/2017 8:32:27 AM FINDINGS: Lower thorax: Small bilateral pleural effusions are identified. There is consolidation of the adjacent lower lobes of the lungs, right side greater than left, which has progressed. This is likely due to atelectasis, although infiltrate is also considered. Centrilobular and paraseptal emphysematous changes are visualized. ABDOMEN: Liver: There is perihepatic ascites. Several hypodense hepatic lesions are visualized. One of the larger lesions measures 2.2 x 1.7 cm within the medial segment of the left lobe of the liver. There is additional heterogeneous density of the liver with lobulation of the hepatic contour, suggestive of additional masses. Hepatic metastases are again considered. Gallbladder and bile ducts: There is increased density of the gallbladder, suggestive of sludge. Pancreas: Normal contour. Spleen: Within the spleen, there is a peripherally calcified mass measuring 4.2 x 4.2 cm. This is stable. There is perisplenic ascites. Adrenals: No mass. Kidneys and ureters: The right kidney is absent. There is mild nonspecific left perinephric stranding. No left hydronephrosis. Stomach and bowel: Dilated small bowel loops are visualized within the abdomen anteriorly, which has progressed. This is concerning for ileus or partial obstruction. Colonic thickening is identified, suggestive of incomplete distention or colitis. This is most significant involving the ascending colon. Evaluation of bowel is limited by the absence of oral contrast. Appendix: Not visualized. PELVIS: Bladder: A Lyle catheter is visualized within the bladder, which is incompletely filled. No stones. Reproductive: Multiple prostatic hyperdense seeds are visualized. ABDOMEN and PELVIS: Intraperitoneal space: There is moderate abdominal and pelvic ascites, which has progressed. Bones/joints: There is diffuse increased density of the L4 vertebral body, stable compared to the prior study. This is suggestive of osseous metastasis. Hypertrophic degenerative changes are noted within the spine. Soft tissues: There is diffuse stranding/edema within the subcutaneous tissues of the lower chest, abdomen, and pelvis. This is consistent with anasarca. This has progressed. Vasculature: There is atherosclerotic calcification of the abdominal aorta. No abdominal aortic aneurysm. Lymph nodes: Scattered small retroperitoneal and intrapelvic lymph nodes are visualized, without significant lymphadenopathy. IMPRESSION: 1. Small bilateral pleural effusions are identified. There is consolidation of the adjacent lower lobes of the lungs, right side greater than left, which has progressed. This is likely due to atelectasis, although infiltrate is also considered. 2. Hypodense hepatic lesions are visualized. There is additional heterogeneous density of the liver with lobulation of the hepatic contour, suggestive of additional masses. Hepatic metastases are again considered. 3. There is moderate abdominal and pelvic ascites, which has progressed. 4. Progressive anasarca. 5. Dilated small bowel loops are visualized within the abdomen anteriorly, which has progressed. This is concerning for ileus or partial obstruction. 6. Colonic thickening is identified, suggestive of incomplete distention or colitis. This is most significant involving the ascending colon. 7. There is diffuse increased density of the L4 vertebral body, stable compared to the prior study. This is suggestive of osseous metastasis. 8. Additional CT findings described above. PET/CT is recommended.
--- NOTE | 2017-07-06 05:18 | CP.PCM.PN ---
<JENNIFER CHAO - Last Filed: 07/06/17 04:46> Subjective - Date & Time of Evaluation Date of Evaluation: 07/06/17 Time of Evaluation: 04:16 - Subjective Subjective: Jennifer Chao DO PGY1 - Event Note Responded STAT to nurse's request. Patient seen and examined at bedside. Patient had vomited a large amount of fecal material. Abdomen was noted to be distended, hyperresonant, hyperactive bowel sounds, and firm, but nonrigid. NG tube was placed, and CXR was ordered to confirm placement, and r/o acute abdomen /perforated viscous vs SBO. Stat labs also ordered including CBC, CMP, BNP, VGB shock panel, stool and vomit for occult blood. Surgery consult requested, and ICU consult requested to evaluate for transfer. CXR shows satisfactory placement of NG tube. Abdomen XR shows dilated loops of small bowel, no free air under diaphragm. Patient is lethargic, but responsive to verbal stimuli. VSS. NG tube to low intermittent suction. Patient appears somewhat improved after NG tube placed. Patient is attempting to pull NG tube out, so soft restraints ordered. Will continue NG tube to low intermittent suction for decompression, and continue to monitor. Appreciate surgery and ICU recs. Patient seen, discussed, and reviewed with attending. Objective - Vital Signs/Intake and Output Vital Signs (last 24 hours): Temp Pulse Resp BP Pulse Ox 98.5 F 86 18 98/73 L 99 07/06/17 00:01 07/06/17 00:01 07/06/17 00:01 07/06/17 00:01 07/05/17 14:05 Intake and Output: 07/05/17 07/06/17 18:59 06:59 Output Total 300 Balance -300 - Medications Medications: Current Medications Acetaminophen (Tylenol 325mg Tab) 650 mg PO Q4 PRN PRN Reason: Pain, Mild (1-3) Docusate Sodium (Colace) 100 mg PO TID PRN PRN Reason: Constipation Doxycycline Hyclate (Doryx) 100 mg PO Q12 QUYEN PRN Reason: Protocol Stop: 07/09/17 22:01 Last Admin: 07/05/17 22:43 Dose: Not Given Dextrose/Sodium Chloride (Dextrose 5%/0.45% Ns 1000 Ml) 1,000 mls @ 50 mls/hr IV .Q20H QUYEN Stop: 07/07/17 13:31 Last Admin: 07/05/17 20:22 Dose: 50 mls/hr Megestrol Acetate (Megace) 400 mg PO BID [facility] Last Admin: 07/05/17 20:22 Dose: Not Given Metoprolol Tartrate (Lopressor) 50 mg PO BID [facility] Last Admin: 07/05/17 20:21 Dose: Not Given Ondansetron HCl (Zofran Odt) 4 mg PO Q8H PRN PRN Reason: Nausea/Vomiting Pantoprazole Sodium (Protonix Ec Tab) 40 mg PO DAILY [facility] Last Admin: 07/05/17 11:02 Dose: 40 mg Polyethylene Glycol (Miralax) 17 gm PO DAILY [facility] Last Admin: 07/05/17 11:57 Dose: Not Given Sennosides (Senokot Tab) 8.6 mg PO HS [facility] Last Admin: 07/05/17 22:44 Dose: Not Given Tamsulosin HCl (Flomax) 0.4 mg PO DAILY [facility] Last Admin: 07/05/17 11:03 Dose: 0.4 mg Vitamin B Complex/Vit C/Folic Acid (Nephro-Myles) 1 tab PO 0800 [facility] - Labs Labs: 07/05/17 19:41 07/05/17 19:41 PT 16.5 Seconds (9.9-11.8) H 07/05/17 19:41 INR 1.53 (0.93-1.08) H 07/05/17 19:41 APTT 43.2 Seconds (23.7-30.8) H 07/05/17 19:41 <Kathy Orellana - Last Filed: 07/06/17 06:25> Objective - Vital Signs/Intake and Output Vital Signs (last 24 hours): Temp Pulse Resp BP Pulse Ox 98.0 F 89 18 96/54 L 94 L 07/06/17 06:00 07/06/17 06:00 07/06/17 06:00 07/06/17 06:00 07/06/17 06:00 Intake and Output: 07/05/17 07/06/17 18:59 06:59 Intake Total 600 Output Total 300 150 Balance -300 450 - Medications Medications: Current Medications Acetaminophen (Tylenol 325mg Tab) 650 mg PO Q4 PRN PRN Reason: Pain, Mild (1-3) Docusate Sodium (Colace) 100 mg PO TID PRN PRN Reason: Constipation Doxycycline Hyclate (Doryx) 100 mg PO Q12 [facility] PRN Reason: Protocol Stop: 07/09/17 22:01 Last Admin: 07/05/17 22:43 Dose: Not Given Dextrose/Sodium Chloride (Dextrose 5%/0.45% Ns 1000 Ml) 1,000 mls @ 50 mls/hr IV .Q20H [facility] Stop: 07/07/17 13:31 Last Admin: 07/05/17 20:22 Dose: 50 mls/hr Megestrol Acetate (Megace) 400 mg PO BID [facility] Last Admin: 07/05/17 20:22 Dose: Not Given Metoprolol Tartrate (Lopressor) 50 mg PO BID [facility] Last Admin: 07/05/17 20:21 Dose: Not Given Ondansetron HCl (Zofran Odt) 4 mg PO Q8H PRN PRN Reason: Nausea/Vomiting Pantoprazole Sodium (Protonix Ec Tab) 40 mg PO DAILY [facility] Last Admin: 07/05/17 11:02 Dose: 40 mg Polyethylene Glycol (Miralax) 17 gm PO DAILY [facility] Last Admin: 07/05/17 11:57 Dose: Not Given Sennosides (Senokot Tab) 8.6 mg PO HS [facility] Last Admin: 07/05/17 22:44 Dose: Not Given Tamsulosin HCl (Flomax) 0.4 mg PO DAILY [facility] Last Admin: 07/05/17 11:03 Dose: 0.4 mg Vitamin B Complex/Vit C/Folic Acid (Nephro-Myles) 1 tab PO 0800 [facility] - Labs Labs: 07/06/17 05:10 07/05/17 19:41 PT 16.5 Seconds (9.9-11.8) H 07/05/17 19:41 INR 1.53 (0.93-1.08) H 07/05/17 19:41 APTT 43.2 Seconds (23.7-30.8) H 07/05/17 19:41 Attending/Attestation - Attestation I have personally seen and examined this patient.: Yes I have fully participated in the care of the patient.: Yes I have reviewed all pertinent clinical information, including history, physical exam and plan: Yes Notes (Text): 07/06/17 06:25 Agree with documentation.
[2017-07-06 05:21] LABS: BASO # 0.05 K/mm3 (0.0-2.0); BASO % 0.6 % (0.0-3.0); EOS # 0.1 (0.0-0.7); EOS % 0.7 % (1.5-5.0); GRAN # 6.94 (1.4-6.5); GRAN % 79.2 % (50.0-68.0); HEMATOCRIT 27.9 % (42.0-52.0); LYMPH # 1.3 (1.2-3.4); LYMPH % 14.6 % (22.0-35.0); MEAN CELL VOLUME 87.2 fl (80.0-105.0); MEAN CORPUSCULAR HEMOGLOBIN 29.4 pg (25.0-35.0); MEAN CORPUSCULAR HGB CONC 33.7 g/dl (31.0-37.0); MONO # 0.4 (0.1-0.6); MONO % 4.9 % (1.0-6.0); PLATELET COUNT 76 10^3/uL (120.0-450.0); RED CELL DISTRIBUTION WIDTH 24.4 % (11.5-14.5); WHITE BLOOD COUNT 8.8 10^3/ul (4.5-11.0)
[2017-07-06 05:26] LABS: VENOUS BLOOD GAS BASE EXCESS -3.6 mmol/L (0.0-2.0); VENOUS BLOOD PH 7.39 (7.32-7.43)
--- NOTE | 2017-07-06 05:40 | CP.PCM.CON ---
History of Present Illness - History of Present Illness History of Present Illness: ICU Consult Note for Dr. 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 Pt is a poor historian and not able to provide detailed history, prior information about patient was taken from medical records and staff. Pt was admitted with acute renal failure and severe metabolic derangements. During patients stay, he has maintained electrolyte abnormalities, despite being treated. Pt has also been seen by GI team for LFT abnormalities which are secondary to severe tumor burden from prostatic metastasis to the liver. 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 Pt was given 1 L fluid bolus and responded appropriately. CT pelvis/abdomen ordered at that time demonstrated small b/l pleural effusions, multiple liver mets, bone mets, and partial obstruction vs ileus. Patient was also previously evaluated by the ICU team which did not accept patient at that time. Pt had an episode of dark, bilious vomit today. Patient does admit to diffuse abdominal pain. PMH: metastatic prostate cancer to liver and bone, HTN, and HLD PSH: R nephrectomy secondary to RCC Family hx: HTN Social hx: Denies alcohol, tobacco, or illicit drug use Meds: Reviewed, as per MAR Allergies: NKDA Review of Systems - Review of Systems Systems not reviewed;Unavailable: Altered Mental Status Past Patient History - Infectious Disease Hx of Infectious Diseases: None - Past Medical History & Family History Past Medical History?: Yes - Past Social History Smoking Status: Never Smoked - CARDIAC Hx Cardiac Disorders: Yes Hx Circulatory Problems: Yes Hx Congestive Heart Failure: Yes Hx Hypercholesterolemia: Yes Hx Hypertension: Yes Hx Pacemaker: No Hx Peripheral Edema: Yes - PULMONARY Hx Respiratory Disorders: No - NEUROLOGICAL Hx Neurological Disorder: No - HEENT Hx HEENT Problems: Yes Hx Cataracts: Yes (LEFT IOL) - RENAL Hx Chronic Kidney Disease: Yes (NEPHERECTOMY RIGHT) Other/Comment: ANURIC - ENDOCRINE/METABOLIC Hx Endocrine Disorders: No - HEMATOLOGICAL/ONCOLOGICAL Hx Blood Disorders: Yes Hx Cancer: Yes (Prostate CA w/ mets to liver and bone; h/o renal cancer s/p nephrectomy) - INTEGUMENTARY Hx Dermatological Problems: Yes Other/Comment: ANASARCA 06-29-17 - MUSCULOSKELETAL/RHEUMATOLOGICAL Hx Musculoskeletal Disorders: Yes Hx Falls: Yes Hx Unsteady Gait: Yes (WALKER) - GASTROINTESTINAL Hx Gastrointestinal Disorders: Yes (POLYPS,APPENDECTOMY,CONSTIPATION) Hx Gastroesophageal Reflux: Yes - GENITOURINARY/GYNECOLOGICAL Hx Genitourinary Disorders: Yes Hx Prostate Problems: Yes (PROSTATE CA WITH RAD TX,ENLARGED) Other/Comment: 06-29-17 ESBL IN THE URINE - PSYCHIATRIC Hx Psychophysiologic Disorder: No Hx Emotional Abuse: No Hx Physical Abuse: No Hx Substance Use: No ( PER FAMILY) - SURGICAL HISTORY Hx Surgeries: Yes (NEPHRECTOMY-R,L CATARACT,APPENDECTOMY,) Hx Appendectomy: Yes - ANESTHESIA Hx Anesthesia: Yes Hx Anesthesia Reactions: No Hx Malignant Hyperthermia: No Meds Allergies/Adverse Reactions: Allergies Allergy/AdvReac Type Severity Reaction Status Date / Time No Known Allergies Allergy Verified 06/29/17 14:06 - Medications Medications: Current Medications Acetaminophen (Tylenol 325mg Tab) 650 mg PO Q4 PRN PRN Reason: Pain, Mild (1-3) Docusate Sodium (Colace) 100 mg PO TID PRN PRN Reason: Constipation Doxycycline Hyclate (Doryx) 100 mg PO Q12 QUYEN PRN Reason: Protocol Stop: 07/09/17 22:01 Last Admin: 07/05/17 22:43 Dose: Not Given Dextrose/Sodium Chloride (Dextrose 5%/0.45% Ns 1000 Ml) 1,000 mls @ 50 mls/hr IV .Q20H [facility] Stop: 07/07/17 13:31 Last Admin: 07/05/17 20:22 Dose: 50 mls/hr Megestrol Acetate (Megace) 400 mg PO BID [facility] Last Admin: 07/05/17 20:22 Dose: Not Given Metoprolol Tartrate (Lopressor) 50 mg PO BID [facility] Last Admin: 07/05/17 20:21 Dose: Not Given Ondansetron HCl (Zofran Odt) 4 mg PO Q8H PRN PRN Reason: Nausea/Vomiting Pantoprazole Sodium (Protonix Ec Tab) 40 mg PO DAILY [facility] Last Admin: 07/05/17 11:02 Dose: 40 mg Polyethylene Glycol (Miralax) 17 gm PO DAILY [facility] Last Admin: 07/05/17 11:57 Dose: Not Given Sennosides (Senokot Tab) 8.6 mg PO HS [facility] Last Admin: 07/05/17 22:44 Dose: Not Given Tamsulosin HCl (Flomax) 0.4 mg PO DAILY [facility] Last Admin: 07/05/17 11:03 Dose: 0.4 mg Vitamin B Complex/Vit C/Folic Acid (Nephro-Myles) 1 tab PO 0800 [facility] Physical Exam - Constitutional Appears: Toxic, No Acute Distress - Head Exam Head Exam: ATRAUMATIC, NORMAL INSPECTION, NORMOCEPHALIC - Eye Exam Eye Exam: EOMI, Scleral icterus - ENT Exam ENT Exam: Mucous Membranes Moist, Normal Exam - Respiratory Exam Respiratory Exam: Decreased Breath Sounds, NORMAL BREATHING PATTERN. absent: Rales, Rhonchi, Wheezes - Cardiovascular Exam Cardiovascular Exam: RRR, +S1, +S2 - GI/Abdominal Exam GI & Abdominal Exam: Distended, Hyperactive Bowel Sounds, Tenderness (LLQ and RLQ). absent: Guarding, Rebound - Extremities Exam Extremities exam: Positive for: pedal edema (+2 pitting edema). Negative for: calf tenderness - Neurological Exam Neurological exam: Alert Additional comments: Patient in and out of orientation. Pt lethargic at times - Skin Skin Exam: Intact, Warm Additional comments: Jaundiced Results - Vital Signs Recent Vital Signs: Last Vital Signs Temp 98.5 F 07/06/17 00:01 Pulse 86 07/06/17 00:01 Resp 18 07/06/17 00:01 BP 98/73 L 07/06/17 00:01 Pulse Ox 99 07/05/17 14:05 - Labs Result Diagrams: 07/06/17 05:10 07/05/17 19:41 Labs: Laboratory Results - last 24 hr 07/03/17 07/05/17 07/05/17 11:30 11:22 11:26 WBC 7.3 D RBC 3.37 L Hgb 10.0 L Hct 29.1 L MCV 86.4 MCH 29.7 MCHC 34.4 RDW 24.2 H Plt Count 106 L Gran % 82.9 H Lymph % (Auto) 10.1 L Garvin % (Auto) 6.1 H Eos % (Auto) 0.6 L Baso % (Auto) 0.3 Gran # 6.02 Lymph # 0.7 L Garvin # 0.4 Eos # 0.0 Baso # 0.02 PT 15.5 H INR 1.44 H APTT Sodium Potassium Chloride Carbon Dioxide Anion Gap BUN Creatinine Est GFR ( Amer) Est GFR (Non-Af Amer) Random Glucose Calcium Total Bilirubin AST ALT Alkaline Phosphatase Ammonia Total Protein Albumin Globulin Albumin/Globulin Ratio Emesis for Blood Smooth Muscle Ab Titer TEST NOT PERFORMED Anti-Smooth Muscle Ab Negative 07/05/17 07/05/17 07/05/17 11:26 19:41 19:41 WBC 8.4 RBC 3.21 L Hgb 9.7 L Hct 27.8 L MCV 86.6 MCH 30.2 MCHC 34.9 RDW 24.5 H Plt Count 92 L Gran % 82.6 H Lymph % (Auto) 10.4 L Garvin % (Auto) 6.3 H Eos % (Auto) 0.5 L Baso % (Auto) 0.2 Gran # 6.94 H Lymph # 0.9 L Garvin # 0.5 Eos # 0.0 Baso # 0.02 PT INR APTT Sodium 147 146 Potassium 5.1 H 5.0 Chloride 107 106 Carbon Dioxide 20 L 24 Anion Gap 25 H 21 H BUN 133 H* 104 H Creatinine 7.5 H 6.3 H Est GFR ( Amer) 9 11 Est GFR (Non-Af Amer) 7 9 Random Glucose 91 69 L Calcium 8.8 8.6 Total Bilirubin 20.1 H* 18.6 H* AST 352 H 409 H ALT 132 H 137 H Alkaline Phosphatase 203 H 201 H Ammonia Total Protein 6.4 6.3 Albumin 2.6 L 2.5 L Globulin 3.8 3.8 Albumin/Globulin Ratio 0.7 L 0.7 L Emesis for Blood Smooth Muscle Ab Titer Anti-Smooth Muscle Ab 07/05/17 07/05/17 07/06/17 19:41 19:41 04:40 WBC RBC Hgb Hct MCV MCH MCHC RDW Plt Count Gran % Lymph % (Auto) Garvin % (Auto) Eos % (Auto) Baso % (Auto) Gran # Lymph # Garvin # Eos # Baso # PT 16.5 H INR 1.53 H APTT 43.2 H Sodium Potassium Chloride Carbon Dioxide Anion Gap BUN Creatinine Est GFR ( Amer) Est GFR (Non-Af Amer) Random Glucose Calcium Total Bilirubin AST ALT Alkaline Phosphatase Ammonia 21 Total Protein Albumin Globulin Albumin/Globulin Ratio Emesis for Blood Positive H Smooth Muscle Ab Titer Anti-Smooth Muscle Ab 07/06/17 05:10 WBC 8.8 RBC 3.20 L Hgb 9.4 L Hct 27.9 L MCV 87.2 MCH 29.4 MCHC 33.7 RDW 24.4 H Plt Count 76 L Gran % 79.2 H Lymph % (Auto) 14.6 L Garvin % (Auto) 4.9 Eos % (Auto) 0.7 L Baso % (Auto) 0.6 Gran # 6.94 H Lymph # 1.3 Garvin # 0.4 Eos # 0.1 Baso # 0.05 PT INR APTT Sodium Potassium Chloride Carbon Dioxide Anion Gap BUN Creatinine Est GFR ( Amer) Est GFR (Non-Af Amer) Random Glucose Calcium Total Bilirubin AST ALT Alkaline Phosphatase Ammonia Total Protein Albumin Globulin Albumin/Globulin Ratio Emesis for Blood Smooth Muscle Ab Titer Anti-Smooth Muscle Ab Assessment & Plan - Assessment and Plan (Free Text) Plan: 76 y/o M with a PMH of metastatic prostate cancer to liver and bone, HTN, and HLD presents with end-stage prostate cancer with mets to liver and bone in the setting of acute renal failure and metabolic derangements. Patient had NG tube placed which produced dark bilious fluid. Patient did have noted improvement afterward. Patient had labs drawn which showed an elevation in lactate. Patient is currently on Doxycycline. Surgery recommends keeping the NGT in place for decompression. Patient is hemodynamically stable at this time and does not require ICU level of care. Patient has a very poor prognosis. Patient can remain on telemetry and be monitored closely. Recommend: Continue to monitor on tele Consider DNR/DNI Hospice/Palliative care Continue abx as per ID Maintain NGT Follow surgery recommendations Continue dialysis as per nephrology Gaby, PGY-2
[2017-07-06 06:08] LABS: ALB/GLOB RATIO 0.6 (1.1-1.8); TOTAL PROTEIN 6.1 g/dL (5.8-8.3)
[2017-07-06 06:17] VITALS: TEMP 98; O2SAT 94
--- NOTE | 2017-07-06 06:44 | CP.PCM.CON ---
History of Present Illness - History of Present Illness History of Present Illness: General Surgery Consult Re: pSBO/ileus HPI: 76M, Pt is a poor historian and not able to provide detailed history, prior information about patient was taken from medical records and staff. Pt was admitted with ARF. Pt has also been seen by GI team for LFT abnormalities which are secondary to severe tumor burden from prostatic metastasis to the liver. 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 CT pelvis/abdomen ordered at that time was read as partial obstruction vs ileus. Consult called to surgery this AM since pt began having bilious emesis today. Pt would moan and ask me to stop pressing his belly but would not answer if it was due to pain. Per nursing staff , no bowel movement for 2 days PMH: Prostate CA with mets to liver and bone on chemo, HTN, HLD, ESRD on HD, PSH: R nephrectomy secondary to RCC SH: Denies alcohol, tobacco, or illicit drug use All: NKDA Meds: See MAR Review of Systems - Review of Systems Systems not reviewed;Unavailable: Altered Mental Status Past Patient History - Infectious Disease Hx of Infectious Diseases: None - Past Medical History & Family History Past Medical History?: Yes - Past Social History Smoking Status: Never Smoked - CARDIAC Hx Cardiac Disorders: Yes Hx Circulatory Problems: Yes Hx Congestive Heart Failure: Yes Hx Hypercholesterolemia: Yes Hx Hypertension: Yes Hx Pacemaker: No Hx Peripheral Edema: Yes - PULMONARY Hx Respiratory Disorders: No - NEUROLOGICAL Hx Neurological Disorder: No - HEENT Hx HEENT Problems: Yes Hx Cataracts: Yes (LEFT IOL) - RENAL Hx Chronic Kidney Disease: Yes (NEPHERECTOMY RIGHT) Other/Comment: ANURIC - ENDOCRINE/METABOLIC Hx Endocrine Disorders: No - HEMATOLOGICAL/ONCOLOGICAL Hx Blood Disorders: Yes Hx Cancer: Yes (Prostate CA w/ mets to liver and bone; h/o renal cancer s/p nephrectomy) - INTEGUMENTARY Hx Dermatological Problems: Yes Other/Comment: ANASARCA 06-29-17 - MUSCULOSKELETAL/RHEUMATOLOGICAL Hx Musculoskeletal Disorders: Yes Hx Falls: Yes Hx Unsteady Gait: Yes (WALKER) - GASTROINTESTINAL Hx Gastrointestinal Disorders: Yes (POLYPS,APPENDECTOMY,CONSTIPATION) Hx Gastroesophageal Reflux: Yes - GENITOURINARY/GYNECOLOGICAL Hx Genitourinary Disorders: Yes Hx Prostate Problems: Yes (PROSTATE CA WITH RAD TX,ENLARGED) Other/Comment: 9-15-17 ESBL IN THE URINE - PSYCHIATRIC Hx Psychophysiologic Disorder: No Hx Emotional Abuse: No Hx Physical Abuse: No Hx Substance Use: No ( PER FAMILY) - SURGICAL HISTORY Hx Surgeries: Yes (NEPHRECTOMY-R,L CATARACT,APPENDECTOMY,) Hx Appendectomy: Yes - ANESTHESIA Hx Anesthesia: Yes Hx Anesthesia Reactions: No Hx Malignant Hyperthermia: No Meds Allergies/Adverse Reactions: Allergies Allergy/AdvReac Type Severity Reaction Status Date / Time No Known Allergies Allergy Verified 06/29/17 14:06 - Medications Medications: Current Medications Acetaminophen (Tylenol 325mg Tab) 650 mg PO Q4 PRN PRN Reason: Pain, Mild (1-3) Docusate Sodium (Colace) 100 mg PO TID PRN PRN Reason: Constipation Doxycycline Hyclate (Doryx) 100 mg PO Q12 QUYEN PRN Reason: Protocol Stop: 07/09/17 22:01 Last Admin: 07/05/17 22:43 Dose: Not Given Dextrose/Sodium Chloride (Dextrose 5%/0.45% Ns 1000 Ml) 1,000 mls @ 50 mls/hr IV .Q20H [facility] Stop: 07/07/17 13:31 Last Admin: 07/05/17 20:22 Dose: 50 mls/hr Megestrol Acetate (Megace) 400 mg PO BID [facility] Last Admin: 07/05/17 20:22 Dose: Not Given Metoprolol Tartrate (Lopressor) 50 mg PO BID [facility] Last Admin: 07/05/17 20:21 Dose: Not Given Ondansetron HCl (Zofran Odt) 4 mg PO Q8H PRN PRN Reason: Nausea/Vomiting Pantoprazole Sodium (Protonix Ec Tab) 40 mg PO DAILY [facility] Last Admin: 07/05/17 11:02 Dose: 40 mg Polyethylene Glycol (Miralax) 17 gm PO DAILY [facility] Last Admin: 07/05/17 11:57 Dose: Not Given Sennosides (Senokot Tab) 8.6 mg PO HS [facility] Last Admin: 07/05/17 22:44 Dose: Not Given Tamsulosin HCl (Flomax) 0.4 mg PO DAILY [facility] Last Admin: 07/05/17 11:03 Dose: 0.4 mg Vitamin B Complex/Vit C/Folic Acid (Nephro-Myles) 1 tab PO 0800 [facility] Physical Exam - Constitutional Appears: Confused, Chronically Ill - Head Exam Head Exam: ATRAUMATIC, NORMOCEPHALIC - Eye Exam Eye Exam: EOMI, Scleral icterus - ENT Exam ENT Exam: Mucous Membranes Dry Additional comments: trachea midline - Respiratory Exam Respiratory Exam: NORMAL BREATHING PATTERN. absent: Respiratory Distress - Cardiovascular Exam Cardiovascular Exam: RRR, +S1, +S2 - GI/Abdominal Exam GI & Abdominal Exam: Distended, Soft, Tenderness (diffusely). absent: Firm, Guarding, Rebound, Rigid - Rectal Exam Rectal Exam: Deferred - Extremities Exam Extremities exam: Positive for: pedal edema Additional comments: anasarca - Neurological Exam Neurological exam: Altered - Skin Skin Exam: Dry, Warm Results - Vital Signs Recent Vital Signs: Last Vital Signs Temp 98.0 F 07/06/17 06:00 Pulse 89 07/06/17 06:00 Resp 18 07/06/17 06:00 BP 96/54 L 07/06/17 06:00 Pulse Ox 94 L 07/06/17 06:00 - Labs Result Diagrams: 07/06/17 05:10 07/06/17 05:10 Labs: Laboratory Results - last 24 hr 07/03/17 07/05/17 07/05/17 11:30 11:22 11:26 WBC 7.3 D RBC 3.37 L Hgb 10.0 L Hct 29.1 L MCV 86.4 MCH 29.7 MCHC 34.4 RDW 24.2 H Plt Count 106 L Gran % 82.9 H Lymph % (Auto) 10.1 L [place] % (Auto) 6.1 H Eos % (Auto) 0.6 L Baso % (Auto) 0.3 Gran # 6.02 Lymph # 0.7 L [place] # 0.4 Eos # 0.0 Baso # 0.02 PT 15.5 H INR 1.44 H APTT pO2 VBG pH VBG pCO2 VBG HCO3 VBG Total CO2 VBG O2 Sat (Calc) VBG Base Excess VBG Potassium Glucose Lactate FiO2 Sodium Potassium Chloride Carbon Dioxide Anion Gap BUN Creatinine Est GFR ( Amer) Est GFR (Non-Af Amer) Random Glucose Calcium Total Bilirubin AST ALT Alkaline Phosphatase Ammonia Total Protein Albumin Globulin Albumin/Globulin Ratio Venous Blood Potassium Emesis for Blood Smooth Muscle Ab Titer TEST NOT PERFORMED Anti-Smooth Muscle Ab Negative 07/05/17 07/05/17 07/05/17 11:26 19:41 19:41 WBC 8.4 RBC 3.21 L Hgb 9.7 L Hct 27.8 L MCV 86.6 MCH 30.2 MCHC 34.9 RDW 24.5 H Plt Count 92 L Gran % 82.6 H Lymph % (Auto) 10.4 L [place] % (Auto) 6.3 H Eos % (Auto) 0.5 L Baso % (Auto) 0.2 Gran # 6.94 H Lymph # 0.9 L [place] # 0.5 Eos # 0.0 Baso # 0.02 PT INR APTT pO2 VBG pH VBG pCO2 VBG HCO3 VBG Total CO2 VBG O2 Sat (Calc) VBG Base Excess VBG Potassium Glucose Lactate FiO2 Sodium 147 146 Potassium 5.1 H 5.0 Chloride 107 106 Carbon Dioxide 20 L 24 Anion Gap 25 H 21 H BUN 133 H* 104 H Creatinine 7.5 H 6.3 H Est GFR ( Amer) 9 11 Est GFR (Non-Af Amer) 7 9 Random Glucose 91 69 L Calcium 8.8 8.6 Total Bilirubin 20.1 H* 18.6 H* AST 352 H 409 H ALT 132 H 137 H Alkaline Phosphatase 203 H 201 H Ammonia Total Protein 6.4 6.3 Albumin 2.6 L 2.5 L Globulin 3.8 3.8 Albumin/Globulin Ratio 0.7 L 0.7 L Venous Blood Potassium Emesis for Blood Smooth Muscle Ab Titer Anti-Smooth Muscle Ab 07/05/17 07/05/17 07/06/17 19:41 19:41 04:40 WBC RBC Hgb Hct MCV MCH MCHC RDW Plt Count Gran % Lymph % (Auto) [place] % (Auto) Eos % (Auto) Baso % (Auto) Gran # Lymph # [place] # Eos # Baso # PT 16.5 H INR 1.53 H APTT 43.2 H pO2 VBG pH VBG pCO2 VBG HCO3 VBG Total CO2 VBG O2 Sat (Calc) VBG Base Excess VBG Potassium Glucose Lactate FiO2 Sodium Potassium Chloride Carbon Dioxide Anion Gap BUN Creatinine Est GFR ( Amer) Est GFR (Non-Af Amer) Random Glucose Calcium Total Bilirubin AST ALT Alkaline Phosphatase Ammonia 21 Total Protein Albumin Globulin Albumin/Globulin Ratio Venous Blood Potassium Emesis for Blood Positive H Smooth Muscle Ab Titer Anti-Smooth Muscle Ab 07/06/17 07/06/17 05:10 05:10 WBC 8.8 RBC 3.20 L Hgb 9.4 L Hct 27.9 L MCV 87.2 MCH 29.4 MCHC 33.7 RDW 24.4 H Plt Count 76 L Gran % 79.2 H Lymph % (Auto) 14.6 L [place] % (Auto) 4.9 Eos % (Auto) 0.7 L Baso % (Auto) 0.6 Gran # 6.94 H Lymph # 1.3 [place] # 0.4 Eos # 0.1 Baso # 0.05 PT INR APTT pO2 112 H VBG pH 7.39 VBG pCO2 34.0 L VBG HCO3 20.6 L VBG Total CO2 21.6 L VBG O2 Sat (Calc) 101.0 H VBG Base Excess -3.6 L VBG Potassium 5.5 H Glucose 71 L Lactate 6.1 H* FiO2 21.0 Sodium 142.0 Potassium Chloride 109.0 H Carbon Dioxide Anion Gap BUN Creatinine Est GFR ( Amer) Est GFR (Non-Af Amer) Random Glucose Calcium Total Bilirubin AST ALT Alkaline Phosphatase Ammonia Total Protein Albumin Globulin Albumin/Globulin Ratio Venous Blood Potassium 5.5 H Emesis for Blood Smooth Muscle Ab Titer Anti-Smooth Muscle Ab - Imaging and Cardiology CT scan - abdomen Status: Image reviewed by me, Report reviewed by me Assessment & Plan - Assessment and Plan (Free Text) Assessment: 76M with pSBO vs ileus likely due to metastatic disease Plan: NPO, NGT in place Monitor I&O Serial abd exams Monitor for bowel movements Manage electrolyte imbalances Pt is a poor surgical candidate. D/W Dr. Tessa Marie PGY4
[2017-07-06 07:26] LABS: POTASSIUM 6.1 mmol/L (3.6-5.0)
[2017-07-06 07:27] LABS: BILIRUBIN,TOTAL 18.7 mg/dL (0.2-1.3)
[2017-07-06] MEDS ORDERED: Multivitamin Vitamin B Complex (Nephro-Vite) Tab PO SCH (08:00)
--- NOTE | 2017-07-06 08:14 | PN ---
PULMONARY NOTE DATE: 07/06/2017 SUBJECTIVE: The patient appears comfortable this morning. He is not short of breath at rest. PHYSICAL EXAMINATION: VITAL SIGNS: A temperature is 98.0, pulse 89, respirations 18, blood pressure 96/54. Oxygen saturation on nasal cannula is 94%. HEENT: Normocephalic, atraumatic. No JVD. There is a nasogastric tube in place. CARDIOVASCULAR: Systolic ejection murmur at the lower left sternal border. No S3 gallop. LUNGS: Decreased breath sounds at the bases with minimal crackles. No rhonchi. No wheezing. EXTREMITIES: Less edema. No cyanosis, no clubbing. Calves are nontender to palpation. GI: Abdomen is soft, nontender and nondistended. Bowel sounds are positive. SKIN: No acute rash. NEUROLOGIC EXAMINATION: Limited at the present time. IMPRESSION 1. Right lower lobe pneumonia. 2. Acute renal failure. 3. Anemia. 4. Advanced prostate cancer with distant metastasis. 5. Increased liver function enzymes. 6. Nausea and vomiting. PLAN: The patient appears comfortable at the present time. He is not short of breath at rest. I did discuss the case with the night nurse at length. The night nurse stated that the patient had a very rough night, with persistent nausea and vomiting. He now has an nasogastric tube. Abdominal x-rays are ordered. No results are in the chart as of yet. Input by surgery is also noted. I would continue with the treatment for the pneumonia - as per infectious disease. Input by Dr. Dykes is noted. Inputs by GI and renal are also noted. The patient's status is very guarded at best/poor at this point in time. Input by Rin Root (palliative care) is noted. I will discuss the above with Dr. Montalvo. Elio Real MD MTDD
--- NOTE | 2017-07-06 08:32 | RAD ---
HISTORY: NG tube placement COMPARISON: 07/05/2017 FINDINGS: The right-sided dialysis catheter terminates in the right atrium. The nasogastric tube terminates in the stomach. LUNGS: There are low lung volumes. There is confluent airspace disease in the right lower lobe. There is persistent pulmonary venous congestion. PLEURA: Suspect small pleural effusions, no pneumothorax apparent. CARDIOVASCULAR: Normal. OSSEOUS STRUCTURES: No significant abnormalities. VISUALIZED UPPER ABDOMEN: Normal. OTHER FINDINGS: None. IMPRESSION: 1. Nasogastric tube terminates in the stomach. 2. No change in right lower lobe atelectasis/pneumonia. 3. Persistent pulmonary venous congestion and small pleural effusions.
--- NOTE | 2017-07-06 10:43 | RAD ---
HISTORY: r/o SBO COMPARISON: CT abdomen and pelvis from 07/05/2017 FINDINGS: BOWEL: There is redemonstration of mild gaseous distention of the proximal small bowel loops. The distal small bowel loops are normal in caliber. BONES: Normal. OTHER FINDINGS: There are multiple radiation seeds in the prostate gland. IMPRESSION: No change in mild gaseous distention of the proximal small bowel loops.
--- NOTE | 2017-07-06 12:00 | CP.PCM.PN ---
Subjective - Date & Time of Evaluation Date of Evaluation: 07/06/17 Time of Evaluation: 10:50 - Subjective Subjective: Patient had episodes of vomiting and NGT has been placed. No fevers overnight. Objective - Vital Signs/Intake and Output Vital Signs (last 24 hours): Temp Pulse Resp BP Pulse Ox 98.0 F 89 18 96/54 L 94 L 07/06/17 06:00 07/06/17 06:00 07/06/17 06:00 07/06/17 06:00 07/06/17 06:00 Intake and Output: 07/05/17 07/06/17 18:59 06:59 Intake Total 600 Output Total 300 150 Balance -300 450 - Medications Medications: Current Medications Acetaminophen (Tylenol 325mg Tab) 650 mg PO Q4 PRN PRN Reason: Pain, Mild (1-3) Docusate Sodium (Colace) 100 mg PO TID PRN PRN Reason: Constipation Doxycycline Hyclate (Doryx) 100 mg PO Q12 QUYEN PRN Reason: Protocol Stop: 07/09/17 22:01 Last Admin: 07/05/17 22:43 Dose: Not Given Dextrose/Sodium Chloride (Dextrose 5%/0.45% Ns 1000 Ml) 1,000 mls @ 50 mls/hr IV .Q20H [facility] Stop: 07/07/17 13:31 Last Admin: 07/05/17 20:22 Dose: 50 mls/hr Megestrol Acetate (Megace) 400 mg PO BID [facility] Last Admin: 07/05/17 20:22 Dose: Not Given Metoprolol Tartrate (Lopressor) 50 mg PO BID [facility] Last Admin: 07/05/17 20:21 Dose: Not Given Ondansetron HCl (Zofran Odt) 4 mg PO Q8H PRN PRN Reason: Nausea/Vomiting Pantoprazole Sodium (Protonix Ec Tab) 40 mg PO DAILY [facility] Last Admin: 07/05/17 11:02 Dose: 40 mg Polyethylene Glycol (Miralax) 17 gm PO DAILY [facility] Last Admin: 07/05/17 11:57 Dose: Not Given Sennosides (Senokot Tab) 8.6 mg PO HS [facility] Last Admin: 07/05/17 22:44 Dose: Not Given Tamsulosin HCl (Flomax) 0.4 mg PO DAILY [facility] Last Admin: 07/05/17 11:03 Dose: 0.4 mg Vitamin B Complex/Vit C/Folic Acid (Nephro-Myles) 1 tab PO 0800 QUYEN - Labs Labs: 07/06/17 05:10 07/05/17 19:41 PT 16.5 Seconds (9.9-11.8) H 07/05/17 19:41 INR 1.53 (0.93-1.08) H 07/05/17 19:41 APTT 43.2 Seconds (23.7-30.8) H 07/05/17 19:41 - Constitutional Appears: Chronically Ill - Head Exam Head Exam: NORMAL INSPECTION - ENT Exam Additional comments: NGT in place - Neck Exam Neck Exam: absent: Meningismus - Respiratory Exam Respiratory Exam: Decreased Breath Sounds - Cardiovascular Exam Cardiovascular Exam: +S1, +S2 - GI/Abdominal Exam GI & Abdominal Exam: Soft. absent: Tenderness Assessment and Plan - Assessment and Plan (Free Text) Plan: Assessment Sepsis due to right lower lobe healthcare-associated pneumonia, slowly improving VRE in the urine, probably colonization prostate cancer with bone metastases HTN history of ESBL-producing organism UTI CAD GERD Plan continue doxycycline and Merrem (day 7) to complete 4-7 days of therapy; will d/ c antibiotics after today repeat urine cx shows yeast which is colonization as well in light of chronic Lyle use and antibiotic use; CT A/P and renal ultrasound do not show perinephric stranding or hydronephrosis suggestive of pyelonephritis, and urinary bladder is also normal on CT A/P patient has NGT now because of vomiting - monitor clinically Overall prognosis is poor and hospice care should be considered
[2017-07-06] MEDS: Dextrose 5%/0.45% NS 1,000 ML IV SCH (12:23)
[2017-07-06] MEDS: POLYETHYLENE GLYCOL 3350 17 GM/Dose PACKET PO SCH (12:25)
[2017-07-06] MEDS: Pantoprazole 40 mg EC Tab PO SCH (12:25)
[2017-07-06] MEDS: Megestrol Acetate 40 mg/ml Cup PO SCH ×2 (12:25→20:01)
--- NOTE | 2017-07-06 13:19 | CP.PCM.PN ---
Subjective - Date & Time of Evaluation Date of Evaluation: 07/06/17 Time of Evaluation: 09:45 - Subjective Subjective: Patient seen and examined at bedside. Resting with soft restraints at bilateral wrists and NGT in proper position. HYDRAULIC PILE HAMMER OPERATOR was called on patient yesterday evening for hypotension which improved after giving fluids. Overnight the patient also experienced a bout of bilious emesis. NGT was inserted. call center nurse critical care team evaluated patient. Patient is lethargic and not answering questions appropriately. ROS cannot be attained at this time due to altered mental status. Objective - Vital Signs/Intake and Output Vital Signs (last 24 hours): Temp Pulse Resp BP Pulse Ox 98.0 F 89 18 96/54 L 94 L 07/06/17 06:00 07/06/17 06:00 07/06/17 06:00 07/06/17 06:00 07/06/17 06:00 Intake and Output: 07/06/17 07/06/17 06:59 18:59 Intake Total 600 Output Total 150 Balance 450 - Medications Medications: Current Medications Acetaminophen (Tylenol 325mg Tab) 650 mg PO Q4 PRN PRN Reason: Pain, Mild (1-3) Docusate Sodium (Colace) 100 mg PO TID PRN PRN Reason: Constipation Doxycycline Hyclate (Doryx) 100 mg PO Q12 QUYEN PRN Reason: Protocol Stop: 07/09/17 22:01 Last Admin: 07/06/17 12:24 Dose: Not Given Dextrose/Sodium Chloride (Dextrose 5%/0.45% Ns 1000 Ml) 1,000 mls @ 50 mls/hr IV .Q20H [facility] Stop: 07/07/17 13:31 Last Admin: 07/06/17 12:23 Dose: Not Given Meropenem 250 mg/ Sodium (Chloride) 100 mls @ 100 mls/hr IVPB Q12H QUYEN PRN Reason: Protocol Stop: 07/07/17 12:16 Megestrol Acetate (Megace) 400 mg PO BID [facility] Last Admin: 07/06/17 12:25 Dose: Not Given Metoprolol Tartrate (Lopressor) 50 mg PO BID [facility] Last Admin: 07/06/17 12:25 Dose: Not Given Ondansetron HCl (Zofran Inj) 4 mg IVP Q6H PRN PRN Reason: Nausea/Vomiting Pantoprazole Sodium (Protonix Ec Tab) 40 mg PO DAILY [facility] Last Admin: 07/06/17 12:25 Dose: Not Given Polyethylene Glycol (Miralax) 17 gm PO DAILY [facility] Last Admin: 07/06/17 12:25 Dose: Not Given Sennosides (Senokot Tab) 8.6 mg PO HS [facility] Last Admin: 07/05/17 22:44 Dose: Not Given Tamsulosin HCl (Flomax) 0.4 mg PO DAILY [facility] Last Admin: 07/06/17 12:24 Dose: Not Given Vitamin B Complex/Vit C/Folic Acid (Nephro-Myles) 1 tab PO 0800 [facility] Last Admin: 07/06/17 12:25 Dose: Not Given - Labs Labs: 07/06/17 05:10 07/06/17 05:10 PT 16.5 Seconds (9.9-11.8) H 07/05/17 19:41 INR 1.53 (0.93-1.08) H 07/05/17 19:41 APTT 43.2 Seconds (23.7-30.8) H 07/05/17 19:41 - Skin Additional comments: - Constitutional Appears: Toxic, No Acute Distress - Head Exam Head Exam: ATRAUMATIC, NORMAL INSPECTION, NORMOCEPHALIC - Eye Exam Eye Exam: EOMI, Scleral icterus - ENT Exam ENT Exam: Mucous Membranes Moist, Normal Exam - Respiratory Exam Respiratory Exam: Decreased Breath Sounds, NORMAL BREATHING PATTERN. absent: Rales, Rhonchi, Wheezes - Cardiovascular Exam Cardiovascular Exam: RRR, +S1, +S2 - GI/Abdominal Exam GI & Abdominal Exam: Distended, Hyperactive Bowel Sounds, Tenderness (LLQ and RLQ). absent: Guarding, Rebound - Extremities Exam Extremities exam: Positive for: pedal edema (+3 pitting edema). Negative for: calf tenderness - Neurological Exam Neurological exam: Alert Additional comments: patient is not answering questions appropriately - Skin Skin Exam: Intact, Warm Additional comments: Jaundiced Assessment and Plan - Assessment and Plan (Free Text) Assessment: Assessment: 76 year old male with a PMHx of metastatic prostate cancer, Htn , who presents from rehabilitation facility for evaluation and treatment of abnormal lab values found to be hyperkalemic with RODNEY on CKD, metabolic acidosis , Hyperbilirubinemia. Plan: 1. Hyperkalemia - Potassium noted to be 6.4 in ED; patient was given insulin humulin 10 units in ED with dextrose, given 2 L bolus, given 30 of kayexylate - Dialysis was done yesterday; Potassium 6.1 today, dialysis is planned for today - Cont cardiac monitoring on tele - EKG on admission show sinus tachycardia without significant ST T wave changes - repeat EKG also showed sinus tachycardia without significant ST T wave changes - continue d5 normal saline as per neprho - nephro following- patient will get dialysis catether today s/p receiving 1 of FFP to stabilize INR, will start dialysis 2. RODNEY on CKD - Creatinine noted 6.5 and Bun 133 - Avoid nephrotoxins - No acei/ arb - patient received IVF 2 L in the ED - Renal U/S showed no hyronephrosis, liver metastasis - Nephrology consult- Dr. Nicholas 3. Gapped Metabolic Acidosis - resolved - Bicarb noted to be 19 today - Ddx includes uremia as patient has BUN of 133 and lactic acidosis 6.1 - nephro is following 4. Consolidation at the right lower lobe - CT of Chest showed Airspace consolidation at the right lower lobe may represent pneumonia or aspiration. Right lower lobe bronchiectasis likely due to recurrent infection/ aspiration. Small opacity at the left lung base likely atelectasis.Small right and trace left pleural effusion. Moderate paraseptal emphysema. - patient is afebrile without leukocytosis - abx changed to meropenem and doxycylcin - ID following 5. Elevated Liver Enzymes - most likely secondary to the mets to the liver - LFTs cont to downtrend - cont close monitoring with CMP 6. Abdominal Pain; Hyperbilirubinemia; Ileus vs. Partial Obstruction - Pain likely 2/2 to mets - continue home pain medication regiment of oxycodone - Bilirubin conts to rise most likely 2/2 to liver mets, direct bilirubin and abdominal ultrasound ordered and GI consulted- hepatitis panel negative, autoimmune workup pending - Abdomen/Pelvis CT showed Multiple innumerable slightly low-attenuation lesions in the liver suggestive of metastasis. Sclerotic bony lesion in the lower spine and in the pelvic bones suggestive of metastasis.Small ascites. Mild -to-moderate anasarca. - Updated abdomen/pelvic CT -Dilated small bowel loops are visualized within the abdomen anteriorly, which has progressed. This is concerning for ileus or partial obstruction. - Surgery consult placed- continue NGT, no acute surgical intervention at this time 7. Hematuria, Chronic Ballesteros - 2/2 likely traumatic ballesteros insertion vs medication SE Bicalutamide (casodex) - consult urology and follow recs - H and H stable f - consulted urologist, Dr. Parks 8. UTI - urine cultures positive for gram positive cocci - c/w meropenem and doxycylcin - ID consulted 8. INR Elevation - elevated likely due to mets to the liver, reduced after being given 2 FFP - Likely secondary to liver mets (decreased coagulation factor production) - monitor PT/INR closely 9. Prostate cancer with Mets to liver and kidney - c/w home med flomax - hold casodex (chemotherapeutic agent) as this is a potential cause of the hematuria - Heme/Onc consult- Dr. Cloud, appreciate recs - Palliative care nurse consulted- family meeting with daughter to discuss goals of care- family would like all treatment to continue, ethics committee pending for Sunday 10. Decreased Appetite - cont Megestrol acetate (appetite stimulant) 11. Constipation - Continue home senna, miralax, and colace 12. PPX - protonix - SCD Case reviewed with and plan approved by attending physician, Dr. Montalvo.
[2017-07-06 13:26] VITALS: BP 87/51
[2017-07-06] MEDS ORDERED: Insulin Regular 1 UNITS/0.01 ML ML IV STA (16:31)
[2017-07-06] MEDS ORDERED: Dextrose 50% SYRINGE Inj (50 ml) IVP ONE (16:31)
[2017-07-06] MEDS ORDERED: Albuterol 0.5% Inhal Sol (5 mg/ ml) 20 ml IH STA (16:32)
[2017-07-06] MEDS ORDERED: Sodium Bicarbonate (8.4%) 50 Meq Syringe IVP ONE (16:33)
[2017-07-06] MEDS ORDERED: Morphine 2 mg/ml ISec IVP PRN (17:20)
[2017-07-06 17:36] VITALS: RESP 22
--- NOTE | 2017-07-06 17:38 | CP.PCM.PN ---
Subjective - Date & Time of Evaluation Date of Evaluation: 07/06/17 Time of Evaluation: 16:11 Objective - Vital Signs/Intake and Output Vital Signs (last 24 hours): Temp Pulse Resp BP Pulse Ox 98.0 F 80 18 87/51 L 94 L 07/06/17 06:00 07/06/17 14:00 07/06/17 12:00 07/06/17 12:00 07/06/17 06:00 Intake and Output: 07/06/17 07/06/17 06:59 18:59 Intake Total 600 Output Total 150 Balance 450 - Medications Medications: Current Medications Acetaminophen (Tylenol 325mg Tab) 650 mg PO Q4 PRN PRN Reason: Pain, Mild (1-3) Docusate Sodium (Colace) 100 mg PO TID PRN PRN Reason: Constipation Doxycycline Hyclate (Doryx) 100 mg PO Q12 QUYEN PRN Reason: Protocol Stop: 07/09/17 22:01 Last Admin: 07/06/17 12:24 Dose: Not Given Dextrose/Sodium Chloride (Dextrose 5%/0.45% Ns 1000 Ml) 1,000 mls @ 50 mls/hr IV .Q20H [facility] Stop: 07/07/17 13:31 Last Admin: 07/06/17 12:23 Dose: Not Given Meropenem 250 mg/ Sodium (Chloride) 100 mls @ 100 mls/hr IVPB Q12H [facility] PRN Reason: Protocol Stop: 07/07/17 12:16 Last Admin: 07/06/17 13:44 Dose: 100 mls/hr Megestrol Acetate (Megace) 400 mg PO BID [facility] Last Admin: 07/06/17 12:25 Dose: Not Given Metoprolol Tartrate (Lopressor) 50 mg PO BID [facility] Last Admin: 07/06/17 12:25 Dose: Not Given Morphine Sulfate (Morphine) 2 mg IVP Q4H PRN PRN Reason: Pain, severe (8-10) Ondansetron HCl (Zofran Inj) 4 mg IVP Q6H PRN PRN Reason: Nausea/Vomiting Pantoprazole Sodium (Protonix Ec Tab) 40 mg PO DAILY [facility] Last Admin: 07/06/17 12:25 Dose: Not Given Polyethylene Glycol (Miralax) 17 gm PO DAILY [facility] Last Admin: 07/06/17 12:25 Dose: Not Given Sennosides (Senokot Tab) 8.6 mg PO HS [facility] Last Admin: 07/05/17 22:44 Dose: Not Given Tamsulosin HCl (Flomax) 0.4 mg PO DAILY [facility] Last Admin: 07/06/17 12:24 Dose: Not Given Vitamin B Complex/Vit C/Folic Acid (Nephro-Myles) 1 tab PO 0800 [facility] Last Admin: 07/06/17 12:25 Dose: Not Given - Labs Labs: 07/06/17 05:10 07/06/17 05:10 PT 16.5 Seconds (9.9-11.8) H 07/05/17 19:41 INR 1.53 (0.93-1.08) H 07/05/17 19:41 APTT 43.2 Seconds (23.7-30.8) H 07/05/17 19:41
[2017-07-06 17:40] LABS: VENOUS BLOOD GAS BASE EXCESS -9.9 mmol/L (0.0-2.0)
--- NOTE | 2017-07-06 17:41 | PCM.RRT ---
<Jake Melton - Last Filed: 07/06/17 17:38> EMAIL MARKETING COORDINATOR Nurse Assessment - Situation Date: 07/06/17 Time EMAIL MARKETING COORDINATOR was called: 16:11 EMAIL MARKETING COORDINATOR Responder Arrival Time: 16:13 EMAIL MARKETING COORDINATOR Location:: [address] [place] [address] Room Number: 276-2 EMAIL MARKETING COORDINATOR Reason for Call: Hypotension EMAIL MARKETING COORDINATOR Called By: RN - IV IV Inserted during EMAIL MARKETING COORDINATOR?: No IV Fluids Initiated During EMAIL MARKETING COORDINATOR?: 250cc bolus of 0.9 NS - Respiratory Oxygen Delivery Method: Non Rebreather @% Oxygen Flow Rate: 100 Received Nebulizer Treatments:: No Was the Patient Ventilated with Bag/Mask 100% O2?: Yes (non rebreather @ 100) Secretions Suctioned?: No Was the Patient Intubated?: No Was the Patient Placed on a Ventilator?: No - Medication Medications Administered During EMAIL MARKETING COORDINATOR: .NS bolus 150cc followed by 1000 cc bolus , - Diagnostic Test Ordered EKG: Yes Chest X-Ray: Yes CT Scan: No - Stat Labs Ordered EMAIL MARKETING COORDINATOR Stat Labs Ordered: ABG CPR started during EMAIL MARKETING COORDINATOR?: No - Vital Signs Vital Sign: Rapid Response Vital Sign Blood Pressure 64/37 Pulse Rate 76 Respiratory Rate 20 Temperature 97.4 F Oxygen Saturation 98 - Finger Stick Blood Glucose Finger Stick Blood Glucose: 85 - [place] Coma Scale Coma Scale Eye Opening: Spontaneous Coma Scale Motor: Obeys Commands Movement Coma Scale Verbal: Incomprehensible speech - Sepsis Screen Part 1 Sepsis Screen Part 1: Hypotensive - Time EMAIL MARKETING COORDINATOR Ended Time EMAIL MARKETING COORDINATOR Ended: 16:48 - Vital Signs at end of EMAIL MARKETING COORDINATOR Vital Signs at end of EMAIL MARKETING COORDINATOR: Rapid Response End Vital Sign Blood Pressure 101/68 Pulse Rate 68 Respiratory Rate 18 O2 Sat by Pulse Oximetry 98 - Recommendations 5) EMAIL MARKETING COORDINATOR Level of Care Recommendations: Remain in current setting Notifications: Attending Physician, Family or Designated Caregiver I.Reason for EMAIL MARKETING COORDINATOR - A) Acute Change in Patient: (Select all that apply): Acute change in SBP below - Neurological Status (Select all that apply): Alert, Disoriented, Lethargic. absent: Responsive, Oriented, Follows Commands - Respiratory Oxygen Delivery Method: Non Rebreather @% Oxygen Flow Rate: 100 - Constitutional Appears: Toxic, No Acute Distress - Head Head Exam: ATRAUMATIC, NORMAL INSPECTION - Eyes Eye Exam: Scleral icterus - Respiratory Exam Respiratory Exam: Decreased Breath Sounds, Rales - Cardiovascular Exam Cardiovascular Exam: REGULAR RHYTHM, +S1, +S2 - GI/Abdominal Exam GI & Abdominal Exam: Distended, Tenderness - Neurological Exam Neurological Exam: Awake. 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 Patient seen and examined at bedside. Patient was awake, intermittently alert, did not answer questions, and did not follow commands. ROS could not be attained at that time due to AMS. 1. Hypotension - ICU team contacted, recommendation- 1 liter bolus of NS- pressures initially responded to fluids BP 100s/70s but eventually decreased to 70s/50s within 20 minutes - CBC, CMP, ABG shock panel, Cardio-iso ordered and reviewed - EKG ordered and reviewed- NSR - CXR ordered and reviewed 2. Hyperkalemia - insulin, dextrose, and bicarb ordered stat - calcium gluconate ordered stat 3. End stage prostate cancer - family was reinformed of patients poor prognosis and risks/benefits of aggressive interventions were discussed- family has decided to make patient DNR/ DNI at this time - will monitor - EMAIL MARKETING COORDINATOR was attended by ICU team Dr. Abrams and hospitalists Dr. Gill and Dr. Davison, case discussed and plan approved by attending physicians - Primary attending informed, Dr. Montalvo. <Avelino Gill - Last Filed: 07/07/17 10:31> EMAIL MARKETING COORDINATOR Nurse Assessment - Vital Signs Vital Sign: Rapid Response Vital Sign Blood Pressure 64/37 Pulse Rate 76 Respiratory Rate 20 Temperature 97.4 F Oxygen Saturation 98 - Vital Signs at end of EMAIL MARKETING COORDINATOR Vital Signs at end of EMAIL MARKETING COORDINATOR: Rapid Response End Vital Sign Blood Pressure 101/68 Pulse Rate 68 Respiratory Rate 18 O2 Sat by Pulse Oximetry 98 Attending/Attestation - Attestation I have personally seen and examined this patient.: Yes I have fully participated in the care of the patient.: Yes I have reviewed all pertinent clinical information, including history, physical exam and plan: Yes Notes (Text): 07/07/17 10:24 Attending note; Patient was seen and examined with resident during rapid response. Chart reviewed. Patient is a 76-year male with a history of metastatic prostate cancer, liver metastases, elevated LTs, hepatic encephalopathy, renal failure, status post dialysis yesterday was found to be hypotensive and lethargic. The patient had similar episode yesterday and rapid response was called. the patient responded to IV fluids yesterday. Today after 1 L bolus blood pressure is still 70/50. Patient is lethargic. Patient was in respiratory distress secondary to distended abdomen. Scleral icterus significant. Abdominal ascites/distention prominent. Scrotal edema is significant. Lower leg edema present. After fluid resuscitation case discussed with ICU attending. Patient was placed on 100% nonrebreather. Patient was also evaluated by ICU attending. The diagnosis and prognosis discussed with patient's next of kin/Daughter in detail. Daughter signed DNI DNR paper. Comfort care only. time spent 40 minutes.
[2017-07-06 17:46] LABS: BASO # 0.05 K/mm3 (0.0-2.0); BASO % 0.6 % (0.0-3.0); EOS % 0.4 % (1.5-5.0); GRAN # 6.67 (1.4-6.5); HEMATOCRIT 24.9 % (42.0-52.0); LYMPH # 1.8 (1.2-3.4); LYMPH % 19.8 % (22.0-35.0); MEAN CORPUSCULAR HEMOGLOBIN 29.3 pg (25.0-35.0); MEAN CORPUSCULAR HGB CONC 32.5 g/dl (31.0-37.0); MONO # 0.5 (0.1-0.6); MONO % 5.2 % (1.0-6.0); PLATELET COUNT 76 10^3/uL (120.0-450.0); RED CELL DISTRIBUTION WIDTH 24.4 % (11.5-14.5)
[2017-07-06 17:48] LABS: MEAN CELL VOLUME 90.2 fl (80.0-105.0)
[2017-07-06 17:51] LABS: ALB/GLOB RATIO 0.6 (1.1-1.8); CALCIUM 7.9 mg/dL (8.4-10.5); MAGNESIUM 2.3 mg/dL (1.7-2.2); PHOSPHOROUS 9.1 mg/dL (2.5-4.5); TOTAL PROTEIN 5.1 g/dL (5.8-8.3)
[2017-07-06 18:00] LABS: POTASSIUM 5.8 mmol/L (3.6-5.0)
[2017-07-06 18:03] VITALS: PULSE 74
[2017-07-06 18:22] LABS: TROPONIN I 0.11 ng/mL
--- NOTE | 2017-07-06 18:30 | RAD ---
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 FINDINGS: LUNGS: Right central venous dialysis catheter is unchanged in position. Nasogastric tube is again identified coiled in the left upper quadrant abdomen. Limited bilateral basilar atelectasis or infiltrates persist remain mild. History volume appears diminished once again. PLEURA: No significant pleural effusion identified, no pneumothorax apparent. CARDIOVASCULAR: Prominent cardiac silhouette remains. Mild pulmonary venous congestion is unchanged. OSSEOUS STRUCTURES: No significant abnormalities. VISUALIZED UPPER ABDOMEN: Normal. OTHER FINDINGS: None. IMPRESSION: History volume appears diminished which may be accentuating atelectasis or infiltrates in bilateral bases. No definite pleural effusions bilaterally. CHF pattern persists though it appears mild at this time. No significant improvement in the interval.
[2017-07-06 18:43] LABS: ANISOCYTOSIS 2+; CORRECTED WBC 7.3 K/mm3 (4.5-11.0); HYPOCHROMIA 1+; NEUTROPHIL 87 % (50.0-70.0); NUCLEATED RED BLOOD CELL 24 %; PLATELET ESTIMATE LOW (NORMAL); POLYCHROMASIA 1+; TARGET CELLS 3+
[2017-07-06 18:44] LABS: OVALOCYTES SLIGHT
--- NOTE | 2017-07-06 19:08 | CP.PCM.PRO ---
Pronouncement of Note - Clinical Findings Physical Exam: No Response Verbal/Painful Stimuli, Absent Peripheral Pulses{ Carotid & Femoral}, Absent Heart & Breath Sounds, No Pupillary Light Reflex, No Corneal Reflex, Pupils Fixed & Dilated, Absence of Vital Signs - Pronouncement Time Time of Pronouncement of : 19:00 - Notifications Pronouncement Notifications: Family Notified (Multiple family members are at bedside and are aware.), Atending Notified (residential coordinator is calling .)
--- NOTE | 2017-07-06 19:59 | PN ---
CHIEF COMPLAINT: Unable to obtain. HISTORY OF PRESENT ILLNESS AND REVIEW OF SYSTEMS: Overnight event noted. The patient has had nausea, vomiting, and NG tube placed. Also developed lactic acidosis. He had dialysis yesterday. Blood pressure did decrease during dialysis and he had hypotensive episode including blood pressure like in the 70s. PHYSICAL EXAMINATION GENERAL: The patient is ill appearing, unable to communicate. He is lethargic. VITAL SIGNS: Afebrile. Pulse 81, blood pressure 87/51, saturation is 94%, respiration is 18. LUNGS: Bilateral vesicular sounds, anteriorly clear. CARDIOVASCULAR: S1 normal. No murmur or rub. ABDOMEN: Soft, distended, has lower abdomen tenderness. EXTREMITIES: 2+ pitting edema. NEUROLOGIC: The patient is lethargic, unable to communicate, unable to follow commands. LABORATORY DATA: Workup shows hemoglobin 8.8, white blood cell count 9.4, platelet count 76. INR is 1.5. Sodium is 147, potassium 6.1, bicarb 19, creatine 6.5, lactic acidosis of 6, and bilirubin of 18. CURRENT MEDICATIONS: Reviewed. ASSESSMENT: 1. The patient appears terminally ill at this time. 2. The patient with acute kidney injury due to acute tubular necrosis and also possibly better renal syndrome. 3. Altered mental status. 4. Toxic metabolic encephalopathy. 5. Metastatic cancer with hepatic failure. 6. 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 RECOMMENDATIONS: The patient appears to be terminally ill. than yesterday. We will try another session today. If the patient tolerates but the patient develops hypotension, we will have to stop the dialysis, and we will reassess again tomorrow the need for dialysis. Continue discussion with the family about goals of care, palliative care, and hospice is most appropriate for this patient, then may give fluid as needed for the hypotension. The patient with lactic acidosis, again a poor prognostic marker for his condition. zOzie Nicholas MD
--- NOTE | 2017-07-07 01:03 | CARD ---
APPROVED REPORT EKG Measurement Heart [id number] CT [id number] <Conclusion> Normal sinus rhythm Cannot rule out Anterior infarct, age undetermined Prolonged QT interval Abnormal ECG
[2017-07-08 00:25] LABS: LKM-1 Ab (IgG) <=20.0 U (<=20.0)
== END 2017-07-06 19:00 | DRG 871 ==
LOC: ED 02:52 → ERH 06:09 → 2RSO 13:18
PROVIDERS: ADMIT Internal Medicine; ATTEND Internal Medicine
PROC: 30233K1 Transfusion of Nonautologous Frozen Plasma into Peripheral Vein, Percutaneous Approach (ICD-10-PCS; 2017-07-04)
PROC: 02H633Z Insertion of Infusion Device into Right Atrium, Percutaneous Approach (ICD-10-PCS; principal; 2017-07-05)
PROC: 5A1D00Z (ICD-10-PCS; 2017-07-05)
PROC: 0D9670Z Drainage of Stomach with Drainage Device, Via Natural or Artificial Opening (ICD-10-PCS; 2017-07-06)
DX: A41.9 Sepsis, unspecified organism (principal); J18.9 Pneumonia, unspecified organism; N17.0 Acute kidney failure with tubular necrosis; E87.5 Hyperkalemia; I13.2 Hypertensive heart and chronic kidney disease with heart failure and with stage 5 chronic kidney disease, or end stage renal disease; N18.6 End stage renal disease; G92 Toxic encephalopathy; R64 Cachexia; N39.0 Urinary tract infection, site not specified; C78.7 Secondary malignant neoplasm of liver and intrahepatic bile duct; C79.51 Secondary malignant neoplasm of bone; E87.2 Acidosis; K76.7 Hepatorenal syndrome; K56.60 Unspecified intestinal obstruction; C61 Malignant neoplasm of prostate; G89.3 Neoplasm related pain (acute) (chronic); D64.9 Anemia, unspecified; I50.9 Heart failure, unspecified; E86.0 Dehydration; K21.9 Gastro-esophageal reflux disease without esophagitis; E78.5 Hyperlipidemia, unspecified; I25.10 Atherosclerotic heart disease of native coronary artery without angina pectoris; J43.9 Emphysema, unspecified; R31.9 Hematuria, unspecified; K64.8 Other hemorrhoids; Y95 Nosocomial condition; K72.90 Hepatic failure, unspecified without coma; M10.9 Gout, unspecified; Z66 Do not resuscitate; Z85.528 Personal history of other malignant neoplasm of kidney; Z90.5 Acquired absence of kidney; Z90.49 Acquired absence of other specified parts of digestive tract; Z87.891 Personal history of nicotine dependence